=== PATIENT | male | born 1945 | race Caucasian/White ===

== ENCOUNTER 2016-08-19 18:18 | Emergency (ER) | payer MEDICAID, OTHER ==
[2016-08-19 18:18] VITALS: BMI 27.4
[2016-08-19 18:30] VITALS: BP 147/72; PULSE 84; RESP 20; TEMP 98.5; O2SAT 100
--- NOTE | 2016-08-19 18:55 | ED PDOC ---
Lower Extremity Pain/Injury Time Seen by Provider: 08/19/16 18:31 Chief Complaint (Nursing): Lower Extremity Problem/Injury Chief Complaint (Provider): Lower Extremity Problem History Per: Patient History/Exam Limitations: no limitations Onset/Duration Of Symptoms: Days (3x) Current Symptoms Are (Timing): Still Present Severity: Moderate Additional Complaint(s): 71 year old male with a pertinent medical history of diabetes, hypertension, hypercholesterolemia, and kidney failure (on dialysis) presents to the ED with complaints of left left foot swelling and pain to the pinkie toe that started 3x days ago. He denies having nausea, vomiting, diarrhea, and a fever. No numbness, tingles, weakness. No fever. No calf pain. PMD: Sulaiman Gunn MD Past Medical History Reviewed: Historical Data, Nursing Documentation, Vital Signs Vital Signs: Last Vital Signs Temp 98.5 F 08/19/16 18:24 Pulse 84 08/19/16 18:24 Resp 20 08/19/16 18:24 BP 147/72 08/19/16 18:24 Pulse Ox 100 08/19/16 18:24 - Medical History PMH: Anemia, Diabetes, HTN, Hypercholesterolemia, Hypothyroidism, Chronic Kidney Disease Denies: Arthritis, CVA, Kidney Stones - Surgical History Surgical History: Appendectomy - Family History Family History: States: Unknown Family Hx - Social History Alcohol: None Drugs: Denies - Immunization History Hx Tetanus Toxoid Vaccination: No Hx Influenza Vaccination: Yes Hx Pneumococcal Vaccination: Yes - Home Medications Home Medications: Ambulatory Orders Medication Instructions Recorded Carvedilol [Coreg] 25 mg PO DAILY 08/02/15 Levothyroxine [Synthroid] 75 mcg PO DAILY 08/02/15 Amlodipine Besylate [Norvasc] 10 mg PO DAILY 09/27/15 Atorvastatin [Lipitor] 40 mg PO DAILY 09/27/15 Calcium Acetate [Phoslo] 667 mg PO TID 09/27/15 Folic Acid/Vit B Complex and C 1 tab PO DAILY 09/27/15 [Vanessa-Naima] Tramadol HCl/Acetaminophen 1 tab PO Q6 PRN 10/02/15 [Ultracet 325 mg-37.5 mg] - Allergies Allergies/Adverse Reactions: Allergies Allergy/AdvReac Type Severity Reaction Status Date / Time No Known Allergies Allergy Verified 08/19/16 18:24 Review of Systems ROS Statement: Except As Marked, All Systems Reviewed And Found Negative Constitutional: Negative for: Fever ENT: Negative for: Nose Discharge Gastrointestinal: Negative for: Nausea, Vomiting, Abdominal Pain, Diarrhea Musculoskeletal: Positive for: Foot Pain (left toe) Physical Exam - Reviewed Nursing Documentation Reviewed: Yes Vital Signs Reviewed: Yes - Physical Exam Appears: Positive for: Well, Non-toxic, No Acute Distress Head Exam: Positive for: ATRAUMATIC, NORMOCEPHALIC Skin: Positive for: Normal Color, Warm, Dry Cardiovascular/Chest: Positive for: Regular Rate, Rhythm Respiratory: Positive for: Normal Breath Sounds. Negative for: Respiratory Distress Pulses-Dorsalis Pedis (L): 2+ Pulses-Dorsalis Pedis (R): 2+ Extremity: Positive for: Normal ROM, Tenderness, Swelling (left foot swelling, pulses are present), Other (left foot 5th digit: blisteration on medial surface and tenderness, distal. ) Neurologic/Psych: Positive for: Alert, Oriented (3x) - ECG O2 Sat by Pulse Oximetry: 100 (RA) Pulse Ox Interpretation: Normal - Radiology X-Ray: Interpreted by Me, Viewed By Me X-Ray Interpretation: No Acute Disease - Progress ED Course And Treament: 931: Stable. AAOx3. Podiatry saw pt. Fu with podiatry. Pain controlled. Ambulating. Medical Decision Making Medical Decision Makin:31 Initial impression: 71 year old male with left foot swelling and pain. Initial plan: * XRay foot left 3 view * US duplex lower extremity vein left * morphine 2mg IM * reevaluation Scribe Attestation: Documented by Krissy Naylor, acting as a scribe for Wally Arias MD. Provider Scribe Attestation: All medical record entries made by the Scribe were at my direction and personally dictated by me. I have reviewed the chart and agree that the record accurately reflects my personal performance of the history, physical exam, medical decision making, and the department course for this patient. I have also personally directed, reviewed, and agree with the discharge instructions and disposition. Disposition - Clinical Impression Clinical Impression: Ulcer of toe - Patient ED Disposition Is Patient to be Admitted: No Counseled Patient/Family Regarding: Diagnosis, Need For Followup - Disposition Referrals: Steve Plummer MD [Primary Care Provider] - 08/20/16 Bandar Hoskins DPM [Staff Provider] - 08/20/16 Disposition: Routine/Home Disposition Time: 21:32 Condition: STABLE Additional Instructions: Return if not better in 3 days. Instructions: Diabetic Foot Care (ED), Pressure Ulcer (ED) Print Language: AFGHAN
--- NOTE | 2016-08-19 20:58 | CP.PCM.CON ---
History of Present Illness - History of Present Illness History of Present Illness: Patient presents to ED due to left foot 5th digit ulceration. States he noticed the ulceration today while he was at his PCP office. Denies any pain to the area 0/10. Denies any drainage or malodor from the area. Has not sought any form of treatment before coming to ED. States he sees Dr. Borrego for routine DM foot care, and mentions history of contralateral foot infection. Denies C/N/V/ SOB, but does admit to feeling feverish at present. Review of Systems - Constitutional Constitutional: As Per HPI Past Patient History - Past Medical History & Family History Past Medical History?: Yes - Past Social History Alcohol: None Drugs: Denies - CARDIAC Hx Hypercholesterolemia: Yes Hx Hypertension: Yes - PULMONARY Hx Respiratory Disorders: No - NEUROLOGICAL Hx Neurological Disorder: No - HEENT Hx HEENT Problems: No - RENAL Hx Chronic Kidney Disease: Yes Hx Kidney Stones: No - ENDOCRINE/METABOLIC Hx Hypothyroidism: Yes - HEMATOLOGICAL/ONCOLOGICAL Hx Anemia: Yes - INTEGUMENTARY Hx Dermatological Problems: No - MUSCULOSKELETAL/RHEUMATOLOGICAL Hx Arthritis: No - GASTROINTESTINAL Hx Gastrointestinal Disorders: No - GENITOURINARY/GYNECOLOGICAL Hx Genitourinary Disorders: No - PSYCHIATRIC Hx Substance Use: No - SURGICAL HISTORY Hx Appendectomy: Yes - ANESTHESIA Hx Anesthesia: Yes Hx Anesthesia Reactions: No Hx Malignant Hyperthermia: No Meds Allergies/Adverse Reactions: Allergies Allergy/AdvReac Type Severity Reaction Status Date / Time No Known Allergies Allergy Verified 08/19/16 18:24 Physical Exam - Constitutional Appears: No Acute Distress - Extremities Exam Additional comments: LLE exam: Vascular: Dp and PT pulses 2/4, CFT <sec, temperature warm to touch B/L. Derm: Partial thickness ulceration at distal medial 5th digit measuring approximately 1.0x0.7x0.5cm, no drainage, mild malodor, no purulence, no probe to bone. Surrounding skin with adjacent erythema, warmth and edema extending < 2cm proximal. Diffuse xerosis. Neuro: Protective sensation diminished, light touch sensation intact. MSK: No gross andre deformities. - Neurological Exam Neurological exam: Alert, Oriented x3 - Additional Findings Additional findings: Left foot radiograph: No signs of soft tissue emphysema. No signs of osteomyelitis. Results - Vital Signs Recent Vital Signs: Last Vital Signs Temp 98.5 F 08/19/16 18:24 Pulse 84 08/19/16 18:24 Resp 20 08/19/16 18:24 BP 147/72 08/19/16 18:24 Pulse Ox 100 08/19/16 20:48 Assessment & Plan - Assessment and Plan (Free Text) Assessment: 71 y/o male with DM presents with left foot 5th digit ulceration. Plan: -evaluated and treated with all questions addressed and answered. -discussed with Dr. Hoskins. -hyperkeratotic ulcer borders excisonally debrided with 15-blade down to healthy bleeding dermis. -ulcer cleansed with betadine, dressed with betadine, DSD, cling. -Advised to keep bandage clean, dry and intact. -advised to follow up in one week with Dr. Hoskins. -educated on importance of routine follow up, and the risks and complications of diabetic foot infections.
--- NOTE | 2016-08-19 21:27 | US ---
EXAM: US Duplex Left Lower Extremity Veins CLINICAL HISTORY: 71 years old, male; Pain; Leg, upper; Left; Additional info: R/O dvt TECHNIQUE: Real-time ultrasound scan of the veins of the left lower extremity with color Doppler flow, spectral waveform analysis and compression. COMPARISON: No relevant prior studies available. FINDINGS: Deep veins: Normal color and spectral Doppler flow. Normal compressibility. No deep vein thrombosis from common femoral to popliteal vein. Superficial veins: No thrombosis. Soft tissues: No popliteal cyst. IMPRESSION: 1. No evidence of DVT within LEFT lower extremity. 2. Incidental/non-acute findings are described above.
--- NOTE | 2016-08-20 14:04 | RAD ---
PROCEDURE: Left Foot Radiographs. HISTORY: pain and blister toe 5 COMPARISON: None. FINDINGS: BONES: Normal. No fracture. JOINTS: Normal. SOFT TISSUES: Normal. OTHER FINDINGS: None. IMPRESSION: No acute findings related to/accounting for the clinical presentation.
== END 2016-08-19 21:50 | disposition home or self-care (01) ==
LOC: H.ER 18:18
DX: L97.529 Non-pressure chronic ulcer of other part of left foot with unspecified severity (principal); E78.00 Pure hypercholesterolemia, unspecified; I12.9 Hypertensive chronic kidney disease with stage 1 through stage 4 chronic kidney disease, or unspecified chronic kidney disease; N18.9 Chronic kidney disease, unspecified; E11.9 Type 2 diabetes mellitus without complications; E03.9 Hypothyroidism, unspecified
CPT/HCPCS: 73630; 93971; 96372; 99283; J2270

== ENCOUNTER 2017-01-26 07:18 | Inpatient (IN) | payer OTHER ==
[2017-01-26 07:19] VITALS: BMI 27.4
--- NOTE | 2017-01-26 08:22 | ED PDOC ---
HPI: SOB/CHF/COPD Time Seen by Provider: 01/26/17 07:31 Chief Complaint (Nursing): Shortness Of Breath Chief Complaint (Provider): Cough History Per: Patient History/Exam Limitations: no limitations Onset/Duration Of Symptoms: Other (4 months) Additional Complaint(s): Patient is a 71 y/o male with a past medical history of hypertension, diabetes, and hypercholesterolemia presenting to the emergency department for a persistent , dry cough ongoing for four months. Notes occasional chest pain during cough and denies taking any medication to relieve symptoms. Denies sputum, shortness of breath, fever, leg swelling, or other complaints. PCP: none provided. Past Medical History Reviewed: Historical Data, Nursing Documentation, Vital Signs Vital Signs: Last Vital Signs Temp 98.5 F 01/27/17 17:02 Pulse 89 01/27/17 17:02 Resp 16 01/27/17 17:02 BP 139/64 01/27/17 17:02 Pulse Ox 92 L 01/27/17 17:02 - Medical History PMH: Anemia, Diabetes, HTN, Hypercholesterolemia, Hypothyroidism, Chronic Kidney Disease Denies: Arthritis, CVA, Kidney Stones Other PMH: HD MWF - Surgical History Surgical History: Appendectomy - Family History Family History: States: Unknown Family Hx - Social History Current smoker - smoking cessation education provided: No Ex-Smoker (has not smoked in the last 12 months): No Alcohol: None Drugs: Denies - Immunization History Hx Tetanus Toxoid Vaccination: No Hx Influenza Vaccination: Yes Hx Pneumococcal Vaccination: Yes - Home Medications Home Medications: Ambulatory Orders Medication Instructions Recorded Allopurinol [Zyloprim] 100 mg PO DAILY 01/26/17 Aspirin [Ecotrin] 81 mg PO DAILY 01/26/17 Atorvastatin [Lipitor] 20 mg PO DAILY 01/26/17 Cilostazol [Pletal] 50 mg PO DAILY 01/26/17 Ergocalciferol (Vitamin D2) 50,000 unit PO QWK 01/26/17 [Vitamin D2] Famotidine [Pepcid] 20 mg PO DAILY 01/26/17 Levothyroxine [Synthroid] 75 mcg PO DAILY 01/26/17 SITagliptin [Januvia] 50 mg PO DAILY 01/26/17 Sevelamer Carbonate [Renvela] 1,600 mg PO TID 01/26/17 amLODIPine [Norvasc] 5 mg PO DAILY 01/26/17 - Allergies Allergies/Adverse Reactions: Allergies Allergy/AdvReac Type Severity Reaction Status Date / Time No Known Allergies Allergy Verified 01/26/17 07:32 Review of Systems ROS Statement: Except As Marked, All Systems Reviewed And Found Negative Constitutional: Negative for: Fever Cardiovascular: Positive for: Chest Pain (occasional, during cough) Respiratory: Positive for: Cough (dry, persistent). Negative for: Shortness of Breath Musculoskeletal: Negative for: Other (leg swelling) Physical Exam - Reviewed Nursing Documentation Reviewed: Yes Vital Signs Reviewed: Yes - Physical Exam Appears: Positive for: Well, Non-toxic, No Acute Distress Head Exam: Positive for: ATRAUMATIC, NORMAL INSPECTION, NORMOCEPHALIC Skin: Positive for: Normal Color, Warm, Dry Eye Exam: Positive for: Normal appearance ENT: Positive for: Normal ENT Inspection Neck: Positive for: Normal Cardiovascular/Chest: Positive for: Regular Rate, Rhythm. Negative for: Murmur Respiratory: Positive for: Normal Breath Sounds. Negative for: Accessory Muscle Use, Respiratory Distress Gastrointestinal/Abdominal: Positive for: Normal Exam Back: Positive for: Normal Inspection Extremity: Positive for: Normal ROM. Negative for: Pedal Edema Neurologic/Psych: Positive for: Alert, Oriented (x3) - Laboratory Results Result Diagrams: 01/26/17 08:36 01/27/17 04:20 - ECG ECG: Positive for: Interpreted By Me, Viewed By Ct ECG Rhythm: Positive for: Normal QRS, Sinus Rhythm. Negative for: ST/T Changes Rate: 100 O2 Sat by Pulse Oximetry: 98 (RA) Pulse Ox Interpretation: Normal Medical Decision Making Medical Decision Making: Time: 08:18 Initial impression: Cough Differential diagnoses include but not limited to chronic obstructive pulmonary disease and pneumonia. Initial plan: EKG Labs Chest X-ray Blood Culture Reevaluation 09:03 Chest X-ray reviewed. Findings noted as follows: FINDINGS: Prior right central venous dialysis catheter is been removed. LUNGS: Trace patchy density is question at the bilateral inferior lung zones. PLEURA: No significant pleural effusion identified. No pneumothorax apparent. CARDIOVASCULAR: Cardiac silhouette appears upper limits normal size with mild pulmonary venous congestion pattern suggested. Interstitial markings are increased at the bases very mildly. OSSEOUS STRUCTURES: No significant abnormalities. VISUALIZED UPPER ABDOMEN: Normal. OTHER FINDINGS: None. IMPRESSION: 1. Limited bilateral airspace disease in question at the bases medially. 2. Mild pulmonary venous congestion suggested. Cardiac size upper limits normal. Further clinical correlation is advised. 10:[address] without contrast ordered. 11:54 Placed consult for nephrology. Chest CT reviewed. Findings noted as follows: LUNGS: Ground-glass opacities appreciated at the upper and lower lobes very mildly and also affects the right middle lobe somewhat as well as dependent interlobular septal thickening, particularly at the bilateral lower lobes. MEDIASTINUM: Unremarkable thoracic aorta. No aneurysm. There is mild cardiomegaly and the pulmonary veins appear somewhat dilated compared to the substance abuse specialist airways in a pattern that may indicate CHF. Main pulmonary artery unremarkable. Mild left hilar adenopathy including lymph node measuring 2.1 x 0.8 cm. PLEURA: Trace left pleural effusion. None is seen the right. No pericardial effusion. No pneumothorax. BONES: No fracture. No destructive lesion. UPPER ABDOMEN: Nonspecific streaky perinephric changes are identified bilaterally. OTHER FINDINGS: None. IMPRESSION: Findings likely reflect mild CHF though interstitial pulmonary disease not completely excluded on acute or subacute basis. No definitive alveolitis. Mild left hilar adenopathy. Cardiomegaly is noted as discussed above. [id number] Santana who will arrange for emergent dialysis. Scribe Attestation: Documented by Susan Gastelum, acting as a scribe for Juhi Sanchez MD. Provider Scribe Attestation: All medical record entries made by the Scribe were at my direction and personally dictated by me. I have reviewed the chart and agree that the record accurately reflects my personal performance of the history, physical exam, medical decision making, and the department course for this patient. I have also personally directed, reviewed, and agree with the discharge instructions and disposition. Disposition - Clinical Impression Clinical Impression: Acute on chronic renal failure, Hyperkalemia - Patient ED Disposition Is Patient to be Admitted: Yes Discussed With : Chloe Espinoza Counseled Patient/Family Regarding: Studies Performed, Diagnosis - Disposition Disposition Time: 11:39 Condition: FAIR - Pt Status Changed To: Hospital Disposition Of: Inpatient - Admit Certification Admit to Inpatient:: After my assessment, the patient will require hospitalization for at least two midnights. This is because of the severity of symptoms shown, intensity of services needed, and/or the medical risk in this patient being treated as an outpatient. - POA Present On Arrival: Poor Glycemic Control
[2017-01-26 08:47] LABS: BASO % 0.5 % (0.0-2.0); EOS # 0.1 K/uL (0.0-0.7); EOS % 1.4 % (0.0-4.0); HEMATOCRIT 32.9 % (35.0-51.0); LYMPH # 0.8 K/uL (1.0-4.3); MEAN CORPUSCULAR HGB CONC 32.2 g/dL (33.0-37.0); MEAN PLATELET VOLUME 9.4 fl (7.2-11.7); MONO # 0.8 K/uL (0.0-0.8); MONO % 8.3 % (0.0-10.0); NEUT # 7.4 K/uL (1.8-7.0); NEUT % 80.8 % (50.0-75.0); PLATELET COUNT 135 K/uL (130-400)
[2017-01-26 08:55] LABS: CALCIUM 9.7 mg/dL (8.4-10.2)
[2017-01-26 08:59] LABS: WHITE BLOOD COUNT 9.2 K/uL (4.8-10.8)
--- NOTE | 2017-01-26 09:04 | RAD ---
HISTORY: cough COMPARISON: Chest radiographs 09/27/2015. TECHNIQUE: Chest PA and lateral FINDINGS: Prior right central venous dialysis catheter is been removed. LUNGS: Trace patchy density is question at the bilateral inferior lung zones. PLEURA: No significant pleural effusion identified. No pneumothorax apparent. CARDIOVASCULAR: Cardiac silhouette appears upper limits normal size with mild pulmonary venous congestion pattern suggested. Interstitial markings are increased at the bases very mildly. OSSEOUS STRUCTURES: No significant abnormalities. VISUALIZED UPPER ABDOMEN: Normal. OTHER FINDINGS: None. IMPRESSION: 1. Limited bilateral airspace disease in question at the bases medially. 2. Mild pulmonary venous congestion suggested. Cardiac size upper limits normal. Further clinical correlation is advised.
[2017-01-26 09:05] LABS: POTASSIUM 6.4 MMOL/L (3.6-5.0)
[2017-01-26] MEDS ORDERED: Albuterol 0.083% Inhal Sol (2.5 mg/3 mL) UD INH STA (10:20)
[2017-01-26] MEDS ORDERED: Dextrose 50% SYRINGE Inj (50 ml) IVP ONE (10:20)
[2017-01-26] MEDS ORDERED: Insulin Regular 100 units/ml IV STA (10:20)
[2017-01-26] MEDS ORDERED: Sod Polystyrene Sulf 15 gm/60 ml Susp PO ONE (10:21)
[2017-01-26] MEDS ORDERED: cefTRIAXone IV 1 gm in Dextros 50 ML IVPB STA (11:47)
--- NOTE | 2017-01-26 11:55 | CT ---
PROCEDURE: CT Chest without contrast HISTORY: cough chest pain COMPARISON: Chest CT with contrast 05/04/2012. TECHNIQUE: Contiguous axial images were obtained through the chest without intravenous contrast enhancement. Sagittal and coronal reconstructions were performed. Radiation dose (DLP): 684.10 mGy-cm. This CT exam was performed using one or more of the following dose reduction techniques: Automated exposure control, adjustment of the mA and/or kV according to patient size, and/or use of iterative reconstruction technique. FINDINGS: LUNGS: Ground-glass opacities appreciated at the upper and lower lobes very mildly and also affects the right middle lobe somewhat as well as dependent interlobular septal thickening, particularly at the bilateral lower lobes. MEDIASTINUM: Unremarkable thoracic aorta. No aneurysm. There is mild cardiomegaly and the pulmonary veins appear somewhat dilated compared to the early head start director airways in a pattern that may indicate CHF. Main pulmonary artery unremarkable. Mild left hilar adenopathy including lymph node measuring 2.1 x 0.8 cm. PLEURA: Trace left pleural effusion. None is seen the right. No pericardial effusion. No pneumothorax. BONES: No fracture. No destructive lesion. UPPER ABDOMEN: Nonspecific streaky perinephric changes are identified bilaterally. OTHER FINDINGS: None. IMPRESSION: Findings likely reflect mild CHF though interstitial pulmonary disease not completely excluded on acute or subacute basis. No definitive alveolitis. Mild left hilar adenopathy. Cardiomegaly is noted as discussed above.
[2017-01-26] MEDS ORDERED: Azithromycin 500 MG in Sodium Chloride 0.9% 250 ML IVPB STA (12:28)
[2017-01-26 12:39] LABS: EOSINOPHIL 1 % (0-7); NEUTROPHIL 83 % (42-75); TOTAL CELLS COUNTED 100
[2017-01-26 12:40] LABS: LARGE PLATELETS PRESENT; SPHEROCYTES SLIGHT
[2017-01-26] MEDS ORDERED: Ergocalciferol 50,000 Intl Units Cap PO SCH (13:15)
--- NOTE | 2017-01-26 14:45 | CP.PCM.HP ---
History of Present Illness - History of Present Illness History of Present Illness: 71 y/o with PMHx of Diabetes, HTN, Hypercholesterolemia, Hypothyroidism, Chronic Kidney Disease seen at bedside complaining of persistent, dry cough ongoing for few months. Patient states that he sometimes feels pain in his chest when he coughs. Patient states that he has not seen any sputum production with the coughs. Patient denies of any recent onset of F/N/V/C/SOB. Patient states that he came to get the x-rays in the ED and they asked him to get admitted from there. Patient states that he has been admitted to the hospital previously for reasons for which he can not remember. Patient states that he gets dialysis 3 times a week and was suppose to receive it today but has not had it yet. Patient denies of any recent headache or upper respiratory symptoms. Patient denies of any other complains at this time. 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 Allergies: N.K.D.A SHx: Denies smoking, EtOH use or illicit drug usage FHx: Father: Heart condition (), Mother: Diabetes (), history of unknown cancer in family Present on Admission - Present on Admission Any Indicators Present on Admission: Yes Review of Systems - Constitutional Constitutional: As Per HPI Past Patient History - Past Medical History & Family History Past Medical History?: Yes - Past Social History Alcohol: None Drugs: Denies - CARDIAC Hx Hypercholesterolemia: Yes Hx Hypertension: Yes - PULMONARY Hx Respiratory Disorders: No - NEUROLOGICAL Hx Neurological Disorder: No - HEENT Hx HEENT Problems: No - RENAL Hx Chronic Kidney Disease: Yes Hx Kidney Stones: No - ENDOCRINE/METABOLIC Hx Diabetes Mellitus Type 2: Yes Hx Hypothyroidism: Yes - HEMATOLOGICAL/ONCOLOGICAL Hx Anemia: Yes - INTEGUMENTARY Hx Dermatological Problems: No - MUSCULOSKELETAL/RHEUMATOLOGICAL Hx Arthritis: No - GASTROINTESTINAL Hx Gastrointestinal Disorders: No - GENITOURINARY/GYNECOLOGICAL Hx Genitourinary Disorders: No - PSYCHIATRIC Hx Psychophysiologic Disorder: No Hx Emotional Abuse: No Hx Physical Abuse: No Hx Substance Use: No - SURGICAL HISTORY Hx Appendectomy: Yes - ANESTHESIA Hx Anesthesia: Yes Hx Anesthesia Reactions: No Hx Malignant Hyperthermia: No Meds Allergies/Adverse Reactions: Allergies Allergy/AdvReac Type Severity Reaction Status Date / Time No Known Allergies Allergy Verified 01/26/17 07:32 Physical Exam - Constitutional Appears: Well - Head Exam Head Exam: ATRAUMATIC - Eye Exam Eye Exam: EOMI, Normal appearance - ENT Exam ENT Exam: Mucous Membranes Moist - Neck Exam Neck exam: Positive for: Full Rom, Normal Inspection - Respiratory Exam Respiratory Exam: Clear to Auscultation Bilateral, NORMAL BREATHING PATTERN - Cardiovascular Exam Cardiovascular Exam: Tachycardia, REGULAR RHYTHM - GI/Abdominal Exam GI & Abdominal Exam: Normal Bowel Sounds, Soft - Extremities Exam Extremities exam: Positive for: full ROM, normal capillary refill, normal inspection, pedal edema - Back Exam Back exam: FULL ROM, NORMAL INSPECTION - Neurological Exam Neurological exam: Alert, Oriented x3 - Psychiatric Exam Psychiatric exam: Normal Affect, Normal Mood - Skin Skin Exam: Intact, Normal Color, Warm Results - Vital Signs Recent Vital Signs: Last Vital Signs Temp 97 F L 01/26/17 12:20 Pulse 100 H 01/26/17 12:29 Resp 19 01/26/17 12:17 BP 170/80 H 01/26/17 12:20 Pulse Ox 98 01/26/17 12:29 - Labs Result Diagrams: 01/26/17 08:36 01/26/17 09:41 Labs: Laboratory Results - last 24 hr 01/26/17 01/26/17 01/26/17 08:36 08:36 09:41 WBC 9.2 D RBC 3.54 L Hgb 10.6 L Hct 32.9 L MCV 93.0 D MCH 30.0 MCHC 32.2 L RDW 17.0 H Plt Count 135 MPV 9.4 Neut % (Auto) 80.8 H Lymph % (Auto) 9.0 L [place] % (Auto) 8.3 Eos % (Auto) 1.4 Baso % (Auto) 0.5 Neut # 7.4 H Lymph # 0.8 L [place] # 0.8 Eos # 0.1 Baso # 0.0 Neutrophils % (Manual) 83 H Lymphocytes % (Manual) 8 L Monocytes % (Manual) 8 Eosinophils % (Manual) 1 Platelet Estimate Slightly decreased L Large Platelets Present Anisocytosis (manual) Slight Macrocytosis (manual) Slight Spherocytes Slight Ovalocytes Moderate Sodium 140 Potassium 6.4 H* D 6.1 H Chloride 100 Carbon Dioxide 25 Anion Gap 21 H BUN 65 H Creatinine 10.8 H* Est GFR ( Amer) 6 Est GFR (Non-Af Amer) 5 Random Glucose 148 H Calcium 9.7 Assessment & Plan - Assessment and Plan (Free Text) Assessment: 71 y/o with PMHx of Diabetes, HTN, Hypercholesterolemia, Hypothyroidism, Chronic Kidney Disease seen and evaluated for hyperkalemia and dry cough Plan: 1). Hyperkalemia - ECG done in the ED - Normal QRS, sinus rhythm - CXR: -1. Limited bilateral airspace disease in question at the bases medially. -2. Mild pulmonary venous congestion suggested. Cardiac size upper limits normal. Further clinical correlation is advised - Chest CT: - Findings likely reflect mild CHF though interstitial pulmonary disease not completely excluded on acute or subacute basis. No definitive alveolitis. Mild left hilar adenopathy. Cardiomegaly is noted. - Monitor BMP - K @ 6.1 - Calcium gluconate IV - Dialysis later today - Status: Acute 2). Dry cough - d/c BARBARA inhibitor, cough possibly due to BARBARA inhibitors - Status: Chronic 3). Diabetes - Sitagliptin 25 mg PO qd - Status: Chronic 4). HTN - Amlodipine 5 mg PO qd - Status: Chronic 5). Hypercholesterolemia - Atorvastatin 20 mg PO - Status: Chronic 6). Hypothyroidism - Levothyroxine 75 mcg PO qd - Status: Chronic 7). DVT Prophylaxis - Heparin 5000 q12 SC - Status: Acute - Date & Time Date: 01/26/17 Time: 14:50
--- NOTE | 2017-01-26 17:31 | CP.PCM.CON ---
History of Present Illness - History of Present Illness History of Present Illness: REASONS FOR CONSULT : ESRD ON HD M W F HYPERKALEMIA .. K 6.1 FLIUD OVER LOAD .. BNP > 42.000 ANEMIA OF CKD .. H/H STABLE PT IS WELL KNOWN TO ME FROM OFFICE , [facility] ALL EMR REVIEWED .. PT WAS SEEN ON HD .. SEEN AND EXAMINED 71 y/o with PMHx of Diabetes, HTN, Hypercholesterolemia, Hypothyroidism, Chronic Kidney Disease seen at bedside complaining of persistent, dry cough ongoing for few months. Patient states that he sometimes feels pain in his chest when he coughs. Patient states that he has not seen any sputum production with the coughs. Patient denies of any recent onset of F/N/V/C/SOB. Patient states that he came to get the x-rays in the ED and they asked him to get admitted from there. Patient states that he has been admitted to the hospital previously for reasons for which he can not remember. Patient states that he gets dialysis 3 times a week and was suppose to receive it today but has not had it yet. Patient denies of any recent headache or upper respiratory symptoms. Patient denies of any other complains at this time. 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 Allergies: N.K.D.A SHx: Denies smoking, EtOH use or illicit drug usage FHx: Father: Heart condition (), Mother: Diabetes (), history of unknown cancer in family Present on Admission Past Patient History - Past Medical History & Family History Past Medical History?: Yes - Past Social History Alcohol: None Drugs: Denies - CARDIAC Hx Hypercholesterolemia: Yes Hx Hypertension: Yes - PULMONARY Hx Respiratory Disorders: No - NEUROLOGICAL Hx Neurological Disorder: No - HEENT Hx HEENT Problems: No - RENAL Hx Chronic Kidney Disease: Yes Hx Kidney Stones: No - ENDOCRINE/METABOLIC Hx Diabetes Mellitus Type 2: Yes Hx Hypothyroidism: Yes - HEMATOLOGICAL/ONCOLOGICAL Hx Anemia: Yes - INTEGUMENTARY Hx Dermatological Problems: No - MUSCULOSKELETAL/RHEUMATOLOGICAL Hx Arthritis: No - GASTROINTESTINAL Hx Gastrointestinal Disorders: No - GENITOURINARY/GYNECOLOGICAL Hx Genitourinary Disorders: No - PSYCHIATRIC Hx Psychophysiologic Disorder: No Hx Emotional Abuse: No Hx Physical Abuse: No Hx Substance Use: No - SURGICAL HISTORY Hx Appendectomy: Yes - ANESTHESIA Hx Anesthesia: Yes Hx Anesthesia Reactions: No Hx Malignant Hyperthermia: No Meds Allergies/Adverse Reactions: Allergies Allergy/AdvReac Type Severity Reaction Status Date / Time No Known Allergies Allergy Verified 01/26/17 07:32 - Medications Medications: Current Medications Allopurinol (Zyloprim) 100 mg PO DAILY [facility] Amlodipine Besylate (Norvasc) 5 mg PO DAILY [facility] Aspirin (Ecotrin) 81 mg PO DAILY [facility] Atorvastatin Calcium (Lipitor) 20 mg PO HS [facility] Cilostazol (Pletal) 50 mg PO DAILY [facility] Ergocalciferol (Drisdol 50,000 Intl Units Cap) 1 cap PO QWK [facility] Famotidine (Pepcid) 20 mg PO DAILY [facility] Heparin Sodium (Porcine) (Heparin) 5,000 units SC Q12 [facility] PRN Reason: Protocol Levothyroxine Sodium (Synthroid) 75 mcg PO DAILY@0630 [facility] Sevelamer HCl (Renagel) 1,600 mg PO TID [facility] Last Admin: 01/26/17 17:03 Dose: Not Given Sitagliptin Phosphate (Januvia) 25 mg PO DAILY [facility] Last Admin: 01/26/17 17:03 Dose: Not Given Results - Vital Signs Recent Vital Signs: Last Vital Signs Temp 99.8 F H 01/26/17 15:57 Pulse 98 H 01/26/17 15:57 Resp 20 01/26/17 15:57 BP 162/82 H 01/26/17 15:57 Pulse Ox 99 01/26/17 15:57 - Labs Result Diagrams: 01/26/17 08:36 01/26/17 09:41 Labs: Laboratory Results - last 24 hr 01/26/17 01/26/17 01/26/17 08:36 08:36 09:41 WBC 9.2 D RBC 3.54 L Hgb 10.6 L Hct 32.9 L MCV 93.0 D MCH 30.0 MCHC 32.2 L RDW 17.0 H Plt Count 135 MPV 9.4 Neut % (Auto) 80.8 H Lymph % (Auto) 9.0 L Luce % (Auto) 8.3 Eos % (Auto) 1.4 Baso % (Auto) 0.5 Neut # 7.4 H Lymph # 0.8 L Luce # 0.8 Eos # 0.1 Baso # 0.0 Neutrophils % (Manual) 83 H Lymphocytes % (Manual) 8 L Monocytes % (Manual) 8 Eosinophils % (Manual) 1 Platelet Estimate Slightly decreased L Large Platelets Present Anisocytosis (manual) Slight Macrocytosis (manual) Slight Spherocytes Slight Ovalocytes Moderate APTT Sodium 140 Potassium 6.4 H* D 6.1 H Chloride 100 Carbon Dioxide 25 Anion Gap 21 H BUN 65 H Creatinine 10.8 H* Est GFR ( Amer) 6 Est GFR (Non-Af Amer) 5 Random Glucose 148 H Calcium 9.7 NT-Pro-B Natriuret Pep 06656 H 01/26/17 14:00 WBC RBC Hgb Hct MCV MCH MCHC RDW Plt Count MPV Neut % (Auto) Lymph % (Auto) Luce % (Auto) Eos % (Auto) Baso % (Auto) Neut # Lymph # Luce # Eos # Baso # Neutrophils % (Manual) Lymphocytes % (Manual) Monocytes % (Manual) Eosinophils % (Manual) Platelet Estimate Large Platelets Anisocytosis (manual) Macrocytosis (manual) Spherocytes Ovalocytes APTT 28.0 Sodium Potassium Chloride Carbon Dioxide Anion Gap BUN Creatinine Est GFR ( Amer) Est GFR (Non-Af Amer) Random Glucose Calcium NT-Pro-B Natriuret Pep Assessment & Plan - Assessment and Plan (Free Text) Assessment: ESRD ON HD M W F .. GETTING HIS HD NOW HYPERKALEMIA .. ON HD NOW FLIUD OVER LOAD .. ON HD NOW .. UF 4 L SONJA MULTIPLE CO MORBIDITIES P : STAT HD .. PT IS GETTING HD NOW C/O CURRENT CARE - Date & Time Date: 01/26/17 Time: 13:00
[2017-01-26 19:21] LABS: ALB/GLOB RATIO 1.2 (1.0-2.1); BILIRUBIN,TOTAL 0.6 mg/dl (0.2-1.3); CALCIUM 9.6 mg/dL (8.4-10.2); TOTAL PROTEIN 8.1 G/DL (6.3-8.2)
[2017-01-26 19:53] LABS: POTASSIUM 3.8 MMOL/L (3.6-5.0)
[2017-01-27] MEDS ORDERED: Levothyroxine 75 MCG TAB PO SCH (06:30)
[2017-01-27 07:03] LABS: POTASSIUM 4.8 MMOL/L (3.6-5.0)
--- NOTE | 2017-01-27 08:07 | CP.PCM.PN ---
Subjective - Date & Time of Evaluation Date of Evaluation: 01/27/17 Time of Evaluation: 08:05 - Subjective Subjective: 71 y/o male seen and evaluated 1 day s/p dialysis. Patient states that he is feeling a lot better. Patient states that he had little pain in his stomach before the dialysis which has been resolved now. Patient denies of any acute overnight events. Patient denies of any F/N/V/C/shortness of breath/chest pain/ headache/coughing today. Patient denies of any other complains at this time and states that he feels well. Objective - Vital Signs/Intake and Output Vital Signs (last 24 hours): Temp Pulse Resp BP Pulse Ox 98.2 F 95 H 18 129/62 92 L 01/27/17 05:06 01/27/17 05:06 01/27/17 05:06 01/27/17 05:06 01/27/17 05:06 - Medications Medications: Current Medications Acetaminophen (Tylenol 325mg Tab) 650 mg PO Q6 PRN PRN Reason: Fever >100.4 F Last Admin: 01/26/17 21:04 Dose: 650 mg Allopurinol (Zyloprim) 100 mg PO DAILY [facility] Amlodipine Besylate (Norvasc) 5 mg PO DAILY [facility] Aspirin (Ecotrin) 81 mg PO DAILY [facility] Atorvastatin Calcium (Lipitor) 20 mg PO HS [facility] Last Admin: 01/26/17 21:04 Dose: 20 mg Cilostazol (Pletal) 50 mg PO DAILY [facility] Ergocalciferol (Drisdol 50,000 Intl Units Cap) 1 cap PO QWK [facility] Famotidine (Pepcid) 20 mg PO DAILY [facility] Heparin Sodium (Porcine) (Heparin) 5,000 units SC Q12 [facility] PRN Reason: Protocol Last Admin: 01/26/17 21:04 Dose: 5,000 units Levothyroxine Sodium (Synthroid) 75 mcg PO DAILY@0630 [facility] Last Admin: 01/27/17 06:13 Dose: 75 mcg Sevelamer HCl (Renagel) 1,600 mg PO TID [facility] Last Admin: 01/26/17 17:03 Dose: Not Given Sitagliptin Phosphate (Januvia) 25 mg PO DAILY [facility] Last Admin: 01/26/17 17:03 Dose: Not Given - Labs Labs: 01/26/17 08:36 01/27/17 04:20 APTT 28.0 Seconds (25.6-37.1) 01/26/17 14:00 - Constitutional Appears: Well, Non-toxic, No Acute Distress - Head Exam Head Exam: ATRAUMATIC - Eye Exam Eye Exam: EOMI, Normal appearance - ENT Exam ENT Exam: Mucous Membranes Moist, Normal Exam - Neck Exam Neck Exam: Full ROM, Normal Inspection - Respiratory Exam Respiratory Exam: Clear to Ausculation Bilateral, NORMAL BREATHING PATTERN - Cardiovascular Exam Cardiovascular Exam: Tachycardia - GI/Abdominal Exam GI & Abdominal Exam: Soft, Normal Bowel Sounds - Extremities Exam Extremities Exam: Full ROM, Normal Capillary Refill, Normal Inspection. absent : Calf Tenderness, Pedal Edema - Neurological Exam Neurological Exam: Alert, Awake, Oriented x3 - Psychiatric Exam Psychiatric exam: Normal Affect, Normal Mood - Skin Skin Exam: Dry, Intact, Normal Color, Warm Assessment and Plan - Assessment and Plan (Free Text) Assessment: 71 y/o with PMHx of Diabetes, HTN, Hypercholesterolemia, Hypothyroidism, Chronic Kidney Disease seen and evaluated for hyperkalemia and dry cough Plan: 1). Hyperkalemia - ECG done in the ED - Normal QRS, sinus rhythm - CXR: -1. Limited bilateral airspace disease in question at the bases medially. -2. Mild pulmonary venous congestion suggested. Cardiac size upper limits normal. Further clinical correlation is advised - Chest CT: - Findings likely reflect mild CHF though interstitial pulmonary disease not completely excluded on acute or subacute basis. No definitive alveolitis. Mild left hilar adenopathy. Cardiomegaly is noted. - Calcium gluconate IV one dose on 01/26 - Monitor BMP - K @ 4.8 (yesterday, prior to dialysis @ 6.1) - Dialysis on 01/26 - Dr. Santana on board. Well known patient to him. Patient to receive HD M W F. - Status: Acute 2). Dry cough - d/c BARBARA inhibitor, cough possibly due to BARBARA inhibitors - Status: Resolved 3). Diabetes - Sitagliptin 25 mg PO qd - Status: Chronic 4). HTN - Amlodipine 5 mg PO qd - Status: Chronic 5). Hypercholesterolemia - Atorvastatin 20 mg PO - Status: Chronic 6). Hypothyroidism - Levothyroxine 75 mcg PO qd - Status: Chronic 7). DVT Prophylaxis - Heparin 5000 q12 SC - Status: Acute
--- NOTE | 2017-01-27 08:32 | CARD ---
APPROVED REPORT EKG Measurement Heart [id number] [id number] <Conclusion> Normal sinus rhythm Nonspecific ST abnormality Abnormal ECG
[2017-01-27] MEDS ORDERED: Cilostazol 50 mg Tab UD PO SCH (09:00)
[2017-01-27] MEDS ORDERED: Perflutren Lipid Microsphere 1.5 ML SUS IV ONE (12:21)
--- NOTE | 2017-01-27 13:44 | CARD ---
APPROVED REPORT EXAM: Two-dimensional and M-mode echocardiogram with Doppler, color Doppler with contrast. Other Information Quality : GoodRhythm : NSR INDICATION Cardiac Disease: CAD 2D DIMENSIONS IVSd0.93 (0.7-1.1cm)LVDd5.52 (3.9-5.9cm) LVOT Diameter2.51 (1.8-2.4cm)PWd1.08 (0.7-1.1cm) IVSs0.98 (0.8-1.2cm)LVDs4.52 (2.5-4.0cm) FS (%) 18.2 %PWs1.39 (0.8-1.2cm) M-Mode DIMENSIONS Left Atrium (MM)5.47 (2.5-4.0cm)IVSd0.94 (0.7-1.1cm) Aortic Root3.44 (2.2-3.7cm)LVDd6.31 (4.0-5.6cm) Aortic Cusp Exc.2.03 (1.5-2.0cm)PWd1.16 (0.7-1.1cm) IVSs1.19 cmFS (%) 30 % LVDs4.44 (2.0-3.8cm)PWs1.69 cm Mitral Valve MV E Cscyxxdw28.5cm/sMV DECEL [id number] A Fvbelagm82.6cm/s MV [id number]/A ratio1.0MVA (PHT)4.21cm2 TDI Lateral E' Peak V10.92cm/sMedial E' Peak V8.88cm/sE/Lateral E'7.7 E/Medial E'9.5 Pulmonary Valve PV Peak Gtnqzdoj567.6cm/s Tricuspid Valve TR Peak Hnyogsri657bd/sRAP [id number] Peak Gr.31mmHg [id number] LEFT VENTRICLE The Left Ventricle is mildly dilated. There is normal left ventricular wall thickness. Left ventricle systolic function is moderately impaired. The Ejection Fraction is 30-35%. Generalised moderate hypokinesia Transmitral Doppler flow pattern is Grade I-abnormal relaxation pattern. RIGHT VENTRICLE The right ventricle is normal size. There is normal right ventricular wall thickness. The right ventricular systolic function is normal. ATRIA The left atrium is mildly dilated. The right atrium size is normal. AORTIC VALVE The aortic valve is normal in structure and function. No aortic regurgitation is present. There is no aortic valvular stenosis. MITRAL VALVE The mitral valve is normal in structure. There is no evidence of mitral valve prolapse. There is no mitral valve stenosis. Mitral regurgitation is mild to moderate. TRICUSPID VALVE The tricuspid valve is normal in structure. There is trace to mild tricuspid regurgitation. Right ventricular systolic pressure is estimated at 42 mmHg. There is mild-moderate pulmonary hypertension. PULMONIC VALVE The pulmonary valve is normal in structure and function. There is no pulmonic valvular regurgitation. GREAT VESSELS The aortic root is normal in size. The IVC is normal in size and collapses >50% with inspiration. PERICARDIAL EFFUSION The pericardium appears normal. <Conclusion> Echo enhancement was used to identify endocardial surface and cevaluate LV segmental wall motion. The Left Ventricle is mildly dilated. There is normal left ventricular wall thickness. Generalised moderate hypokinesia Left ventricle systolic function is moderately impaired. The Ejection Fraction is 30-35%. Transmitral Doppler flow pattern is Grade I-abnormal relaxation pattern. Mitral regurgitation is mild to moderate. There is trace to mild tricuspid regurgitation. There is mild-moderate pulmonary hypertension.
[2017-01-27 17:02] VITALS: BP 139/64; RESP 16; TEMP 98.5
--- NOTE | 2017-01-27 18:18 | CP.PCM.PN ---
Subjective - Date & Time of Evaluation Date of Evaluation: 01/27/17 Time of Evaluation: 14:00 - Subjective Subjective: SEEN ON RENAL F/U FEELS MUCH IMPROVED HAD STAT HD FOR HYPERKALEMIA AND FLUID OVERLOAD FULLY A @ O .. IN NAD ALL PREVIOUS EMR REVIEWED Objective - Vital Signs/Intake and Output Vital Signs (last 24 hours): Temp Pulse Resp BP Pulse Ox 98.5 F 89 16 139/64 92 L 01/27/17 17:02 01/27/17 17:02 01/27/17 17:02 01/27/17 17:02 01/27/17 17:02 - Labs Labs: 01/26/17 08:36 01/27/17 04:20 APTT 28.0 Seconds (25.6-37.1) 01/26/17 14:00 Assessment and Plan - Assessment and Plan (Free Text) Assessment: ESRD .. F OVERLOAD .. HYPERKALEMIA .. ALL RESPONDED WELL TO HD MULTILE CO MORBIDITIES P : C/O CURRENT CARE STABLE FROM RENAL STANDPOINT
[2017-01-27 19:46] VITALS: PULSE 100; O2SAT 98
--- NOTE | 2017-01-28 07:27 | CP.PCM.DIS ---
Provider - Provider Date of Admission: 01/26/17 11:39 Attending physician: Regi Garcia MD Time Spent in preparation of Discharge (in minutes): 20 Hospital Course - Lab Results Lab Results: Micro Results 01/26/17 08:32 Blood Blood Culture - Preliminary NO GROWTH AFTER 24 HOURS Most Recent Lab Values WBC 9.2 K/uL (4.8-10.8) D 01/26/17 08:36 RBC 3.54 Mil/uL (4.40-5.90) L 01/26/17 08:36 Hgb 10.6 g/dL (12.0-18.0) L 01/26/17 08:36 Hct 32.9 % (35.0-51.0) L 01/26/17 08:36 MCV 93.0 fl (80.0-94.0) D 01/26/17 08:36 MCH 30.0 pg (27.0-31.0) 01/26/17 08:36 MCHC 32.2 g/dL (33.0-37.0) L 01/26/17 08:36 RDW 17.0 % (11.5-14.5) H 01/26/17 08:36 Plt Count 135 K/uL (130-400) 01/26/17 08:36 MPV 9.4 fl (7.2-11.7) 01/26/17 08:36 Neut % (Auto) 80.8 % (50.0-75.0) H 01/26/17 08:36 Lymph % (Auto) 9.0 % (20.0-40.0) L 01/26/17 08:36 [place] % (Auto) 8.3 % (0.0-10.0) 01/26/17 08:36 Eos % (Auto) 1.4 % (0.0-4.0) 01/26/17 08:36 Baso % (Auto) 0.5 % (0.0-2.0) 01/26/17 08:36 Neut # 7.4 K/uL (1.8-7.0) H 01/26/17 08:36 Lymph # 0.8 K/uL (1.0-4.3) L 01/26/17 08:36 [place] # 0.8 K/uL (0.0-0.8) 01/26/17 08:36 Eos # 0.1 K/uL (0.0-0.7) 01/26/17 08:36 Baso # 0.0 K/uL (0.0-0.2) 01/26/17 08:36 Neutrophils % (Manual) 83 % (42-75) H 01/26/17 08:36 Lymphocytes % (Manual) 8 % (20-50) L 01/26/17 08:36 Monocytes % (Manual) 8 % (0-10) 01/26/17 08:36 Eosinophils % (Manual) 1 % (0-7) 01/26/17 08:36 Platelet Estimate Slightly decreased (NORMAL) L 01/26/17 08:36 Large Platelets Present 01/26/17 08:36 Anisocytosis (manual) Slight 01/26/17 08:36 Macrocytosis (manual) Slight 01/26/17 08:36 Spherocytes Slight 01/26/17 08:36 Ovalocytes Moderate 01/26/17 08:36 APTT 28.0 Seconds (25.6-37.1) 01/26/17 14:00 Sodium 139 mmol/l (132-148) 01/27/17 04:20 Potassium 4.8 MMOL/L (3.6-5.0) 01/27/17 04:20 Chloride 99 mmol/L (98-107) 01/27/17 04:20 Carbon Dioxide 30 mmol/L (22-30) 01/27/17 04:20 Anion Gap 15 (10-20) 01/27/17 04:20 BUN 40 mg/dl (9-20) H 01/27/17 04:20 Creatinine 8.2 mg/dL (0.8-1.5) H* D 01/27/17 04:20 Est GFR ( Amer) 8 01/27/17 04:20 Est GFR (Non-Af Amer) 7 01/27/17 04:20 POC Glucose (mg/dL) 187 mg/dL (65-110) H 01/26/17 21:37 Random Glucose 118 mg/dL (75-110) H 01/27/17 04:20 Calcium 9.0 mg/dL (8.4-10.2) 01/27/17 04:20 Total Bilirubin 0.6 mg/dl (0.2-1.3) 01/26/17 19:03 AST 28 U/L (17-59) 01/26/17 19:03 ALT 20 U/L (21-72) L D 01/26/17 19:03 Alkaline Phosphatase 86 U/L (38-126) 01/26/17 19:03 NT-Pro-B Natriuret Pep 11380 pg/ml (0-900) H 01/26/17 08:36 Total Protein 8.1 G/DL (6.3-8.2) 01/26/17 19:03 Albumin 4.5 g/dL (3.5-5.0) 01/26/17 19:03 Globulin 3.6 gm/dL (2.2-3.9) 01/26/17 19:03 Albumin/Globulin Ratio 1.2 (1.0-2.1) 01/26/17 19:03 - Hospital Course Hospital Course: 71 y/o male with PMHx of Diabetes, HTN, Hypercholesterolemia, Hypothyroidism, Chronic Kidney Disease was admitted to the hospital for hyperkalemia and dry cough. Patient's potassium levels were elevated at the time of his admission. Patient was taken off his BARBARA inhibitor which resolved the hyperkalemia and the dry cough. Patient received hemodialysis on the day of his admission. Patient will be getting dialysis 3 times a week. - Date & Time of H&P Date of H&P: 01/28/17 Time of H&P: 07:27 Discharge Exam - Head Exam Head Exam: ATRAUMATIC, NORMAL INSPECTION, NORMOCEPHALIC - Eye Exam Eye Exam: Normal appearance - ENT Exam ENT Exam: Normal Exam - Neck Exam Neck exam: Full Rom, Normal Inspection - Respiratory Exam Respiratory Exam: Clear to PA & Lateral, NORMAL BREATHING PATTERN - Cardiovascular Exam Cardiovascular Exam: REGULAR RHYTHM - GI/Abdominal Exam GI & Abdominal Exam: Normal Bowel Sounds, Unremarkable - Extremities Exam Extremities exam: full ROM, normal capillary refill - Back Exam Back exam: FULL ROM - Neurological Exam Neurological exam: Alert, Oriented x3 - Psychiatric Exam Psychiatric exam: Normal Affect, Normal Mood - Skin Skin Exam: Intact, Normal Color, Warm Discharge Plan - Follow Up Plan Condition: FAIR Disposition: HOME/ ROUTINE Additional Instructions: please follow up with your tractor engine assembler in the next 2-3 days, I called him at [phone] to make him aware of pt's EF and also pt's lisinopril being discontinued Please follow PCP in the next 2-3 days Please stop taking lisinopril as discussed during admission Referrals: Le Santana MD [Staff Provider] -
--- NOTE | 2017-01-28 17:43 | PQF RENAL ---
Dr. Radha lagos on chronic renal failure is documented in medical record. Please clarify below if pt was admitted with a diagnosis of acute renal failure. This form is a permanent part of the medical record Clarification of your documentation is requested to better reflect the severity of illness and intensity of treatment of your patient. Indicators present [] Oliguria/anuria [] Edema/weight gain [] Hyponatremia [] Confusion/mental status changes [] Increased Blood Urea Nitrogen/Creatinine [] Increased Potassium/Decreased potassium [] Anemia (male <13.5, female <12.0) [] Proteinuria [] Metabolic Acidosis OR Alkalosis [] Hypotension/shock [] Decreased GFR [] Other: [] Location in the medical record that reflects the above clinical findings: PHYSICIAN'S RESPONSE patient with CHronic kidney disease stage 4 Based on your medical judgment of the clinical indicators outlined above, are you treating this patient for a known or suspected: [] Acute Renal Failure [] Acute Kidney Injury [] Azotemia/prerenal azotemia [] Chronic kidney disease Stage I [] Stage II [] Stage III [] Stage IV [] [] Other condition/diagnosis:[] [] If Unable to Determine, please check the box, sign and date. Present On Admission (POA) Indicator: [] Present at the time of admission [] Not present at the time of admission [] Clinically Undetermined In responding to this query, please exercise your independent professional judgment. The fact that a question is asked does not imply that any particular answer is desired or expected. Thank you for your clarification on this documentation. If you have any questions please call:[ ] * Thank you, [ ]Wen Dumont security business analyst Chronic Kidney Disease Stages *[employer]* Stage I GFR >90 Stage II GFR 60-89 Stage III GFR 30-59 Stage IV GFR 15-29 Stage V~~~~~~~~~~ GFR <15~~~~~~~~~~~~~ MTDD
== END 2017-01-27 16:30 | disposition home or self-care (01) | DRG 641 ==
LOC: H.ER 07:18 → H.ERHOLD 11:39 → H.TEL 13:01
PROVIDERS: ADMIT Family Medicine Geriatric Medicine; ATTEND Family Medicine Geriatric Medicine
PROC: 5A1D70Z Performance of Urinary Filtration, Intermittent, Less than 6 Hours Per Day (ICD-10-PCS; principal; 2017-01-26)
DX: E87.5 Hyperkalemia (principal); N18.4 Chronic kidney disease, stage 4 (severe); E11.22 Type 2 diabetes mellitus with diabetic chronic kidney disease; R05 Cough; T44.5X5A Adverse effect of predominantly beta-adrenoreceptor agonists, initial encounter; Z99.2 Dependence on renal dialysis; D63.1 Anemia in chronic kidney disease; E78.00 Pure hypercholesterolemia, unspecified; E03.9 Hypothyroidism, unspecified; E87.70 Fluid overload, unspecified; I12.9 Hypertensive chronic kidney disease with stage 1 through stage 4 chronic kidney disease, or unspecified chronic kidney disease

== ENCOUNTER 2017-04-13 06:27 | Inpatient (IN) | payer OTHER ==
[2017-04-13 06:27] VITALS: BMI 27.4
[2017-04-13] MEDS ORDERED: Albuterol 0.083% Inhal Sol (2.5 mg/3 mL) UD INH ONE (07:28)
[2017-04-13] MEDS ORDERED: Albuterol-Ipratrop 3 mg / 0.5 (3 ml) UD ONE (07:32)
[2017-04-13] MEDS ORDERED: Albuterol 0.083% Inhal Sol (2.5 mg/3 mL) UD ONE (07:52)
--- NOTE | 2017-04-13 07:53 | ED PDOC ---
HPI: Eye Injury/Pain Time Seen by Provider: 04/13/17 07:20 Chief Complaint (Nursing): Cough, Cold, Congestion Chief Complaint (Provider): Burning/Itching Eyes History Per: Patient History/Exam Limitations: no limitations Onset/Duration Of Symptoms: Days (3 days) Quality: Burning Associated Symptoms: Itching Additional Complaint(s): Patient is a 71 y/o male with last remission dry cough which was thought to be secondary to his BARBARA inhibitor medicine, who presents to the ED complaining of burning and itching in both eyes for 3 days, with associated dry cough. Patient denies any fever, vomiting, abdominal pain, or chest pain. Past Medical History Reviewed: Historical Data, Nursing Documentation, Vital Signs Vital Signs: Last Vital Signs Temp 97.9 F 04/13/17 06:41 Pulse 59 L 04/13/17 06:41 Resp 16 04/13/17 06:41 BP 120/72 04/13/17 06:41 Pulse Ox 95 04/13/17 06:41 - Medical History PMH: Anemia, Diabetes, HTN, Hypercholesterolemia, Hypothyroidism, Chronic Kidney Disease (on dialysis) Denies: Arthritis, CVA, Kidney Stones - Surgical History Surgical History: Appendectomy - Family History Family History: States: Unknown Family Hx - Social History Current smoker - smoking cessation education provided: No Ex-Smoker (has not smoked in the last 12 months): No Alcohol: None Drugs: Denies - Immunization History Hx Tetanus Toxoid Vaccination: No Hx Influenza Vaccination: Yes Hx Pneumococcal Vaccination: Yes - Home Medications Home Medications: Ambulatory Orders Medication Instructions Recorded Allopurinol [Zyloprim] 100 mg PO DAILY 01/26/17 Aspirin [Ecotrin] 81 mg PO DAILY 01/26/17 Atorvastatin [Lipitor] 20 mg PO DAILY 01/26/17 Cilostazol [Pletal] 50 mg PO DAILY 01/26/17 Ergocalciferol (Vitamin D2) 50,000 unit PO QWK 01/26/17 [Vitamin D2] Famotidine [Pepcid] 20 mg PO DAILY 01/26/17 Levothyroxine [Synthroid] 75 mcg PO DAILY 01/26/17 SITagliptin [Januvia] 50 mg PO DAILY 01/26/17 Sevelamer Carbonate [Renvela] 1,600 mg PO TID 01/26/17 amLODIPine [Norvasc] 5 mg PO DAILY 01/26/17 - Allergies Allergies/Adverse Reactions: Allergies Allergy/AdvReac Type Severity Reaction Status Date / Time No Known Allergies Allergy Verified 01/26/17 07:32 Review of Systems ROS Statement: Except As Marked, All Systems Reviewed And Found Negative Constitutional: Negative for: Fever Eyes: Positive for: Other (burning and itching) Cardiovascular: Negative for: Chest Pain Respiratory: Positive for: Cough (dry) Gastrointestinal: Negative for: Vomiting, Abdominal Pain Physical Exam - Reviewed Nursing Documentation Reviewed: Yes Vital Signs Reviewed: Yes - Physical Exam Appears: Positive for: No Acute Distress Head Exam: Positive for: ATRAUMATIC, NORMOCEPHALIC Skin: Positive for: Normal Color, Warm, Dry Eye Exam: Positive for: PERRL, Conjunctival injection, Other (appear irritated) Neck: Positive for: Normal, Painless ROM, Supple Cardiovascular/Chest: Positive for: Regular Rate, Rhythm. Negative for: Murmur Respiratory: Positive for: Normal Breath Sounds. Negative for: Respiratory Distress Gastrointestinal/Abdominal: Positive for: Normal Exam, Soft. Negative for: Tenderness Back: Positive for: Normal Inspection. Negative for: L CVA Tenderness, R CVA Tenderness, Vertebral Tenderness Extremity: Positive for: Normal ROM, Other (Left arm, shunt (access for dialysis )). Negative for: Pedal Edema, Deformity Neurologic/Psych: Positive for: Alert, Oriented (x3). Negative for: Motor/ Sensory Deficits - Laboratory Results Result Diagrams: 04/13/17 08:03 04/13/17 08:36 - ECG O2 Sat by Pulse Oximetry: 95 (RA) Pulse Ox Interpretation: Normal Medical Decision Making Medical Decision Makin:27 Initial Plan: --CT Head W/O Contrast --EKG --Labs --Chest X-Ray Two Views --Albuterol 0.083% 2.5 mg INH --Nursing Communication As Ordered --Peak Flow Pre/Post Treatment 07:30 Patient signed out to Dr. Ledezma Scribe Attestation: Documented by Trav Lang, acting as a scribe for Hazel Strickland MD Provider Scribe Attestation: All medical record entries made by the Scribe were at my direction and personally dictated by me. I have reviewed the chart and agree that the record accurately reflects my personal performance of the history, physical exam, medical decision making, and the department course for this patient. I have also personally directed, reviewed, and agree with the discharge instructions and disposition. Disposition - Clinical Impression Clinical Impression: Pneumonia, Conjunctivitis of both eyes - Patient ED Disposition Is Patient to be Admitted: Transfer of Care - Disposition Disposition: Transfer of Care Disposition Time: 07:30 Condition: STABLE Patient Signed Over To: Payal Ledezma
--- NOTE | 2017-04-13 08:07 | RAD ---
HISTORY: cough COMPARISON: Chest x-ray performed 01/26/17 TECHNIQUE: Chest PA and lateral FINDINGS: LUNGS: Bilateral hilar/central vascular prominence. Infrahilar retrocardiac opacities may reflect atelectasis or infiltrates. Biapical pleural thickening. Please note that chest x-ray has limited sensitivity for the detection of pulmonary masses. PLEURA: No significant pleural effusion identified. No definite pneumothorax . CARDIOVASCULAR: Heart size appears top normal. OSSEOUS STRUCTURES: Osseous demineralization. Degenerative changes. VISUALIZED UPPER ABDOMEN: Unremarkable. OTHER FINDINGS: None. IMPRESSION: Bilateral hilar/central vascular prominence. Infrahilar retrocardiac opacities may reflect atelectasis or infiltrates. Biapical pleural thickening.
--- NOTE | 2017-04-13 08:11 | ED PDOC ---
- Laboratory Results Result Diagrams: 04/13/17 08:03 04/13/17 08:36 - ECG O2 Sat by Pulse Oximetry: 95 (RA) Pulse Ox Interpretation: Normal Medical Decision Making Medical Decision Makin:30 Patient signed over to me by Dr. Oliva Accession No. : [id number] Patient Name / ID : CHITO RACHEL / [id number] Exam Date : 04/13/2017 07:41:38 ( Approved ) Study Comment : Sex / Age : M / 71Y Creator : Eunice Butler MD Dictator : Eunice Butler MD Customer Operations Representative : Medical Unit Secretary : Eunice Butler MD Approver2 : Report Date : 04/13/2017 08:06:25 My Comment : HISTORY: cough COMPARISON: Chest x-ray performed 01/26/17 TECHNIQUE: Chest PA and lateral FINDINGS: LUNGS: Bilateral hilar/central vascular prominence. Infrahilar retrocardiac opacities may reflect atelectasis or infiltrates. Biapical pleural thickening. Please note that chest x-ray has limited sensitivity for the detection of pulmonary masses. PLEURA: No significant pleural effusion identified. No definite pneumothorax . CARDIOVASCULAR: Heart size appears top normal. OSSEOUS STRUCTURES: Osseous demineralization. Degenerative changes. VISUALIZED UPPER ABDOMEN: Unremarkable. OTHER FINDINGS: None. IMPRESSION: Bilateral hilar/central vascular prominence. Infrahilar retrocardiac opacities may reflect atelectasis or infiltrates. Biapical pleural thickening. Scribe Attestation: Documented by Trav Lang, acting as a scribe for Payal Ledezma MD Provider Scribe Attestation: All medical record entries made by the Scribe were at my direction and personally dictated by me. I have reviewed the chart and agree that the record accurately reflects my personal performance of the history, physical exam, medical decision making, and the department course for this patient. I have also personally directed, reviewed, and agree with the discharge instructions and disposition. Disposition - Clinical Impression Clinical Impression: Pneumonia, Conjunctivitis of both eyes - POA Present On Arrival: None - Disposition Disposition: Admitted as In-Patient Disposition Time: 11:03 Condition: STABLE Forms: [employer] (Latvian)
[2017-04-13 08:24] LABS: BASO % 0.5 % (0.0-2.0); EOS # 0.2 K/uL (0.0-0.7); EOS % 2.6 % (0.0-4.0); HEMOGLOBIN 10.7 g/dL (12.0-18.0); LYMPH # 1.7 K/uL (1.0-4.3); LYMPH % 27.1 % (20.0-40.0); MEAN CELL VOLUME 93.9 fl (80.0-94.0); MONO # 0.9 K/uL (0.0-0.8); NEUT # 3.4 K/uL (1.8-7.0); NEUT % 54.8 % (50.0-75.0); NRBC % 0.3 % (0.0-0.0); RBC 3.44 Mil/uL (4.40-5.90); RED CELL DISTRIBUTION WIDTH 18.2 % (11.5-14.5); WHITE BLOOD COUNT 6.2 K/uL (4.8-10.8)
--- NOTE | 2017-04-13 08:35 | CT ---
PROCEDURE: CT HEAD WITHOUT CONTRAST. HISTORY: blurry vision COMPARISON: None available. TECHNIQUE: Axial computed tomography images were obtained through the head/brain without intravenous contrast. Radiation dose: Total exam DLP = 836.11 mGy-cm. This CT exam was performed using one or more of the following dose reduction techniques: Automated exposure control, adjustment of the mA and/or kV according to patient size, and/or use of iterative reconstruction technique. FINDINGS: HEMORRHAGE: No intracranial hemorrhage. BRAIN: Diffuse atrophy with prominence of the ventricles and sulci noted. No mass effect or edema. Scattered periventricular and subcortical white matter hypodensities, which are nonspecific, but often seen with chronic microvascular ischemic disease. 8 mm hypodensity in the left basal ganglia, likely chronic lacunar infarct. Right frontal parietal hypodensity likely related to encephalomalacia. Please note that MRI with diffusion imaging is more sensitive in the detection of acute ischemic event. VENTRICLES: No hydrocephalus. CALVARIUM: Unremarkable. PARANASAL SINUSES: Unremarkable as visualized. No significant inflammatory changes. MASTOID AIR CELLS: Unremarkable as visualized. No inflammatory changes. OTHER FINDINGS: None. IMPRESSION: Right frontal parietal hypodensity likely related to encephalomalacia. 8 mm hypodensity in the left basal ganglia, likely chronic lacunar infarct. Nonspecific white matter changes. Generalized atrophy. Please note that MRI with diffusion imaging is more sensitive in the detection of acute ischemic event. Findings discussed with Dr. Ledezma on 04/13/17 at 8:31 a.m.
[2017-04-13 08:55] LABS: ALB/GLOB RATIO 1.2 (1.0-2.1); ALBUMIN 3.9 g/dL (3.5-5.0); CALCIUM 9.4 mg/dL (8.4-10.2)
[2017-04-13] MEDS ORDERED: Fluorescein 1 mg Ophthalmic Strip ONE (09:37)
--- NOTE | 2017-04-13 10:14 | CARD ---
APPROVED REPORT EKG Measurement Heart [id number] TN [id number] <Conclusion> Sinus tachycardia Minimal voltage criteria for LVH, may be normal variant Borderline ECG
[2017-04-13] MEDS ORDERED: Azithromycin 500 MG in Sodium Chloride 0.9% 250 ML IV STA (10:27)
[2017-04-13] MEDS ORDERED: cefTRIAXone IV 1 gm in Dextros 0 ML IVPB ONE (10:34)
[2017-04-13 10:54] LABS: VENOUS BLOOD GAS BASE EXCESS 8.4 mmol/L (0.0-2.0); VENOUS BLOOD GAS PCO2 51 mmHg (40-60); VENOUS BLOOD GAS PO2 53 mm/Hg (30-55); VENOUS BLOOD PH 7.43 (7.32-7.43)
[2017-04-13] MEDS ORDERED: Erythromycin 0.5% Ophth Oint 1 APPLIC/3.5 G OU STA (11:04)
[2017-04-13] MEDS ORDERED: Ergocalciferol 50,000 Intl Units Cap PO SCH (13:30)
[2017-04-13] MEDS ORDERED: Albuterol-Ipratrop 3 mg / 0.5 (3 ml) UD INH PRN (15:26)
[2017-04-13] MEDS ORDERED: guaiFENesin 100 mg/5 ml Syrup UD PO PRN (15:31)
[2017-04-13] MEDS: Erythromycin 0.5% Ophth Oint 1 APPLIC/3.5 G OU SCH ×2 (16:27→22:23)
--- NOTE | 2017-04-13 20:28 | CP.PCM.CON ---
History of Present Illness - History of Present Illness History of Present Illness: REASONS FOR CONSULT : ESRD ON HD M W F ANEMIA OF CKD PT IS WELL KNOWN TO ME .. WITH MMP AND FREQEUNT ADMISSIONS Time Seen by Provider: 04/13/17 07:24 Chief Complaint (Nursing): Cough, Cold, Congestion Chief Complaint (Provider): Burning/Itching Eyes History Per: Patient History/Exam Limitations: no limitations Onset/Duration Of Symptoms: Days (3 days) Quality: Burning Associated Symptoms: Itching Additional Complaint(s): Patient is a 71 y/o male with last remission dry cough which was thought to be secondary to his BARBARA inhibitor medicine, who presents to the ED complaining of burning and itching in both eyes for 3 days, with associated dry cough. Patient denies any fever, vomiting, abdominal pain, or chest pain. Past Medical History Reviewed: Historical Data, Nursing Documentation, Vital Signs Vital Signs: Last Vital Signs Temp 97.9 F 04/13/17 06:41 Pulse 59 L 04/13/17 06:41 Resp 16 04/13/17 06:41 BP 120/72 04/13/17 06:41 Pulse Ox 95 04/13/17 06:41 - Medical History PMH: Anemia, Diabetes, HTN, Hypercholesterolemia, Hypothyroidism, Chronic Kidney Disease (on dialysis) Denies: Arthritis, CVA, Kidney Stones - Surgical History Surgical History: Appendectomy Past Patient History - Past Medical History & Family History Past Medical History?: Yes - Past Social History Alcohol: None Drugs: Denies - CARDIAC Hx Cardiac Disorders: Yes - PULMONARY Hx Respiratory Disorders: No - NEUROLOGICAL Hx Neurological Disorder: No - HEENT Hx HEENT Problems: No - RENAL Hx Chronic Kidney Disease: Yes (on dialysis) - ENDOCRINE/METABOLIC Hx Endocrine Disorders: Yes - HEMATOLOGICAL/ONCOLOGICAL Hx Blood Disorders: Yes - INTEGUMENTARY Hx Dermatological Problems: No - MUSCULOSKELETAL/RHEUMATOLOGICAL Hx Arthritis: No - GASTROINTESTINAL Hx Gastrointestinal Disorders: No - GENITOURINARY/GYNECOLOGICAL Hx Genitourinary Disorders: No - PSYCHIATRIC Hx Psychophysiologic Disorder: No Hx Substance Use: No - SURGICAL HISTORY Hx Appendectomy: Yes - ANESTHESIA Hx Anesthesia: Yes Hx Anesthesia Reactions: No Hx Malignant Hyperthermia: No Meds Allergies/Adverse Reactions: Allergies Allergy/AdvReac Type Severity Reaction Status Date / Time No Known Allergies Allergy Verified 01/26/17 07:32 - Medications Medications: Current Medications Albuterol/Ipratropium (Duoneb 3 Mg/0.5 Mg (3 Ml) Ud) 3 ml INH RQ6 PRN PRN Reason: Shortness of Breath Allopurinol (Zyloprim) 100 mg PO DAILY [facility] Amlodipine Besylate (Norvasc) 5 mg PO DAILY [facility] Aspirin (Ecotrin) 81 mg PO DAILY [facility] Atorvastatin Calcium (Lipitor) 20 mg PO DAILY [facility] Cilostazol (Pletal) 50 mg PO DAILY [facility] Ergocalciferol (Drisdol 50,000 Intl Units Cap) 1 cap PO QWK [facility] Erythromycin (Erythromycin) 1 applic OU Q4 [facility] Last Admin: 04/13/17 16:27 Dose: 1 applic Famotidine (Pepcid) 20 mg PO DAILY [facility] Guaifenesin (Robitussin) 100 mg PO Q6 PRN PRN Reason: Cough Azithromycin 500 mg/ Sodium (Chloride) 250 mls @ 250 mls/hr IVPB DAILY [facility] PRN Reason: Protocol Ceftriaxone Sodium 1 gm/ (Sodium Chloride) 100 mls @ 100 mls/hr IVPB DAILY [facility] Levothyroxine Sodium (Synthroid) 75 mcg PO DAILY [facility] Sevelamer HCl (Renagel) 1,600 mg PO TID [facility] Sitagliptin Phosphate (Januvia) 50 mg PO DAILY [facility] Results - Vital Signs Recent Vital Signs: Last Vital Signs Temp 98.7 F 04/13/17 20:15 Pulse 92 H 04/13/17 20:15 Resp 20 04/13/17 20:15 BP 173/91 H 04/13/17 20:15 Pulse Ox 96 04/13/17 20:15 - Labs Result Diagrams: 04/13/17 08:03 04/13/17 08:36 Labs: Laboratory Results - last 24 hr 04/13/17 04/13/17 04/13/17 08:03 08:36 10:31 WBC 6.2 RBC 3.44 L Hgb 10.7 L Hct 32.3 L MCV 93.9 MCH 31.0 MCHC 33.0 RDW 18.2 H Plt Count 225 MPV 9.0 Neut % (Auto) 54.8 Lymph % (Auto) 27.1 [place] % (Auto) 15.0 H Eos % (Auto) 2.6 Baso % (Auto) 0.5 Neut # 3.4 Lymph # 1.7 Moore # 0.9 H Eos # 0.2 Baso # 0.0 pO2 53 VBG pH 7.43 VBG pCO2 51 VBG HCO3 31.3 VBG Total CO2 35.5 H VBG O2 Sat (Calc) 91.2 H VBG Base Excess 8.4 H VBG Potassium 4.4 Glucose 200 H Lactate 1.3 FiO2 21.0 Sodium 141 137.0 Potassium 4.5 Chloride 96 L 99.0 Carbon Dioxide 32 H Anion Gap 18 BUN 45 H Creatinine 7.0 H Est GFR ( Amer) 9 Est GFR (Non-Af Amer) 8 Random Glucose 159 H Calcium 9.4 Total Bilirubin 0.3 AST 28 ALT 35 Alkaline Phosphatase 99 Total Protein 7.0 Albumin 3.9 Globulin 3.2 Albumin/Globulin Ratio 1.2 Venous Blood Potassium 4.4 Assessment & Plan - Assessment and Plan (Free Text) Plan: ESRD ON HD .. TO BE C/O ANEMIA OF CKD .. ON EPO MMP P : WILL C/O HD ON C/O CURRENT CARE IVAB PER ID - Date & Time Date: 04/13/17 Time: 15:00
[2017-04-13] MEDS ORDERED: Glucagon Recombinant 1 mg Inj IM PRN (22:47)
[2017-04-13] MEDS ORDERED: Dextrose 50% SYRINGE Inj (50 ml) IV PRN (22:47)
[2017-04-13] MEDS: Insulin Lispro (humaLOG) 100 Units/ml Inj SC SCH (23:00)
[2017-04-14] MEDS: Erythromycin 0.5% Ophth Oint 1 APPLIC/3.5 G OU SCH ×4 (01:15→12:40)
--- NOTE | 2017-04-14 01:26 | CP.PCM.HP ---
Past Patient History - Past Medical History & Family History Past Medical History?: Yes - Past Social History Alcohol: None Drugs: Denies - CARDIAC Hx Cardiac Disorders: Yes - PULMONARY Hx Respiratory Disorders: No - NEUROLOGICAL Hx Neurological Disorder: No - HEENT Hx HEENT Problems: No - RENAL Hx Chronic Kidney Disease: Yes (on dialysis) - ENDOCRINE/METABOLIC Hx Endocrine Disorders: Yes - HEMATOLOGICAL/ONCOLOGICAL Hx Blood Disorders: Yes - INTEGUMENTARY Hx Dermatological Problems: No - MUSCULOSKELETAL/RHEUMATOLOGICAL Hx Arthritis: No - GASTROINTESTINAL Hx Gastrointestinal Disorders: No - GENITOURINARY/GYNECOLOGICAL Hx Genitourinary Disorders: No - PSYCHIATRIC Hx Psychophysiologic Disorder: No Hx Substance Use: No - SURGICAL HISTORY Hx Appendectomy: Yes - ANESTHESIA Hx Anesthesia: Yes Hx Anesthesia Reactions: No Hx Malignant Hyperthermia: No Meds Allergies/Adverse Reactions: Allergies Allergy/AdvReac Type Severity Reaction Status Date / Time No Known Allergies Allergy Verified 01/26/17 07:32 Results - Vital Signs Recent Vital Signs: Last Vital Signs Temp 98.4 F 04/14/17 00:17 Pulse 70 04/14/17 00:17 Resp 16 04/14/17 00:17 BP 157/73 H 04/14/17 00:17 Pulse Ox 95 04/14/17 00:17 - Labs Result Diagrams: 04/13/17 08:03 04/13/17 08:36 Labs: Laboratory Results - last 24 hr 04/13/17 04/13/17 04/13/17 08:03 08:36 10:31 WBC 6.2 RBC 3.44 L Hgb 10.7 L Hct 32.3 L MCV 93.9 MCH 31.0 MCHC 33.0 RDW 18.2 H Plt Count 225 MPV 9.0 Neut % (Auto) 54.8 Lymph % (Auto) 27.1 [place] % (Auto) 15.0 H Eos % (Auto) 2.6 Baso % (Auto) 0.5 Neut # 3.4 Lymph # 1.7 [place] # 0.9 H Eos # 0.2 Baso # 0.0 pO2 53 VBG pH 7.43 VBG pCO2 51 VBG HCO3 31.3 VBG Total CO2 35.5 H VBG O2 Sat (Calc) 91.2 H VBG Base Excess 8.4 H VBG Potassium 4.4 Glucose 200 H Lactate 1.3 FiO2 21.0 Sodium 141 137.0 Potassium 4.5 Chloride 96 L 99.0 Carbon Dioxide 32 H Anion Gap 18 BUN 45 H Creatinine 7.0 H Est GFR ( Amer) 9 Est GFR (Non-Af Amer) 8 POC Glucose (mg/dL) Random Glucose 159 H Calcium 9.4 Total Bilirubin 0.3 AST 28 ALT 35 Alkaline Phosphatase 99 Total Protein 7.0 Albumin 3.9 Globulin 3.2 Albumin/Globulin Ratio 1.2 Venous Blood Potassium 4.4 04/13/17 22:21 WBC RBC Hgb Hct MCV MCH MCHC RDW Plt Count MPV Neut % (Auto) Lymph % (Auto) [place] % (Auto) Eos % (Auto) Baso % (Auto) Neut # Lymph # [place] # Eos # Baso # pO2 VBG pH VBG pCO2 VBG HCO3 VBG Total CO2 VBG O2 Sat (Calc) VBG Base Excess VBG Potassium Glucose Lactate FiO2 Sodium Potassium Chloride Carbon Dioxide Anion Gap BUN Creatinine Est GFR ( Amer) Est GFR (Non-Af Amer) POC Glucose (mg/dL) 440 H* Random Glucose Calcium Total Bilirubin AST ALT Alkaline Phosphatase Total Protein Albumin Globulin Albumin/Globulin Ratio Venous Blood Potassium
[2017-04-14 05:13] VITALS: RESP 20
[2017-04-14 06:02] LABS: BASO % 0.2 % (0.0-2.0); EOS % 0.2 % (0.0-4.0); HEMOGLOBIN 10.4 g/dL (12.0-18.0); LYMPH # 0.6 K/uL (1.0-4.3); LYMPH % 7.2 % (20.0-40.0); MEAN CELL VOLUME 95.8 fl (80.0-94.0); MEAN CORPUSCULAR HEMOGLOBIN 31.7 pg (27.0-31.0); MEAN CORPUSCULAR HGB CONC 33.1 g/dL (33.0-37.0); MONO # 0.6 K/uL (0.0-0.8); MONO % 7.4 % (0.0-10.0); NEUT # 7.1 K/uL (1.8-7.0); NRBC % 0.2 % (0.0-0.0); PLATELET COUNT 184 K/uL (130-400); RBC 3.29 Mil/uL (4.40-5.90); RED CELL DISTRIBUTION WIDTH 17.4 % (11.5-14.5); WHITE BLOOD COUNT 8.4 K/uL (4.8-10.8)
[2017-04-14] MEDS: Insulin Lispro (humaLOG) 100 Units/ml Inj SC SCH ×2 (06:30→12:28)
[2017-04-14 06:38] LABS: CALCIUM 8.8 mg/dL (8.4-10.2)
[2017-04-14] MEDS ORDERED: Cilostazol 50 mg Tab UD PO SCH (09:00)
[2017-04-14] MEDS ORDERED: cefTRIAXone (Rocephin) 2 gm Inj IVPB SCH (09:00)
[2017-04-14] MEDS ORDERED: Azithromycin 500 MG in Sodium Chloride 0.9% 250 ML IVPB SCH (09:00)
[2017-04-14] MEDS ORDERED: Levothyroxine 75 MCG TAB PO SCH (09:00)
[2017-04-14 12:53] VITALS: BP 188/86; PULSE 86; TEMP 99.3; O2SAT 98
--- NOTE | 2017-04-14 13:17 | CP.PCM.PN ---
Subjective - Date & Time of Evaluation Date of Evaluation: 04/14/17 Time of Evaluation: 13:00 - Subjective Subjective: WAS SEEN ON RENAL F/U FEELS WELL NO C/P .. NO SOB .. CAN TAKE A DEEP BREATH WITHOUT PAIN WANTS TO GO HOME TODAY .. WANTS TO PREPAIRS FOR A TRIP TO FOR HIS [place] HE HAS HIS SCHEDULED HD TOMORROW AN OUT PT Objective - Vital Signs/Intake and Output Vital Signs (last 24 hours): Temp Pulse Resp BP Pulse Ox 99.3 F 86 20 188/86 H 98 04/14/17 12:00 04/14/17 12:00 04/14/17 12:00 04/14/17 12:00 04/14/17 12:00 - Medications Medications: Current Medications Albuterol/Ipratropium (Duoneb 3 Mg/0.5 Mg (3 Ml) Ud) 3 ml INH RQ6 PRN PRN Reason: Shortness of Breath Allopurinol (Zyloprim) 100 mg PO DAILY [facility] Last Admin: 04/14/17 09:11 Dose: 100 mg Amlodipine Besylate (Norvasc) 5 mg PO DAILY [facility] Last Admin: 04/14/17 09:10 Dose: 5 mg Aspirin (Ecotrin) 81 mg PO DAILY [facility] Last Admin: 04/14/17 09:08 Dose: 81 mg Atorvastatin Calcium (Lipitor) 20 mg PO DAILY [facility] Last Admin: 04/14/17 09:10 Dose: 20 mg Cilostazol (Pletal) 50 mg PO DAILY [facility] Last Admin: 04/14/17 09:11 Dose: 50 mg Dextrose (Dextrose 50% Inj) 0 ml IV STAT PRN; Protocol PRN Reason: Hypoglycemia Protocol Dextrose (Glutose 15) 0 gm PO ONCE PRN; Protocol PRN Reason: Hypoglycemia Protocol Ergocalciferol (Drisdol 50,000 Intl Units Cap) 1 cap PO QWK [facility] Erythromycin (Erythromycin) 1 applic OU Q4 [facility] Last Admin: 04/14/17 12:40 Dose: 1 applic Famotidine (Pepcid) 20 mg PO DAILY [facility] Last Admin: 04/14/17 09:11 Dose: 20 mg Glucagon (Glucagen Diagnostic Kit) 0 mg IM STAT PRN; Protocol PRN Reason: Hypoglycemia Protocol Guaifenesin (Robitussin) 100 mg PO Q6 PRN PRN Reason: Cough Last Admin: 04/14/17 04:34 Dose: 100 mg Heparin Sodium (Porcine) (Heparin) 5,000 units SC Q12 [facility] PRN Reason: Protocol Last Admin: 04/14/17 09:10 Dose: 5,000 units Azithromycin 500 mg/ Sodium (Chloride) 250 mls @ 250 mls/hr IVPB DAILY [facility] PRN Reason: Protocol Last Admin: 04/14/17 12:40 Dose: 250 mls/hr Ceftriaxone Sodium 1 gm/ (Sodium Chloride) 100 mls @ 100 mls/hr IVPB DAILY [facility] Last Admin: 04/14/17 09:07 Dose: 100 mls/hr Insulin Human Lispro (Humalog) 0 units SC ACHS [facility] PRN Reason: Protocol Last Admin: 04/14/17 12:28 Dose: Not Given Levothyroxine Sodium (Synthroid) 75 mcg PO DAILY [facility] Last Admin: 04/14/17 09:11 Dose: 75 mcg Sevelamer HCl (Renagel) 1,600 mg PO TID [facility] Last Admin: 04/14/17 09:08 Dose: 1,600 mg Sitagliptin Phosphate (Januvia) 50 mg PO DAILY [facility] Last Admin: 04/14/17 09:10 Dose: 50 mg - Labs Labs: 04/14/17 04:20 04/14/17 04:20 Assessment and Plan - Assessment and Plan (Free Text) Assessment: ESRD ON HD M W F .. LABS OK .. NO EDEMA .. TOR OK ANEMIA OF CKD ..H/H STABLE PNA .. MILD ?? P : CLEAR FOE D/C FROM [facility] HE WILL GET HD IN AM AN OUT PT MAY BE GIVE HIM Z PACK ON D/C
[2017-04-14 13:46] LABS: ANISOCYTOSIS SLIGHT; BASOPHIL 1 % (0-2); EOSINOPHIL 1 % (0-7); LYMPHOCYTE 6 % (20-50); MONOCYTE 6 % (0-10); NEUTROPHIL 85 % (42-75); PLATELET ESTIMATE NORMAL (NORMAL); REACTIVE LYMPHOCYTES 1 % (0-0); TOTAL CELLS COUNTED 100
[2017-04-14 13:48] LABS: HYPOCHROMIC SLIGHT
--- NOTE | 2017-04-14 14:03 | CP.PCM.CON ---
History of Present Illness - History of Present Illness History of Present Illness: 71 y/o male admitted with dry cough presents to the ED complaining of burning and itching in both eyes for 3 days, with associated dry cough. Patient denies any fever, vomiting, abdominal pain, or chest pain. - Medical History PMH: Anemia, Diabetes, HTN, Hypercholesterolemia, Hypothyroidism, Chronic Kidney Disease (on dialysis) Denies: Arthritis, CVA, Kidney Stones Review of Systems - Review of Systems Systems not reviewed;Unavailable: Language Barrier - Constitutional Constitutional: As Per HPI, Anorexia - EENT Eyes: As Per HPI Ears: absent: As Per HPI, Decreased Hearing, Ear Discharge, Ear Pain, Tinnitus, Abnormal Hearing, Disequilibrium, Dizziness, Other Nose/Mouth/Throat: absent: As Per HPI, Epistaxis, Nasal Congestion, Nasal Discharge, Nasal Obstruction, Nasal Trauma, Nose Pain, Post Nasal Drip, Sinus Pain, Sinus Pressure, Bleeding Gums, Change in Voice, Dental Pain, Dry Mouth, Dysphagia, Halitosis, Hoarsness, Lip Swelling, Mouth Lesions, Mouth Pain, Odynophagia, Sore Throat, Throat Swelling, Tongue Swelling, Facial Pain, Neck Pain, Neck Mass, Other - Cardiovascular Cardiovascular: absent: As Per HPI, Acrocyanosis, Chest Pain, Chest Pain at Rest , Chest Pain with Activity, Claudication, Diaphoresis, Dyspnea, Dyspnea on Exertion, Edema, Irregular Heart Rhythm, Pain Radiating to Arm/Neck/Jaw, Leg Edema, Leg Ulcers, Lightheadedness, Orthopnea, Palpitations, Paroxysmal Nocturnal Dyspnea, Pedal Edema, Radiating Pain, Rapid Heart Rate, Slow Heart Rate, Syncope, Other - Respiratory Respiratory: As Per HPI, Cough - Gastrointestinal Gastrointestinal: absent: As Per HPI, Abdominal Pain, Belching, Bloating, Change in Bowel Habits, Change in Stool Character, Coffee Ground Emesis, Constipation, Cramping, Diarrhea, Dyspepsia, Dysphagia, Early Satiety, Excessive Flatus, Fecal Incontinence, Heartburn, Hematemesis, Hematochezia, Loose Stools, Melena, Nausea, Odynophagia, Temesmus, Vomiting, Other - Genitourinary Genitourinary: absent: As Per HPI, Change in Urinary Stream, Difficulty Urinating, Dysuria, Flank Pain, Hematuria, Pyuria, Nocturia, Urinary Incontinence, Urinary Frequency, Urinary Hesitance, Urinary Urgency, Voiding Freq/Small Amts, Freq UTI, Hx Renal/Bladder Calculi, Hx /Renal Surgery, Bladder Distension, Other - Musculoskeletal Musculoskeletal: absent: As Per HPI, Abnormal Gait, Arthralgias, Atrophy, Back Pain, Deformity, Joint Swelling, Limited Range of Motion, Loss of Height, Muscle Cramps, Muscle Weakness, Myalgias, Neck Pain, Numbness, Radiating Pain into Limb, Stiffness, Tingling, Other - Integumentary Integumentary: absent: As Per HPI, Acne, Alopecia, Bleeding Lesions, Change in Hair, Change in Nails, Change in Pigmentation, Changing Lesions, Dry Skin, Erythema, Furuncle, Hirsutism, Lesions, New Lesions, Non-Healing Lesions, Photosensitivity, Pruritus, Rash, Skin Pain, Skin Ulcer, Sores, Striae, Swelling , Unusual Bruising, Wounds, Jaundice, Other - Neurological Neurological: absent: As Per HPI, Abnormal Gait, Abnormal Hearing, Abnormal Movements, Abnormal Speech, Behavioral Changes, Burning Sensations, Confusion, Convulsions, Disequilibrium, Dizziness, Numbness, Focal Weakness, Frequent Falls , Headaches, Lack of Coordination, Loss of Vision, Memory Loss, Paresthesias, Radicular Pain, Restless Legs, Sensory Deficit, Syncope, Tingling, Tremor, Vertigo, Weakness, Other Visual Disturbances, Other - Psychiatric Psychiatric: absent: As Per HPI, Abnormal Sleep Pattern, Anhedonia, Anxiety, Auditory Hallucinations, Behavioral Changes, Change in Appetite, Change in Libido, Confusion, Depression, Difficulty Concentrating, Hallucinations, Homicidal Ideation, Hopelessness, Irritability, Memory Loss, Mood Swings, Panic Attacks, Paranoia, Suicidal Ideation, Visual Hallucinations, Tactile Hallucinations, Other - Endocrine Endocrine: absent: As Per HPI, Change in Body Appearance, Change in Libido, Cold Intolorance, Deepening of Voice, Excessive Sweating, Fatigue, Flushing, Heat Intolorance, Increase in Ring/Shoe/Hat Size, Palpitations, Polydipsia, Polyphagia, Polyuria, Other - Hematologic/Lymphatic Hematologic: absent: As Per HPI, Easy Bleeding, Easy Bruising, Lymphadenopathy, Other Past Patient History - Past Medical History & Family History Past Medical History?: Yes - Past Social History Alcohol: None Drugs: Denies - CARDIAC Hx Hypercholesterolemia: Yes Hx Hypertension: Yes - PULMONARY Hx Respiratory Disorders: No - NEUROLOGICAL Hx Neurological Disorder: No - HEENT Hx HEENT Problems: No - RENAL Hx Chronic Kidney Disease: Yes (on dialysis) Hx Kidney Stones: No - ENDOCRINE/METABOLIC Hx Hypothyroidism: Yes - HEMATOLOGICAL/ONCOLOGICAL Hx Anemia: Yes - INTEGUMENTARY Hx Dermatological Problems: No - MUSCULOSKELETAL/RHEUMATOLOGICAL Hx Arthritis: No - GASTROINTESTINAL Hx Gastrointestinal Disorders: No - GENITOURINARY/GYNECOLOGICAL Hx Genitourinary Disorders: No - PSYCHIATRIC Hx Psychophysiologic Disorder: No Hx Substance Use: No - SURGICAL HISTORY Hx Appendectomy: Yes - ANESTHESIA Hx Anesthesia: Yes Hx Anesthesia Reactions: No Hx Malignant Hyperthermia: No Meds Allergies/Adverse Reactions: Allergies Allergy/AdvReac Type Severity Reaction Status Date / Time No Known Allergies Allergy Verified 01/26/17 07:32 - Medications Medications: Current Medications Albuterol/Ipratropium (Duoneb 3 Mg/0.5 Mg (3 Ml) Ud) 3 ml INH RQ6 PRN PRN Reason: Shortness of Breath Allopurinol (Zyloprim) 100 mg PO DAILY [facility] Last Admin: 04/14/17 09:11 Dose: 100 mg Amlodipine Besylate (Norvasc) 5 mg PO DAILY [facility] Last Admin: 04/14/17 09:10 Dose: 5 mg Aspirin (Ecotrin) 81 mg PO DAILY [facility] Last Admin: 04/14/17 09:08 Dose: 81 mg Atorvastatin Calcium (Lipitor) 20 mg PO DAILY [facility] Last Admin: 04/14/17 09:10 Dose: 20 mg Cilostazol (Pletal) 50 mg PO DAILY [facility] Last Admin: 04/14/17 09:11 Dose: 50 mg Dextrose (Dextrose 50% Inj) 0 ml IV STAT PRN; Protocol PRN Reason: Hypoglycemia Protocol Dextrose (Glutose 15) 0 gm PO ONCE PRN; Protocol PRN Reason: Hypoglycemia Protocol Ergocalciferol (Drisdol 50,000 Intl Units Cap) 1 cap PO QWK [facility] Erythromycin (Erythromycin) 1 applic OU Q4 [facility] Last Admin: 04/14/17 12:40 Dose: 1 applic Famotidine (Pepcid) 20 mg PO DAILY [facility] Last Admin: 04/14/17 09:11 Dose: 20 mg Glucagon (Glucagen Diagnostic Kit) 0 mg IM STAT PRN; Protocol PRN Reason: Hypoglycemia Protocol Guaifenesin (Robitussin) 100 mg PO Q6 PRN PRN Reason: Cough Last Admin: 04/14/17 04:34 Dose: 100 mg Heparin Sodium (Porcine) (Heparin) 5,000 units SC Q12 [facility] PRN Reason: Protocol Last Admin: 04/14/17 09:10 Dose: 5,000 units Azithromycin 500 mg/ Sodium (Chloride) 250 mls @ 250 mls/hr IVPB DAILY [facility] PRN Reason: Protocol Last Admin: 04/14/17 12:40 Dose: 250 mls/hr Ceftriaxone Sodium 1 gm/ (Sodium Chloride) 100 mls @ 100 mls/hr IVPB DAILY [facility] Last Admin: 04/14/17 09:07 Dose: 100 mls/hr Insulin Human Lispro (Humalog) 0 units SC ACHS [facility] PRN Reason: Protocol Last Admin: 04/14/17 12:28 Dose: Not Given Levothyroxine Sodium (Synthroid) 75 mcg PO DAILY [facility] Last Admin: 04/14/17 09:11 Dose: 75 mcg Sevelamer HCl (Renagel) 1,600 mg PO TID [facility] Last Admin: 04/14/17 09:08 Dose: 1,600 mg Sitagliptin Phosphate (Januvia) 50 mg PO DAILY [facility] Last Admin: 04/14/17 09:10 Dose: 50 mg Physical Exam - Constitutional Appears: Non-toxic, Chronically Ill - Head Exam Head Exam: NORMOCEPHALIC - Eye Exam Eye Exam: Conjunctival injection, PERRL. absent: Scleral icterus Pupil Exam: NORMAL ACCOMODATION - ENT Exam ENT Exam: Mucous Membranes Dry, Normal External Ear Exam, Normal Oropharynx - Neck Exam Neck exam: Negative for: Lymphadenopathy - Respiratory Exam Respiratory Exam: Decreased Breath Sounds, Clear to Auscultation Bilateral - Cardiovascular Exam Cardiovascular Exam: REGULAR RHYTHM, +S1, +S2 - GI/Abdominal Exam GI & Abdominal Exam: Diminished Bowel Sounds - Rectal Exam Rectal Exam: Deferred - Exam Exam: NORMAL INSPECTION - Extremities Exam Extremities exam: Negative for: pedal edema - Back Exam Back exam: absent: CVA tenderness (L), CVA tenderness (R) - Neurological Exam Neurological exam: Alert, CN II-XII Intact, Oriented x3, Reflexes Normal - Psychiatric Exam Psychiatric exam: Depressed Results - Vital Signs Recent Vital Signs: Last Vital Signs Temp 99.3 F 04/14/17 12:00 Pulse 86 04/14/17 12:00 Resp 20 04/14/17 12:00 BP 188/86 H 01/02/18 12:00 Pulse Ox 98 04/14/17 12:00 - Labs Result Diagrams: 04/14/17 04:20 04/14/17 04:20 Labs: Laboratory Results - last 24 hr 04/13/17 04/14/17 04/14/17 22:21 04:20 04:20 WBC 8.4 RBC 3.29 L Hgb 10.4 L Hct 31.5 L MCV 95.8 H MCH 31.7 H MCHC 33.1 RDW 17.4 H Plt Count 184 MPV 8.0 Neut % (Auto) 85.0 H Lymph % (Auto) 7.2 L Kimble % (Auto) 7.4 Eos % (Auto) 0.2 Baso % (Auto) 0.2 Neut # 7.1 H Lymph # 0.6 L Kimble # 0.6 Eos # 0.0 Baso # 0.0 Neutrophils % (Manual) 85 H Lymphocytes % (Manual) 6 L Reactive Lymphs % 1 H Monocytes % (Manual) 6 Eosinophils % (Manual) 1 Basophils % (Manual) 1 Platelet Estimate Normal Hypochromasia (manual) Slight Anisocytosis (manual) Slight Sodium 141 Potassium 5.0 Chloride 98 Carbon Dioxide 31 H Anion Gap 17 BUN 61 H Creatinine 8.9 H* D Est GFR ( Amer) 7 Est GFR (Non-Af Amer) 6 POC Glucose (mg/dL) 440 H* Random Glucose 78 Calcium 8.8 TSH 3rd Generation 1.35 04/14/17 04/14/17 05:46 11:31 WBC RBC Hgb Hct MCV MCH MCHC RDW Plt Count MPV Neut % (Auto) Lymph % (Auto) Kimble % (Auto) Eos % (Auto) Baso % (Auto) Neut # Lymph # Kimble # Eos # Baso # Neutrophils % (Manual) Lymphocytes % (Manual) Reactive Lymphs % Monocytes % (Manual) Eosinophils % (Manual) Basophils % (Manual) Platelet Estimate Hypochromasia (manual) Anisocytosis (manual) Sodium Potassium Chloride Carbon Dioxide Anion Gap BUN Creatinine Est GFR ( Amer) Est GFR (Non-Af Amer) POC Glucose (mg/dL) 84 129 H Random Glucose Calcium TSH 3rd Generation Assessment & Plan (1) Conjunctivitis of both eyes Status: Acute (2) Pneumonia Status: Acute (3) Acute on chronic renal failure Status: Acute (4) Diabetes mellitus Status: Acute - Assessment and Plan (Free Text) Assessment: r/o viral vs bacterial conjunctivitis cont iv rx
[2017-04-14] MEDS ORDERED: Sodium Chloride 3% for Inhalation 4 ML VIAL.NEB IH PRN (14:09)
== END 2017-04-14 15:05 | disposition left against medical advice (07) | DRG 193 ==
LOC: H.ER 06:27 → H.ERHOLD 10:37 → H.TEL 13:34
PROVIDERS: ADMIT Internal Medicine; ATTEND Internal Medicine
DX: J18.9 Pneumonia, unspecified organism (principal); N18.6 End stage renal disease; N17.9 Acute kidney failure, unspecified; D63.1 Anemia in chronic kidney disease; E03.9 Hypothyroidism, unspecified; E78.00 Pure hypercholesterolemia, unspecified; E11.9 Type 2 diabetes mellitus without complications; I12.0 Hypertensive chronic kidney disease with stage 5 chronic kidney disease or end stage renal disease; H10.9 Unspecified conjunctivitis; Z99.2 Dependence on renal dialysis

== ENCOUNTER 2017-04-15 06:57 | Emergency (ER) | payer OTHER ==
[2017-04-15 06:58] VITALS: BMI 27.4
[2017-04-15 07:21] VITALS: PULSE 87; RESP 18; TEMP 97.4; O2SAT 98
--- NOTE | 2017-04-15 07:44 | ED PDOC ---
HPI: General Adult Time Seen by Provider: 04/15/17 07:30 Chief Complaint (Nursing): Med Refill Chief Complaint (Provider): Med Refill History Per: Patient History/Exam Limitations: no limitations Onset/Duration Of Symptoms: Days (x 1) Recently: Seen In ED Additional Complaint(s): 71 year old male with past medical history of diabetes, hypertension and hypothyroidism, presents to the ED requesting HTN and DM medication refills. States that he was recently discharged from the hospital and they kept his medications so he was unable to take them. No headache, dizziness or lightheadedness. No chest pain or shortness of breathe. No polyurea or polydyspnea. He said he had an IV in his right hand and that's why he has swelling in his right hand/wrist. He states that improved and he's not here for that but just here for his medications. Has since been icing and elevating it and seeing improvement. PMD: none provided Past Medical History Reviewed: Historical Data, Nursing Documentation, Vital Signs Vital Signs: Last Vital Signs Temp 97.4 F L 04/15/17 07:18 Pulse 87 04/15/17 07:18 Resp 18 04/15/17 07:18 BP 186/74 H 04/15/17 07:55 Pulse Ox 98 04/15/17 07:49 - Medical History PMH: Anemia, Diabetes, HTN, Hypercholesterolemia, Hypothyroidism, Chronic Kidney Disease (on dialysis) Denies: Arthritis, CVA, Kidney Stones - Surgical History Surgical History: Appendectomy - Family History Family History: States: Unknown Family Hx - Immunization History Hx Tetanus Toxoid Vaccination: No Hx Influenza Vaccination: Yes Hx Pneumococcal Vaccination: Yes - Home Medications Home Medications: Ambulatory Orders Medication Instructions Recorded Allopurinol [Zyloprim] 100 mg PO DAILY 01/26/17 Aspirin [Ecotrin] 81 mg PO DAILY 01/26/17 Atorvastatin [Lipitor] 20 mg PO DAILY 01/26/17 Cilostazol [Pletal] 50 mg PO DAILY 01/26/17 Ergocalciferol (Vitamin D2) 50,000 unit PO QWK 01/26/17 [Vitamin D2] Famotidine [Pepcid] 20 mg PO DAILY 01/26/17 Levothyroxine [Synthroid] 75 mcg PO DAILY 01/26/17 SITagliptin [Januvia] 50 mg PO DAILY 01/26/17 Sevelamer Carbonate [Renvela] 1,600 mg PO TID 01/26/17 amLODIPine [Norvasc] 5 mg PO DAILY 01/26/17 Erythromycin 0.5% [Erythromycin] 1 applic OU Q4 #1 tube 04/14/17 Levofloxacin [Levaquin] 500 mg PO Q48H #7 tablet 04/14/17 SITagliptin [Januvia] 50 mg PO DAILY #30 tab 04/15/17 amLODIPine [Norvasc] 5 mg PO DAILY #30 tab 04/15/17 - Allergies Allergies/Adverse Reactions: Allergies Allergy/AdvReac Type Severity Reaction Status Date / Time No Known Allergies Allergy Verified 01/26/17 07:32 Review of Systems ROS Statement: Except As Marked, All Systems Reviewed And Found Negative Musculoskeletal: Positive for: Arm Pain (right wrist) Physical Exam - Reviewed Nursing Documentation Reviewed: Yes Vital Signs Reviewed: Yes - Physical Exam Appears: Positive for: Non-toxic, No Acute Distress Head Exam: Positive for: ATRAUMATIC, NORMOCEPHALIC Skin: Positive for: Normal Color, Warm, Dry Eye Exam: Positive for: Normal appearance, PERRL Neck: Positive for: Normal, Painless ROM, Supple Cardiovascular/Chest: Positive for: Regular Rate, Rhythm. Negative for: Murmur Respiratory: Positive for: Normal Breath Sounds. Negative for: Wheezing Pulses-Radial (L): 2+ Pulses-Radial (R): 2+ Gastrointestinal/Abdominal: Positive for: Normal Exam, Soft Back: Positive for: Normal Inspection. Negative for: L CVA Tenderness, R CVA Tenderness, Vertebral Tenderness Extremity: Positive for: Normal ROM, Swelling (mild; to the right wrist and hand. ). Negative for: Other (warmth and redness) Neurologic/Psych: Positive for: Alert - ECG O2 Sat by Pulse Oximetry: 98 (RA) Pulse Ox Interpretation: Normal Medical Decision Making Medical Decision Makin yo male requested medication refill for HTN and DM medications. -- Rx Norvasc and Januvia with dosage provided by patient and confirmed by medical records -- right hand/wrist swelling due to IV as per patient and last visit. There is full ROM and clinical suspicion of fx. He has great pulses and good cap refill. Swelling has improved as per patient and he's not here for that but here for his medication refill. -- He will f/u with his PMD Disposition - Clinical Impression Clinical Impression: Medication refill - Patient ED Disposition Is Patient to be Admitted: No - Disposition Disposition Time: 07:50 Condition: STABLE Additional Instructions: Mr Cruz, thank you for letting us take care of you today. Your provider was Dr. Pruitt. You were treated for Medication refill. The emergency medical care you received today was directed at your acute symptoms. If you were prescribed any medication, please fill it and take as directed. It may take several days for your symptoms to resolve. Return to the Emergency Department if your symptoms worsen, do not improve, or if you have any other problems. Please contact your doctor or call one of the physicians/clinics you have been referred to that are listed on the Patient Visit Information form that is included in your discharge packet. Bring any paperwork you were given at discharge with you along with any medications you are taking to your follow up visit. Our treatment cannot replace ongoing medical care by a primary care provider (PCP) outside of the emergency department. Thank you for allowing the [facility] team to be part of your care today. If you had an X-Ray or CT scan: A Radiologist will review the ED reading if any change in treatment is needed we will contact you. If you had a blood, urine, or wound culture: It will take several days for the results, if any change in treatment is needed we will contact you. If you had an STI test: It will take 48 hours for the results. Please call after 1 week if you have not heard back. Prescriptions: amLODIPine [Norvasc] 5 mg PO DAILY #30 tab SITagliptin [Januvia] 50 mg PO DAILY #30 tab Instructions: Diabetes Mellitus Type 2 in Adults (ED), Hypertension (ED) Forms: [employer] (Malay) Print Language: IRISH
[2017-04-15 07:57] VITALS: BP 186/74
== END 2017-04-15 07:59 | disposition home or self-care (01) ==
LOC: H.ER 06:57
DX: Z76.0 Encounter for issue of repeat prescription (principal)

== ENCOUNTER 2017-05-08 21:00 | Inpatient (IN) | payer OTHER ==
[2017-05-08 21:00] VITALS: BMI 27.4
[2017-05-08] MEDS ORDERED: Nitroglycerin 2% Ointment Foilpak UD TOP STA (22:58)
--- NOTE | 2017-05-08 23:05 | ED PDOC ---
HPI: SOB/CHF/COPD Time Seen by Provider: 05/08/17 21:40 Chief Complaint (Nursing): Dizziness/Lightheaded Chief Complaint (Provider): sob History Per: Patient History/Exam Limitations: no limitations Onset/Duration Of Symptoms: Days (2), Gradual, Persistent Quality: Pressure Exacerbating Factor(s): Exertion Associated Symptoms: Productive Cough, Heart Racing, Ankle/Leg Swelling, Light- headedness Additional Complaint(s): Pt has h/o renal failure on hemodialysis, but missed his dialysis today because was flying back from [facility]. While there he had his regular dialysis on MWF. Last dialysis was Thursday. Past Medical History Reviewed: Historical Data, Nursing Documentation, Vital Signs Vital Signs: Last Vital Signs Temp 98.6 F 05/08/17 21:17 Pulse 120 H 05/08/17 21:17 Resp 16 05/08/17 21:17 BP 173/97 H 05/08/17 21:17 Pulse Ox 96 05/08/17 21:17 - Medical History PMH: Anemia, Diabetes, HTN, Hypercholesterolemia, Hypothyroidism, Chronic Kidney Disease (on dialysis) Denies: Arthritis, CVA, Kidney Stones - Surgical History Surgical History: Appendectomy - Family History Family History: States: Unknown Family Hx - Social History Current smoker - smoking cessation education provided: No - Immunization History Hx Tetanus Toxoid Vaccination: No Hx Influenza Vaccination: Yes Hx Pneumococcal Vaccination: Yes - Home Medications Home Medications: Ambulatory Orders Medication Instructions Recorded Allopurinol [Zyloprim] 100 mg PO DAILY 01/26/17 Aspirin [Ecotrin] 81 mg PO DAILY 01/26/17 Atorvastatin [Lipitor] 20 mg PO DAILY 01/26/17 Cilostazol [Pletal] 50 mg PO DAILY 01/26/17 Ergocalciferol (Vitamin D2) 50,000 unit PO QWK 01/26/17 [Vitamin D2] Famotidine [Pepcid] 20 mg PO DAILY 01/26/17 Levothyroxine [Synthroid] 75 mcg PO DAILY 01/26/17 SITagliptin [Januvia] 50 mg PO DAILY 01/26/17 Sevelamer Carbonate [Renvela] 1,600 mg PO TID 01/26/17 amLODIPine [Norvasc] 5 mg PO DAILY 01/26/17 Erythromycin 0.5% [Erythromycin] 1 applic OU Q4 #1 tube 04/14/17 Levofloxacin [Levaquin] 500 mg PO Q48H #7 tablet 04/14/17 SITagliptin [Januvia] 50 mg PO DAILY #30 tab 04/15/17 amLODIPine [Norvasc] 5 mg PO DAILY #30 tab 04/15/17 - Allergies Allergies/Adverse Reactions: Allergies Allergy/AdvReac Type Severity Reaction Status Date / Time No Known Allergies Allergy Verified 05/08/17 21:17 Review of Systems ROS Statement: Except As Marked, All Systems Reviewed And Found Negative (and as per HPI) Constitutional: Positive for: Chills, Weakness, Malaise Cardiovascular: Positive for: Chest Pain, Edema, Light Headedness Respiratory: Positive for: Cough, Shortness of Breath, SOB with Exertion Gastrointestinal: Positive for: Abdominal Pain, Diarrhea. Negative for: Vomiting Neurological: Positive for: Dizziness. Negative for: Weakness, Numbness Physical Exam - Reviewed Nursing Documentation Reviewed: Yes Vital Signs Reviewed: Yes - Physical Exam Appears: Positive for: Non-toxic, In Acute Distress (respiratory) Head Exam: Positive for: ATRAUMATIC, NORMOCEPHALIC Skin: Positive for: Warm, Dry Eye Exam: Positive for: EOMI, PERRL ENT: Negative for: Pharyngeal Erythema, Tonsillar Exudate Neck: Positive for: Painless ROM, Supple Cardiovascular/Chest: Positive for: Edema, Tachycardia. Negative for: Murmur Respiratory: Positive for: Rales (bilateral bases), Respiratory Distress. Negative for: Wheezing Gastrointestinal/Abdominal: Positive for: Soft. Negative for: Tenderness Back: Positive for: Normal Inspection. Negative for: Decreased ROM Extremity: Positive for: Pedal Edema (bilateral lower leg). Negative for: Calf Tenderness, Deformity Lymphatic: Negative for: Adenopathy Neurologic/Psych: Positive for: Alert. Negative for: Motor/Sensory Deficits - ECG O2 Sat by Pulse Oximetry: 96 Pulse Ox Interpretation: Normal Disposition - Disposition Forms: [employer] (German)
[2017-05-08 23:11] LABS: VENOUS BLOOD GAS BASE EXCESS 7.1 mmol/L (0.0-2.0); VENOUS BLOOD GAS PCO2 45 mmHg (40-60); VENOUS BLOOD GAS PO2 43 mm/Hg (30-55); VENOUS BLOOD PH 7.46 (7.32-7.43)
--- NOTE | 2017-05-08 23:11 | CP.PCM.HP ---
History of Present Illness - History of Present Illness History of Present Illness: PCP: None Practice Architect: Christie Santana MD Chief Complaint: SOB/ Light headedness The patient was seen and examined in the ED: HPI: 71 years old male with hx of DM II, Hypothyroidism and ESRD on HD MWF. He returned to [facility] after spending 3 weeks [place], and comes to the ED with SOB, lightheadedness and generalized weakness. He claims that he missed his Thursday Dialysis. He is coughing and has bilateral leg edemas. PMH: Anemia, Diabetes, HTN, HLD, Hypothyroidism, ESRD (on dialysis)MWF PSH: dialysid Patient denies Appendicitis; Fistula in left arm, Left and right groin with hx of previous dialysis catheter SH: No illegal drug use; never smoked; very rare Alcohol use; Live alone FH: States: Unknown Family Hx Allergies: NKDA Medication: Reviewed Present on Admission - Present on Admission Any Indicators Present on Admission: No History of DVT/PE: No History of Uncontrolled Diabetes: No Urinary Catheter: No Decubitus Ulcer Present: No Review of Systems - Constitutional Constitutional: Fatigue, Lethargy, Night Sweats. absent: Chills, Fever - EENT Eyes: Requires Corrective Lenses. absent: Diplopia, Loss of Peripheral Vision, Photophobia Ears: Disequilibrium. absent: Decreased Hearing, Ear Pain, Tinnitus Nose/Mouth/Throat: absent: Epistaxis, Nasal Congestion, Nasal Discharge, Sinus Pain, Sinus Pressure - Cardiovascular Cardiovascular: Dyspnea, Edema, Leg Edema, Pedal Edema. absent: Chest Pain - Respiratory Respiratory: Cough, Dyspnea. absent: Wheezing, Stridor, Chest Congestion - Gastrointestinal Gastrointestinal: Bloating. absent: Constipation, Diarrhea, Nausea, Vomiting - Genitourinary Genitourinary: Urinary Incontinence. absent: Dysuria, Flank Pain, Hematuria - Musculoskeletal Musculoskeletal: Muscle Weakness. absent: Arthralgias, Back Pain - Integumentary Integumentary: Swelling. absent: Pruritus, Rash, Skin Ulcer, Sores, Striae - Neurological Neurological: Dizziness, Weakness. absent: Confusion, Focal Weakness, Headaches - Psychiatric Psychiatric: absent: Anxiety, Depression, Panic Attacks - Endocrine Endocrine: absent: Palpitations, Polydipsia, Polyphagia, Polyuria - Hematologic/Lymphatic Hematologic: absent: Easy Bleeding, Easy Bruising Past Patient History - Past Medical History & Family History Past Medical History?: Yes - Past Social History Smoking Status: Never Smoked Chewing Tobacco Use: No Cigar Use: No - CARDIAC Hx Hypercholesterolemia: Yes Hx Hypertension: Yes - PULMONARY Hx Respiratory Disorders: No - NEUROLOGICAL Hx Neurological Disorder: No - HEENT Hx HEENT Problems: No - RENAL Hx Chronic Kidney Disease: Yes (on dialysis) Hx Kidney Stones: No - ENDOCRINE/METABOLIC Hx Hypothyroidism: Yes - HEMATOLOGICAL/ONCOLOGICAL Hx Anemia: Yes - INTEGUMENTARY Hx Dermatological Problems: No - MUSCULOSKELETAL/RHEUMATOLOGICAL Hx Arthritis: No - GASTROINTESTINAL Hx Gastrointestinal Disorders: No - GENITOURINARY/GYNECOLOGICAL Hx Genitourinary Disorders: No - PSYCHIATRIC Hx Psychophysiologic Disorder: No Hx Substance Use: No - SURGICAL HISTORY Hx Appendectomy: Yes - ANESTHESIA Hx Anesthesia: Yes Hx Anesthesia Reactions: No Hx Malignant Hyperthermia: No Meds Allergies/Adverse Reactions: Allergies Allergy/AdvReac Type Severity Reaction Status Date / Time No Known Allergies Allergy Verified 05/08/17 21:17 Physical Exam - Constitutional Appears: In Acute Distress - Head Exam Head Exam: ATRAUMATIC, NORMAL INSPECTION, NORMOCEPHALIC - Eye Exam Eye Exam: EOMI, Normal appearance Pupil Exam: NORMAL ACCOMODATION, PERRL - ENT Exam ENT Exam: Mucous Membranes Moist, Normal Exam - Neck Exam Neck exam: Positive for: Full Rom, Normal Inspection. Negative for: Lymphadenopathy, Tenderness - Respiratory Exam Respiratory Exam: absent: Rhonchi, Wheezes Additional comments: Bibasal rales half way up - Cardiovascular Exam Cardiovascular Exam: REGULAR RHYTHM, RRR, +S1, +S2 - GI/Abdominal Exam GI & Abdominal Exam: absent: Mass, Organomegaly Additional comments: Obese, firm, nontender, decreased bowel sounds - Rectal Exam Rectal Exam: Deferred - Extremities Exam Additional comments: Edema 2+ at both lower extremities - Back Exam Back exam: NORMAL INSPECTION. absent: CVA tenderness (L), CVA tenderness (R) - Neurological Exam Neurological exam: Alert, CN II-XII Intact, Oriented x3, Reflexes Normal - Psychiatric Exam Psychiatric exam: Normal Affect, Normal Mood - Skin Skin Exam: Dry, Intact, Normal Color, Warm Results - Vital Signs Recent Vital Signs: Last Vital Signs Temp 98.6 F 05/08/17 21:17 Pulse 120 H 05/08/17 21:17 Resp 16 05/08/17 21:17 BP 173/97 H 05/08/17 21:17 Pulse Ox 96 05/08/17 23:07 - Labs Result Diagrams: 05/09/17 01:09 05/09/17 01:05 Labs: Laboratory Results - last 24 hr 05/08/17 22:17 POC Glucose (mg/dL) 132 H - EKG Data EKG comments: Sinus Tachycardia 116/min - Imaging and Cardiology Chest x-ray Status: Image reviewed by me Additional comment: Increased Cardiac Silhouette Bilateral interstitial infiltrate Assessment & Plan - Assessment and Plan (Free Text) Assessment: #. Acute Respiratory distress #. ESRD on HD MWF #. DM II #. HTN #. Hypothyroidism #. Anemia #. Hyperkalemia Plan: 71 years old male with hx of DM II, Hypothyroidism and ESRD on HD MWF. He returned to [facility] after spending 3 weeks [place], and comes to the ED with SOB, lightheadedness and generalized weakness. He claims that he missed his Thursday Dialysis. He is coughing and has bilateral leg edemas. #. Acute Respiratory distress secondary to volume overload - Consult Dr Santana Nephrology for emergent dialysis - Oxygen @ 3L/min #. ESRD on HD MWF - Nephrology consulted - HD #. DM II - Januvia -Regular insulin sliding scale according to accucheck - HbA1c #. HTN - Metoprolol #. Hypothyroidism - Levothyroxin - TSH #. Anemia - Follow Hb #. Hyperkalemia - Patient for HD - Follow electrolytes #. DVT prophylaxis with Heparin #. Code Status: Full - Date & Time Date: 05/08/17 Time: 23:10
[2017-05-08] MEDS ORDERED: Nitroglycerin 2% Ointment Foilpak UD TOP ONE (23:12)
[2017-05-09 00:36] LABS: BASO # 0.1 K/uL (0.0-0.2); EOS # 0.1 K/uL (0.0-0.7); EOS % 0.8 % (0.0-4.0); HEMOGLOBIN 9.6 g/dL (12.0-18.0); LYMPH # 1.5 K/uL (1.0-4.3); LYMPH % 15.7 % (20.0-40.0); MEAN CELL VOLUME 92.5 fl (80.0-94.0); MEAN CORPUSCULAR HEMOGLOBIN 30.2 pg (27.0-31.0); MEAN CORPUSCULAR HGB CONC 32.7 g/dL (33.0-37.0); MEAN PLATELET VOLUME 10.3 fl (7.2-11.7); MONO # 0.8 K/uL (0.0-0.8); MONO % 8.3 % (0.0-10.0); NEUT # 6.8 K/uL (1.8-7.0); NEUT % 74.2 % (50.0-75.0); NRBC % 0.1 % (0.0-0.0); RBC 3.16 Mil/uL (4.40-5.90); WHITE BLOOD COUNT 9.2 K/uL (4.8-10.8)
[2017-05-09 01:07] LABS: PROTHROMBIN TIME 11.6 Seconds (9.8-13.1)
[2017-05-09 01:08] LABS: PARTIAL THROMBOPLASTIN TIME 21.2 Seconds (25.6-37.1)
[2017-05-09 01:36] LABS: HEMOGLOBIN 9.5 g/dL (12.0-18.0); MEAN CELL VOLUME 92.8 fl (80.0-94.0); MEAN CORPUSCULAR HEMOGLOBIN 29.2 pg (27.0-31.0); MEAN CORPUSCULAR HGB CONC 31.4 g/dL (33.0-37.0); RBC 3.24 Mil/uL (4.40-5.90); RED CELL DISTRIBUTION WIDTH 17.2 % (11.5-14.5); WHITE BLOOD COUNT 6.6 K/uL (4.8-10.8)
[2017-05-09 01:53] LABS: INR 1.1 (0.9-1.2); PROTHROMBIN TIME 12.3 Seconds (9.8-13.1)
[2017-05-09 01:54] LABS: PARTIAL THROMBOPLASTIN TIME 27.9 Seconds (25.6-37.1)
[2017-05-09 02:30] LABS: ALBUMIN 3.7 g/dL (3.5-5.0); CALCIUM 8.9 mg/dL (8.4-10.2); MAGNESIUM 2.3 MG/DL (1.6-2.3)
[2017-05-09 02:44] LABS: ALB/GLOB RATIO 1.2 (1.0-2.1)
[2017-05-09 03:14] LABS: TROPONIN I 0.168 ng/mL (0.00-0.120)
[2017-05-09] MEDS ORDERED: Metoprolol Succinate 50 mg XL Tab PO SCH (09:00)
[2017-05-09] MEDS ORDERED: Cilostazol 50 mg Tab UD PO SCH (09:00)
[2017-05-09] MEDS: Insulin Regular 100 units/ml SC SCH ×4 (09:18→22:00)
[2017-05-09] MEDS: Multivitamin Vitamin B Complex (Nephro-Vite) Tab PO SCH (09:19)
[2017-05-09] MEDS: Metoprolol Succinate 50 mg XL Tab PO SCH (09:19)
[2017-05-09] MEDS: Levothyroxine 75 MCG TAB PO SCH (09:19)
[2017-05-09] MEDS: SEVELAMER CARBONATE PO SCH ×3 (09:20→17:12)
--- NOTE | 2017-05-09 10:43 | RAD ---
HISTORY: SOB COMPARISON: Comparison made with prior study 04/13/2017. FINDINGS: LUNGS: There appears to be mild central pulmonary vascular congestive changes with blunting right CP angle possibly due to small effusion. PLEURA: No significant pleural effusion identified, no pneumothorax apparent. CARDIOVASCULAR: Heart size is borderline/mildly enlarged. OSSEOUS STRUCTURES: No significant abnormalities. VISUALIZED UPPER ABDOMEN: Normal. OTHER FINDINGS: None. IMPRESSION: There appears to be mild central pulmonary vascular congestive changes with blunting right CP angle possibly due to small effusion.
--- NOTE | 2017-05-09 11:10 | RAD ---
HISTORY: Follow up pulmonary congestion COMPARISON: No prior. FINDINGS: LUNGS: Interval mild asymmetric improvement previously noted pulmonary vascular congestive changes left more so than right. There may be some mild right basilar atelectasis and layering effusion which could account for the asymmetry. PLEURA: No significant pleural effusion identified, no pneumothorax apparent. CARDIOVASCULAR: Normal. OSSEOUS STRUCTURES: No significant abnormalities. VISUALIZED UPPER ABDOMEN: Normal. OTHER FINDINGS: None. IMPRESSION: Interval mild asymmetric improvement previously noted pulmonary vascular congestive changes left more so than right. There may be some mild right basilar atelectasis and layering effusion which could account for the asymmetry.
[2017-05-09] MEDS ORDERED: Metoprolol Succinate 50 mg XL Tab PO ONE (12:05)
--- NOTE | 2017-05-09 12:41 | CP.PCM.PN ---
Subjective - Date & Time of Evaluation Date of Evaluation: 05/09/17 Time of Evaluation: 12:39 - Subjective Subjective: pt feeling well this morning no chest pain completed HD this AM, tolerated well elevated cardiac enzymes, will trend out HD stbale NAD Objective - Vital Signs/Intake and Output Vital Signs (last 24 hours): Temp Pulse Resp BP Pulse Ox 97.6 F 112 H 18 148/86 95 05/09/17 08:19 05/09/17 09:19 05/09/17 08:19 05/09/17 09:19 05/09/17 08:19 Vitals Reviewed GEN: WDWN, ALERT, COOPERATIVE HEENT: NCAT, PERRL, EOMI HEART: RRR, +S1S2, NO MRG LUNG: CTAB, NO WRR ABD: SOFT, NT, ND, NO HSM, NO MASSES EXT: NORMAL PEDAL PULSES, GOOD CAPILLARY REFILL NEURO: AAOX3, STRENGTH EQUAL BILATERAL UPPER AND LOWER EXTREMITIES SKIN: WARM, DRY PSYCH: NORMAL MOOD, NORMAL AFFECT - Medications Medications: Current Medications Allopurinol (Zyloprim) 100 mg PO DAILY [facility] Last Admin: 05/09/17 09:18 Dose: 100 mg Aspirin (Aspirin Chewable) 81 mg PO DAILY [facility] Cilostazol (Pletal) 50 mg PO DAILY [facility] Last Admin: 05/09/17 09:19 Dose: 50 mg Heparin Sodium (Porcine) (Heparin) 5,000 units SC Q8 [facility] PRN Reason: Protocol Last Admin: 05/09/17 09:17 Dose: 5,000 units Home Med (Sevelamer Carbonate [Renvela]) 2 cap PO TID [facility] Last Admin: 05/09/17 09:20 Dose: 2 cap Insulin Human Regular (Humulin R) 0 units SC ACHS [facility] PRN Reason: Protocol Last Admin: 05/09/17 09:18 Dose: Not Given Levothyroxine Sodium (Synthroid) 75 mcg PO DAILY [facility] Last Admin: 05/09/17 09:19 Dose: 75 mcg Metoprolol Succinate (Toprol Xl) 50 mg PO DAILY [facility] Last Admin: 05/09/17 09:19 Dose: 50 mg Sitagliptin Phosphate (Januvia) 25 mg PO DAILY [facility] Last Admin: 05/09/17 09:20 Dose: 25 mg Vitamin B Complex/Vit C/Folic Acid (Nephro-Naima) 1 tab PO DAILY [facility] Last Admin: 05/09/17 09:19 Dose: 1 tab - Labs Labs: 05/09/17 01:09 05/09/17 01:05 PT 12.3 Seconds (9.8-13.1) 05/09/17 01:09 INR 1.1 (0.9-1.2) 05/09/17 01:09 APTT 27.9 Seconds (25.6-37.1) D 05/09/17 01:09 Assessment and Plan - Assessment and Plan (Free Text) Plan: 71 years old male with hx of DM II, Hypothyroidism and ESRD on HD MWF. He returned to [facility] after spending 3 weeks [place], and comes to the ED with SOB, lightheadedness and generalized weakness. He claims that he missed his Thursday Dialysis. He is coughing and has bilateral leg edemas. Acute Respiratory distress secondary to volume overload - Consult Dr Santana Nephrology for emergent dialysis - Oxygen @ 3L/min - resolved after HD Elevated Cardiac enzymes - likely secondary to volume overload - no acute ekg changes, repeat today - trend enzymes ESRD on HD MWF - Nephrology consulted - HD DM II - Januvia -Regular insulin sliding scale according to accucheck - HbA1c HTN - Metoprolol Hypothyroidism - Levothyroxin - TSH Anemia - Follow Hb Hyperkalemia - Patient for HD - Follow electrolytes DVT prophylaxis with Heparin Code Status: Full
[2017-05-09 17:58] LABS: HEPATITIS B SURFACE AG Negative (NEGATIVE)
--- NOTE | 2017-05-09 17:59 | CP.PCM.CON ---
History of Present Illness - History of Present Illness History of Present Illness: REASONS FOR CONSULT : ESRD .. NEEDS STAT HG .. MISSED HIS HD LAST THU PULMONARY EDEMA .. FLIUD OVERLOAD .. NEEDS STAT HD HYPERKALEMIA .. K 5. 4 PT IS WELL KNOW TO ME ON HD [facility] [place]. WENT TO DR FOR 3 WEEKS .. MISSED HIS HD LAST THU Chief Complaint: SOB/ Light headedness The patient was seen and examined in the ED: HPI: 71 years old male with hx of DM II, Hypothyroidism and ESRD on HD MWF. He returned to [facility] after spending 3 weeks [place], and comes to the ED with SOB, lightheadedness and generalized weakness. He claims that he missed his Thursday Dialysis. He is coughing and has bilateral leg edemas. PMH: Anemia, Diabetes, HTN, HLD, Hypothyroidism, ESRD (on dialysis)MWF PSH: dialysid Patient denies Appendicitis; Fistula in left arm, Left and right groin with hx of previous dialysis catheter SH: No illegal drug use; never smoked; very rare Alcohol use; Live alone FH: States: Unknown Family Hx Allergies: NKDA Medication: Reviewed Past Patient History - Past Medical History & Family History Past Medical History?: Yes - Past Social History Smoking Status: Never Smoked Chewing Tobacco Use: No Cigar Use: No - CARDIAC Hx Hypercholesterolemia: Yes Hx Hypertension: Yes - PULMONARY Hx Respiratory Disorders: No - NEUROLOGICAL Hx Neurological Disorder: No - HEENT Hx HEENT Problems: No - RENAL Hx Chronic Kidney Disease: Yes (on dialysis) Hx Kidney Stones: No - ENDOCRINE/METABOLIC Hx Hypothyroidism: Yes - HEMATOLOGICAL/ONCOLOGICAL Hx Anemia: Yes - INTEGUMENTARY Hx Dermatological Problems: No - MUSCULOSKELETAL/RHEUMATOLOGICAL Hx Arthritis: No - GASTROINTESTINAL Hx Gastrointestinal Disorders: No - GENITOURINARY/GYNECOLOGICAL Hx Genitourinary Disorders: No - PSYCHIATRIC Hx Psychophysiologic Disorder: No Hx Substance Use: No - SURGICAL HISTORY Hx Appendectomy: Yes - ANESTHESIA Hx Anesthesia: Yes Hx Anesthesia Reactions: No Hx Malignant Hyperthermia: No Meds Home Medications: Home Medication List Medication Instructions Recorded Confirmed Type Allopurinol [Zyloprim] 100 mg PO DAILY #30 tab 05/09/17 Rx Cilostazol [Pletal] 50 mg PO DAILY #30 tab 05/09/17 Rx Folic Acid/Vit B Complex and C 0.8 mg PO DAILY #30 tablet 05/09/17 Rx [Vanessa-Naima Tablet] Levothyroxine [Synthroid] 75 mcg PO DAILY #30 tab 05/09/17 Rx Metoprolol Succinate [Toprol XL] 50 mg PO BID #60 tab 05/09/17 Rx SITagliptin [Januvia] 50 mg PO DAILY #30 tab 05/09/17 Rx Sevelamer Carbonate [Renvela] 2 cap PO TID #180 05/09/17 Rx Allergies/Adverse Reactions: Allergies Allergy/AdvReac Type Severity Reaction Status Date / Time No Known Allergies Allergy Verified 05/08/17 21:17 - Medications Medications: Current Medications Allopurinol (Zyloprim) 100 mg PO DAILY [facility] Last Admin: 05/09/17 09:18 Dose: 100 mg Aspirin (Aspirin Chewable) 81 mg PO DAILY [facility] Last Admin: 05/09/17 13:31 Dose: 81 mg Cilostazol (Pletal) 50 mg PO DAILY [facility] Last Admin: 05/09/17 09:19 Dose: 50 mg Diltiazem HCl (Cardizem) 30 mg PO Q6H [facility] Last Admin: 05/09/17 16:45 Dose: 30 mg Heparin Sodium (Porcine) (Heparin) 5,000 units SC Q8 [facility] PRN Reason: Protocol Last Admin: 05/09/17 17:04 Dose: 5,000 units Home Med (Sevelamer Carbonate [Renvela]) 2 cap PO TID [facility] Last Admin: 05/09/17 17:12 Dose: 2 cap Insulin Human Regular (Humulin R) 0 units SC ACHS [facility] PRN Reason: Protocol Last Admin: 05/09/17 17:11 Dose: Not Given Levothyroxine Sodium (Synthroid) 75 mcg PO DAILY [facility] Last Admin: 05/09/17 09:19 Dose: 75 mcg Metoprolol Succinate (Toprol Xl) 50 mg PO DAILY [facility] Last Admin: 05/09/17 09:19 Dose: 50 mg Sitagliptin Phosphate (Januvia) 25 mg PO DAILY [facility] Last Admin: 05/09/17 09:20 Dose: 25 mg Vitamin B Complex/Vit C/Folic Acid (Nephro-Naima) 1 tab PO DAILY [facility] Last Admin: 05/09/17 09:19 Dose: 1 tab Results - Vital Signs Recent Vital Signs: Last Vital Signs Temp 98.1 F 05/09/17 15:43 Pulse 78 05/09/17 15:43 Resp 20 05/09/17 15:43 BP 148/86 05/09/17 15:43 Pulse Ox 97 05/09/17 15:43 - Labs Result Diagrams: 05/09/17 01:09 05/09/17 01:05 Labs: Laboratory Results - last 24 hr 05/08/17 05/08/17 05/08/17 22:17 23:00 23:00 WBC 9.2 RBC 3.16 L Hgb 9.6 L Hct 29.2 L MCV 92.5 D MCH 30.2 MCHC 32.7 L RDW 17.0 H Plt Count 179 MPV 10.3 Neut % (Auto) 74.2 Lymph % (Auto) 15.7 L [place] % (Auto) 8.3 Eos % (Auto) 0.8 Baso % (Auto) 1.0 Neut # 6.8 Lymph # 1.5 [place] # 0.8 Eos # 0.1 Baso # 0.1 PT 11.6 INR 1.0 APTT 21.2 L pO2 VBG pH VBG pCO2 VBG HCO3 VBG Total CO2 VBG O2 Sat (Calc) VBG Base Excess VBG Potassium Sodium Chloride Glucose Lactate FiO2 Potassium Carbon Dioxide Anion Gap BUN Creatinine Est GFR ( Amer) Est GFR (Non-Af Amer) POC Glucose (mg/dL) 132 H Random Glucose Calcium Phosphorus Magnesium Total Bilirubin AST ALT Alkaline Phosphatase Troponin I NT-Pro-B Natriuret Pep Total Protein Albumin Globulin Albumin/Globulin Ratio TSH 3rd Generation Venous Blood Potassium Influenza Typ A,B (EIA) Blood Type Antibody Screen BBK History Checked 05/08/17 05/08/17 05/09/17 23:00 23:08 01:05 WBC RBC Hgb Hct MCV MCH MCHC RDW Plt Count MPV Neut % (Auto) Lymph % (Auto) [place] % (Auto) Eos % (Auto) Baso % (Auto) Neut # Lymph # [place] # Eos # Baso # PT INR APTT pO2 43 VBG pH 7.46 H VBG pCO2 45 VBG HCO3 30.0 VBG Total CO2 33.4 H VBG O2 Sat (Calc) 87.3 H VBG Base Excess 7.1 H VBG Potassium 4.9 Sodium 135.0 139 Chloride 100.0 98 Glucose 129 H Lactate 1.0 FiO2 21.0 Potassium 5.4 H Carbon Dioxide 22 Anion Gap 24 H BUN 68 H Creatinine 12.2 H* D Est GFR ( Amer) 5 Est GFR (Non-Af Amer) 4 POC Glucose (mg/dL) Random Glucose 104 Calcium 8.9 Phosphorus 4.1 Magnesium 2.3 Total Bilirubin 0.7 AST 48 ALT 43 Alkaline Phosphatase 49 Troponin I 0.1680 H* NT-Pro-B Natriuret Pep 984594 H Total Protein 6.9 Albumin 3.7 Globulin 3.2 Albumin/Globulin Ratio 1.2 TSH 3rd Generation Venous Blood Potassium 4.9 Influenza Typ A,B (EIA) Negative for flu a/b Blood Type Antibody Screen BBK History Checked 05/09/17 05/09/17 05/09/17 01:09 01:09 01:45 WBC 6.6 RBC 3.24 L Hgb 9.5 L Hct 30.1 L MCV 92.8 MCH 29.2 MCHC 31.4 L RDW 17.2 H Plt Count 157 MPV Neut % (Auto) Lymph % (Auto) [place] % (Auto) Eos % (Auto) Baso % (Auto) Neut # Lymph # [place] # Eos # Baso # PT 12.3 INR 1.1 APTT 27.9 D pO2 VBG pH VBG pCO2 VBG HCO3 VBG Total CO2 VBG O2 Sat (Calc) VBG Base Excess VBG Potassium Sodium Chloride Glucose Lactate FiO2 Potassium Carbon Dioxide Anion Gap BUN Creatinine Est GFR ( Amer) Est GFR (Non-Af Amer) POC Glucose (mg/dL) Random Glucose Calcium Phosphorus Magnesium Total Bilirubin AST ALT Alkaline Phosphatase Troponin I NT-Pro-B Natriuret Pep Total Protein Albumin Globulin Albumin/Globulin Ratio TSH 3rd Generation Venous Blood Potassium Influenza Typ A,B (EIA) Blood Type O POSITIVE Antibody Screen Negative BBK History Checked Patient has bt 05/09/17 05/09/17 05/09/17 05:20 06:02 11:30 WBC RBC Hgb Hct MCV MCH MCHC RDW Plt Count MPV Neut % (Auto) Lymph % (Auto) [place] % (Auto) Eos % (Auto) Baso % (Auto) Neut # Lymph # [place] # Eos # Baso # PT INR APTT pO2 VBG pH VBG pCO2 VBG HCO3 VBG Total CO2 VBG O2 Sat (Calc) VBG Base Excess VBG Potassium Sodium Chloride Glucose Lactate FiO2 Potassium Carbon Dioxide Anion Gap BUN Creatinine Est GFR ( Amer) Est GFR (Non-Af Amer) POC Glucose (mg/dL) 101 Random Glucose Calcium Phosphorus Magnesium Total Bilirubin AST ALT Alkaline Phosphatase Troponin I 0.2080 H* NT-Pro-B Natriuret Pep Total Protein Albumin Globulin Albumin/Globulin Ratio TSH 3rd Generation 2.96 Venous Blood Potassium Influenza Typ A,B (EIA) Blood Type Antibody Screen BBK History Checked 05/09/17 05/09/17 11:38 16:51 WBC RBC Hgb Hct MCV MCH MCHC RDW Plt Count MPV Neut % (Auto) Lymph % (Auto) [place] % (Auto) Eos % (Auto) Baso % (Auto) Neut # Lymph # [place] # Eos # Baso # PT INR APTT pO2 VBG pH VBG pCO2 VBG HCO3 VBG Total CO2 VBG O2 Sat (Calc) VBG Base Excess VBG Potassium Sodium Chloride Glucose Lactate FiO2 Potassium Carbon Dioxide Anion Gap BUN Creatinine Est GFR ( Amer) Est GFR (Non-Af Amer) POC Glucose (mg/dL) 183 H Random Glucose Calcium Phosphorus Magnesium Total Bilirubin AST ALT Alkaline Phosphatase Troponin I 0.1700 H* NT-Pro-B Natriuret Pep Total Protein Albumin Globulin Albumin/Globulin Ratio TSH 3rd Generation Venous Blood Potassium Influenza Typ A,B (EIA) Blood Type Antibody Screen BBK History Checked Assessment & Plan - Assessment and Plan (Free Text) Assessment: ESRD MISSED HD LAST THU FLIUD OVERLOAD PULMONARY EDEMA MMP P : STAT HD WAS DONE EARLIAR TODAY TOLERATED HD WELL RENAL DIET .. 2 G NA .. 2 G K .. 100 G PROTIEN .. 1000 CC FR C/O CURRENT PO MEDS NEXT HD MON .. CAN BE DONE AN OUT PT AT THE HD CENTER PT IS CLEAR FOR D/C FROM RENAL POINT OF VIEW - Date & Time Date: 05/09/17 Time: 15:00
[2017-05-09 18:04] LABS: HEPATITIS A IGM NEGATIVE (NEGATIVE); HEPATITIS B CORE AB NEGATIVE (NEGATIVE)
[2017-05-09 18:16] LABS: HEPATITIS C ANTIBODY NEGATIVE (NEGATIVE)
[2017-05-10] MEDS: Insulin Regular 100 units/ml SC SCH ×4 (07:00→21:30)
[2017-05-10 09:05] LABS: CALCIUM 8.4 mg/dL (8.4-10.2)
[2017-05-10] MEDS: Multivitamin Vitamin B Complex (Nephro-Vite) Tab PO SCH (09:37)
[2017-05-10] MEDS: Levothyroxine 75 MCG TAB PO SCH (09:37)
[2017-05-10] MEDS: SEVELAMER CARBONATE PO SCH ×3 (09:40→17:30)
[2017-05-10] MEDS: Metoprolol Succinate 50 mg XL Tab PO SCH (09:41)
--- NOTE | 2017-05-10 10:13 | CP.PCM.PN ---
Subjective - Date & Time of Evaluation Date of Evaluation: 05/10/17 Time of Evaluation: 09:30 - Subjective Subjective: Pt feels better SOB better after HD denies CP no abd pain no edema With the help of a [employer] video vp client services - [employer] - discussed with pt treatment plan he [place]., need HD to be reinstated also states that he is now homeless? Objective - Vital Signs/Intake and Output Vital Signs (last 24 hours): Temp Pulse Resp BP Pulse Ox 97.1 F L 70 18 116/72 98 05/10/17 08:30 05/10/17 09:41 05/10/17 09:37 05/10/17 09:41 05/10/17 09:37 - Medications Medications: Current Medications Allopurinol (Zyloprim) 100 mg PO DAILY [facility] Last Admin: 05/10/17 09:41 Dose: 100 mg Aspirin (Aspirin Chewable) 81 mg PO DAILY [facility] Last Admin: 05/10/17 09:37 Dose: 81 mg Diltiazem HCl (Cardizem) 30 mg PO Q6H [facility] Last Admin: 05/10/17 09:37 Dose: 30 mg Heparin Sodium (Porcine) (Heparin) 5,000 units SC Q8 [facility] PRN Reason: Protocol Last Admin: 05/10/17 09:39 Dose: 5,000 units Home Med (Sevelamer Carbonate [Renvela]) 2 cap PO TID [facility] Last Admin: 05/10/17 09:40 Dose: 2 cap Insulin Human Regular (Humulin R) 0 units SC ACHS [facility] PRN Reason: Protocol Last Admin: 05/10/17 07:00 Dose: Not Given Levothyroxine Sodium (Synthroid) 75 mcg PO DAILY [facility] Last Admin: 05/10/17 09:37 Dose: 75 mcg Metoprolol Succinate (Toprol Xl) 50 mg PO DAILY [facility] Last Admin: 05/10/17 09:41 Dose: 50 mg Sitagliptin Phosphate (Januvia) 25 mg PO DAILY [facility] Last Admin: 05/10/17 09:37 Dose: 25 mg Vitamin B Complex/Vit C/Folic Acid (Nephro-Naima) 1 tab PO DAILY [facility] Last Admin: 05/10/17 09:37 Dose: 1 tab - Labs Labs: 05/09/17 01:09 05/10/17 07:00 PT 12.3 Seconds (9.8-13.1) 05/09/17 01:09 INR 1.1 (0.9-1.2) 05/09/17 01:09 APTT 27.9 Seconds (25.6-37.1) D 05/09/17 01:09 - Constitutional Appears: No Acute Distress, Chronically Ill - Head Exam Head Exam: NORMAL INSPECTION, NORMOCEPHALIC - Eye Exam Eye Exam: EOMI, Normal appearance Pupil Exam: NORMAL ACCOMODATION - ENT Exam ENT Exam: Mucous Membranes Moist, Normal External Ear Exam - Neck Exam Neck Exam: Full ROM. absent: Meningismus - Respiratory Exam Respiratory Exam: Rhonchi, NORMAL BREATHING PATTERN. absent: Respiratory Distress - Cardiovascular Exam Cardiovascular Exam: REGULAR RHYTHM, +S1, +S2 - GI/Abdominal Exam GI & Abdominal Exam: Soft, Normal Bowel Sounds. absent: Tenderness - Extremities Exam Extremities Exam: Full ROM, Normal Capillary Refill. absent: Calf Tenderness, Pedal Edema - Back Exam Back Exam: Full ROM. absent: CVA tenderness (L), CVA tenderness (R) - Neurological Exam Neurological Exam: Alert, Awake, CN II-XII Intact Additional comments: oriented to person and place - Psychiatric Exam Psychiatric exam: Normal Affect, Normal Mood - Skin Skin Exam: Dry, Normal Color, Warm Assessment and Plan - Assessment and Plan (Free Text) Assessment: 71 years old male with hx of DM II, Hypothyroidism and ESRD on HD MWF, returned to [facility] on day of admission after spending 3 weeks in [place], and comes to the ED with SOB, lightheadedness and generalized weakness. He claims that he missed his Thursday Dialysis. Acute Respiratory distress secondary to volume overload -Pt missed his Dialysis Thursday -Consulted Dr Santana Nephrology for emergent dialysis - his sched was MWF -Oxygen per NC - SOB improved with Dialysis Elevated Cardiac enzymes - likely secondary to volume overload - no acute ekg changes - pt denies CP - Trop0.17 ESRD on HD MWF - Nephrology consulted DM II type II -cont Januvia -Regular insulin sliding scale according to accucheck - HbA1c 6.1 HTN - increase Metoprolol to 75mg XL Hypothyroidism -cont Levothyroxine - TSH normal Anemia of chronic renal dis Hyperkalemia sce to ESRD - Follow electrolytes DVT prophylaxis with Heparin Code Status: Full
[2017-05-10 15:51] VITALS: RESP 20
[2017-05-11 07:08] LABS: HEMOGLOBIN 9.8 g/dL (12.0-18.0); MEAN CELL VOLUME 92.3 fl (80.0-94.0); MEAN CORPUSCULAR HEMOGLOBIN 29.5 pg (27.0-31.0); RBC 3.32 Mil/uL (4.40-5.90); RED CELL DISTRIBUTION WIDTH 17.2 % (11.5-14.5); WHITE BLOOD COUNT 6.6 K/uL (4.8-10.8)
[2017-05-11 07:13] LABS: CALCIUM 8.3 mg/dL (8.4-10.2)
[2017-05-11] MEDS: Insulin Regular 100 units/ml SC SCH ×3 (08:05→17:32)
[2017-05-11] MEDS ORDERED: Metoprolol Succinate 25 mg XL Tab PO SCH (09:00)
[2017-05-11] MEDS: Multivitamin Vitamin B Complex (Nephro-Vite) Tab PO SCH (09:04)
[2017-05-11] MEDS: SEVELAMER CARBONATE PO SCH ×3 (09:05→17:33)
[2017-05-11] MEDS: Levothyroxine 75 MCG TAB PO SCH (09:05)
--- NOTE | 2017-05-11 11:50 | CP.PCM.DIS ---
Provider - Provider Date of Admission: 05/08/17 23:33 Attending physician: Dewayne Dumont Primary care physician: None Consults: nephrology consult Time Spent in preparation of Discharge (in minutes): 15 Hospital Course - Lab Results Lab Results: Micro Results 05/08/17 23:00 Blood Blood Culture - Preliminary NO GROWTH AFTER 48 HOURS Most Recent Lab Values WBC 6.6 K/uL (4.8-10.8) 05/11/17 05:35 RBC 3.32 Mil/uL (4.40-5.90) L 05/11/17 05:35 Hgb 9.8 g/dL (12.0-18.0) L 05/11/17 05:35 Hct 30.7 % (35.0-51.0) L 05/11/17 05:35 MCV 92.3 fl (80.0-94.0) 05/11/17 05:35 MCH 29.5 pg (27.0-31.0) 05/11/17 05:35 MCHC 32.0 g/dL (33.0-37.0) L 05/11/17 05:35 RDW 17.2 % (11.5-14.5) H 05/11/17 05:35 Plt Count 165 K/uL (130-400) 05/11/17 05:35 MPV 10.3 fl (7.2-11.7) 05/08/17 23:00 Neut % (Auto) 74.2 % (50.0-75.0) 05/08/17 23:00 Lymph % (Auto) 15.7 % (20.0-40.0) L 05/08/17 23:00 [place] % (Auto) 8.3 % (0.0-10.0) 05/08/17 23:00 Eos % (Auto) 0.8 % (0.0-4.0) 05/08/17 23:00 Baso % (Auto) 1.0 % (0.0-2.0) 05/08/17 23:00 Neut # 6.8 K/uL (1.8-7.0) 05/08/17 23:00 Lymph # 1.5 K/uL (1.0-4.3) 05/08/17 23:00 [place] # 0.8 K/uL (0.0-0.8) 05/08/17 23:00 Eos # 0.1 K/uL (0.0-0.7) 05/08/17 23:00 Baso # 0.1 K/uL (0.0-0.2) 05/08/17 23:00 PT 12.3 Seconds (9.8-13.1) 05/09/17 01:09 INR 1.1 (0.9-1.2) 05/09/17 01:09 APTT 27.9 Seconds (25.6-37.1) D 05/09/17 01:09 pO2 43 mm/Hg (30-55) 05/08/17 23:08 VBG pH 7.46 (7.32-7.43) H 05/08/17 23:08 VBG pCO2 45 mmHg (40-60) 05/08/17 23:08 VBG HCO3 30.0 mmol/L 05/08/17 23:08 VBG Total CO2 33.4 mmol/L (22-28) H 05/08/17 23:08 VBG O2 Sat (Calc) 87.3 % (40-65) H 05/08/17 23:08 VBG Base Excess 7.1 mmol/L (0.0-2.0) H 05/08/17 23:08 VBG Potassium 4.9 mmol/L (3.6-5.2) 05/08/17 23:08 Sodium 135.0 mmol/L (132-148) 05/08/17 23:08 Chloride 100.0 mmol/L (98-107) 05/08/17 23:08 Glucose 129 mg/dL (75-110) H 05/08/17 23:08 Lactate 1.0 mmol/L (0.7-2.1) 05/08/17 23:08 FiO2 21.0 % 05/08/17 23:08 Sodium 135 mmol/l (132-148) 05/11/17 05:35 Potassium 5.6 MMOL/L (3.6-5.0) H 05/11/17 05:35 Chloride 92 mmol/L (98-107) L 05/11/17 05:35 Carbon Dioxide 25 mmol/L (22-30) 05/11/17 05:35 Anion Gap 24 (10-20) H 05/11/17 05:35 BUN 75 mg/dl (9-20) H 05/11/17 05:35 Creatinine 11.7 mg/dl (0.8-1.5) H* 05/11/17 05:35 Est GFR ( Amer) 5 05/11/17 05:35 Est GFR (Non-Af Amer) 4 05/11/17 05:35 POC Glucose (mg/dL) 139 mg/dL (65-110) H 05/11/17 11:07 Random Glucose 110 mg/dL (75-110) 05/11/17 05:35 Hemoglobin A1c 6.1 % (4.2-6.5) 05/09/17 05:20 Calcium 8.3 mg/dL (8.4-10.2) L 05/11/17 05:35 Phosphorus 4.1 mg/dl (2.5-4.5) 05/09/17 01:05 Magnesium 2.3 MG/DL (1.6-2.3) 05/09/17 01:05 Total Bilirubin 0.7 mg/dl (0.2-1.3) 05/09/17 01:05 AST 48 U/L (17-59) 05/09/17 01:05 ALT 43 U/L (21-72) 05/09/17 01:05 Alkaline Phosphatase 49 U/L (38-126) 05/09/17 01:05 Troponin I 0.1700 ng/mL (0.00-0.120) H* 05/09/17 16:51 NT-Pro-B Natriuret Pep 368587 pg/ml (0-900) H 05/09/17 01:05 Total Protein 6.9 G/DL (6.3-8.2) 05/09/17 01:05 Albumin 3.7 g/dL (3.5-5.0) 05/09/17 01:05 Globulin 3.2 gm/dL (2.2-3.9) 05/09/17 01:05 Albumin/Globulin Ratio 1.2 (1.0-2.1) 05/09/17 01:05 TSH 3rd Generation 2.96 mIU/ML (0.46-4.68) 05/09/17 05:20 Venous Blood Potassium 4.9 mmol/L (3.6-5.2) 05/08/17 23:08 Hepatitis A IgM Ab Negative (NEGATIVE) 05/09/17 05:20 Hep Bs Antigen Negative (NEGATIVE) 05/09/17 05:20 Hep B Core IgM Ab Negative (NEGATIVE) 05/09/17 05:20 Hepatitis C Antibody Negative (NEGATIVE) 05/09/17 05:20 Influenza Typ A,B (EIA) Negative for flu a/b (NEGATIVE) 05/08/17 23:00 Blood Type O POSITIVE 05/09/17 01:45 Antibody Screen Negative 05/09/17 01:45 BBK History Checked Patient has bt 05/09/17 01:45 - Hospital Course Hospital Course: 71 year old male with hx of DM II, Hypothyroidism and ESRD on HD MWF, returned to [facility] on day of admission after spending 3 weeks in [place]. Patient came complaining of SOB , lightheadedness and generalized weakness. He claimed that he missed his Thursday Dialysis. Patient was admitted , nephrology was consulted and started on HD .SW consulted to make arrangements with HD center in community . Patient is hemodynamically stable and will be discharged to care home after discharge. Prescription sent to his pharmacy. 1.Acute Respiratory distress secondary to volume overload Pt missed his Dialysis Thursday Consulted Dr Santana Nephrology for emergent dialysis continue HD MWF SOB improved with Dialysis 2.Elevated Cardiac enzymes likely secondary to volume overload no acute ekg changes pt denies CP Trop0.17 3.ESRD on HD MWF Nephrology consulted Continue HD as scheduled outside 4.DM II type II cont Januvia HbA1c 6.1 5.HTN on metoprolol 6.Hypothyroidism cont Levothyroxine TSH normal 7.Anemia of chronic renal dis 8.Hyperkalemia sec to ESRD Discharge Exam - Head Exam Head Exam: NORMAL INSPECTION, NORMOCEPHALIC - Eye Exam Eye Exam: EOMI, PERRL Pupil Exam: NORMAL ACCOMODATION - ENT Exam ENT Exam: Mucous Membranes Moist, Normal Exam - Neck Exam Neck exam: Full Rom, Normal Inspection - Respiratory Exam Respiratory Exam: NORMAL BREATHING PATTERN. absent: Rhonchi, Wheezes, Respiratory Distress - Cardiovascular Exam Cardiovascular Exam: REGULAR RHYTHM, RRR, +S2. absent: JVD - GI/Abdominal Exam GI & Abdominal Exam: Normal Bowel Sounds, Soft. absent: Distended, Guarding, Rebound, Tenderness - Rectal Exam Rectal Exam: Deferred - Extremities Exam Extremities exam: normal capillary refill, normal inspection, pedal pulses present - Back Exam Back exam: NORMAL INSPECTION - Neurological Exam Neurological exam: Alert, CN II-XII Intact, Oriented x3, Reflexes Normal - Psychiatric Exam Psychiatric exam: Normal Affect, Normal Mood - Skin Skin Exam: Dry, Intact, Normal Color, Warm Discharge Plan - Discharge Medications Prescriptions: Allopurinol [Zyloprim] 100 mg PO DAILY #30 tab Cilostazol [Pletal] 50 mg PO DAILY #30 tab Folic Acid/Vit B Complex and C [Vanessa-Naima Tablet] 0.8 mg PO DAILY #30 tablet Levothyroxine [Synthroid] 75 mcg PO DAILY #30 tab Metoprolol Succinate [Toprol XL] 50 mg PO BID #60 tab Sevelamer Carbonate [Renvela] 2 cap PO TID #180 SITagliptin [Januvia] 50 mg PO DAILY #30 tab - Follow Up Plan Condition: GOOD Disposition: HOME/ ROUTINE Patient education suggested?: Yes Instructions: Hemodialysis (DC), Dyspnea (GEN) Additional Instructions: Follow up with HD as scheduled Hemodialysis jose [facility] Referrals: Le Santana MD [Staff Provider] - Steve Plummer MD [Family Provider] -
[2017-05-11 16:47] VITALS: BP 147/81; PULSE 81; TEMP 97.6; O2SAT 98
--- NOTE | 2017-05-11 18:02 | CP.PCM.PN ---
Subjective - Date & Time of Evaluation Date of Evaluation: 05/11/17 Time of Evaluation: 13:00 - Subjective Subjective: SEEN ON RENAL F/U SEEN ON HD FEELS IMPROVED Objective - Vital Signs/Intake and Output Vital Signs (last 24 hours): Temp Pulse Resp BP Pulse Ox 97.6 F 81 20 147/81 98 05/11/17 16:46 05/11/17 16:46 05/11/17 16:46 05/11/17 16:46 05/11/17 16:46 - Medications Medications: Current Medications Allopurinol (Zyloprim) 100 mg PO DAILY [facility] Last Admin: 05/11/17 09:08 Dose: 100 mg Aspirin (Aspirin Chewable) 81 mg PO DAILY [facility] Last Admin: 05/11/17 09:03 Dose: 81 mg Heparin Sodium (Porcine) (Heparin) 5,000 units SC Q8 [facility] PRN Reason: Protocol Last Admin: 05/11/17 17:35 Dose: Not Given Home Med (Sevelamer Carbonate [Renvela]) 2 cap PO TID [facility] Last Admin: 05/11/17 17:33 Dose: 2 cap Insulin Human Regular (Humulin R) 0 units SC ACHS [facility] PRN Reason: Protocol Last Admin: 05/11/17 17:32 Dose: Not Given Levothyroxine Sodium (Synthroid) 75 mcg PO DAILY [facility] Last Admin: 05/11/17 09:05 Dose: 75 mcg Metoprolol Succinate (Toprol Xl) 75 mg PO DAILY [facility] Last Admin: 05/11/17 09:08 Dose: Not Given Sitagliptin Phosphate (Januvia) 25 mg PO DAILY [facility] Last Admin: 05/11/17 09:04 Dose: 25 mg Vitamin B Complex/Vit C/Folic Acid (Nephro-Naima) 1 tab PO DAILY [facility] Last Admin: 05/11/17 09:04 Dose: 1 tab - Labs Labs: 05/11/17 05:35 05/11/17 05:35 PT 12.3 Seconds (9.8-13.1) 05/09/17 01:09 INR 1.1 (0.9-1.2) 05/09/17 01:09 APTT 27.9 Seconds (25.6-37.1) D 05/09/17 01:09 Assessment and Plan - Assessment and Plan (Free Text) Assessment: ESRD ON HD M W F ANEMIA OF CKD CAME IN WITH SOB AND MISSED HD P : C/O CURRENT CARE STABLE FOR D/C WILL F/U AN OUT PT
== END 2017-05-11 19:30 | disposition home or self-care (01) | DRG 640 ==
LOC: H.ER 21:00 → H.ERHOLD 23:33 → H.TEL 05-09 01:30 → H.MEDSURG1 05-10 21:05
PROVIDERS: ADMIT Internal Medicine; ATTEND Internal Medicine
PROC: 5A1D70Z Performance of Urinary Filtration, Intermittent, Less than 6 Hours Per Day (ICD-10-PCS; principal; 2017-05-09)
PROC: 5A1D70Z Performance of Urinary Filtration, Intermittent, Less than 6 Hours Per Day (ICD-10-PCS; 2017-05-11)
DX: E87.5 Hyperkalemia (principal); N18.6 End stage renal disease; I12.0 Hypertensive chronic kidney disease with stage 5 chronic kidney disease or end stage renal disease; J81.1 Chronic pulmonary edema; E11.22 Type 2 diabetes mellitus with diabetic chronic kidney disease; R06.03 Acute respiratory distress; E87.70 Fluid overload, unspecified; D63.1 Anemia in chronic kidney disease; E03.9 Hypothyroidism, unspecified; E78.5 Hyperlipidemia, unspecified; R74.8 Abnormal levels of other serum enzymes; Z99.2 Dependence on renal dialysis; Z79.84 Long term (current) use of oral hypoglycemic drugs; Z79.82 Long term (current) use of aspirin

== ENCOUNTER 2017-05-17 14:43 | Inpatient (IN) | payer OTHER ==
[2017-05-17 14:44] VITALS: BMI 27.4
[2017-05-17] MEDS ORDERED: Sodium Chloride 0.9% 500 ML IV STA (15:09)
[2017-05-17] MEDS ORDERED: Iohexol 240 (50 ml) PO ONE (15:10)
--- NOTE | 2017-05-17 15:16 | ED PDOC ---
HPI: General Adult Time Seen by Provider: 05/17/17 14:54 Chief Complaint (Nursing): Abdominal Pain Chief Complaint (Provider): Blood in stool History Per: Patient History/Exam Limitations: no limitations Onset/Duration Of Symptoms: Days (yesterday) Current Symptoms Are (Timing): Still Present Additional Complaint(s): Pt. with bloody stool started yesterday. Mild abd pain. No chest pain, nausea , vomit, diarrhea, weakness, headaches, dizziness, dyspnea. No fever, cough. Gets dialysis and had it thursday. PCP does not know. Nephro: Max. Past Medical History Reviewed: Historical Data, Nursing Documentation, Vital Signs Vital Signs: Last Vital Signs Temp 98.2 F 05/17/17 14:45 Pulse 76 05/17/17 14:45 Resp 18 05/17/17 14:45 BP 146/68 05/17/17 14:45 Pulse Ox 98 05/17/17 17:42 - Medical History PMH: Anemia, Diabetes, HTN, Hypercholesterolemia, Hypothyroidism, Chronic Kidney Disease (on dialysis) Denies: Arthritis, CVA, Kidney Stones - Surgical History Surgical History: Appendectomy - Family History Family History: States: Unknown Family Hx - Social History Current smoker - smoking cessation education provided: No Alcohol: None Drugs: Denies - Immunization History Hx Tetanus Toxoid Vaccination: No Hx Influenza Vaccination: Yes Hx Pneumococcal Vaccination: Yes - Home Medications Home Medications: Ambulatory Orders Medication Instructions Recorded Allopurinol [Zyloprim] 100 mg PO DAILY #30 tab 05/09/17 Cilostazol [Pletal] 50 mg PO DAILY #30 tab 05/09/17 Folic Acid/Vit B Complex and C 0.8 mg PO DAILY #30 tablet 05/09/17 [Vanessa-Naima Tablet] Levothyroxine [Synthroid] 75 mcg PO DAILY #30 tab 05/09/17 Metoprolol Succinate [Toprol XL] 50 mg PO BID #60 tab 05/09/17 SITagliptin [Januvia] 50 mg PO DAILY #30 tab 05/09/17 Sevelamer Carbonate [Renvela] 2 cap PO TID #180 05/09/17 - Allergies Allergies/Adverse Reactions: Allergies Allergy/AdvReac Type Severity Reaction Status Date / Time No Known Allergies Allergy Verified 05/08/17 21:17 Review of Systems ROS Statement: Except As Marked, All Systems Reviewed And Found Negative Gastrointestinal: Positive for: Abdominal Pain, Hematochezia. Negative for: Diarrhea Physical Exam - Reviewed Nursing Documentation Reviewed: Yes Vital Signs Reviewed: Yes - Physical Exam Appears: Positive for: Uncomfortable Head Exam: Positive for: ATRAUMATIC, NORMAL INSPECTION, NORMOCEPHALIC Skin: Positive for: Normal Color, Warm, DRY Eye Exam: Positive for: EOMI, Normal appearance, PERRL ENT: Positive for: Normal ENT Inspection Neck: Positive for: Normal, Painless ROM Cardiovascular/Chest: Positive for: Regular Rate, Rhythm Respiratory: Positive for: CNT, Normal Breath Sounds Gastrointestinal/Abdominal: Positive for: Normal Exam, Bowel Sounds, Soft. Negative for: Tenderness Back: Positive for: Normal Inspection. Negative for: L CVA Tenderness, R CVA Tenderness Rectal: Positive for: Rectal Tone Is: (intact), Other (brown stool) Extremity: Positive for: Normal ROM. 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 Negative for: Motor/Sensory Deficits - Laboratory Results Result Diagrams: 05/17/17 15:47 05/17/17 15:47 Interpretation Of Abn Labs: 7.6 hg; 5.6 k; hemocult pos - ECG ECG: Positive for: Interpreted By Me, Viewed By Me ECG Rhythm: Positive for: Normal QRS, Normal ST Segment, Sinus Rhythm O2 Sat by Pulse Oximetry: 98 Pulse Ox Interpretation: Normal - Progress ED Course And Treament: 1805: Stable. AAOx3. Pain free. Dr. Kelley aware and will admit. Spoke with GI Dr. Thompson Will consult. Pt. with no black stool. - Critical Care Total Time (In Min): 30 Documented Critical Care: Time excludes all time spent performint seperately billable procedures Disposition - Clinical Impression Clinical Impression: Hyperkalemia, Anemia, GI bleed - Patient ED Disposition Is Patient to be Admitted: Yes Counseled Patient/Family Regarding: Studies Performed, Diagnosis - Disposition Disposition Time: 17:30 Condition: SERIOUS - Pt Status Changed To: Hospital Disposition Of: Inpatient - Admit Certification Admit to Inpatient:: After my assessment, the patient will require hospitalization for at least two midnights. This is because of the severity of symptoms shown, intensity of services needed, and/or the medical risk in this patient being treated as an outpatient. - POA Present On Arrival: None
[2017-05-17 16:06] LABS: BASO # 0.1 K/uL (0.0-0.2); BASO % 0.9 % (0.0-2.0); EOS # 0.2 K/uL (0.0-0.7); EOS % 2.3 % (0.0-4.0); HEMOGLOBIN 7.6 g/dL (12.0-18.0); LYMPH # 1.1 K/uL (1.0-4.3); LYMPH % 15.8 % (20.0-40.0); MEAN CELL VOLUME 93.5 fl (80.0-94.0); MEAN CORPUSCULAR HEMOGLOBIN 29.7 pg (27.0-31.0); MEAN CORPUSCULAR HGB CONC 31.8 g/dL (33.0-37.0); MEAN PLATELET VOLUME 8.7 fl (7.2-11.7); MONO # 0.6 K/uL (0.0-0.8); MONO % 8.1 % (0.0-10.0); NEUT # 5.3 K/uL (1.8-7.0); NEUT % 72.9 % (50.0-75.0); RBC 2.57 Mil/uL (4.40-5.90); RED CELL DISTRIBUTION WIDTH 18.3 % (11.5-14.5); WHITE BLOOD COUNT 7.2 K/uL (4.8-10.8)
[2017-05-17] MEDS ORDERED: Iohexol 240 (50 ml) ONE (16:06)
[2017-05-17 16:12] LABS: ALB/GLOB RATIO 1.3 (1.0-2.1); ALBUMIN 3.7 g/dL (3.5-5.0)
[2017-05-17 16:17] LABS: TROPONIN I 0.057 ng/mL (0.00-0.120)
[2017-05-17 16:25] LABS: PARTIAL THROMBOPLASTIN TIME 23.3 Seconds (25.6-37.1); PROTHROMBIN TIME 10.9 Seconds (9.8-13.1)
[2017-05-17] MEDS ORDERED: Albuterol 0.083% Inhal Sol (2.5 mg/3 mL) UD INH STA (17:45)
[2017-05-17] MEDS ORDERED: Sod Polystyrene Sulf 15 gm/60 ml Susp PO STA (17:45)
[2017-05-17] MEDS ORDERED: Insulin Regular 100 units/ml IV STA (17:46)
[2017-05-17] MEDS ORDERED: Dextrose 50% SYRINGE Inj (50 ml) IVP ONE (17:46)
--- NOTE | 2017-05-17 18:59 | CP.PCM.HP ---
History of Present Illness - History of Present Illness History of Present Illness: This is a 71 year old male with pmh of anemia of chronic disease, ESRD on dialysis MWF ([employer] Officer is Dr. Santana), Essnetial hypertension, hypothyroidism , who presents to the ED today after complaining of rectal bleeding starting yesterday afternoon. He reports having 3 episodes of BRBPR yesterday and twice today, prompting him to come to the ED. Admits to some mild bilateral lower quadrant abdominal pain, described as mild, dull, crampy, constant, beginning yesterday. Denies any nausea or vomiting. Denies any melanotic stool. In ED, he was found to be hemodynamically stable. Laboratory results reveal a Hg dropped from 9.8 on 05/11/2017 to 7.6 today. Coags normal and patient is not on any blood thinners. Chemistry panel reveals hyperkalemia of 5.6 (chronic), BUN of 97 , Cr of 9.4 consistent with hx of ESRD. Glucose controlled at 124. Stool occult blood positive. CT scan abd/pelvis pending. Patient to be admitted for further workup. Dr. Lai called for GI and Dr. Santana for dialysis MWF. Patient denies chest pain, sob, weakness, fever, chills, recent illnesses. Traveled to [facility] 2 weeks ago. Present on Admission - Present on Admission Any Indicators Present on Admission: No Review of Systems - Review of Systems Review of Systems: A 12 point review of systems as conducted by me were negative other than what was mentioned in the HPI. Past Patient History - Infectious Disease Hx of Infectious Diseases: None - Past Medical History & Family History Past Medical History?: Yes Past Family History: Reviewed and not pertinent - Past Social History Smoking Status: Never Smoked Alcohol: None Drugs: Denies - CARDIAC Hx Hypercholesterolemia: Yes Hx Hypertension: Yes - PULMONARY Hx Respiratory Disorders: No - NEUROLOGICAL Hx Neurological Disorder: No - HEENT Hx HEENT Problems: No - RENAL Hx Chronic Kidney Disease: Yes (on dialysis) Hx Kidney Stones: No - ENDOCRINE/METABOLIC Hx Hypothyroidism: Yes - HEMATOLOGICAL/ONCOLOGICAL Hx Anemia: Yes - INTEGUMENTARY Hx Dermatological Problems: No - MUSCULOSKELETAL/RHEUMATOLOGICAL Hx Arthritis: No - GASTROINTESTINAL Hx Gastrointestinal Disorders: No - GENITOURINARY/GYNECOLOGICAL Hx Genitourinary Disorders: No - PSYCHIATRIC Hx Psychophysiologic Disorder: No Hx Substance Use: No - SURGICAL HISTORY Hx Appendectomy: Yes - ANESTHESIA Hx Anesthesia: Yes Hx Anesthesia Reactions: No Hx Malignant Hyperthermia: No Meds Allergies/Adverse Reactions: Allergies Allergy/AdvReac Type Severity Reaction Status Date / Time No Known Allergies Allergy Verified 05/08/17 21:17 Physical Exam - Additional Findings Additional findings: Physical exam: Constitutional- cooperative, awake, alert Head- NCAT, PERRL Eye- PERRL, EOMI ENT- normal exam, MMM. Neck- normal inspection, supple, no JVD Respiratory- CTAB, no wheezes rales rhonchi Cardiovascular- RRR, +S1, +S2 no MRG GI/Abdominal- obese, mildly tender to palpation bilateral lower quadrants, normal bowel sounds, soft, no mass, no hsm Skin- warm, dry Extremities Exam- + AV fistula to left arm with normal bruit. normal capillary refill, normal inspection Neurological Exam- alert, awake, oriented Psych- normal mood, normal affect Results - Vital Signs Recent Vital Signs: Last Vital Signs Temp 98.1 F 05/17/17 18:39 Pulse 84 05/17/17 18:39 Resp 16 05/17/17 18:39 BP 144/73 05/17/17 18:39 Pulse Ox 97 05/17/17 18:39 - Labs Result Diagrams: 05/17/17 15:47 05/17/17 15:47 Labs: Laboratory Results - last 24 hr 05/17/17 05/17/17 05/17/17 15:40 15:47 15:47 WBC 7.2 RBC 2.57 L Hgb 7.6 L D Hct 24.0 L MCV 93.5 MCH 29.7 MCHC 31.8 L RDW 18.3 H Plt Count 176 MPV 8.7 Neut % (Auto) 72.9 Lymph % (Auto) 15.8 L [place] % (Auto) 8.1 Eos % (Auto) 2.3 Baso % (Auto) 0.9 Neut # (Auto) 5.3 Lymph # (Auto) 1.1 [place] # (Auto) 0.6 Eos # (Auto) 0.2 Baso # (Auto) 0.1 PT INR APTT Sodium Potassium Chloride Carbon Dioxide Anion Gap BUN Creatinine Est GFR ( Amer) Est GFR (Non-Af Amer) Random Glucose Calcium Total Bilirubin AST ALT Alkaline Phosphatase Troponin I Total Protein Albumin Globulin Albumin/Globulin Ratio Stool Occult Blood Positive H Blood Type O POSITIVE Antibody Screen Negative Crossmatch See Detail BBK History Checked Patient has bt 05/17/17 05/17/17 15:47 15:47 WBC RBC Hgb Hct MCV MCH MCHC RDW Plt Count MPV Neut % (Auto) Lymph % (Auto) [place] % (Auto) Eos % (Auto) Baso % (Auto) Neut # (Auto) Lymph # (Auto) [place] # (Auto) Eos # (Auto) Baso # (Auto) PT 10.9 INR 1.0 APTT 23.3 L Sodium 137 Potassium 5.6 H Chloride 100 Carbon Dioxide 26 Anion Gap 17 BUN 97 H Creatinine 9.4 H* Est GFR ( Amer) 7 Est GFR (Non-Af Amer) 6 Random Glucose 124 H Calcium 9.0 Total Bilirubin 0.5 AST 43 ALT 144 H D Alkaline Phosphatase 58 Troponin I 0.0570 Total Protein 6.6 Albumin 3.7 Globulin 2.9 Albumin/Globulin Ratio 1.3 Stool Occult Blood Blood Type Antibody Screen Crossmatch BBK History Checked Assessment & Plan - Assessment and Plan (Free Text) Plan: ASSESSMENT/PLAN 1) Rectal bleeding, likely lower GI bleed, DDX: Colitis, angiodysplasia, diverticular bleeding, hemorrhoidal bleeding. No melena - Hg 9.8 -> 7.6 - Admit to telemetry - Consultation with Dr. Lai- recommends NPO until CT scan rules out colitis, then start clear liquid diet - Patient for blood transfusion as ordered by ED - Repeat CBC in AM - Orthostatics in AM 2) ESRD on MWF - Dr. Santana on consultation - Dialysis scheduled for tomorrow - BMP, Magnesium scheduled for tomorrow - Continue Allopurinol, Sevelamer 3) Hyperkalemia due to ESRD - Kayexelate given in ED - Monitor 4) DM type 2 - Januvia 25 mg po daily - Monitor BMP, no need for accucheks at this time 5) DVT prophylaxis - SCDs
--- NOTE | 2017-05-18 01:01 | CT ---
EXAM: CT Abdomen and Pelvis With Intravenous Contrast EXAM DATE/TIME: 05/17/2017 3:09 PM CLINICAL HISTORY: 71 years old, male; Pain; Abdominal pain; Generalized TECHNIQUE: Axial computed tomography images of the abdomen and pelvis with intravenous contrast. All CT scans at this facility use one or more dose reduction techniques, viz.: automated exposure control; ma/kV adjustment per patient size (including targeted exams where dose is matched to indication; i.e. head); or iterative reconstruction technique. Coronal and sagittal reformatted images were created and reviewed. COMPARISON: No relevant prior studies available. FINDINGS: LIMITATIONS: Moderate streak/motion artifact. LOWER THORAX: Heart appears moderately enlarged. Lung bases findings suspicious for mild pulmonary vascular congestion. There is bilateral smooth interlobular septal thickening and bilateral vascular fullness. Dense septum sign noted in the heart, a finding which can be seen with anemia. ABDOMEN: LIVER: Suspect mild periportal edema in the liver. GALLBLADDER AND BILE DUCTS: No CT evidence of acute cholecystitis, allowing for motion artifact. PANCREAS: No CT evidence of acute pancreatitis. SPLEEN: No acute abnormality of the spleen identified. ADRENALS: No acute abnormality of the adrenal glands identified. KIDNEYS AND URETERS: Bilateral perinephric stranding, a nonspecific finding. Low density lesion in the right kidney, most likely a cyst. This measures 4.4 cm. No evidence of hydroureteronephrosis. STOMACH AND BOWEL: Colonic diverticulosis, with no evidence of acute diverticulitis. Otherwise, no significant abnormality of the bowel is identified. No evidence of bowel obstruction. APPENDIX: Appendix is seen, and is within normal limits in appearance. PELVIS: BLADDER: Mild infiltration of the fat around the bladder is noted. Bladder wall appears mildly thickened. Findings could be signs of mild cystitis. REPRODUCTIVE: No acute abnormality of the reproductive organs is seen. ABDOMEN and PELVIS: INTRAPERITONEAL SPACE: Small amount of free fluid abutting the liver. No evidence of free air. BONES/JOINTS: Bony structures appear demineralized. SOFT TISSUES: Small umbilical hernia, containing only fat. VASCULATURE: No evidence of abdominal aortic aneurysm. No evidence of periaortic hemorrhage. LYMPH NODES: No evidence of diffuse lymphadenopathy. IMPRESSION: - Small amount of abdominal free fluid. - Cardiomegaly, with lung base findings suspicious for mild pulmonary vascular congestion. - Suspect periportal edema in the liver. This is a nonspecific finding, which can be seen with IV fluid administration, but it can also be a sign of acute liver disease, such as hepatitis. Recommend correlation with LFTs. - Bladder findings which could be due to mild cystitis. Recommend correlation with urinalysis results. - Otherwise, no evidence of significant acute process. - Findings which can be seen with anemia. Recommend clinical correlation. - See above for remaining findings.
[2017-05-18 07:19] LABS: HEMOGLOBIN 9.2 g/dL (12.0-18.0); MEAN CELL VOLUME 92.2 fl (80.0-94.0); MEAN CORPUSCULAR HEMOGLOBIN 30.4 pg (27.0-31.0); MEAN PLATELET VOLUME 8.9 fl (7.2-11.7); RBC 3.03 Mil/uL (4.40-5.90); RED CELL DISTRIBUTION WIDTH 17.7 % (11.5-14.5)
[2017-05-18 07:23] LABS: CALCIUM 8.2 mg/dL (8.4-10.2); MAGNESIUM 2.6 MG/DL (1.6-2.3)
[2017-05-18] MEDS ORDERED: Sod Polystyrene Sulf 15 gm/60 ml Susp PO ONE (07:56)
[2017-05-18] MEDS ORDERED: Dextrose 50% SYRINGE Inj (50 ml) IVP ONE (07:56)
[2017-05-18] MEDS ORDERED: Albuterol-Ipratrop 3 mg / 0.5 (3 ml) UD INH STA (07:56)
[2017-05-18] MEDS ORDERED: Calcium Gluconate 4.65 mEq/10 ml Inj IV ONE (07:56)
[2017-05-18] MEDS ORDERED: Albuterol-Ipratrop 3 mg / 0.5 (3 ml) UD ONE (08:16)
[2017-05-18] MEDS: Levothyroxine 75 MCG TAB PO SCH (08:51)
[2017-05-18] MEDS ORDERED: SEVELAMER CARBONATE PO SCH (09:00)
--- NOTE | 2017-05-18 09:48 | CP.PCM.PN ---
<Cm Pal - Last Filed: 05/18/17 15:15> Subjective - Date & Time of Evaluation Date of Evaluation: 05/18/17 Time of Evaluation: 10:49 - Subjective Subjective: Hospitalist Progress Note- Dr. Bonner 71 y.o male with PMH of anemia of chronic disease, ESRD on dialysis MWF, essential HTN, hypothyroidism seen and evaluated at bedside. Pt admitted for recal bleeding. Patient is seen laying comfortably in bed, in NAD, and AAOx3. Patient reports feeling constipated. Patient denies stomach pains. Patient denies nausea, fever, shortness of breath, chest pains, chills or vomiting. . Objective - Vital Signs/Intake and Output Vital Signs (last 24 hours): Temp Pulse Resp BP Pulse Ox 98.1 F 72 19 141/73 95 05/18/17 09:20 05/18/17 09:20 05/18/17 02:30 05/18/17 09:20 05/18/17 02:30 - Medications Medications: Current Medications Allopurinol (Zyloprim) 100 mg PO DAILY [facility] Cilostazol (Pletal) 50 mg PO DAILY [facility] Famotidine (Pepcid) 20 mg IVP Q12 [facility] Last Admin: 05/17/17 21:00 Dose: 20 mg Insulin Human Regular (Humulin R) 10 units IV ONCE ONE Stop: 05/19/17 08:01 Last Admin: 05/18/17 08:25 Dose: 10 units Levothyroxine Sodium (Synthroid) 75 mcg PO DAILY@0630 [facility] Metoprolol Succinate (Toprol Xl) 50 mg PO BID@0900,2100 [facility] Ondansetron HCl (Zofran Inj) 4 mg IVP Q6 PRN PRN Reason: Nausea/Vomiting Sevelamer HCl (Renagel) 1,600 mg PO TID [facility] Sitagliptin Phosphate (Januvia) 25 mg PO DAILY [facility] Vitamin B Complex/Vit C/Folic Acid (Nephro-Naima) 1 tab PO DAILY [facility] - Labs Labs: 05/18/17 06:15 05/18/17 06:15 PT 10.9 Seconds (9.8-13.1) 05/17/17 15:47 INR 1.0 (0.9-1.2) 05/17/17 15:47 APTT 23.3 Seconds (25.6-37.1) L 05/17/17 15:47 - Constitutional Appears: Well, Non-toxic, No Acute Distress - Head Exam Head Exam: ATRAUMATIC, NORMAL INSPECTION, NORMOCEPHALIC - Eye Exam Eye Exam: EOMI, Normal appearance, PERRL Pupil Exam: NORMAL ACCOMODATION - ENT Exam ENT Exam: Mucous Membranes Moist, Normal Exam - Neck Exam Neck Exam: Full ROM, Normal Inspection - Respiratory Exam Respiratory Exam: NORMAL BREATHING PATTERN. absent: Rales, Rhonchi, Wheezes, Respiratory Distress, Stridor - Cardiovascular Exam Cardiovascular Exam: REGULAR RHYTHM, +S1, +S2 - GI/Abdominal Exam GI & Abdominal Exam: Soft, Normal Bowel Sounds. absent: Guarding, Tenderness, Hypoactive Bowel Sounds, Mass, Rebound Additional comments: No pain or tenderness with palpation to the abdominal quadrants - Extremities Exam Extremities Exam: Normal Capillary Refill - Back Exam Back Exam: NORMAL INSPECTION - Neurological Exam Neurological Exam: Alert, Awake, Oriented x3 - Psychiatric Exam Psychiatric exam: Normal Affect, Normal Mood - Skin Skin Exam: Dry, Intact, Normal Color, Warm Assessment and Plan - Assessment and Plan (Free Text) Assessment: 71 y.o male with PMH of anemia of chronic disease, ESRD on dialysis MWF, essential HTN, hypothyroidism admitted for recal bleeding. Plan: 1) Rectal bleeding, likely lower GI bleed, DDX: Colitis, angiodysplasia, diverticular bleeding, hemorrhoidal bleeding. No melena - Hg 9.8 -> 7.6 - Consultation with Dr. Lai - CT shows no colitis - Changed NPO diet to liquid diet - Patient for blood transfusion as ordered by ED - Repeat CBC in AM - Orthostatics - CT results- Small amount of abdominal free fluid. Cardiomegaly, with lung base findings suspicious for mild pulmonary vascular congestion. Suspect periportal edema in the liver. Bladder findings which could be due to mild cystitis. no evidence of significant acute process. 2) Anemia of chronic disease - transfused 2 units PRBCs - H/H 9.2/27.9 3) ESRD on MWF - Dr. Santana on consultation - Dialysis scheduled for today - f/u BMP, Magnesium - Continue Allopurinol, Sevelamer 4) Hyperkalemia due to ESRD - Kayexelate 30 gm PO once - Insulin Human Regular 10 units IV once - Dextros 50% ml IVP once - Calcium gluconate 4.6 meq IV once - Albuterol/Iptratropium 3 ml INH once - will monitor 5) DM type 2 - Januvia 25 mg po daily - Monitor BMP, no need for accucheks at this time 6) Hypothyroidism -Levothyroxine 75 mcg PO daily 7) Nausea -Zofran 4mg IVP q 6 prn 8) DVT prophylaxis - SCDs <Bernardo Bonner D - Last Filed: 05/18/17 15:51> Objective - Vital Signs/Intake and Output Vital Signs (last 24 hours): Temp Pulse Resp BP Pulse Ox 98.9 F 96 H 18 154/87 H 95 05/18/17 12:00 05/18/17 12:00 05/18/17 12:00 05/18/17 12:00 05/18/17 12:00 - Medications Medications: Current Medications Allopurinol (Zyloprim) 100 mg PO DAILY [facility] Cilostazol (Pletal) 50 mg PO DAILY [facility] Famotidine (Pepcid) 20 mg IVP Q12 [facility] Last Admin: 05/17/17 21:00 Dose: 20 mg Insulin Human Regular (Humulin R) 10 units IV ONCE ONE Stop: 05/19/17 08:01 Last Admin: 05/18/17 08:25 Dose: 10 units Levothyroxine Sodium (Synthroid) 75 mcg PO DAILY@0630 [facility] Metoprolol Succinate (Toprol Xl) 50 mg PO BID@0900,2100 [facility] Ondansetron HCl (Zofran Inj) 4 mg IVP Q6 PRN PRN Reason: Nausea/Vomiting Sevelamer HCl (Renagel) 1,600 mg PO TID [facility] Sitagliptin Phosphate (Januvia) 25 mg PO DAILY [facility] Vitamin B Complex/Vit C/Folic Acid (Nephro-Naima) 1 tab PO DAILY [facility] - Labs Labs: 05/18/17 06:15 05/18/17 06:15 PT 10.9 Seconds (9.8-13.1) 05/17/17 15:47 INR 1.0 (0.9-1.2) 05/17/17 15:47 APTT 23.3 Seconds (25.6-37.1) L 05/17/17 15:47
[2017-05-18] MEDS: Metoprolol Succinate 50 mg XL Tab PO SCH ×2 (11:00→21:02)
--- NOTE | 2017-05-18 12:23 | CARD ---
APPROVED REPORT EKG Measurement Heart [id number] CT 126P-13 [id number] <Conclusion> Normal sinus rhythm Normal ECG
[2017-05-18] MEDS: Cilostazol 50 mg Tab UD PO SCH (16:03)
[2017-05-18] MEDS: Multivitamin Vitamin B Complex (Nephro-Vite) Tab PO SCH (16:03)
--- NOTE | 2017-05-18 18:54 | CP.PCM.CON ---
History of Present Illness - History of Present Illness History of Present Illness: REASONS FOR CONSULT : ESRD ON HD [facility] HYPERKALEMIA .. K 6.2 PT IS WELL KNOWN TO ME .. ON HD [facility] ..PRESENTED WITH LOWER GI BLEED ALL EMR REVIEWED .. LABS REVIEWED .. PT WAS SEEN AND EXAMINED ON HD This is a 71 year old male with pmh of anemia of chronic disease, ESRD on dialysis MWF Essnetial hypertension, hypothyroidism, who presents to the ED today after complaining of rectal bleeding starting yesterday afternoon. He reports having 3 episodes of BRBPR yesterday and twice today, prompting him to come to the ED. Admits to some mild bilateral lower quadrant abdominal pain, described as mild, dull, crampy, constant, beginning yesterday. Denies any nausea or vomiting. Denies any melanotic stool. In ED, he was found to be hemodynamically stable. Laboratory results reveal a Hg dropped from 9.8 on 2017 to 7.6 today. Coags normal and patient is not on any blood thinners. Chemistry panel reveals hyperkalemia of 5.6 (chronic), BUN of 97, Cr of 9.4 consistent with hx of ESRD. Glucose controlled at 124. Stool occult blood positive. CT scan abd/pelvis pending. Patient to be admitted for further workup. Dr. Lai called for GI and Dr. Santana for dialysis MWF. Patient denies chest pain, sob, weakness, fever, chills, recent illnesses. Traveled to [facility] 2 weeks ago. Present on Admission - Present on Admission Any Indicators Present on Admission: No Review of Systems - Review of Systems Review of Systems: A 12 point review of systems as conducted by me were negative other than what was mentioned in the HPI. Past Patient History Past Patient History - Infectious Disease Hx of Infectious Diseases: None - Past Medical History & Family History Past Medical History?: Yes - Past Social History Smoking Status: Former Smoker - CARDIAC Hx Cardiac Disorders: Yes Hx Hypercholesterolemia: Yes Hx Hypertension: Yes - PULMONARY Hx Respiratory Disorders: No - NEUROLOGICAL Hx Neurological Disorder: No - HEENT Hx HEENT Problems: No - RENAL Hx Chronic Kidney Disease: Yes (on dialysis) Hx Dialysis: Yes Type of Dialysis Access: L-AV Shunt Date of Last Dialysis Treatment: 05/15/17 - ENDOCRINE/METABOLIC Hx Endocrine Disorders: Yes Hx Diabetes Mellitus Type 2: Yes Hx Hypothyroidism: Yes - HEMATOLOGICAL/ONCOLOGICAL Hx Blood Disorders: Yes Hx Anemia: Yes Hx Blood Transfusions: Yes Hx Blood Transfusion Reaction: No - INTEGUMENTARY Hx Dermatological Problems: No - MUSCULOSKELETAL/RHEUMATOLOGICAL Hx Musculoskeletal Disorders: No Hx Falls: No - GASTROINTESTINAL Hx Gastrointestinal Disorders: No - GENITOURINARY/GYNECOLOGICAL Hx Genitourinary Disorders: No - PSYCHIATRIC Hx Psychophysiologic Disorder: No Hx Substance Use: No - SURGICAL HISTORY Hx Surgeries: Yes Hx Appendectomy: Yes - ANESTHESIA Hx Anesthesia: Yes Hx Anesthesia Reactions: No Hx Malignant Hyperthermia: No Meds Allergies/Adverse Reactions: Allergies Allergy/AdvReac Type Severity Reaction Status Date / Time No Known Allergies Allergy Verified 05/08/17 21:17 - Medications Medications: Current Medications Allopurinol (Zyloprim) 100 mg PO DAILY [facility] Last Admin: 05/18/17 16:04 Dose: 100 mg Cilostazol (Pletal) 50 mg PO DAILY [facility] Last Admin: 05/18/17 16:03 Dose: 50 mg Insulin Human Regular (Humulin R) 10 units IV ONCE ONE Stop: 05/19/17 08:01 Last Admin: 05/18/17 08:25 Dose: 10 units Levothyroxine Sodium (Synthroid) 75 mcg PO DAILY@0630 [facility] Metoprolol Succinate (Toprol Xl) 50 mg PO BID@0900,2100 [facility] Last Admin: 05/18/17 11:00 Dose: Not Given Ondansetron HCl (Zofran Inj) 4 mg IVP Q6 PRN PRN Reason: Nausea/Vomiting Pantoprazole Sodium (Protonix Ec Tab) 40 mg PO Q12 [facility] Sevelamer HCl (Renagel) 1,600 mg PO TID [facility] Last Admin: 05/18/17 16:04 Dose: Not Given Sitagliptin Phosphate (Januvia) 25 mg PO DAILY [facility] Last Admin: 05/18/17 16:03 Dose: 25 mg Vitamin B Complex/Vit C/Folic Acid (Nephro-Naima) 1 tab PO DAILY [facility] Last Admin: 05/18/17 16:03 Dose: 1 tab Results - Vital Signs Recent Vital Signs: Last Vital Signs Temp 97.4 F L 05/18/17 16:00 Pulse 108 H 05/18/17 17:00 Resp 18 05/18/17 17:00 BP 169/73 H 05/18/17 17:00 Pulse Ox 98 05/18/17 17:00 - Labs Result Diagrams: 05/18/17 06:15 05/18/17 06:15 Labs: Laboratory Results - last 24 hr 05/17/17 05/18/17 05/18/17 15:47 06:15 06:15 WBC 8.0 RBC 3.03 L Hgb 9.2 L Hct 27.9 L MCV 92.2 MCH 30.4 MCHC 33.0 RDW 17.7 H Plt Count 154 MPV 8.9 Sodium 138 Potassium 6.2 H* Chloride 102 Carbon Dioxide 24 Anion Gap 18 BUN 98 H Creatinine 10.1 H* Est GFR ( Amer) 6 Est GFR (Non-Af Amer) 5 POC Glucose (mg/dL) Random Glucose 113 H Calcium 8.2 L Magnesium 2.6 H Blood Type O POSITIVE Antibody Screen Negative Crossmatch See Detail BBK History Checked Patient has bt 05/18/17 05/18/17 05/18/17 07:55 09:19 11:14 WBC RBC Hgb Hct MCV MCH MCHC RDW Plt Count MPV Sodium Potassium Chloride Carbon Dioxide Anion Gap BUN Creatinine Est GFR ( Amer) Est GFR (Non-Af Amer) POC Glucose (mg/dL) 120 H 105 77 Random Glucose Calcium Magnesium Blood Type Antibody Screen Crossmatch BBK History Checked 05/18/17 16:39 WBC RBC Hgb Hct MCV MCH MCHC RDW Plt Count MPV Sodium Potassium Chloride Carbon Dioxide Anion Gap BUN Creatinine Est GFR ( Amer) Est GFR (Non-Af Amer) POC Glucose (mg/dL) 114 H Random Glucose Calcium Magnesium Blood Type Antibody Screen Crossmatch BBK History Checked Assessment & Plan - Assessment and Plan (Free Text) Assessment: ESRD ON HD M W F .. RECIEVING HIS HD [facility] NOW HYPERKALEMIA .. ON HD NOW LOWER GI BLEED .. GI CONSULT // MMP P HD WAS GIVEN STAT FOR HYPERKALEMIA EPO ON HD TRANSFUSION .. DONE C/O CURRENT MEDS RENAL DIET - Date & Time Date: 05/18/17 Time: 17:00
[2017-05-18] MEDS: Pantoprazole 40 mg EC Tab PO SCH (21:03)
[2017-05-19 05:22] LABS: BASO # 0.1 K/uL (0.0-0.2); EOS # 0.3 K/uL (0.0-0.7); EOS % 3.7 % (0.0-4.0); HEMOGLOBIN 8.6 g/dL (12.0-18.0); LYMPH # 1.1 K/uL (1.0-4.3); LYMPH % 15.4 % (20.0-40.0); MEAN CELL VOLUME 91.3 fl (80.0-94.0); MEAN CORPUSCULAR HEMOGLOBIN 30.1 pg (27.0-31.0); MEAN CORPUSCULAR HGB CONC 32.9 g/dL (33.0-37.0); MEAN PLATELET VOLUME 8.4 fl (7.2-11.7); MONO # 0.7 K/uL (0.0-0.8); MONO % 9.4 % (0.0-10.0); NEUT % 70.5 % (50.0-75.0); RBC 2.86 Mil/uL (4.40-5.90); RED CELL DISTRIBUTION WIDTH 17.6 % (11.5-14.5); WHITE BLOOD COUNT 7.1 K/uL (4.8-10.8)
[2017-05-19 05:37] LABS: ALB/GLOB RATIO 1.1 (1.0-2.1); ALBUMIN 3.1 g/dL (3.5-5.0); CALCIUM 8.2 mg/dL (8.4-10.2)
[2017-05-19] MEDS: Levothyroxine 75 MCG TAB PO SCH (07:21)
[2017-05-19] MEDS ORDERED: Insulin Regular 100 units/ml IV ONE (08:00)
[2017-05-19] MEDS: Pantoprazole 40 mg EC Tab PO SCH ×2 (08:32→20:36)
[2017-05-19] MEDS: Multivitamin Vitamin B Complex (Nephro-Vite) Tab PO SCH (08:32)
[2017-05-19] MEDS: Cilostazol 50 mg Tab UD PO SCH (08:32)
[2017-05-19] MEDS: Metoprolol Succinate 50 mg XL Tab PO SCH ×2 (08:33→21:55)
--- NOTE | 2017-05-19 10:29 | CP.PCM.PN ---
Subjective - Date & Time of Evaluation Date of Evaluation: 05/19/17 Time of Evaluation: 10:54 - Subjective Subjective: Hospitalist Progress Note- Dr. Bonner 71 y.o male with PMH of anemia of chronic disease, ESRD on dialysis MWF, essential HTN, hypothyroidism admitted for recal bleeding. Patient had HD yesterday. Patient is seen laying comfortably in bed, in NAD, and AAOx3. Patient reports still feeling constipated. Patient denies stomach pains. Patient denies nausea, fever, shortness of breath, chest pains, chills or vomiting. Objective - Vital Signs/Intake and Output Vital Signs (last 24 hours): Temp Pulse Resp BP Pulse Ox 97.9 F 109 H 24 155/81 H 100 05/19/17 08:00 05/19/17 09:00 05/19/17 08:00 05/19/17 08:33 05/19/17 08:00 - Medications Medications: Current Medications Allopurinol (Zyloprim) 100 mg PO DAILY [facility] Last Admin: 05/19/17 08:34 Dose: 100 mg Cilostazol (Pletal) 50 mg PO DAILY [facility] Last Admin: 05/19/17 08:32 Dose: 50 mg Levothyroxine Sodium (Synthroid) 75 mcg PO DAILY@0630 [facility] Last Admin: 05/19/17 07:21 Dose: 75 mcg Metoprolol Succinate (Toprol Xl) 50 mg PO BID@0900,2100 [facility] Last Admin: 05/19/17 08:33 Dose: 50 mg Ondansetron HCl (Zofran Inj) 4 mg IVP Q6 PRN PRN Reason: Nausea/Vomiting Pantoprazole Sodium (Protonix Ec Tab) 40 mg PO Q12 [facility] Last Admin: 05/19/17 08:32 Dose: 40 mg Sevelamer HCl (Renagel) 1,600 mg PO TID [facility] Last Admin: 05/19/17 08:33 Dose: 1,600 mg Sitagliptin Phosphate (Januvia) 25 mg PO DAILY [facility] Last Admin: 05/19/17 08:32 Dose: 25 mg Vitamin B Complex/Vit C/Folic Acid (Nephro-Naima) 1 tab PO DAILY [facility] Last Admin: 05/19/17 08:32 Dose: 1 tab - Labs Labs: 05/19/17 04:10 02/06/18 04:10 PT 10.9 Seconds (9.8-13.1) 05/17/17 15:47 INR 1.0 (0.9-1.2) 05/17/17 15:47 APTT 23.3 Seconds (25.6-37.1) L 05/17/17 15:47 - Constitutional Appears: Well, Non-toxic, No Acute Distress - Eye Exam Eye Exam: EOMI, Normal appearance, PERRL Pupil Exam: NORMAL ACCOMODATION, PERRL - ENT Exam ENT Exam: Mucous Membranes Moist, Normal Exam - Neck Exam Neck Exam: Full ROM, Normal Inspection - Respiratory Exam Respiratory Exam: Clear to Ausculation Bilateral, NORMAL BREATHING PATTERN. absent: Rales, Rhonchi, Wheezes, Respiratory Distress, Stridor - Cardiovascular Exam Cardiovascular Exam: REGULAR RHYTHM, +S1, +S2 - GI/Abdominal Exam GI & Abdominal Exam: Soft, Normal Bowel Sounds Additional comments: No pain or tenderness with palpation to the abdominal quadrants - Extremities Exam Extremities Exam: absent: Calf Tenderness - Neurological Exam Neurological Exam: Alert, Awake, Oriented x3 - Psychiatric Exam Psychiatric exam: Normal Affect, Normal Mood - Skin Skin Exam: Dry, Intact, Normal Color, Warm Assessment and Plan - Assessment and Plan (Free Text) Assessment: 71 y.o male with PMH of anemia of chronic disease, ESRD on dialysis MWF, essential HTN, hypothyroidism admitted for recal bleeding. Plan: 1) Rectal bleeding, likely lower GI bleed, DDX: Colitis, angiodysplasia, diverticular bleeding, hemorrhoidal bleeding. No melena - Consultation with Dr. Lai - CT shows no colitis - Changed NPO diet to liquid diet - Plan for EGD today or tomorrow - 2 units of leukocyte-reduced RBC administered post transfusion H/H: 8.6/26.1 - CT results- Small amount of abdominal free fluid. Cardiomegaly, with lung base findings suspicious for mild pulmonary vascular congestion. Suspect periportal edema in the liver. Bladder findings which could be due to mild cystitis. no evidence of significant acute process. 2) Anemia of chronic disease - transfused 2 units PRBCs - H/H 9.2/27.9 - will monitor 3) ESRD on MWF - Dr. Santana on consultation - Dialysis yesterday - f/u BMP, Magnesium - Continue Allopurinol, Sevelamer - c/w Vitamin B complex 4) DM type 2 - Januvia 25 mg po daily - Monitor BMP, no need for accucheks at this time 5)Hypertension - c/w Metoprolol Succinate 6) Hypothyroidism -Levothyroxine 75 mcg PO daily 7) Nausea -Zofran 4mg IVP q 6 prn 8) DVT prophylaxis - SCDs 9) Hyperkalemia due to ESRD -resolved
--- NOTE | 2017-05-19 13:45 | CP.PCM.PN ---
Subjective - Date & Time of Evaluation Date of Evaluation: 05/19/17 Time of Evaluation: 13:45 - Subjective Subjective: no bleeding Objective - Vital Signs/Intake and Output Vital Signs (last 24 hours): Temp Pulse Resp BP Pulse Ox 97.9 F 109 H 24 155/81 H 100 05/19/17 08:00 05/19/17 09:00 05/19/17 08:00 05/19/17 08:33 05/19/17 08:00 - Medications Medications: Current Medications Allopurinol (Zyloprim) 100 mg PO DAILY [facility] Last Admin: 05/19/17 08:34 Dose: 100 mg Cilostazol (Pletal) 50 mg PO DAILY [facility] Last Admin: 05/19/17 08:32 Dose: 50 mg Levothyroxine Sodium (Synthroid) 75 mcg PO DAILY@0630 [facility] Last Admin: 05/19/17 07:21 Dose: 75 mcg Metoprolol Succinate (Toprol Xl) 50 mg PO BID@0900,2100 [facility] Last Admin: 05/19/17 08:33 Dose: 50 mg Ondansetron HCl (Zofran Inj) 4 mg IVP Q6 PRN PRN Reason: Nausea/Vomiting Pantoprazole Sodium (Protonix Ec Tab) 40 mg PO Q12 [facility] Last Admin: 05/19/17 08:32 Dose: 40 mg Sevelamer HCl (Renagel) 1,600 mg PO TID [facility] Last Admin: 05/19/17 13:14 Dose: Not Given Sitagliptin Phosphate (Januvia) 25 mg PO DAILY [facility] Last Admin: 05/19/17 08:32 Dose: 25 mg Vitamin B Complex/Vit C/Folic Acid (Nephro-Naima) 1 tab PO DAILY [facility] Last Admin: 05/19/17 08:32 Dose: 1 tab - Labs Labs: 05/19/17 04:10 05/19/17 04:10 PT 10.9 Seconds (9.8-13.1) 05/17/17 15:47 INR 1.0 (0.9-1.2) 05/17/17 15:47 APTT 23.3 Seconds (25.6-37.1) L 05/17/17 15:47 - Neck Exam Neck Exam: Normal Inspection - Respiratory Exam Respiratory Exam: NORMAL BREATHING PATTERN - Cardiovascular Exam Cardiovascular Exam: REGULAR RHYTHM - GI/Abdominal Exam GI & Abdominal Exam: Soft, Normal Bowel Sounds Assessment and Plan - Assessment and Plan (Free Text) Assessment: 71 yo male with melena egd in am ppi check cbc
--- NOTE | 2017-05-19 18:27 | CON ---
DATE: 05/18/2017 REFERRING PHYSICIAN: Dr. Kelley. REASON FOR CONSULTATION: Anemia and melena. HISTORY OF PRESENT ILLNESS: This is a pleasant 71-year-old male with history of end-stage renal disease, on hemodialysis; hypertension;, and hypothyroidism, essentially brought in for rectal bleeding . The patient said he had black stools since then, no bright red blood. Otherwise, he has no heartburn, reflux, or GI complaints. Lying in bed comfortably in no apparent distress. PAST MEDICAL HISTORY: As above. PAST SURGICAL HISTORY: As above. MEDICATIONS: Have been reviewed. REVIEW OF SYSTEMS: All other systems have been reviewed and negative apart from the HPI. PHYSICAL EXAMINATION: VITAL SIGNS: In the hospital are grossly unremarkable. GENERAL: This is a pleasant elderly appearing male lying in bed comfortably, in no apparent distress. HEENT: Head is normocephalic, atraumatic. Eyes: Pupils are equally reactive to light bilaterally. No conjunctival pallor or icterus. NECK: Supple. Normal range of motion. No lymphadenopathy appreciated. LUNGS: Coarse breath sounds bilaterally. HEART: S1 and S2, regular rate and rhythm. No murmurs appreciated. ABDOMEN: Soft and nontender. Bowel sounds present. No rebound. No guarding. RECTAL: Deferred. EXTREMITIES: Pulses present bilaterally. SKIN: Warm, dry and intact. NEUROLOGIC: A and O x3. LABORATORY DATA: Labs have been reviewed. CAT scan shows some periportal edema, possible in the bladder. Labs include WBC of 7.3 and hemoglobin of 9.2 after transfusion, hematocrit of 27.9. Calcium is 6.2. ASSESSMENT AND PLAN: This is a 71-year-old male with melena. Plan for endoscopy when stable, dialysis as per Renal and advance diet as tolerated. Thank you for the consult. Silver Lai MD/ PhD cc: Ethan Kelley DO
[2017-05-19] MEDS ORDERED: Ergocalciferol 50,000 Intl Units Cap PO SCH (22:30)
--- NOTE | 2017-05-19 22:30 | CP.PCM.PN ---
Subjective - Date & Time of Evaluation Date of Evaluation: 05/19/17 Time of Evaluation: 13:00 - Subjective Subjective: SEEN ON RENAL F/U IN BED RESTING FEELS IMPROVED HAD HD YESTERDAY .. NEXT ONE IN AM ALL PREVIOUS EMR REVIEWED Objective - Vital Signs/Intake and Output Vital Signs (last 24 hours): Temp Pulse Resp BP Pulse Ox 98.4 F 71 16 128/70 95 05/19/17 21:00 05/19/17 21:55 05/19/17 21:00 05/19/17 21:55 05/19/17 21:00 Intake and Output: 05/19/17 05/20/17 18:59 06:59 Intake Total 710 Balance 710 - Medications Medications: Current Medications Allopurinol (Zyloprim) 100 mg PO DAILY [facility] Last Admin: 05/19/17 08:34 Dose: 100 mg Ergocalciferol (Drisdol 50,000 Intl Units Cap) 1 cap PO Q7D [facility] Levothyroxine Sodium (Synthroid) 75 mcg PO DAILY@0630 [facility] Last Admin: 05/19/17 07:21 Dose: 75 mcg Metoprolol Succinate (Toprol Xl) 50 mg PO BID@0900,2100 [facility] Last Admin: 05/19/17 21:55 Dose: 50 mg Ondansetron HCl (Zofran Inj) 4 mg IVP Q6 PRN PRN Reason: Nausea/Vomiting Pantoprazole Sodium (Protonix Ec Tab) 40 mg PO Q12 [facility] Last Admin: 05/19/17 20:36 Dose: 40 mg Sevelamer HCl (Renagel) 1,600 mg PO TID [facility] Last Admin: 05/19/17 17:26 Dose: 1,600 mg Sitagliptin Phosphate (Januvia) 25 mg PO DAILY [facility] Last Admin: 05/19/17 08:32 Dose: 25 mg Vitamin B Complex/Vit C/Folic Acid (Nephro-Naima) 1 tab PO DAILY [facility] Last Admin: 05/19/17 08:32 Dose: 1 tab - Labs Labs: 05/19/17 04:10 05/19/17 04:10 PT 10.9 Seconds (9.8-13.1) 05/17/17 15:47 INR 1.0 (0.9-1.2) 05/17/17 15:47 APTT 23.3 Seconds (25.6-37.1) L 05/17/17 15:47 Assessment and Plan - Assessment and Plan (Free Text) Assessment: ESRD ON HD ANEMIA OF CKD ..LOWER GI BLEED .. WAS TRANSFUSED 2 U PRBC HYPERKALEMIA .. RESOLVED WITH HD MMP P : D/C PLETAL .. CONTR INDICATED IN CHF' ADD VIT D C/O HD ON
[2017-05-20] MEDS: Levothyroxine 75 MCG TAB PO SCH (06:09)
[2017-05-20 06:48] LABS: HEMOGLOBIN 8.7 g/dL (12.0-18.0); MEAN CELL VOLUME 91.4 fl (80.0-94.0); MEAN CORPUSCULAR HEMOGLOBIN 30.5 pg (27.0-31.0); MEAN CORPUSCULAR HGB CONC 33.4 g/dL (33.0-37.0); RBC 2.86 Mil/uL (4.40-5.90); RED CELL DISTRIBUTION WIDTH 17.2 % (11.5-14.5); WHITE BLOOD COUNT 6.5 K/uL (4.8-10.8)
[2017-05-20 07:17] LABS: CALCIUM 8.4 mg/dL (8.4-10.2)
[2017-05-20] MEDS: Multivitamin Vitamin B Complex (Nephro-Vite) Tab PO SCH (09:26)
[2017-05-20] MEDS: Pantoprazole 40 mg EC Tab PO SCH ×2 (09:26→21:29)
[2017-05-20] MEDS: Metoprolol Succinate 50 mg XL Tab PO SCH ×2 (09:27→21:30)
--- NOTE | 2017-05-20 09:38 | CP.PCM.PN ---
Subjective - Date & Time of Evaluation Date of Evaluation: 05/20/17 Time of Evaluation: 09:39 - Subjective Subjective: Hospitalist Progress Note 71 y.o male with PMH of anemia of chronic disease, ESRD on dialysis MWF, essential HTN, hypothyroidism admitted for recal bleeding. Patient is seen resting comfortably in bed, in NAD, and AA0x3. Patient reports that he is feeling better. Reports still feeling weak. Patient denies stomach pains. Patient denies nausea, fever, shortness of breath, chest pains, chills or vomiting. Patient denies urinary problems. Patients reports producing BM yesterday night with dark stool noted. Denies acute overnight events. Will received HD today. May be going to get endoscopy done today. He reports not eating or drinking since midnight. Objective - Vital Signs/Intake and Output Vital Signs (last 24 hours): Temp Pulse Resp BP Pulse Ox 97.4 F L 106 H 20 136/79 98 05/20/17 08:39 05/20/17 09:27 05/20/17 08:39 05/20/17 09:27 05/20/17 08:39 - Medications Medications: Current Medications Allopurinol (Zyloprim) 100 mg PO DAILY [facility] Last Admin: 05/20/17 09:28 Dose: Not Given Ergocalciferol (Drisdol 50,000 Intl Units Cap) 1 cap PO Q7D [facility] Last Admin: 05/20/17 00:13 Dose: 1 cap Levothyroxine Sodium (Synthroid) 75 mcg PO DAILY@0630 [facility] Last Admin: 05/20/17 06:09 Dose: 75 mcg Metoprolol Succinate (Toprol Xl) 50 mg PO BID@0900,2100 [facility] Last Admin: 05/20/17 09:27 Dose: 50 mg Ondansetron HCl (Zofran Inj) 4 mg IVP Q6 PRN PRN Reason: Nausea/Vomiting Pantoprazole Sodium (Protonix Ec Tab) 40 mg PO Q12 [facility] Last Admin: 05/20/17 09:26 Dose: Not Given Sevelamer HCl (Renagel) 1,600 mg PO TID [facility] Last Admin: 05/20/17 09:26 Dose: Not Given Sitagliptin Phosphate (Januvia) 25 mg PO DAILY [facility] Last Admin: 05/19/17 08:32 Dose: 25 mg Vitamin B Complex/Vit C/Folic Acid (Nephro-Naima) 1 tab PO DAILY [facility] Last Admin: 05/20/17 09:26 Dose: Not Given - Labs Labs: 05/20/17 05:30 05/20/17 05:30 PT 10.9 Seconds (9.8-13.1) 05/17/17 15:47 INR 1.0 (0.9-1.2) 05/17/17 15:47 APTT 23.3 Seconds (25.6-37.1) L 05/17/17 15:47 - Constitutional Appears: Well, Non-toxic, No Acute Distress - Head Exam Head Exam: ATRAUMATIC, NORMAL INSPECTION, NORMOCEPHALIC - Eye Exam Eye Exam: EOMI, Normal appearance, PERRL Pupil Exam: NORMAL ACCOMODATION - ENT Exam ENT Exam: Mucous Membranes Moist, Normal Exam - Neck Exam Neck Exam: Full ROM, Normal Inspection - Respiratory Exam Respiratory Exam: Clear to Ausculation Bilateral, NORMAL BREATHING PATTERN. absent: Rales, Rhonchi, Wheezes, Respiratory Distress, Stridor - Cardiovascular Exam Cardiovascular Exam: REGULAR RHYTHM, +S1, +S2. absent: JVD - GI/Abdominal Exam GI & Abdominal Exam: Soft, Normal Bowel Sounds. absent: Guarding, Tenderness - Extremities Exam Extremities Exam: absent: Calf Tenderness - Back Exam Back Exam: NORMAL INSPECTION. absent: CVA tenderness (L) - Neurological Exam Neurological Exam: Alert, Awake, Oriented x3 - Psychiatric Exam Psychiatric exam: Normal Affect, Normal Mood - Skin Skin Exam: Dry, Intact, Normal Color, Warm Assessment and Plan - Assessment and Plan (Free Text) Assessment: 71 y.o male with PMH of anemia of chronic disease, ESRD on dialysis MWF, essential HTN, hypothyroidism admitted for recal bleeding. Plan: 1) Rectal bleeding, likely lower GI bleed, DDX: Colitis, angiodysplasia, diverticular bleeding, hemorrhoidal bleeding. No melena - Consultation with Dr. Lai - CT shows no colitis. CT results- Small amount of abdominal free fluid. Cardiomegaly, with lung base findings suspicious for mild pulmonary vascular congestion. Suspect periportal edema in the liver. Bladder findings which could be due to mild cystitis. no evidence of significant acute process. - NPO diet - Plan for EGD today 2) Anemia of chronic disease - transfused 2 units PRBCs - H/H 7.6/24 --> 8.6/26.1 post-transfusion - H/H 8.7/26.2 (05/20/17) - will monitor 3) ESRD on MWF - Dr. Santana on consultation - Dialysis today - f/u BMP, Magnesium - Continue Allopurinol, Sevelamer - c/w Vitamin B complex 4) DM type 2 - Januvia 25 mg po daily - Monitor BMP, no need for accucheks at this time 5)Hypertension - c/w Metoprolol Succinate 6) Hypothyroidism -Levothyroxine 75 mcg PO daily 7) Nausea -Zofran 4mg IVP q 6 prn 8) DVT prophylaxis - SCDs 9) Hyperkalemia due to ESRD -resolved
[2017-05-20] MEDS ORDERED: Sodium Chloride 0.9% 500 ML IV ONE (11:41)
[2017-05-20] MEDS ORDERED: Lactated Ringer's 1,000 ML IV ONE (11:41)
[2017-05-20] MEDS ORDERED: Propofol 10 mg/ml Inj (20 ML) ONE (12:07)
[2017-05-20] MEDS ORDERED: Midazolam 2 MG/2 ML VIAL ONE (12:07)
[2017-05-20] MEDS ORDERED: Etomidate 20 mg/10ml Inj IV ONE (12:07)
--- NOTE | 2017-05-20 16:00 | CP.PCM.DIS ---
Provider - Provider Date of Admission: 05/17/17 17:43 Attending physician: Ethan Kelley DO Consults: Gastroenterology- Dr. Lai Nephrology- Dr. Santana Time Spent in preparation of Discharge (in minutes): 30 Diagnosis - Discharge Diagnosis (1) Gastritis Status: Acute (2) Rectal bleeding Status: Acute Comment: no active bleeding; likely from gastritis (3) Anemia Status: Acute Comment: acute on chronic anemia (4) ESRD (end stage renal disease) on dialysis Status: Chronic (5) Diabetes mellitus Status: Chronic (6) Hypothyroidism Status: Chronic (7) Hyperkalemia Status: Resolved Hospital Course - Lab Results Lab Results: Micro Results 05/18/17 15:08 Naris MRSA Culture (Admit) - Final MRSA NOT DETECTED Most Recent Lab Values WBC 6.5 K/uL (4.8-10.8) 05/20/17 05:30 RBC 2.86 Mil/uL (4.40-5.90) L 05/20/17 05:30 Hgb 8.7 g/dL (12.0-18.0) L 05/20/17 05:30 Hct 26.2 % (35.0-51.0) L 05/20/17 05:30 MCV 91.4 fl (80.0-94.0) 05/20/17 05:30 MCH 30.5 pg (27.0-31.0) 05/20/17 05:30 MCHC 33.4 g/dL (33.0-37.0) 05/20/17 05:30 RDW 17.2 % (11.5-14.5) H 05/20/17 05:30 Plt Count 173 K/uL (130-400) 05/20/17 05:30 MPV 8.4 fl (7.2-11.7) 05/19/17 04:10 Neut % (Auto) 70.5 % (50.0-75.0) 05/19/17 04:10 Lymph % (Auto) 15.4 % (20.0-40.0) L 05/19/17 04:10 [place] % (Auto) 9.4 % (0.0-10.0) 05/19/17 04:10 Eos % (Auto) 3.7 % (0.0-4.0) 05/19/17 04:10 Baso % (Auto) 1.0 % (0.0-2.0) 05/19/17 04:10 Neut # (Auto) 5.0 K/uL (1.8-7.0) 05/19/17 04:10 Lymph # (Auto) 1.1 K/uL (1.0-4.3) 05/19/17 04:10 [place] # (Auto) 0.7 K/uL (0.0-0.8) 05/19/17 04:10 Eos # (Auto) 0.3 K/uL (0.0-0.7) 05/19/17 04:10 Baso # (Auto) 0.1 K/uL (0.0-0.2) 05/19/17 04:10 PT 10.9 Seconds (9.8-13.1) 05/17/17 15:47 INR 1.0 (0.9-1.2) 05/17/17 15:47 APTT 23.3 Seconds (25.6-37.1) L 05/17/17 15:47 Sodium 138 mmol/l (132-148) 05/20/17 05:30 Potassium 4.4 MMOL/L (3.6-5.0) 05/20/17 05:30 Chloride 97 mmol/L (98-107) L 05/20/17 05:30 Carbon Dioxide 29 mmol/L (22-30) 05/20/17 05:30 Anion Gap 16 (10-20) 05/20/17 05:30 BUN 64 mg/dl (9-20) H 05/20/17 05:30 Creatinine 9.5 mg/dl (0.8-1.5) H* D 05/20/17 05:30 Est GFR ( Amer) 7 05/20/17 05:30 Est GFR (Non-Af Amer) 6 05/20/17 05:30 POC Glucose (mg/dL) 84 mg/dL (65-110) 05/20/17 10:48 Random Glucose 98 mg/dL (75-110) 05/20/17 05:30 Calcium 8.4 mg/dL (8.4-10.2) 05/20/17 05:30 Magnesium 2.6 MG/DL (1.6-2.3) H 05/18/17 06:15 Total Bilirubin 0.8 mg/dl (0.2-1.3) 05/19/17 04:10 AST 29 U/L (17-59) 05/19/17 04:10 ALT 107 U/L (21-72) H D 05/19/17 04:10 Alkaline Phosphatase 44 U/L (38-126) 05/19/17 04:10 Troponin I 0.0570 ng/mL (0.00-0.120) 05/17/17 15:47 Total Protein 5.8 G/DL (6.3-8.2) L 05/19/17 04:10 Albumin 3.1 g/dL (3.5-5.0) L 05/19/17 04:10 Globulin 2.7 gm/dL (2.2-3.9) 05/19/17 04:10 Albumin/Globulin Ratio 1.1 (1.0-2.1) 05/19/17 04:10 Stool Occult Blood Positive (NEGATIVE) H 05/17/17 15:40 Blood Type O POSITIVE 05/17/17 15:47 Antibody Screen Negative 05/17/17 15:47 Crossmatch See Detail 05/17/17 15:47 BBK History Checked Patient has bt 05/17/17 15:47 - Hospital Course Hospital Course: 71 y.o male with PMH of anemia of chronic disease, ESRD on dialysis MWF, essential HTN, hypothyroidism admitted for rectal bleeding. CT shows no colitis. GI consulted and endoscopy was done with impression of: LA Grade C esophagitis. Erythematous mucosa in stomach, erythematous duodenopathy- all biospy. No active bleeding and no stigma of bleeding found. During hospital stay patient found to have anemia in which patient was transfused 2 units of PRBCs with improvements. Nephrology Dr. Santana was consulted which patient continues to receive HD MWF as scheduled. Patient had an episode of hyperkalemia in which patient was resolved following after given Kayexelate 30 gm PO once, Insulin, Human Regular 10 units IV once, Dextrose 50% ml IVP once, Calcium gluconate 4.6 meq IV once, and Albuterol/Iptratropium 3 ml INH once and after HD. Patient to continue diabetic medication regimen. Patient is stable and clinically improved and decision was made to discharge patient home following HD. Patient to follow up with PMD upon discharge Discharge Exam - Head Exam Head Exam: ATRAUMATIC, NORMAL INSPECTION, NORMOCEPHALIC - Eye Exam Eye Exam: EOMI, Normal appearance, PERRL Pupil Exam: NORMAL ACCOMODATION, PERRL - ENT Exam ENT Exam: Mucous Membranes Moist, Normal Exam - Neck Exam Neck exam: Full Rom, Normal Inspection - Respiratory Exam Respiratory Exam: Clear to PA & Lateral, NORMAL BREATHING PATTERN, UNREMARKABLE. absent: Rales, Rhonchi, Wheezes, Respiratory Distress, Stridor - Cardiovascular Exam Cardiovascular Exam: REGULAR RHYTHM, +S1, +S2. absent: JVD - GI/Abdominal Exam GI & Abdominal Exam: Normal Bowel Sounds, Unremarkable - Back Exam Back exam: absent: CVA tenderness (L), CVA tenderness (R) - Neurological Exam Neurological exam: Alert, Oriented x3 - Psychiatric Exam Psychiatric exam: Normal Affect, Normal Mood - Skin Skin Exam: Dry, Intact, Normal Color, Warm Discharge Plan - Follow Up Plan Condition: FAIR Disposition: HOME/ ROUTINE Instructions: Gastrointestinal Bleeding (DC), Anemia (DC) Additional Instructions: f/u with PMD in 7-10days. Referrals: Silver Lai MD, PhD [Staff Provider] -
[2017-05-20 20:17] LABS: CALCIUM 8.6 mg/dL (8.4-10.2)
--- NOTE | 2017-05-20 22:15 | CP.PCM.PN ---
Subjective - Date & Time of Evaluation Date of Evaluation: 05/20/17 Time of Evaluation: 15:00 - Subjective Subjective: SEEN ON RENAL F/U RECIEVED HIS HD TODAY .. K BATH 2.0 .. TOLERATED WELL DOESN'T FEEL WELL .. TEMP 102.9 D/C WAS CANCELLED Objective - Vital Signs/Intake and Output Vital Signs (last 24 hours): Temp Pulse Resp BP Pulse Ox 102.9 F H 108 H 20 139/68 90 L 05/20/17 19:23 05/20/17 21:30 05/20/17 19:23 05/20/17 21:30 05/20/17 19:23 Intake and Output: 05/20/17 05/21/17 18:59 06:59 Intake Total 920 Output Total 0 Balance 920 - Medications Medications: Current Medications Acetaminophen (Tylenol 325mg Tab) 650 mg PO Q4 PRN PRN Reason: Fever >100.4 F Last Admin: 05/20/17 18:39 Dose: 650 mg Allopurinol (Zyloprim) 100 mg PO DAILY [facility] Last Admin: 05/20/17 09:28 Dose: Not Given Ergocalciferol (Drisdol 50,000 Intl Units Cap) 1 cap PO Q7D [facility] Last Admin: 05/20/17 00:13 Dose: 1 cap Levothyroxine Sodium (Synthroid) 75 mcg PO DAILY@0630 [facility] Last Admin: 05/20/17 06:09 Dose: 75 mcg Metoprolol Succinate (Toprol Xl) 50 mg PO BID@0900,2100 [facility] Last Admin: 05/20/17 21:30 Dose: 50 mg Ondansetron HCl (Zofran Inj) 4 mg IVP Q6 PRN PRN Reason: Nausea/Vomiting Pantoprazole Sodium (Protonix Ec Tab) 40 mg PO Q12 [facility] Last Admin: 05/20/17 21:29 Dose: 40 mg Sevelamer HCl (Renagel) 1,600 mg PO TID [facility] Last Admin: 05/20/17 16:42 Dose: 1,600 mg Sitagliptin Phosphate (Januvia) 25 mg PO DAILY [facility] Last Admin: 05/19/17 08:32 Dose: 25 mg Vitamin B Complex/Vit C/Folic Acid (Nephro-Naima) 1 tab PO DAILY [facility] Last Admin: 02/07/18 09:26 Dose: Not Given - Labs Labs: 05/20/17 05:30 05/20/17 19:36 PT 10.9 Seconds (9.8-13.1) 05/17/17 15:47 INR 1.0 (0.9-1.2) 05/17/17 15:47 APTT 23.3 Seconds (25.6-37.1) L 05/17/17 15:47 Assessment and Plan - Assessment and Plan (Free Text) Assessment: ESRD ON HD M W D ANEMIA OF CKD WELL GI BLEED .. RECIEVED 2 U PRBC HYPERKALEMIA .. RESOLVED ON ADMISSION WITH STAT HD MMP NOW WITH FEBRILE ILLNESS .. ETIOLOGY ?? P : C/O CURRENT CARE C/O CURRENT MEDS B/C FOR TEMP > 100 ID CONSULT IF TEMP PERSIST ?
[2017-05-21] MEDS: Levothyroxine 75 MCG TAB PO SCH (06:38)
--- NOTE | 2017-05-21 09:03 | CP.PCM.DIS ---
Provider - Provider Date of Admission: 05/17/17 17:43 Attending physician: Ethan Kelley DO Time Spent in preparation of Discharge (in minutes): 20 Diagnosis - Discharge Diagnosis (1) Gastritis Status: Acute (2) Rectal bleeding Status: Acute (3) Anemia Status: Acute (4) ESRD (end stage renal disease) on dialysis Status: Chronic (5) Diabetes mellitus Status: Chronic (6) Hypothyroidism Status: Chronic (7) Hyperkalemia Status: Resolved Hospital Course - Lab Results Lab Results: Micro Results 05/18/17 15:08 Naris MRSA Culture (Admit) - Final MRSA NOT DETECTED Most Recent Lab Values WBC 6.5 K/uL (4.8-10.8) 05/20/17 05:30 RBC 2.86 Mil/uL (4.40-5.90) L 05/20/17 05:30 Hgb 8.7 g/dL (12.0-18.0) L 05/20/17 05:30 Hct 26.2 % (35.0-51.0) L 05/20/17 05:30 MCV 91.4 fl (80.0-94.0) 05/20/17 05:30 MCH 30.5 pg (27.0-31.0) 05/20/17 05:30 MCHC 33.4 g/dL (33.0-37.0) 05/20/17 05:30 RDW 17.2 % (11.5-14.5) H 05/20/17 05:30 Plt Count 173 K/uL (130-400) 05/20/17 05:30 MPV 8.4 fl (7.2-11.7) 05/19/17 04:10 Neut % (Auto) 70.5 % (50.0-75.0) 05/19/17 04:10 Lymph % (Auto) 15.4 % (20.0-40.0) L 05/19/17 04:10 [place] % (Auto) 9.4 % (0.0-10.0) 05/19/17 04:10 Eos % (Auto) 3.7 % (0.0-4.0) 05/19/17 04:10 Baso % (Auto) 1.0 % (0.0-2.0) 05/19/17 04:10 Neut # (Auto) 5.0 K/uL (1.8-7.0) 05/19/17 04:10 Lymph # (Auto) 1.1 K/uL (1.0-4.3) 05/19/17 04:10 [place] # (Auto) 0.7 K/uL (0.0-0.8) 05/19/17 04:10 Eos # (Auto) 0.3 K/uL (0.0-0.7) 05/19/17 04:10 Baso # (Auto) 0.1 K/uL (0.0-0.2) 05/19/17 04:10 PT 10.9 Seconds (9.8-13.1) 05/17/17 15:47 INR 1.0 (0.9-1.2) 05/17/17 15:47 APTT 23.3 Seconds (25.6-37.1) L 05/17/17 15:47 Sodium 137 mmol/l (132-148) 05/20/17 19:36 Potassium 3.7 MMOL/L (3.6-5.0) 05/20/17 19:36 Chloride 96 mmol/L (98-107) L 05/20/17 19:36 Carbon Dioxide 30 mmol/L (22-30) 05/20/17 19:36 Anion Gap 15 (10-20) 05/20/17 19:36 BUN 33 mg/dl (9-20) H 05/20/17 19:36 Creatinine 6.0 mg/dl (0.8-1.5) H 05/20/17 19:36 Est GFR ( Amer) 11 05/20/17 19:36 Est GFR (Non-Af Amer) 9 05/20/17 19:36 POC Glucose (mg/dL) 135 mg/dL (65-110) H 05/20/17 21:42 Random Glucose 154 mg/dL (75-110) H 05/20/17 19:36 Calcium 8.6 mg/dL (8.4-10.2) 05/20/17 19:36 Magnesium 2.6 MG/DL (1.6-2.3) H 05/18/17 06:15 Total Bilirubin 0.8 mg/dl (0.2-1.3) 05/19/17 04:10 AST 29 U/L (17-59) 05/19/17 04:10 ALT 107 U/L (21-72) H D 05/19/17 04:10 Alkaline Phosphatase 44 U/L (38-126) 05/19/17 04:10 Troponin I 0.0570 ng/mL (0.00-0.120) 05/17/17 15:47 Total Protein 5.8 G/DL (6.3-8.2) L 05/19/17 04:10 Albumin 3.1 g/dL (3.5-5.0) L 05/19/17 04:10 Globulin 2.7 gm/dL (2.2-3.9) 05/19/17 04:10 Albumin/Globulin Ratio 1.1 (1.0-2.1) 05/19/17 04:10 Stool Occult Blood Positive (NEGATIVE) H 05/17/17 15:40 Hep Bs Antibody Positive (NEGATIVE) 05/20/17 10:24 Blood Type O POSITIVE 05/17/17 15:47 Antibody Screen Negative 05/17/17 15:47 Crossmatch See Detail 05/17/17 15:47 BBK History Checked Patient has bt 05/17/17 15:47 Discharge Exam - Head Exam Head Exam: ATRAUMATIC, NORMAL INSPECTION, NORMOCEPHALIC Discharge Plan - Discharge Medications Prescriptions: Pantoprazole Sodium [Protonix] 40 mg PO DAILY #30 ect - Follow Up Plan Condition: FAIR Disposition: HOME/ ROUTINE Instructions: Gastrointestinal Bleeding (DC), Anemia (DC) Additional Instructions: f/u with PMD in 7-10days. Referrals: Silver Lai MD, PhD [Staff Provider] -
[2017-05-21] MEDS: Metoprolol Succinate 50 mg XL Tab PO SCH ×2 (09:17→21:44)
[2017-05-21] MEDS: Pantoprazole 40 mg EC Tab PO SCH ×2 (09:17→21:43)
[2017-05-21] MEDS: Multivitamin Vitamin B Complex (Nephro-Vite) Tab PO SCH (09:18)
--- NOTE | 2017-05-21 16:40 | CP.PCM.PN ---
Subjective - Date & Time of Evaluation Date of Evaluation: 05/21/17 Time of Evaluation: 09:38 - Subjective Subjective: Hospitalist Progress Note- Dr. Mills 71 y.o male with PMH of anemia of chronic disease, ESRD on dialysis MWF, essential HTN, hypothyroidism admitted for recal bleeding. Patient had endoscopy and HD yesterday. Endoscopy showed no active or recent bleeding. Patient was to be discharged home yesterday but had fever. Patient reports that he had a fever last night and was given medication and resolved. Today, patient is seen laying comfortably in bed, in NAD, and AAOx3. Patient reports still feeling constipated. Produced a BM yesterday with same dark stool. Patient denies stomach pains or tenderness. Patient denies nausea, fever, shortness of breath, chest pains, chills or vomiting. Objective - Vital Signs/Intake and Output Vital Signs (last 24 hours): Temp Pulse Resp BP Pulse Ox 99.0 F 105 H 18 118/66 97 05/21/17 15:51 05/21/17 15:51 05/21/17 15:51 05/21/17 15:51 05/21/17 15:51 Intake and Output: 05/21/17 05/21/17 06:59 18:59 Intake Total 200 Balance 200 - Medications Medications: Current Medications Acetaminophen (Tylenol 325mg Tab) 650 mg PO Q4 PRN PRN Reason: Fever >100.4 F Last Admin: 05/20/17 18:39 Dose: 650 mg Allopurinol (Zyloprim) 100 mg PO DAILY [facility] Last Admin: 05/21/17 09:18 Dose: 100 mg Ergocalciferol (Drisdol 50,000 Intl Units Cap) 1 cap PO Q7D [facility] Last Admin: 05/20/17 00:13 Dose: 1 cap Levothyroxine Sodium (Synthroid) 75 mcg PO DAILY@0630 [facility] Last Admin: 05/21/17 06:38 Dose: 75 mcg Metoprolol Succinate (Toprol Xl) 50 mg PO BID@0900,2100 [facility] Last Admin: 05/21/17 09:17 Dose: 50 mg Ondansetron HCl (Zofran Inj) 4 mg IVP Q6 PRN PRN Reason: Nausea/Vomiting Pantoprazole Sodium (Protonix Ec Tab) 40 mg PO Q12 [facility] Last Admin: 05/21/17 09:17 Dose: 40 mg Sevelamer HCl (Renagel) 1,600 mg PO TID [facility] Last Admin: 05/21/17 12:39 Dose: 1,600 mg Sitagliptin Phosphate (Januvia) 25 mg PO DAILY [facility] Last Admin: 05/19/17 08:32 Dose: 25 mg Vitamin B Complex/Vit C/Folic Acid (Nephro-Naima) 1 tab PO DAILY [facility] Last Admin: 05/21/17 09:18 Dose: 1 tab - Labs Labs: 05/20/17 05:30 05/20/17 19:36 PT 10.9 Seconds (9.8-13.1) 05/17/17 15:47 INR 1.0 (0.9-1.2) 05/17/17 15:47 APTT 23.3 Seconds (25.6-37.1) L 05/17/17 15:47 - Constitutional Appears: Well, Non-toxic, No Acute Distress - Head Exam Head Exam: ATRAUMATIC, NORMAL INSPECTION, NORMOCEPHALIC - Eye Exam Eye Exam: EOMI, Normal appearance, PERRL Pupil Exam: NORMAL ACCOMODATION, PERRL - ENT Exam ENT Exam: Mucous Membranes Moist, Normal Exam - Neck Exam Neck Exam: Full ROM, Normal Inspection - Respiratory Exam Respiratory Exam: Clear to Ausculation Bilateral, NORMAL BREATHING PATTERN. absent: Rales, Rhonchi, Wheezes, Respiratory Distress, Stridor - Cardiovascular Exam Cardiovascular Exam: REGULAR RHYTHM, +S1, +S2. absent: JVD - GI/Abdominal Exam GI & Abdominal Exam: Soft, Normal Bowel Sounds. absent: Tenderness - Extremities Exam Extremities Exam: absent: Calf Tenderness - Neurological Exam Neurological Exam: Alert, Awake, Oriented x3 - Psychiatric Exam Psychiatric exam: Normal Affect, Normal Mood Assessment and Plan (1) Gastritis Status: Acute (2) Rectal bleeding Status: Acute (3) Anemia Status: Acute (4) ESRD (end stage renal disease) on dialysis Status: Chronic (5) Diabetes mellitus Status: Chronic (6) Hypothyroidism Status: Chronic (7) Hyperkalemia Status: Resolved - Assessment and Plan (Free Text) Assessment: 71 y.o male with PMH of anemia of chronic disease, ESRD on dialysis MWF, essential HTN, hypothyroidism admitted for recal bleeding likely to gastritis and now presents with fever (on 05/20/17). Plan: 1) Rectal bleeding, likely gastritis - Consultation with Dr. Lai - CT results- Small amount of abdominal free fluid. Cardiomegaly, with lung base findings suspicious for mild pulmonary vascular congestion. Suspect periportal edema in the liver. Bladder findings which could be due to mild cystitis. no evidence of significant acute process. - performed endoscopy (05/20/17) no active or recent bleeding noted 2) Fever -negative for flu a/b -f/u blood culture -source? 3) Anemia of chronic disease - transfused 2 units PRBCs; post H/H 9.2/27.9 (05/18/17) - H/H 8.7/26.2 (05/20/17) - will monitor 4) ESRD on MWF - Dr. Santana on consultation - Dialysis yesterday - f/u BMP, magnesium - Continue Allopurinol, Sevelamer - c/w Vitamin B complex 5) DM type 2 - Januvia 25 mg po daily - Monitor BMP, accucheck 6)Hypertension - c/w Metoprolol Succinate 7) Hypothyroidism -Levothyroxine 75 mcg PO daily 8) Nausea -Zofran 4mg IVP q 6 prn 9) DVT prophylaxis - SCDs 10) Hyperkalemia due to ESRD -resolved 11) Diet -renal diet
--- NOTE | 2017-05-21 23:19 | CP.PCM.PN ---
Subjective - Date & Time of Evaluation Date of Evaluation: 05/21/17 Time of Evaluation: 14:00 - Subjective Subjective: SEEN ON RENAL F/U FEELS IMPROVED NO MORE FEVERE TODAY ON HD M W F Objective - Vital Signs/Intake and Output Vital Signs (last 24 hours): Temp Pulse Resp BP Pulse Ox 99 F 103 H 20 131/80 98 05/21/17 19:17 05/21/17 22:02 05/21/17 19:17 05/21/17 21:44 05/21/17 19:17 Intake and Output: 05/21/17 05/22/17 18:59 06:59 Intake Total 960 Balance 960 - Medications Medications: Current Medications Acetaminophen (Tylenol 325mg Tab) 650 mg PO Q4 PRN PRN Reason: Fever >100.4 F Last Admin: 05/20/17 18:39 Dose: 650 mg Allopurinol (Zyloprim) 100 mg PO DAILY [facility] Last Admin: 05/21/17 09:18 Dose: 100 mg Ergocalciferol (Drisdol 50,000 Intl Units Cap) 1 cap PO Q7D [facility] Last Admin: 05/20/17 00:13 Dose: 1 cap Levothyroxine Sodium (Synthroid) 75 mcg PO DAILY@0630 [facility] Last Admin: 05/21/17 06:38 Dose: 75 mcg Metoprolol Succinate (Toprol Xl) 50 mg PO BID@0900,2100 [facility] Last Admin: 05/21/17 21:44 Dose: 50 mg Ondansetron HCl (Zofran Inj) 4 mg IVP Q6 PRN PRN Reason: Nausea/Vomiting Pantoprazole Sodium (Protonix Ec Tab) 40 mg PO Q12 [facility] Last Admin: 05/21/17 21:43 Dose: 40 mg Sevelamer HCl (Renagel) 1,600 mg PO TID [facility] Last Admin: 05/21/17 17:21 Dose: 1,600 mg Sitagliptin Phosphate (Januvia) 25 mg PO DAILY [facility] Last Admin: 05/21/17 17:21 Dose: 25 mg Vitamin B Complex/Vit C/Folic Acid (Nephro-Naima) 1 tab PO DAILY [facility] Last Admin: 05/21/17 09:18 Dose: 1 tab - Labs Labs: 05/20/17 05:30 05/20/17 19:36 PT 10.9 Seconds (9.8-13.1) 05/17/17 15:47 INR 1.0 (0.9-1.2) 05/17/17 15:47 APTT 23.3 Seconds (25.6-37.1) L 05/17/17 15:47 Assessment and Plan - Assessment and Plan (Free Text) Assessment: ESRD ON HD M W F .. TO BE COMPLETED ANEMIA OF CKD AND GIB .. RECIEVED 2 U PRBC GIB .. STABLE FEVERE YESTERDAY UP TO 102.8 MMP P : C/O CURRENT HD C/O PRESENT CARE HD IN AM
[2017-05-22 05:54] LABS: HEMOGLOBIN 8.8 g/dL (12.0-18.0); MEAN CELL VOLUME 91.7 fl (80.0-94.0); MEAN CORPUSCULAR HEMOGLOBIN 29.8 pg (27.0-31.0); MEAN CORPUSCULAR HGB CONC 32.5 g/dL (33.0-37.0); RBC 2.94 Mil/uL (4.40-5.90); RED CELL DISTRIBUTION WIDTH 17.2 % (11.5-14.5); WHITE BLOOD COUNT 5.6 K/uL (4.8-10.8)
[2017-05-22 06:31] LABS: CALCIUM 8.2 mg/dL (8.4-10.2)
[2017-05-22 08:44] VITALS: RESP 18; TEMP 98.7; O2SAT 95
[2017-05-22] MEDS: Multivitamin Vitamin B Complex (Nephro-Vite) Tab PO SCH (09:25)
[2017-05-22] MEDS: Levothyroxine 75 MCG TAB PO SCH (09:25)
[2017-05-22] MEDS: Pantoprazole 40 mg EC Tab PO SCH (09:26)
[2017-05-22] MEDS: Metoprolol Succinate 50 mg XL Tab PO SCH ×2 (09:26→11:19)
--- NOTE | 2017-05-22 10:10 | CP.PCM.PN ---
Subjective - Date & Time of Evaluation Date of Evaluation: 05/22/17 Time of Evaluation: 10:09 - Subjective Subjective: doing well Objective - Vital Signs/Intake and Output Vital Signs (last 24 hours): Temp Pulse Resp BP Pulse Ox 98.7 F 108 H 18 146/66 95 05/22/17 08:00 05/22/17 08:00 05/22/17 08:00 05/22/17 08:00 05/22/17 08:00 Intake and Output: 05/22/17 05/22/17 06:59 18:59 Intake Total 1160 Balance 1160 - Medications Medications: Current Medications Acetaminophen (Tylenol 325mg Tab) 650 mg PO Q4 PRN PRN Reason: Fever >100.4 F Last Admin: 05/20/17 18:39 Dose: 650 mg Allopurinol (Zyloprim) 100 mg PO DAILY [facility] Last Admin: 05/22/17 09:26 Dose: 100 mg Ergocalciferol (Drisdol 50,000 Intl Units Cap) 1 cap PO Q7D [facility] Last Admin: 05/20/17 00:13 Dose: 1 cap Levothyroxine Sodium (Synthroid) 75 mcg PO DAILY@0630 [facility] Last Admin: 05/22/17 09:25 Dose: 75 mcg Metoprolol Succinate (Toprol Xl) 50 mg PO BID@0900,2100 [facility] Last Admin: 05/22/17 09:26 Dose: Not Given Ondansetron HCl (Zofran Inj) 4 mg IVP Q6 PRN PRN Reason: Nausea/Vomiting Pantoprazole Sodium (Protonix Ec Tab) 40 mg PO Q12 [facility] Last Admin: 05/22/17 09:26 Dose: 40 mg Sevelamer HCl (Renagel) 1,600 mg PO TID [facility] Last Admin: 05/22/17 09:26 Dose: 1,600 mg Sitagliptin Phosphate (Januvia) 25 mg PO DAILY [facility] Last Admin: 05/22/17 09:25 Dose: 25 mg Vitamin B Complex/Vit C/Folic Acid (Nephro-Naima) 1 tab PO DAILY [facility] Last Admin: 05/22/17 09:25 Dose: 1 tab - Labs Labs: 05/22/17 04:50 05/22/17 04:50 PT 10.9 Seconds (9.8-13.1) 05/17/17 15:47 INR 1.0 (0.9-1.2) 05/17/17 15:47 APTT 23.3 Seconds (25.6-37.1) L 05/17/17 15:47 - Respiratory Exam Respiratory Exam: NORMAL BREATHING PATTERN - Cardiovascular Exam Cardiovascular Exam: REGULAR RHYTHM - GI/Abdominal Exam GI & Abdominal Exam: Soft, Normal Bowel Sounds Assessment and Plan - Assessment and Plan (Free Text) Assessment: 71 yo male with anemia doing well dc planning when able
[2017-05-22 11:19] VITALS: BP 132/80; PULSE 104
--- NOTE | 2017-05-22 11:35 | CP.PCM.DIS ---
Provider - Provider Date of Admission: 05/17/17 17:43 Attending physician: Ethan Kelley DO Primary care physician: Dr. Santana Consults: Nephro consult GI consult Time Spent in preparation of Discharge (in minutes): 20 Diagnosis - Discharge Diagnosis (1) Gastritis Status: Acute (2) Rectal bleeding Status: Acute (3) Anemia Status: Acute Comment: acute on chronic anemia (4) ESRD (end stage renal disease) on dialysis Status: Chronic (5) Diabetes mellitus Status: Chronic (6) Hypothyroidism Status: Chronic Hospital Course - Lab Results Lab Results: Micro Results 05/20/17 19:46 Blood-Venous Blood Culture - Preliminary NO GROWTH AFTER 24 HOURS 05/20/17 19:36 Blood-Venous Blood Culture - Preliminary NO GROWTH AFTER 24 HOURS 05/18/17 15:08 Naris MRSA Culture (Admit) - Final MRSA NOT DETECTED Most Recent Lab Values WBC 5.6 K/uL (4.8-10.8) 05/22/17 04:50 RBC 2.94 Mil/uL (4.40-5.90) L 05/22/17 04:50 Hgb 8.8 g/dL (12.0-18.0) L 05/22/17 04:50 Hct 27.0 % (35.0-51.0) L 05/22/17 04:50 MCV 91.7 fl (80.0-94.0) 05/22/17 04:50 MCH 29.8 pg (27.0-31.0) 05/22/17 04:50 MCHC 32.5 g/dL (33.0-37.0) L 05/22/17 04:50 RDW 17.2 % (11.5-14.5) H 05/22/17 04:50 Plt Count 143 K/uL (130-400) 05/22/17 04:50 MPV 8.4 fl (7.2-11.7) 05/19/17 04:10 Neut % (Auto) 70.5 % (50.0-75.0) 05/19/17 04:10 Lymph % (Auto) 15.4 % (20.0-40.0) L 05/19/17 04:10 [place] % (Auto) 9.4 % (0.0-10.0) 05/19/17 04:10 Eos % (Auto) 3.7 % (0.0-4.0) 05/19/17 04:10 Baso % (Auto) 1.0 % (0.0-2.0) 05/19/17 04:10 Neut # (Auto) 5.0 K/uL (1.8-7.0) 05/19/17 04:10 Lymph # (Auto) 1.1 K/uL (1.0-4.3) 05/19/17 04:10 [place] # (Auto) 0.7 K/uL (0.0-0.8) 05/19/17 04:10 Eos # (Auto) 0.3 K/uL (0.0-0.7) 05/19/17 04:10 Baso # (Auto) 0.1 K/uL (0.0-0.2) 05/19/17 04:10 PT 10.9 Seconds (9.8-13.1) 05/17/17 15:47 INR 1.0 (0.9-1.2) 05/17/17 15:47 APTT 23.3 Seconds (25.6-37.1) L 05/17/17 15:47 Sodium 134 mmol/l (132-148) 05/22/17 04:50 Potassium 4.3 MMOL/L (3.6-5.0) 05/22/17 04:50 Chloride 93 mmol/L (98-107) L 05/22/17 04:50 Carbon Dioxide 30 mmol/L (22-30) 05/22/17 04:50 Anion Gap 15 (10-20) 05/22/17 04:50 BUN 49 mg/dl (9-20) H 05/22/17 04:50 Creatinine 10.0 mg/dl (0.8-1.5) H* D 05/22/17 04:50 Est GFR ( Amer) 6 05/22/17 04:50 Est GFR (Non-Af Amer) 5 05/22/17 04:50 POC Glucose (mg/dL) 126 mg/dL (65-110) H 05/22/17 06:01 Random Glucose 127 mg/dL (75-110) H 05/22/17 04:50 Calcium 8.2 mg/dL (8.4-10.2) L 05/22/17 04:50 Magnesium 2.6 MG/DL (1.6-2.3) H 05/18/17 06:15 Total Bilirubin 0.8 mg/dl (0.2-1.3) 05/19/17 04:10 AST 29 U/L (17-59) 05/19/17 04:10 ALT 107 U/L (21-72) H D 05/19/17 04:10 Alkaline Phosphatase 44 U/L (38-126) 05/19/17 04:10 Troponin I 0.0570 ng/mL (0.00-0.120) 05/17/17 15:47 Total Protein 5.8 G/DL (6.3-8.2) L 05/19/17 04:10 Albumin 3.1 g/dL (3.5-5.0) L 05/19/17 04:10 Globulin 2.7 gm/dL (2.2-3.9) 05/19/17 04:10 Albumin/Globulin Ratio 1.1 (1.0-2.1) 05/19/17 04:10 Stool Occult Blood Positive (NEGATIVE) H 05/17/17 15:40 Hep Bs Antibody Positive (NEGATIVE) 05/20/17 10:24 Influenza Typ A,B (EIA) Negative for flu a/b (NEGATIVE) 05/21/17 10:58 Blood Type O POSITIVE 05/17/17 15:47 Antibody Screen Negative 05/17/17 15:47 Crossmatch See Detail 05/17/17 15:47 BBK History Checked Patient has bt 05/17/17 15:47 - Hospital Course Hospital Course: 71 y.o male with PMH of anemia of chronic disease, ESRD on dialysis MWF, essential HTN, hypothyroidism was admitted for rectal bleeding. CT taken and shows no evidence of significant acute process. Patient noted to have a drop of Hgb to 7.6 , 2 point from his baseline.He was transfused 2 unit off PRBC with Hgb at present stable at 8.8 . GI was consulted and patient underwent endoscopy (05/20/17) to r/o upper bleeding with impression of: LA Grade C esophagitis. Erythematous mucosa in stomach, erythematous duodenopathy, in which all was biopsied. No active bleeding or no stigma of bleeding found. Nephrology Dr. Santana was also consulted given patient's history of ESRD in which patient received HD. Patient also had an episode of hyperkalemia in which was resolved after administration of Kayexelate, Insulin, Dextrose, Calcium gluconate and Albuterol/Iptratropium and following HD. Patient was to be discharged on 05/20/17 but developed Tmax 102.9 after dialysis. Discharge was held for further evaluation. Influenza test was negative and no source of infection detected. Patient monitored over 24 hour with no spikes in fever noted. Patient is stable with no more episodes of rectal bleed, fever, and clinically improved; decision was made to discharge patient home. Patient to follow up with PMD upon discharge Follow up with HD as scheduled Will need colonoscopy a at a later date . Dx; Rectal bleed most likely secondary to gastritis Anemia of acute blood loss and anemia of chronic disease ESRD on HD Hypertension Hypothyroidism DM type II Discharge Exam - Head Exam Head Exam: ATRAUMATIC, NORMAL INSPECTION, NORMOCEPHALIC - Eye Exam Eye Exam: EOMI, Normal appearance, PERRL Pupil Exam: NORMAL ACCOMODATION - ENT Exam ENT Exam: Mucous Membranes Moist, Normal Exam - Neck Exam Neck exam: Full Rom, Normal Inspection - Respiratory Exam Respiratory Exam: Clear to PA & Lateral, NORMAL BREATHING PATTERN, UNREMARKABLE. absent: Rales, Rhonchi, Wheezes, Respiratory Distress, Stridor - Cardiovascular Exam Cardiovascular Exam: REGULAR RHYTHM, +S1, +S2 - GI/Abdominal Exam GI & Abdominal Exam: Normal Bowel Sounds - Back Exam Back exam: absent: CVA tenderness (L), CVA tenderness (R) - Neurological Exam Neurological exam: Alert, Oriented x3 - Psychiatric Exam Psychiatric exam: Normal Affect, Normal Mood - Skin Skin Exam: Dry, Intact, Normal Color Discharge Plan - Discharge Medications Prescriptions: Pantoprazole Sodium [Protonix] 40 mg PO DAILY #30 ect - Follow Up Plan Condition: STABLE Disposition: HOME/ ROUTINE Patient education suggested?: Yes Instructions: Gastrointestinal Bleeding (DC), Anemia (DC), End Stage Kidney Disease (DC) Additional Instructions: f/u with pmd in 7-10days. call for follow up appt with and dialysis [facility] Referrals: Dheeraj Monteiro MD [Staff Provider] - Silver Lai MD, PhD [Staff Provider] -
--- NOTE | 2017-05-22 22:49 | CP.PCM.PN ---
Subjective - Date & Time of Evaluation Date of Evaluation: 05/22/17 Time of Evaluation: 15:00 - Subjective Subjective: SEEN ON RENAL F/U HAD HIS HD TODAY .. TOLERATED WELL STABLE FOR D/C FROM RENAL STAND POINT Objective - Vital Signs/Intake and Output Vital Signs (last 24 hours): Temp Pulse Resp BP Pulse Ox 98.7 F 104 H 18 132/80 95 05/22/17 08:00 05/22/17 11:19 05/22/17 08:00 05/22/17 11:19 05/22/17 08:00 - Labs Labs: 05/22/17 04:50 05/22/17 04:50 PT 10.9 Seconds (9.8-13.1) 05/17/17 15:47 INR 1.0 (0.9-1.2) 05/17/17 15:47 APTT 23.3 Seconds (25.6-37.1) L 05/17/17 15:47 Assessment and Plan - Assessment and Plan (Free Text) Assessment: ESRD ON HD M W F .. RECIEVED HIS HD TODAY ANEMIA OF CKD .. ALSO OF GI BLEED .. RECIEVED 2 U PRBC MMP P : C/O CURRENT CARE STABLE FOR D/C WILL F/U AN OUT PT
== END 2017-05-22 11:59 | disposition home or self-care (01) | DRG 377 ==
LOC: H.ER 14:43 → H.ERHOLD 17:43 → H.ICU/CCU 05-18 09:40 → H.TEL 05-19 10:36
PROVIDERS: ADMIT Internal Medicine; ATTEND Internal Medicine
PROC: 30233N1 Transfusion of Nonautologous Red Blood Cells into Peripheral Vein, Percutaneous Approach (ICD-10-PCS; 2017-05-17)
PROC: 0DB68ZX Excision of Stomach, Via Natural or Artificial Opening Endoscopic, Diagnostic (ICD-10-PCS; 2017-05-20)
PROC: 0DB58ZX Excision of Esophagus, Via Natural or Artificial Opening Endoscopic, Diagnostic (ICD-10-PCS; 2017-05-20)
PROC: 0DB98ZX Excision of Duodenum, Via Natural or Artificial Opening Endoscopic, Diagnostic (ICD-10-PCS; principal; 2017-05-20 11:45)
DX: K29.01 Acute gastritis with bleeding (principal); N18.6 End stage renal disease; I12.0 Hypertensive chronic kidney disease with stage 5 chronic kidney disease or end stage renal disease; E11.22 Type 2 diabetes mellitus with diabetic chronic kidney disease; D62 Acute posthemorrhagic anemia; E87.5 Hyperkalemia; K20.8 Other esophagitis; D63.1 Anemia in chronic kidney disease; E03.9 Hypothyroidism, unspecified; E78.00 Pure hypercholesterolemia, unspecified; K59.00 Constipation, unspecified; Z99.2 Dependence on renal dialysis; Z79.84 Long term (current) use of oral hypoglycemic drugs; Z87.891 Personal history of nicotine dependence

== ENCOUNTER 2017-06-30 13:21 | Inpatient (IN) | payer OTHER ==
[2017-06-30 13:22] VITALS: BMI 27.4
--- NOTE | 2017-06-30 13:42 | ED PDOC ---
HPI: Abdomen Time Seen by Provider: 06/30/17 13:29 Chief Complaint (Nursing): Abdominal Pain History Per: Patient Onset/Duration Of Symptoms: Days (1) Current Symptoms Are (Timing): Still Present Severity: Mild Pain Scale Rating Of: 2 Location Of Pain/Discomfort: Epigastric Quality Of Discomfort: Unable To Describe Associated Symptoms: Nausea, Vomiting. denies: Fever, Diarrhea, Urinary Symptoms Exacerbating Factors: None Alleviating Factors: None Additional Complaint(s): Referred from adult daycare after experirncing epigastric abd pain assoc with nausea and vomiting x 1 days. Denies fever diarrhea or bloody stool. Generalized weakness and SOB chronic. H/o dialysis yesterday. Past Medical History Vital Signs: Last Vital Signs Temp 98.3 F 06/30/17 13:23 Pulse 84 06/30/17 15:08 Resp 14 06/30/17 15:08 BP 122/74 06/30/17 15:07 Pulse Ox 98 06/30/17 15:08 - Medical History PMH: Anemia, Diabetes, HTN, Hypercholesterolemia, Hypothyroidism, Chronic Kidney Disease (on dialysis) Denies: Arthritis, CVA, Kidney Stones - Surgical History Surgical History: Appendectomy - Family History Family History: States: Unknown Family Hx - Immunization History Hx Tetanus Toxoid Vaccination: No Hx Influenza Vaccination: Yes Hx Pneumococcal Vaccination: Yes - Home Medications Home Medications: Ambulatory Orders Medication Instructions Recorded Allopurinol [Zyloprim] 100 mg PO DAILY #30 tab 05/09/17 Folic Acid/Vit B Complex and C 0.8 mg PO DAILY #30 tablet 05/09/17 [Vanessa-Naima Tablet] Levothyroxine [Synthroid] 75 mcg PO DAILY #30 tab 05/09/17 Metoprolol Succinate [Toprol XL] 50 mg PO BID #60 tab 05/09/17 SITagliptin [Januvia] 50 mg PO DAILY #30 tab 05/09/17 Sevelamer Carbonate [Renvela] 2 cap PO TID #180 05/09/17 Pantoprazole Sodium [Protonix] 40 mg PO DAILY #30 ect 05/20/17 - Allergies Allergies/Adverse Reactions: Allergies Allergy/AdvReac Type Severity Reaction Status Date / Time No Known Allergies Allergy Verified 05/08/17 21:17 Review of Systems ROS Statement: Except As Marked, All Systems Reviewed And Found Negative Constitutional: Positive for: Weakness Gastrointestinal: Positive for: Abdominal Pain Physical Exam - Reviewed Nursing Documentation Reviewed: Yes Vital Signs Reviewed: Yes - Physical Exam Appears: Positive for: Non-toxic, No Acute Distress Head Exam: Positive for: ATRAUMATIC, NORMAL INSPECTION, NORMOCEPHALIC Skin: Positive for: Normal Color, Warm, DRY Eye Exam: Positive for: EOMI, Normal appearance, PERRL ENT: Positive for: Normal ENT Inspection Neck: Positive for: Normal, Painless ROM Cardiovascular/Chest: Positive for: Regular Rate, Rhythm Respiratory: Positive for: CNT, Normal Breath Sounds Gastrointestinal/Abdominal: Positive for: Bowel Sounds, Soft, Tenderness ( Epigastric) Back: Positive for: Normal Inspection Extremity: Positive for: Normal ROM Neurologic/Psych: Positive for: Alert, Oriented - Laboratory Results Result Diagrams: 06/30/17 14:51 06/30/17 14:51 - ECG O2 Sat by Pulse Oximetry: 93 Disposition - Clinical Impression Clinical Impression: ESRD (end stage renal disease) on dialysis, Fluid overload - Patient ED Disposition Is Patient to be Admitted: Yes - Disposition Disposition Time: 15:50 Condition: FAIR Forms: [employer] (E[place]ian) - Pt Status Changed To: Hospital Disposition Of: Inpatient - Admit Certification Admit to Inpatient:: After my assessment, the patient will require hospitalization for at least two midnights. This is because of the severity of symptoms shown, intensity of services needed, and/or the medical risk in this patient being treated as an outpatient. - POA Present On Arrival: None
--- NOTE | 2017-06-30 14:39 | RAD ---
HISTORY: SOB COMPARISON: 05/09/2017 TECHNIQUE: Chest PA and lateral FINDINGS: LUNGS: Pulmonary vascular congestion. PLEURA: Small bilateral pleural effusions CARDIOVASCULAR: Cardiomegaly/mild CHF. OSSEOUS STRUCTURES: No significant abnormalities. VISUALIZED UPPER ABDOMEN: Normal. OTHER FINDINGS: None. IMPRESSION: Mild CHF a new finding compared to the prior study. This represents a new finding compared to the prior study
[2017-06-30 15:01] LABS: BASO # 0.1 K/uL (0.0-0.2); BASO % 1.1 % (0.0-2.0); EOS % 0.7 % (0.0-4.0); HEMOGLOBIN 10.6 g/dL (12.0-18.0); LYMPH # 0.5 K/uL (1.0-4.3); LYMPH % 8.2 % (20.0-40.0); MEAN CELL VOLUME 94.5 fl (80.0-94.0); MEAN CORPUSCULAR HGB CONC 30.7 g/dL (33.0-37.0); MEAN PLATELET VOLUME 9.3 fl (7.2-11.7); MONO # 0.7 K/uL (0.0-0.8); MONO % 11.8 % (0.0-10.0); NEUT # 4.8 K/uL (1.8-7.0); NEUT % 78.2 % (50.0-75.0); NRBC % 0.1 % (0.0-0.0); PLATELET COUNT 158 K/uL (130-400); RBC 3.66 Mil/uL (4.40-5.90); RED CELL DISTRIBUTION WIDTH 21.2 % (11.5-14.5); WHITE BLOOD COUNT 6.2 K/uL (4.8-10.8)
--- NOTE | 2017-06-30 15:19 | CT ---
PROCEDURE: CT Abdomen and Pelvis without intravenous contrast HISTORY: r/o kidney stone COMPARISON: Abdomen pelvis CT without contrast 05/18/2017. TECHNIQUE: Helical CT of the abdomen and pelvis was performed without oral or intravenous contrast as per referring physician request. Contrast Dose: None Radiation dose: Total exam DLP = 814.62 mGy-cm. This CT exam was performed using one or more of the following dose reduction techniques: Automated exposure control, adjustment of the mA and/or kV according to patient size, and/or use of iterative reconstruction technique. FINDINGS: LOWER THORAX: Restrained motion degrades imaging through the lung bases. Cardiomegaly is reiterated with prominence of the pulmonary veins in a pattern suspicious for possible mild CHF. Limited bilateral pleural effusions are identified. No pericardial effusion. LIVER: Unremarkable. No gross lesion or ductal dilatation. GALLBLADDER AND BILE DUCTS: Gallbladder appears mildly distended with questionable mural thickening. Cholelithiasis is noted in the neck. Cholecystitis is not completely excluded. Clinically correlate further. PANCREAS: Unremarkable. No gross lesion or ductal dilatation. SPLEEN: Unremarkable. ADRENALS: Unremarkable. No mass. KIDNEYS AND URETERS: Nonspecific streaky bilateral perinephric changes are reiterated and are not simply changed in the interval 4.4 cm cyst again seen related to the midpole right kidney laterally. No definite obstructive uropathy bilaterally. No radiodense urolithiasis either. VASCULATURE: Unremarkable. No aortic aneurysm. BOWEL: Stomach is mildly distended with retained food. No bowel obstruction is evident grossly. Moderate fecal loading seen throughout various large-bowel segments with nonacute sigmoid diverticular changes identified. APPENDIX: Unremarkable. Normal appendix. PERITONEUM: Unremarkable. No free fluid. No free air. LYMPH NODES: Unremarkable. No enlarged lymph nodes. BLADDER: Nearly completely decompressed. Mural thickening may be present and an element of cystitis is not completely excluded. REPRODUCTIVE: Mild prostate gland enlargement again noted. BONES: No acute fracture. OTHER FINDINGS: None. IMPRESSION: No obstructive uropathy or radiodense urolithiasis bilaterally. Nonspecific bilateral perinephric streaky changes are stable as well as an exophytic cyst at the midpole right kidney. Questionable mural thickening of the gallbladder wall with limited cholelithiasis. Clinically correlate for potential cholecystitis though this is not definite. Cardiomegaly and limited bilateral pleural effusions are identified with mild prominence of the pulmonary veins which may indicate an element of CHF. Clinically correlate.
[2017-06-30 15:35] LABS: ALB/GLOB RATIO 1.2 (1.0-2.1); ALBUMIN 3.7 g/dL (3.5-5.0); CALCIUM 8.8 mg/dL (8.4-10.2)
[2017-06-30] MEDS ORDERED: Insulin Regular 100 units/ml IV STA (15:45)
[2017-06-30] MEDS ORDERED: Dextrose 50% SYRINGE Inj (50 ml) IVP ONE (15:45)
[2017-06-30] MEDS ORDERED: Albuterol 0.083% Inhal Sol (2.5 mg/3 mL) UD INH STA (15:46)
[2017-06-30] MEDS ORDERED: Sod Polystyrene Sulf 15 gm/60 ml Susp PO ONE (15:46)
[2017-06-30 15:49] LABS: BANDS 1 % (0-2); BASOPHIL 1 % (0-2); LYMPHOCYTE 10 % (20-50); MONOCYTE 9 % (0-10); NEUTROPHIL 79 % (42-75); PLATELET ESTIMATE NORMAL (NORMAL); TOTAL CELLS COUNTED 100
[2017-06-30 15:50] LABS: ANISOCYTOSIS MODERATE; HYPOCHROMIC SLIGHT
[2017-06-30 15:51] LABS: OVALOCYTES SLIGHT; TOXIC GRANULATION PRESENT
[2017-06-30] MEDS ORDERED: Albuterol 0.083% Inhal Sol (2.5 mg/3 mL) UD ONE (15:59)
[2017-06-30] MEDS ORDERED: Dextrose 50% SYRINGE Inj (50 ml) ONE (16:00)
[2017-06-30] MEDS ORDERED: Sod Polystyrene Sulf 15 gm/60 ml Susp ONE (16:00)
[2017-06-30] MEDS ORDERED: Insulin Regular 100 units/ml ONE (16:00)
[2017-06-30] MEDS: Insulin Lispro (humaLOG) 100 Units/ml Inj SC SCH (21:45)
[2017-07-01 05:51] LABS: HEMOGLOBIN 9.7 g/dL (12.0-18.0); MEAN CELL VOLUME 93.1 fl (80.0-94.0); MEAN CORPUSCULAR HEMOGLOBIN 29.1 pg (27.0-31.0); MEAN CORPUSCULAR HGB CONC 31.3 g/dL (33.0-37.0); RBC 3.35 Mil/uL (4.40-5.90); RED CELL DISTRIBUTION WIDTH 21.7 % (11.5-14.5); WHITE BLOOD COUNT 5.6 K/uL (4.8-10.8)
[2017-07-01 06:43] LABS: ALB/GLOB RATIO 1.2 (1.0-2.1); ALBUMIN 3.4 g/dL (3.5-5.0); CALCIUM 8.6 mg/dL (8.4-10.2)
[2017-07-01] MEDS ORDERED: Cilostazol 50 mg Tab UD PO SCH (09:00)
[2017-07-01] MEDS: Metoprolol Succinate 50 mg XL Tab PO SCH ×2 (09:04→16:55)
[2017-07-01] MEDS: Insulin Lispro (humaLOG) 100 Units/ml Inj SC SCH ×4 (09:05→21:18)
[2017-07-01] MEDS: Levothyroxine 75 MCG TAB PO SCH (09:05)
--- NOTE | 2017-07-01 11:04 | CARD ---
APPROVED REPORT EKG Measurement Heart [id number] <Conclusion> Normal sinusl rhythm Nonspecific T wave abnormality Prolonged QT Abnormal ECG
--- NOTE | 2017-07-01 11:35 | IP.NPCORE ---
Heart Failure Core Measure - Heart Failure Ejection Fraction: Less Than 40 % BARBARA Inhibitor Prescribed: No Contraindication/Reason for not providing: hyperkalemia
--- NOTE | 2017-07-01 16:56 | CP.PCM.CON ---
History of Present Illness - History of Present Illness History of Present Illness: REASONS FOR CONSULT : ESRD ON HD M W F ANEMIA OF CKD .. HGB IS OK ELECTROLYTES ABN ALL EMR REVIEWD .. LABS REVIEWED . PT WAS SEEN AND EXAMINED SEEN ON HD .. HD ORDERS GIVEN AND D/W HD RN HPI: Abdomen Time Seen by Provider: 06/30/17 13:29 Chief Complaint (Nursing): Abdominal Pain History Per: Patient Onset/Duration Of Symptoms: Days (1) Current Symptoms Are (Timing): Still Present Severity: Mild Pain Scale Rating Of: 2 Location Of Pain/Discomfort: Epigastric Quality Of Discomfort: Unable To Describe Associated Symptoms: Nausea, Vomiting. denies: Fever, Diarrhea, Urinary Symptoms Exacerbating Factors: None Alleviating Factors: None Additional Complaint(s): Referred from adult daycare after experirncing epigastric abd pain assoc with nausea and vomiting x 1 days. Denies fever diarrhea or bloody stool. Generalized weakness and SOB chronic. H/o dialysis yesterday. Past Medical History Vital Signs: Last Vital Signs Temp 98.3 F 06/30/17 13:23 Pulse 84 06/30/17 15:08 Resp 14 06/30/17 15:08 BP 122/74 06/30/17 15:07 Pulse Ox 98 06/30/17 15:08 - Medical History PMH: Anemia, Diabetes, HTN, Hypercholesterolemia, Hypothyroidism, Chronic Kidney Disease (on dialysis) Denies: Arthritis, CVA, Kidney Stones - Surgical History Surgical History: Appendectomy - Family History Family History: States: Unknown Family Hx - Immunization History Hx Tetanus Toxoid Vaccination: No Hx Influenza Vaccination: Yes Hx Pneumococcal Vaccination: Yes - Home Medications Home Medications: Ambulatory Orders Medication Instructions Recorded Allopurinol [Zyloprim] 100 mg PO DAILY #30 tab 05/09/17 Folic Acid/Vit B Complex and C 0.8 mg PO DAILY #30 tablet 05/09/17 [Vanessa-Naima Tablet] Levothyroxine [Synthroid] 75 mcg PO DAILY #30 tab 05/09/17 Metoprolol Succinate [Toprol XL] 50 mg PO BID #60 tab 05/09/17 SITagliptin [Januvia] 50 mg PO DAILY #30 tab 05/09/17 Sevelamer Carbonate [Renvela] 2 cap PO TID #180 05/09/17 Pantoprazole Sodium [Protonix] 40 mg PO DAILY #30 ect 05/20/17 Past Patient History - Infectious Disease Hx of Infectious Diseases: None - Past Medical History & Family History Past Medical History?: Yes - Past Social History Smoking Status: Never Smoked - CARDIAC Hx Cardiac Disorders: Yes Hx Congestive Heart Failure: Yes Hx Hypertension: Yes - PULMONARY Hx Respiratory Disorders: No - NEUROLOGICAL Hx Neurological Disorder: No - HEENT Hx HEENT Problems: No - RENAL Hx Chronic Kidney Disease: Yes (on dialysis) Hx Dialysis: Yes Type of Dialysis Access: Left Upper Arm Shunt Date of Last Dialysis Treatment: 06/29/17 Hx Kidney Stones: No Hx Neurogenic Bladder: No Hx Pyelonephritis: No Hx Renal (Kidney) Cancer: No Hx Renal Failure: Yes - ENDOCRINE/METABOLIC Hx Endocrine Disorders: Yes - HEMATOLOGICAL/ONCOLOGICAL Hx Blood Disorders: No Hx AIDS: No Hx Human Immunodeficiency Virus (HIV): No - INTEGUMENTARY Hx Dermatological Problems: No - MUSCULOSKELETAL/RHEUMATOLOGICAL Hx Musculoskeletal Disorders: No Hx Falls: No - GASTROINTESTINAL Hx Gastrointestinal Disorders: No - GENITOURINARY/GYNECOLOGICAL Hx Genitourinary Disorders: No - PSYCHIATRIC Hx Psychophysiologic Disorder: No Hx Substance Use: No - SURGICAL HISTORY Hx Appendectomy: Yes - ANESTHESIA Hx Anesthesia: Yes Hx Anesthesia Reactions: No Hx Malignant Hyperthermia: No Has any member of the family had a problem w/ anesthesia?: No Meds Allergies/Adverse Reactions: Allergies Allergy/AdvReac Type Severity Reaction Status Date / Time No Known Allergies Allergy Verified 05/08/17 21:17 - Medications Medications: Current Medications Acetaminophen (Tylenol 325mg Tab) 650 mg PO Q6 PRN PRN Reason: fever>101.0 Allopurinol (Zyloprim) 100 mg PO DAILY [facility] Last Admin: 07/01/17 09:06 Dose: 100 mg Aspirin (Ecotrin) 81 mg PO DAILY [facility] Last Admin: 07/01/17 09:04 Dose: 81 mg Cilostazol (Pletal) 50 mg PO DAILY [facility] Last Admin: 07/01/17 09:04 Dose: 50 mg Heparin Sodium (Porcine) (Heparin) 5,000 units SC Q8 [facility] PRN Reason: Protocol Last Admin: 07/01/17 09:04 Dose: 5,000 units Insulin Human Lispro (Humalog) 0 units SC ACHS [facility] PRN Reason: Protocol Last Admin: 07/01/17 13:36 Dose: 4 units Levothyroxine Sodium (Synthroid) 75 mcg PO DAILY [facility] Last Admin: 07/01/17 09:05 Dose: 75 mcg Metoprolol Succinate (Toprol Xl) 50 mg PO BID [facility] Last Admin: 07/01/17 09:04 Dose: 50 mg Sevelamer HCl (Renagel) 1,600 mg PO TID [facility] Last Admin: 07/01/17 13:37 Dose: 1,600 mg Sitagliptin Phosphate (Januvia) 50 mg PO DAILY [facility] Last Admin: 07/01/17 09:04 Dose: 50 mg Results - Vital Signs Recent Vital Signs: Last Vital Signs Temp 97.9 F 07/01/17 16:06 Pulse 116 H 07/01/17 12:32 Resp 20 07/01/17 16:06 BP 135/74 07/01/17 16:06 Pulse Ox 98 07/01/17 16:06 - Labs Result Diagrams: 07/01/17 04:25 07/01/17 04:25 Labs: Laboratory Results - last 24 hr 06/30/17 07/01/17 07/01/17 21:35 04:17 04:25 WBC 5.6 RBC 3.35 L Hgb 9.7 L Hct 31.2 L MCV 93.1 MCH 29.1 MCHC 31.3 L RDW 21.7 H Plt Count 160 Sodium Potassium Chloride Carbon Dioxide Anion Gap BUN Creatinine Est GFR ( Amer) Est GFR (Non-Af Amer) POC Glucose (mg/dL) 202 H 136 H Random Glucose Calcium Total Bilirubin AST ALT Alkaline Phosphatase Troponin I Total Protein Albumin Globulin Albumin/Globulin Ratio 07/01/17 07/01/17 07/01/17 04:25 11:11 12:26 WBC RBC Hgb Hct MCV MCH MCHC RDW Plt Count Sodium 139 Potassium 5.2 H Chloride 95 L Carbon Dioxide 28 Anion Gap 21 H BUN 55 H Creatinine 8.3 H* Est GFR ( Amer) 8 Est GFR (Non-Af Amer) 6 POC Glucose (mg/dL) 328 H Random Glucose 130 H Calcium 8.6 Total Bilirubin 0.7 AST 43 ALT 54 Alkaline Phosphatase 57 Troponin I 0.2410 H* Total Protein 6.3 Albumin 3.4 L Globulin 2.9 Albumin/Globulin Ratio 1.2 07/01/17 16:04 WBC RBC Hgb Hct MCV MCH MCHC RDW Plt Count Sodium Potassium Chloride Carbon Dioxide Anion Gap BUN Creatinine Est GFR ( Amer) Est GFR (Non-Af Amer) POC Glucose (mg/dL) 103 Random Glucose Calcium Total Bilirubin AST ALT Alkaline Phosphatase Troponin I Total Protein Albumin Globulin Albumin/Globulin Ratio Assessment & Plan - Assessment and Plan (Free Text) Assessment: ESRD ON HD .. GETTING HIS HD NOW ANEMIA OF CKD .. HGB OK ELECTROLYTES ABN MMP P : SCHEDULE HD AN IN PT C/O CURRENT MEDS CHECK PHOS , MG , VIT D 25 WILL F/U WITH YOU - Date & Time Date: 07/01/17 Time: 13:00
[2017-07-01] MEDS ORDERED: Ergocalciferol 50,000 Intl Units Cap PO SCH (17:00)
--- NOTE | 2017-07-01 18:54 | CP.PCM.HP ---
History of Present Illness - History of Present Illness History of Present Illness: Cc: abdominal pain History of Present Illness: A 71 year old male with a pmhx of HTN, high cholestrol, hypothroidism, anemia and end stage renal disease on hemodialysis who was sent to the ED from adult daycare after experiencing epigastric abdominal pain that was associated with nausea and vomiting for 1 day. The patient denies fever, chills, diarrhea or bloody stool. Denies headache but claims weakness and SOB are chronic. States he has been compliant with his dialysis and with his medications. Patient was admitted for acute on chronic renal failure and for CHF Exacerbation. Present on Admission - Present on Admission Any Indicators Present on Admission: No Review of Systems - Review of Systems All systems: reviewed and no additional remarkable complaints except - Cardiovascular Cardiovascular: As Per HPI, Pedal Edema - Respiratory Respiratory: Dyspnea Past Patient History - Infectious Disease Hx of Infectious Diseases: None - Past Medical History & Family History Past Medical History?: Yes Past Family History: Reviewed and not pertinent - Past Social History Smoking Status: Never Smoked Alcohol: None Drugs: Denies - CARDIAC Hx Cardiac Disorders: Yes Hx Congestive Heart Failure: Yes Hx Hypertension: Yes - PULMONARY Hx Respiratory Disorders: No - NEUROLOGICAL Hx Neurological Disorder: No - HEENT Hx HEENT Problems: No - RENAL Hx Chronic Kidney Disease: Yes (on dialysis) Hx Dialysis: Yes Type of Dialysis Access: Left Upper Arm Shunt Date of Last Dialysis Treatment: 06/29/17 Hx Kidney Stones: No Hx Neurogenic Bladder: No Hx Pyelonephritis: No Hx Renal (Kidney) Cancer: No Hx Renal Failure: Yes - ENDOCRINE/METABOLIC Hx Endocrine Disorders: Yes - HEMATOLOGICAL/ONCOLOGICAL Hx Blood Disorders: No Hx AIDS: No Hx Human Immunodeficiency Virus (HIV): No - INTEGUMENTARY Hx Dermatological Problems: No - MUSCULOSKELETAL/RHEUMATOLOGICAL Hx Musculoskeletal Disorders: No Hx Falls: No - GASTROINTESTINAL Hx Gastrointestinal Disorders: No - GENITOURINARY/GYNECOLOGICAL Hx Genitourinary Disorders: No - PSYCHIATRIC Hx Psychophysiologic Disorder: No Hx Substance Use: No - SURGICAL HISTORY Hx Appendectomy: Yes - ANESTHESIA Hx Anesthesia: Yes Hx Anesthesia Reactions: No Hx Malignant Hyperthermia: No Has any member of the family had a problem w/ anesthesia?: No Meds Allergies/Adverse Reactions: Allergies Allergy/AdvReac Type Severity Reaction Status Date / Time No Known Allergies Allergy Verified 05/08/17 21:17 Physical Exam - Constitutional Appears: Chronically Ill - Head Exam Head Exam: ATRAUMATIC, NORMAL INSPECTION, NORMOCEPHALIC - Eye Exam Eye Exam: EOMI, Normal appearance, PERRL Pupil Exam: NORMAL ACCOMODATION, PERRL - ENT Exam ENT Exam: Mucous Membranes Moist, Normal Exam - Neck Exam Neck exam: Positive for: Full Rom, Normal Inspection - Respiratory Exam Respiratory Exam: Clear to Auscultation Bilateral, Rales, NORMAL BREATHING PATTERN. absent: Wheezes - Cardiovascular Exam Cardiovascular Exam: REGULAR RHYTHM, +S1, +S2 - GI/Abdominal Exam GI & Abdominal Exam: Normal Bowel Sounds, Soft. absent: Tenderness - Extremities Exam Extremities exam: Positive for: normal inspection, pedal edema - Back Exam Back exam: NORMAL INSPECTION - Neurological Exam Neurological exam: Alert, CN II-XII Intact, Normal Gait, Oriented x3, Reflexes Normal - Skin Skin Exam: Dry, Intact, Normal Color, Warm Results - Vital Signs Recent Vital Signs: Last Vital Signs Temp 97.9 F 07/01/17 16:06 Pulse 116 H 07/01/17 16:55 Resp 20 07/01/17 16:06 BP 135/74 07/01/17 16:55 Pulse Ox 98 07/01/17 16:06 - Labs Result Diagrams: 07/03/17 05:30 07/03/17 05:30 Labs: Laboratory Results - last 24 hr 06/30/17 07/01/17 07/01/17 21:35 04:17 04:25 WBC 5.6 RBC 3.35 L Hgb 9.7 L Hct 31.2 L MCV 93.1 MCH 29.1 MCHC 31.3 L RDW 21.7 H Plt Count 160 Sodium Potassium Chloride Carbon Dioxide Anion Gap BUN Creatinine Est GFR ( Amer) Est GFR (Non-Af Amer) POC Glucose (mg/dL) 202 H 136 H Random Glucose Calcium Total Bilirubin AST ALT Alkaline Phosphatase Troponin I Total Protein Albumin Globulin Albumin/Globulin Ratio 07/01/17 07/01/17 07/01/17 04:25 11:11 12:26 WBC RBC Hgb Hct MCV MCH MCHC RDW Plt Count Sodium 139 Potassium 5.2 H Chloride 95 L Carbon Dioxide 28 Anion Gap 21 H BUN 55 H Creatinine 8.3 H* Est GFR ( Amer) 8 Est GFR (Non-Af Amer) 6 POC Glucose (mg/dL) 328 H Random Glucose 130 H Calcium 8.6 Total Bilirubin 0.7 AST 43 ALT 54 Alkaline Phosphatase 57 Troponin I 0.2410 H* Total Protein 6.3 Albumin 3.4 L Globulin 2.9 Albumin/Globulin Ratio 1.2 07/01/17 16:04 WBC RBC Hgb Hct MCV MCH MCHC RDW Plt Count Sodium Potassium Chloride Carbon Dioxide Anion Gap BUN Creatinine Est GFR ( Amer) Est GFR (Non-Af Amer) POC Glucose (mg/dL) 103 Random Glucose Calcium Total Bilirubin AST ALT Alkaline Phosphatase Troponin I Total Protein Albumin Globulin Albumin/Globulin Ratio - EKG Data EKG Interpreted by: Myself EKG shows normal: Sinus rhythm Rate: Normal - Impressions Impression: QT Prolongation. - Imaging and Cardiology CT ABdomen/Pelvis: Status: Report reviewed by me Additional comment: IMPRESSION: No obstructive uropathy or radiodense urolithiasis bilaterally. Nonspecific bilateral perinephric streaky changes are stable as well as an exophytic cyst at the midpole right kidney. Questionable mural thickening of the gallbladder wall with limited cholelithiasis. Clinically correlate for potential cholecystitis though this is not definite. Cardiomegaly and limited bilateral pleural effusions are identified with mild prominence of the pulmonary veins which may indicate an element of CHF. Chest x-ray Status: Report reviewed by me Additional comment: IMPRESSION: Mild CHF a new finding compared to the prior study. This represents a new finding compared to the prior study TTE (10/2016): Status: Report reviewed by me Additional comment: IMPRESSION: Mild CHF a new finding compared to the prior study. This represents a new finding compared to the prior study Assessment & Plan (1) CHF exacerbation Assessment and Plan: Cardiomyopathy EF 30% Nephrology consulted for HD 2L O2 via NC Status: Acute Priority: High (2) QT prolongation Status: Acute Priority: Medium (3) ESRD (end stage renal disease) on dialysis Assessment and Plan: Nephrosclerosis Status: Chronic Priority: Low (4) Conjunctivitis of both eyes Assessment and Plan: Tobramycin eye soln for 7 days Status: Acute Priority: High (5) Hypertension Status: Chronic Priority: Low (6) DVT prophylaxis Status: Chronic Priority: Low
[2017-07-02] MEDS: Insulin Lispro (humaLOG) 100 Units/ml Inj SC SCH ×4 (06:58→22:04)
[2017-07-02] MEDS: Multivitamin Vitamin B Complex (Nephro-Vite) Tab PO SCH (08:39)
[2017-07-02] MEDS: Metoprolol Succinate 50 mg XL Tab PO SCH ×2 (08:39→17:10)
[2017-07-02] MEDS: Levothyroxine 75 MCG TAB PO SCH (08:40)
--- NOTE | 2017-07-02 10:00 | CP.PCM.CON ---
History of Present Illness - History of Present Illness History of Present Illness: This 71- year-old man with hypertension and diabetes with chronic renal failure who has been on chronic hemodialysis came into the emergency room complaining of severe abdominal pain and nausea and was found to have elevated troponin levels. This consultation was requested to evaluate this finding. The patient denies any chest pains and denies having suffered prior myocardial infarction. His prior hospitalizations were reviewed. The patient admitted having had a recent productive cough. Physical examination shows a middle aged man who is lying virtually flat in bed in no apparent discomfort at this point. He is afebrile with a pulse rate of 68 bpm and regular and a blood pressure of 136/80 mmHg. His jugular venous pressure was not elevated there was minimal pitting edema over both lower extremities. His extremities were warm and in nailbeds were pink. There was no central or peripheral cyanosis. The apex was vaguely felt in the fifth space first and second heart sounds are normal. There was no murmur or gallop. There were very few basal rales. There were scattered rhonchi and crepitations. His electrocardiogram showed sinus rhythm with normal EKG pattern. There was no Q waves and there were no ischemic ST-T abnormalities. His troponin levels on 3 had negative occasions show a flat elevation of troponin. The rest of his labs were noted. Impression: End-stage renal disease with chronic hemodialysis. History of hypertension and diabetes mellitus. Elevated troponin under these circumstances, particularly a flat level of troponins strongly indicated that this represents elevated troponin as a consequence of chronic renal failure. There is no evidence of acute coronary syndrome or acute myocardial infarction. The patient is chest pain-free and hemodynamically stable at this juncture. No further intervention is required at this point. Given his history of hypertension and diabetes the patient should have a nuclear stress test as an outpatient. Past Patient History - Infectious Disease Hx of Infectious Diseases: None - Past Medical History & Family History Past Medical History?: Yes - Past Social History Smoking Status: Never Smoked - CARDIAC Hx Cardiac Disorders: Yes Hx Congestive Heart Failure: Yes Hx Hypertension: Yes - PULMONARY Hx Respiratory Disorders: No - NEUROLOGICAL Hx Neurological Disorder: No - HEENT Hx HEENT Problems: No - RENAL Hx Chronic Kidney Disease: Yes (on dialysis) Hx Dialysis: Yes Type of Dialysis Access: Left Upper Arm Shunt Date of Last Dialysis Treatment: 06/29/17 Hx Kidney Stones: No Hx Neurogenic Bladder: No Hx Pyelonephritis: No Hx Renal (Kidney) Cancer: No Hx Renal Failure: Yes - ENDOCRINE/METABOLIC Hx Endocrine Disorders: Yes - HEMATOLOGICAL/ONCOLOGICAL Hx Blood Disorders: No Hx AIDS: No Hx Human Immunodeficiency Virus (HIV): No - INTEGUMENTARY Hx Dermatological Problems: No - MUSCULOSKELETAL/RHEUMATOLOGICAL Hx Musculoskeletal Disorders: No Hx Falls: No - GASTROINTESTINAL Hx Gastrointestinal Disorders: No - GENITOURINARY/GYNECOLOGICAL Hx Genitourinary Disorders: No - PSYCHIATRIC Hx Psychophysiologic Disorder: No Hx Substance Use: No - SURGICAL HISTORY Hx Appendectomy: Yes - ANESTHESIA Hx Anesthesia: Yes Hx Anesthesia Reactions: No Hx Malignant Hyperthermia: No Has any member of the family had a problem w/ anesthesia?: No Meds Allergies/Adverse Reactions: Allergies Allergy/AdvReac Type Severity Reaction Status Date / Time No Known Allergies Allergy Verified 05/08/17 21:17 - Medications Medications: Current Medications Acetaminophen (Tylenol 325mg Tab) 650 mg PO Q6 PRN PRN Reason: fever>101.0 Allopurinol (Zyloprim) 100 mg PO DAILY [facility] Last Admin: 07/02/17 08:40 Dose: 100 mg Aspirin (Ecotrin) 81 mg PO DAILY [facility] Last Admin: 07/02/17 08:38 Dose: 81 mg Ergocalciferol (Drisdol 50,000 Intl Units Cap) 1 cap PO Q7D [facility] Last Admin: 07/01/17 21:09 Dose: 1 cap Heparin Sodium (Porcine) (Heparin) 5,000 units SC Q8 [facility] PRN Reason: Protocol Last Admin: 07/02/17 08:38 Dose: 5,000 units Insulin Human Lispro (Humalog) 0 units SC ACHS [facility] PRN Reason: Protocol Last Admin: 07/02/17 06:58 Dose: 3 units Levothyroxine Sodium (Synthroid) 75 mcg PO DAILY [facility] Last Admin: 07/02/17 08:40 Dose: 75 mcg Metoprolol Succinate (Toprol Xl) 50 mg PO BID [facility] Last Admin: 07/02/17 08:39 Dose: 50 mg Sevelamer HCl (Renagel) 1,600 mg PO TID [facility] Last Admin: 07/02/17 08:39 Dose: 1,600 mg Sitagliptin Phosphate (Januvia) 50 mg PO DAILY [facility] Last Admin: 07/02/17 08:39 Dose: 50 mg Vitamin B Complex/Vit C/Folic Acid (Nephro-Naima) 1 tab PO DAILY [facility] Last Admin: 07/02/17 08:39 Dose: 1 tab Results - Vital Signs Recent Vital Signs: Last Vital Signs Temp 99.9 F H 07/02/17 08:13 Pulse 104 H 07/02/17 08:39 Resp 20 07/02/17 08:13 BP 112/55 L 07/02/17 08:39 Pulse Ox 93 L 07/02/17 08:13 - Labs Result Diagrams: 07/01/17 04:25 07/01/17 04:25 Labs: Laboratory Results - last 24 hr 07/01/17 07/01/17 07/01/17 11:11 12:26 16:04 POC Glucose (mg/dL) 328 H 103 Troponin I 0.2410 H* 07/01/17 07/02/17 19:40 04:29 POC Glucose (mg/dL) Troponin I 0.2450 H* 0.2750 H*
[2017-07-02] MEDS ORDERED: Azithromycin 500 MG in Sodium Chloride 0.9% 250 ML IVPB SCH (12:45)
[2017-07-02] MEDS ORDERED: Dexamethasone/Tobramycin Ophth Susp OU SCH (13:00)
--- NOTE | 2017-07-02 13:52 | RAD ---
HISTORY: fever COMPARISON: 06/30/2017 TECHNIQUE: Chest PA and lateral FINDINGS: LUNGS: Central perihilar bronchovascular markings are slightly increased peribronchial cuffing noted. Pulmonary venous congestion and/or bronchitis compatible with this. The bandlike horizontal opacity at the left lung base previously shows partial expansion- interval linear platelike atelectasis vertically oriented now suggested left medial lung base. Patchy coalescent airspace opacities right lung base with partial obscuration of right hemidiaphragm patchy coalescent infiltrates compatible with this slightly more pronounced radiographically than before. PLEURA: Similar small right pleural effusion No pneumothorax apparent. CARDIOVASCULAR: Moderate cardiomegaly -similar OSSEOUS STRUCTURES: Mild right shoulder arthrosis VISUALIZED UPPER ABDOMEN: Normal. OTHER FINDINGS: None. IMPRESSION: Cardiomegaly and similar central pulmonary vascular prominence. Pulmonary venous congestion interstitial pulmonary edema compatible with this. Concomitant bronchitis also compatible in part with this. Coalescent patchy opacity right lung base -radiographically more conspicuous - infiltrate here inferred. . Contiguous right pleural effusion and or thickened -similar
[2017-07-02] MEDS: Tobramycin 0.3% OPHT SOLN OU SCH ×3 (14:00→20:42)
--- NOTE | 2017-07-02 16:19 | CP.PCM.PN ---
Subjective - Date & Time of Evaluation Date of Evaluation: 07/02/17 Time of Evaluation: 16:20 - Subjective Subjective: I D NOTE PATIENT EXAMINED ,CHART REVIEWED FULL CONSULT DICTATED ANTIBIOTICS ORDERED Objective - Vital Signs/Intake and Output Vital Signs (last 24 hours): Temp Pulse Resp BP Pulse Ox 100.8 F H 110 H 20 131/79 98 07/02/17 12:27 07/02/17 12:27 07/02/17 12:27 07/02/17 12:27 07/02/17 12:27 - Medications Medications: Current Medications Acetaminophen (Tylenol 325mg Tab) 650 mg PO Q6 PRN PRN Reason: fever>101.0 Allopurinol (Zyloprim) 100 mg PO DAILY [facility] Last Admin: 07/02/17 08:40 Dose: 100 mg Aspirin (Ecotrin) 81 mg PO DAILY [facility] Last Admin: 07/02/17 08:38 Dose: 81 mg Ergocalciferol (Drisdol 50,000 Intl Units Cap) 1 cap PO Q7D [facility] Last Admin: 07/01/17 21:09 Dose: 1 cap Heparin Sodium (Porcine) (Heparin) 5,000 units SC Q8 [facility] PRN Reason: Protocol Last Admin: 07/02/17 08:38 Dose: 5,000 units Piperacillin Sod/Tazobactam (Sod 2.25 gm/ Sodium Chloride) 100 mls @ 100 mls/ hr IVPB Q8 [facility] PRN Reason: Protocol Clindamycin Phosphate 300 mg/ (Sodium Chloride) 52 mls @ 52 mls/hr IVPB Q12 [facility] PRN Reason: Protocol Insulin Human Lispro (Humalog) 0 units SC ACHS [facility] PRN Reason: Protocol Last Admin: 07/02/17 12:00 Dose: Not Given Levothyroxine Sodium (Synthroid) 75 mcg PO DAILY [facility] Last Admin: 07/02/17 08:40 Dose: 75 mcg Metoprolol Succinate (Toprol Xl) 50 mg PO BID [facility] Last Admin: 07/02/17 08:39 Dose: 50 mg Sevelamer HCl (Renagel) 1,600 mg PO TID [facility] Last Admin: 07/02/17 13:00 Dose: 1,600 mg Sitagliptin Phosphate (Januvia) 50 mg PO DAILY [facility] Last Admin: 07/02/17 08:39 Dose: 50 mg Tobramycin Sulfate (Tobrex 0.3% [facility]) 2 drop OU Q4 [facility] Last Admin: 07/02/17 14:00 Dose: 2 drop Vitamin B Complex/Vit C/Folic Acid (Nephro-Naima) 1 tab PO DAILY [facility] Last Admin: 07/02/17 08:39 Dose: 1 tab - Labs Labs: 07/01/17 04:25 07/01/17 04:25
--- NOTE | 2017-07-02 19:08 | CP.PCM.PN ---
Subjective - Date & Time of Evaluation Date of Evaluation: 07/02/17 Time of Evaluation: 16:00 - Subjective Subjective: SEEN ON RENAL F/U FEELS IMPROVED .. IN NAD ALL PREVIOUS EMR REVIEWED .. RECIEVED HD YESTERDAY .. TOLERATED WELL Objective - Vital Signs/Intake and Output Vital Signs (last 24 hours): Temp Pulse Resp BP Pulse Ox 99.6 F 108 H 18 112/67 96 07/02/17 16:19 07/02/17 17:10 07/02/17 16:19 07/02/17 17:10 07/02/17 16:19 - Medications Medications: Current Medications Acetaminophen (Tylenol 325mg Tab) 650 mg PO Q6 PRN PRN Reason: fever>101.0 Allopurinol (Zyloprim) 100 mg PO DAILY [facility] Last Admin: 07/02/17 08:40 Dose: 100 mg Aspirin (Ecotrin) 81 mg PO DAILY [facility] Last Admin: 07/02/17 08:38 Dose: 81 mg Ergocalciferol (Drisdol 50,000 Intl Units Cap) 1 cap PO Q7D [facility] Last Admin: 07/01/17 21:09 Dose: 1 cap Heparin Sodium (Porcine) (Heparin) 5,000 units SC Q8 [facility] PRN Reason: Protocol Last Admin: 07/02/17 17:09 Dose: 5,000 units Piperacillin Sod/Tazobactam (Sod 2.25 gm/ Sodium Chloride) 100 mls @ 100 mls/ hr IVPB Q8 [facility] PRN Reason: Protocol Last Admin: 07/02/17 17:05 Dose: Not Given Clindamycin in NS (Clindamycin 300 Mg/50 Ml-Ns) 300 mg in 50 mls @ 50 mls/hr IVPB Q12 [facility] PRN Reason: Protocol Insulin Human Lispro (Humalog) 0 units SC ACHS [facility] PRN Reason: Protocol Last Admin: 07/02/17 17:13 Dose: 1 units Levothyroxine Sodium (Synthroid) 75 mcg PO DAILY [facility] Last Admin: 07/02/17 08:40 Dose: 75 mcg Metoprolol Succinate (Toprol Xl) 50 mg PO BID [facility] Last Admin: 07/02/17 17:10 Dose: 50 mg Sevelamer HCl (Renagel) 1,600 mg PO TID [facility] Last Admin: 07/02/17 17:10 Dose: 1,600 mg Sitagliptin Phosphate (Januvia) 50 mg PO DAILY [facility] Last Admin: 07/02/17 08:39 Dose: 50 mg Tobramycin Sulfate (Tobrex 0.3% [facility]) 2 drop OU Q4 [facility] Last Admin: 07/02/17 17:10 Dose: 2 drop Vitamin B Complex/Vit C/Folic Acid (Nephro-Naima) 1 tab PO DAILY [facility] Last Admin: 07/02/17 08:39 Dose: 1 tab - Labs Labs: 07/01/17 04:25 07/01/17 04:25 Assessment and Plan - Assessment and Plan (Free Text) Assessment: ESRD ON HD M W F ANEMIA OF CKD .. H/H STABLE MMP P : C/O HD C/O PRESENR MEDS C/O CURRENT MANAGEMENT
[2017-07-02] MEDS: Clindamycin in NS 300 MG/50 ML BAG IVPB SCH (20:44)
[2017-07-03] MEDS: Tobramycin 0.3% OPHT SOLN OU SCH ×6 (00:15→20:31)
[2017-07-03 06:16] LABS: HEMOGLOBIN 10.2 g/dL (12.0-18.0); MEAN CELL VOLUME 92.2 fl (80.0-94.0); MEAN CORPUSCULAR HGB CONC 31.5 g/dL (33.0-37.0); RBC 3.5 Mil/uL (4.40-5.90); WHITE BLOOD COUNT 6.5 K/uL (4.8-10.8)
[2017-07-03] MEDS: Insulin Lispro (humaLOG) 100 Units/ml Inj SC SCH ×4 (06:48→22:00)
[2017-07-03 07:20] LABS: CALCIUM 8.5 mg/dL (8.4-10.2)
[2017-07-03] MEDS: Multivitamin Vitamin B Complex (Nephro-Vite) Tab PO SCH (08:48)
[2017-07-03] MEDS: Clindamycin in NS 300 MG/50 ML BAG IVPB SCH ×2 (08:48→20:27)
[2017-07-03] MEDS: Metoprolol Succinate 50 mg XL Tab PO SCH ×2 (08:49→18:57)
[2017-07-03] MEDS: Levothyroxine 75 MCG TAB PO SCH (08:57)
--- NOTE | 2017-07-03 12:50 | CON ---
INFECTIOUS DISEASE CONSULTATION DATE: 07/02/2017 LOCATION: He is on [address] [place] [address]. HISTORY OF PRESENT ILLNESS: The patient is one who has been referred from an adult daycare after experiencing epigastric abdominal pain associated with nausea and vomiting for a day or two. He denies any diarrhea or bloody stools. Apparently, he has chronic cough and also history of dialysis, he is on HD or hemodialysis. PAST MEDICAL HISTORY: Includes anemia, diabetes, hypertension, hypercholesterolemia, hypothyroidism, and chronic renal failure. He denies any chest pain. I have reviewed his past medical history and presently has again noted with a productive cough. PHYSICAL EXAMINATION: GENERAL: The patient is alert, but act to me appears a bit confused. VITAL SIGNS: He is afebrile, but has a pulse rate of 68 and blood pressure of 136/80. HEENT: Conjunctivae pale. Sclerae anicteric. NECK: Supple. LUNGS: He has decreased breath sounds, rhonchi at the right base and rales at both bases. EXTREMITIES: Trace edema. LABORATORY DATA: WBC 6.2 and 5.6, hemoglobin 10.6 and 9.7, and platelets 160. His differential, he has a mild left shift. Creatinine is 8.3. CT of the abdomen shows questionable mural thickening of the gallbladder wall with limited cholelithiasis. Chest x-ray shows a coalescent patchy opacity right lung base more conspicuous infiltrate contiguous right pleural effusion or thickened pleura. IMPRESSION: 1. Rule out gastroenteritis. 2. Possible right lower lobe pneumonia. PLAN: Continue Zosyn and I have added clindamycin 600 mg IV piggyback every 12 hours. Bandar Quiroga MD
[2017-07-03] MEDS ORDERED: Lidocaine 1% Inj (20ml) ONE (13:53)
--- NOTE | 2017-07-03 14:26 | PCM.SURG1 ---
Surgeon's Initial Post Op Note - Surgeon's Notes Surgeon: Medardo Wilson MD Plant Reliability Engineer: NONE Type of Anesthesia: Local Pre-Operative Diagnosis: Infection Operative Findings: US showed a patent right brachial vein. Post-Operative Diagnosis: Infection Operation Performed: Single lumen picc right brachial vein, 35 cm. Tip is in the SVC. Specimen/Specimens Removed: NONE Estimated Blood Loss: EBL {In ML}: 2 Blood Products Given: N/A Drains Used: No Drains Post-Op Condition: Fair Date of Surgery/Procedure: 07/03/17 Time of Surgery/Procedure: 14:20
--- NOTE | 2017-07-03 16:15 | CP.PCM.PN ---
Subjective - Date & Time of Evaluation Date of Evaluation: 07/03/17 Time of Evaluation: 15:00 - Subjective Subjective: SEEN ON RENAL F/U SEEN ON HD .. HD IS GOING WELL STILL C/O ABDO PAIN N @ V ALL PREVIOUS EMR REVIEWED LABS AMD MEDS ALL REVIEWED Objective - Vital Signs/Intake and Output Vital Signs (last 24 hours): Temp Pulse Resp BP Pulse Ox 98.7 F 99 H 18 177/90 H 97 07/03/17 15:51 07/03/17 15:51 07/03/17 15:51 07/03/17 15:51 07/03/17 15:51 - Medications Medications: Current Medications Acetaminophen (Tylenol 325mg Tab) 650 mg PO Q6 PRN PRN Reason: fever>101.0 Last Admin: 07/02/17 23:28 Dose: 650 mg Allopurinol (Zyloprim) 100 mg PO DAILY [facility] Last Admin: 07/03/17 08:48 Dose: 100 mg Aspirin (Ecotrin) 81 mg PO DAILY [facility] Last Admin: 07/03/17 08:48 Dose: 81 mg Ergocalciferol (Drisdol 50,000 Intl Units Cap) 1 cap PO Q7D [facility] Last Admin: 07/01/17 21:09 Dose: 1 cap Heparin Sodium (Porcine) (Heparin) 5,000 units SC Q8 [facility] PRN Reason: Protocol Last Admin: 07/03/17 08:49 Dose: 5,000 units Clindamycin in NS (Clindamycin 300 Mg/50 Ml-Ns) 300 mg in 50 mls @ 50 mls/hr IVPB Q12 [facility] PRN Reason: Protocol Last Admin: 07/03/17 08:48 Dose: 50 mls/hr Piperacillin Sod/Tazobactam (Sod 2.25 gm/ Sodium Chloride) 100 mls @ 100 mls/ hr IVPB Q8 [facility] PRN Reason: Protocol Last Admin: 07/03/17 08:57 Dose: 100 mls/hr Insulin Human Lispro (Humalog) 0 units SC ACHS [facility] PRN Reason: Protocol Last Admin: 07/03/17 13:11 Dose: 1 units Levothyroxine Sodium (Synthroid) 75 mcg PO DAILY [facility] Last Admin: 07/03/17 08:57 Dose: 75 mcg Metoprolol Succinate (Toprol Xl) 50 mg PO BID [facility] Last Admin: 07/03/17 08:49 Dose: 50 mg Ondansetron HCl (Zofran Inj) 4 mg IVP Q6 PRN PRN Reason: Nausea/Vomiting Sevelamer HCl (Renagel) 1,600 mg PO TID [facility] Last Admin: 07/03/17 13:12 Dose: 1,600 mg Sitagliptin Phosphate (Januvia) 50 mg PO DAILY [facility] Last Admin: 07/03/17 08:49 Dose: 50 mg Tobramycin Sulfate (Tobrex 0.3% [facility]) 2 drop OU Q4 [facility] Last Admin: 07/03/17 13:11 Dose: 2 drop Vitamin B Complex/Vit C/Folic Acid (Nephro-Naima) 1 tab PO DAILY [facility] Last Admin: 07/03/17 08:48 Dose: 1 tab - Labs Labs: 07/03/17 05:30 07/03/17 05:30 Assessment and Plan - Assessment and Plan (Free Text) Assessment: ESRD ON HD M W F ANEMIA OF CKD .. H/H STABLE MMP P : C/O SUPPORTIVE HD C/O CURRENT CARE C/O PRESENT MEDS
--- NOTE | 2017-07-03 23:44 | CP.PCM.PN ---
Subjective - Date & Time of Evaluation Date of Evaluation: 07/02/17 Time of Evaluation: 22:15 - Subjective Subjective: Seen and examined at the bed side. Objective - Vital Signs/Intake and Output Vital Signs (last 24 hours): Temp Pulse Resp BP Pulse Ox 97.1 F L 99 H 17 145/75 96 07/03/17 19:34 07/03/17 19:34 07/03/17 19:34 07/03/17 19:34 07/03/17 19:34 - Medications Medications: Current Medications Acetaminophen (Tylenol 325mg Tab) 650 mg PO Q6 PRN PRN Reason: fever>101.0 Last Admin: 07/02/17 23:28 Dose: 650 mg Allopurinol (Zyloprim) 100 mg PO DAILY [facility] Last Admin: 07/03/17 08:48 Dose: 100 mg Aspirin (Ecotrin) 81 mg PO DAILY [facility] Last Admin: 07/03/17 08:48 Dose: 81 mg Ergocalciferol (Drisdol 50,000 Intl Units Cap) 1 cap PO Q7D [facility] Last Admin: 07/01/17 21:09 Dose: 1 cap Heparin Sodium (Porcine) (Heparin) 5,000 units SC Q8 [facility] PRN Reason: Protocol Last Admin: 07/03/17 18:55 Dose: 5,000 units Clindamycin in NS (Clindamycin 300 Mg/50 Ml-Ns) 300 mg in 50 mls @ 50 mls/hr IVPB Q12 [facility] PRN Reason: Protocol Last Admin: 07/03/17 20:27 Dose: 50 mls/hr Piperacillin Sod/Tazobactam (Sod 2.25 gm/ Sodium Chloride) 100 mls @ 100 mls/ hr IVPB Q8 [facility] PRN Reason: Protocol Last Admin: 07/03/17 18:57 Dose: 100 mls/hr Insulin Human Lispro (Humalog) 0 units SC ACHS [facility] PRN Reason: Protocol Last Admin: 07/03/17 17:00 Dose: Not Given Levothyroxine Sodium (Synthroid) 75 mcg PO DAILY [facility] Last Admin: 07/03/17 08:57 Dose: 75 mcg Metoprolol Succinate (Toprol Xl) 50 mg PO BID [facility] Last Admin: 07/03/17 18:57 Dose: 50 mg Ondansetron HCl (Zofran Inj) 4 mg IVP Q6 PRN PRN Reason: Nausea/Vomiting Last Admin: 07/03/17 14:45 Dose: 4 mg Sevelamer HCl (Renagel) 1,600 mg PO TID [facility] Last Admin: 07/03/17 18:56 Dose: 1,600 mg Sitagliptin Phosphate (Januvia) 50 mg PO DAILY [facility] Last Admin: 07/03/17 08:49 Dose: 50 mg Tobramycin Sulfate (Tobrex 0.3% Ophth Soln) 2 drop OU Q4 [facility] Last Admin: 07/03/17 20:31 Dose: 2 drop Vitamin B Complex/Vit C/Folic Acid (Nephro-Naima) 1 tab PO DAILY [facility] Last Admin: 07/03/17 08:48 Dose: 1 tab - Labs Labs: 07/03/17 05:30 07/03/17 05:30 Assessment and Plan (1) CHF exacerbation Assessment & Plan: Cardiomyopathy EF 30% Nephrology consulted for HD 2L O2 via [place] Status: Acute Priority: High (2) QT prolongation Status: Acute Priority: Medium (3) ESRD (end stage renal disease) on dialysis Assessment and Plan: Nephrosclerosis Status: Chronic Priority: Low (4) Conjunctivitis of both eyes Assessment and Plan: Tobramycin eye soln for 7 days Status: Acute Priority: High (5) Hypertension Status: Chronic Priority: Low (6) DVT prophylaxis Status: Acute
--- NOTE | 2017-07-03 23:45 | CP.PCM.PN ---
Subjective - Date & Time of Evaluation Date of Evaluation: 07/03/17 Time of Evaluation: 20:25 Objective - Vital Signs/Intake and Output Vital Signs (last 24 hours): Temp Pulse Resp BP Pulse Ox 97.1 F L 99 H 17 145/75 96 07/03/17 19:34 07/03/17 19:34 07/03/17 19:34 07/03/17 19:34 07/03/17 19:34 - Medications Medications: Current Medications Acetaminophen (Tylenol 325mg Tab) 650 mg PO Q6 PRN PRN Reason: fever>101.0 Last Admin: 07/02/17 23:28 Dose: 650 mg Allopurinol (Zyloprim) 100 mg PO DAILY [facility] Last Admin: 07/03/17 08:48 Dose: 100 mg Aspirin (Ecotrin) 81 mg PO DAILY [facility] Last Admin: 07/03/17 08:48 Dose: 81 mg Ergocalciferol (Drisdol 50,000 Intl Units Cap) 1 cap PO Q7D [facility] Last Admin: 07/01/17 21:09 Dose: 1 cap Heparin Sodium (Porcine) (Heparin) 5,000 units SC Q8 [facility] PRN Reason: Protocol Last Admin: 07/03/17 18:55 Dose: 5,000 units Clindamycin in NS (Clindamycin 300 Mg/50 Ml-Ns) 300 mg in 50 mls @ 50 mls/hr IVPB Q12 [facility] PRN Reason: Protocol Last Admin: 07/03/17 20:27 Dose: 50 mls/hr Piperacillin Sod/Tazobactam (Sod 2.25 gm/ Sodium Chloride) 100 mls @ 100 mls/ hr IVPB Q8 [facility] PRN Reason: Protocol Last Admin: 07/03/17 18:57 Dose: 100 mls/hr Insulin Human Lispro (Humalog) 0 units SC ACHS [facility] PRN Reason: Protocol Last Admin: 07/03/17 17:00 Dose: Not Given Levothyroxine Sodium (Synthroid) 75 mcg PO DAILY [facility] Last Admin: 07/03/17 08:57 Dose: 75 mcg Metoprolol Succinate (Toprol Xl) 50 mg PO BID [facility] Last Admin: 07/03/17 18:57 Dose: 50 mg Ondansetron HCl (Zofran Inj) 4 mg IVP Q6 PRN PRN Reason: Nausea/Vomiting Last Admin: 07/03/17 14:45 Dose: 4 mg Sevelamer HCl (Renagel) 1,600 mg PO TID [facility] Last Admin: 07/03/17 18:56 Dose: 1,600 mg Sitagliptin Phosphate (Januvia) 50 mg PO DAILY [facility] Last Admin: 07/03/17 08:49 Dose: 50 mg Tobramycin Sulfate (Tobrex 0.3% Ophth Soln) 2 drop OU Q4 [facility] Last Admin: 07/03/17 20:31 Dose: 2 drop Vitamin B Complex/Vit C/Folic Acid (Nephro-Naima) 1 tab PO DAILY [facility] Last Admin: 07/03/17 08:48 Dose: 1 tab - Labs Labs: 07/03/17 05:30 07/03/17 05:30 Assessment and Plan (1) CHF exacerbation Assessment & Plan: Cardiomyopathy EF 30% Nephrology consulted for HD 2L O2 via [place] Status: Acute Priority: High (2) QT prolongation Status: Acute Priority: Medium (3) ESRD (end stage renal disease) on dialysis Assessment and Plan: Nephrosclerosis Status: Chronic Priority: Low (4) Conjunctivitis of both eyes Assessment and Plan: Tobramycin eye soln for 7 days Status: Acute Priority: High (5) Hypertension Status: Chronic Priority: Low (6) DVT prophylaxis Status: Acute
[2017-07-04] MEDS: Tobramycin 0.3% OPHT SOLN OU SCH ×6 (00:51→21:31)
[2017-07-04] MEDS: Insulin Lispro (humaLOG) 100 Units/ml Inj SC SCH ×4 (06:43→21:54)
[2017-07-04] MEDS: Clindamycin in NS 300 MG/50 ML BAG IVPB SCH ×2 (10:03→21:31)
[2017-07-04] MEDS: Multivitamin Vitamin B Complex (Nephro-Vite) Tab PO SCH (10:09)
[2017-07-04] MEDS: Levothyroxine 75 MCG TAB PO SCH (10:10)
[2017-07-04] MEDS: Metoprolol Succinate 50 mg XL Tab PO SCH ×2 (10:11→16:50)
--- NOTE | 2017-07-04 22:56 | CP.PCM.PN ---
Subjective - Date & Time of Evaluation Date of Evaluation: 07/04/17 Time of Evaluation: 18:15 Objective - Vital Signs/Intake and Output Vital Signs (last 24 hours): Temp Pulse Resp BP Pulse Ox 97.6 F 96 H 16 130/86 95 07/04/17 20:10 07/04/17 20:10 07/04/17 20:10 07/04/17 20:10 07/04/17 20:10 - Medications Medications: Current Medications Acetaminophen (Tylenol 325mg Tab) 650 mg PO Q6 PRN PRN Reason: fever>101.0 Last Admin: 07/02/17 23:28 Dose: 650 mg Allopurinol (Zyloprim) 100 mg PO DAILY [facility] Last Admin: 07/04/17 10:12 Dose: 100 mg Aspirin (Ecotrin) 81 mg PO DAILY [facility] Last Admin: 07/04/17 10:04 Dose: 81 mg Ergocalciferol (Drisdol 50,000 Intl Units Cap) 1 cap PO Q7D [facility] Last Admin: 07/01/17 21:09 Dose: 1 cap Heparin Sodium (Porcine) (Heparin) 5,000 units SC Q8 [facility] PRN Reason: Protocol Last Admin: 07/04/17 16:42 Dose: 5,000 units Clindamycin in NS (Clindamycin 300 Mg/50 Ml-Ns) 300 mg in 50 mls @ 50 mls/hr IVPB Q12 [facility] PRN Reason: Protocol Last Admin: 07/04/17 21:31 Dose: 50 mls/hr Piperacillin Sod/Tazobactam (Sod 2.25 gm/ Sodium Chloride) 100 mls @ 100 mls/ hr IVPB Q8 [facility] PRN Reason: Protocol Last Admin: 07/04/17 16:50 Dose: 100 mls/hr Insulin Human Lispro (Humalog) 0 units SC ACHS [facility] PRN Reason: Protocol Last Admin: 07/04/17 21:54 Dose: Not Given Levothyroxine Sodium (Synthroid) 75 mcg PO DAILY [facility] Last Admin: 07/04/17 10:10 Dose: 75 mcg Metoprolol Succinate (Toprol Xl) 50 mg PO BID [facility] Last Admin: 07/04/17 16:50 Dose: 50 mg Ondansetron HCl (Zofran Inj) 4 mg IVP Q6 PRN PRN Reason: Nausea/Vomiting Last Admin: 07/03/17 14:45 Dose: 4 mg Sevelamer HCl (Renagel) 1,600 mg PO TID [facility] Last Admin: 07/04/17 16:49 Dose: 1,600 mg Sitagliptin Phosphate (Januvia) 50 mg PO DAILY [facility] Last Admin: 07/04/17 10:09 Dose: 50 mg Tobramycin Sulfate (Tobrex 0.3% Ophth Soln) 2 drop OU Q4 [facility] Last Admin: 07/04/17 21:31 Dose: 2 drop Vitamin B Complex/Vit C/Folic Acid (Nephro-Naima) 1 tab PO DAILY [facility] Last Admin: 07/04/17 10:09 Dose: 1 tab - Labs Labs: 07/03/17 05:30 07/03/17 05:30 Assessment and Plan (1) CHF exacerbation Assessment & Plan: Cardiomyopathy EF 30% Nephrology consulted for HD 2L O2 via [place] Status: Acute Priority: High (2) QT prolongation Status: Acute Priority: Medium (3) ESRD (end stage renal disease) on dialysis Assessment and Plan: Nephrosclerosis Status: Chronic Priority: Low (4) Conjunctivitis of both eyes Assessment and Plan: Tobramycin eye soln for 7 days Status: Acute Priority: High (5) Hypertension Status: Chronic Priority: Low (6) DVT prophylaxis Status: Acute
[2017-07-05] MEDS: Tobramycin 0.3% OPHT SOLN OU SCH ×6 (01:01→21:46)
[2017-07-05] MEDS: Insulin Lispro (humaLOG) 100 Units/ml Inj SC SCH ×4 (07:04→21:51)
[2017-07-05] MEDS: Clindamycin in NS 300 MG/50 ML BAG IVPB SCH ×2 (10:28→21:46)
[2017-07-05] MEDS: Multivitamin Vitamin B Complex (Nephro-Vite) Tab PO SCH (10:30)
[2017-07-05] MEDS: Levothyroxine 75 MCG TAB PO SCH (10:31)
[2017-07-05] MEDS: Metoprolol Succinate 50 mg XL Tab PO SCH ×2 (10:33→17:51)
[2017-07-06] MEDS: Tobramycin 0.3% OPHT SOLN OU SCH ×6 (00:29→21:45)
[2017-07-06] MEDS: Insulin Lispro (humaLOG) 100 Units/ml Inj SC SCH ×4 (08:57→22:44)
[2017-07-06] MEDS: Clindamycin in NS 300 MG/50 ML BAG IVPB SCH ×2 (08:58→21:43)
[2017-07-06] MEDS: Metoprolol Succinate 50 mg XL Tab PO SCH ×2 (09:15→17:32)
[2017-07-06] MEDS: Multivitamin Vitamin B Complex (Nephro-Vite) Tab PO SCH (14:07)
[2017-07-06] MEDS: Levothyroxine 75 MCG TAB PO SCH (14:09)
[2017-07-06 14:35] LABS: HEMOGLOBIN 10.7 g/dL (12.0-18.0); MEAN CELL VOLUME 89.6 fl (80.0-94.0); MEAN CORPUSCULAR HEMOGLOBIN 28.8 pg (27.0-31.0); MEAN CORPUSCULAR HGB CONC 32.1 g/dL (33.0-37.0); RBC 3.72 Mil/uL (4.40-5.90); RED CELL DISTRIBUTION WIDTH 20.1 % (11.5-14.5); WHITE BLOOD COUNT 8.7 K/uL (4.8-10.8)
[2017-07-06 14:41] LABS: CALCIUM 8.7 mg/dL (8.4-10.2)
[2017-07-06] MEDS ORDERED: Promethazine DM 6.25 mg-15 mg/5 ml Syrup PO PRN (18:33)
--- NOTE | 2017-07-06 18:43 | CP.PCM.PN ---
Subjective - Date & Time of Evaluation Date of Evaluation: 07/05/17 Time of Evaluation: 12:10 Objective - Vital Signs/Intake and Output Vital Signs (last 24 hours): Temp Pulse Resp BP Pulse Ox 98.2 F 78 16 127/74 96 07/06/17 17:00 07/06/17 17:32 07/06/17 17:00 07/06/17 17:32 07/06/17 17:00 - Medications Medications: Current Medications Acetaminophen (Tylenol 325mg Tab) 650 mg PO Q6 PRN PRN Reason: fever>101.0 Last Admin: 07/02/17 23:28 Dose: 650 mg Allopurinol (Zyloprim) 100 mg PO DAILY [facility] Last Admin: 07/06/17 14:09 Dose: 100 mg Aspirin (Ecotrin) 81 mg PO DAILY [facility] Last Admin: 07/06/17 14:07 Dose: 81 mg Ergocalciferol (Drisdol 50,000 Intl Units Cap) 1 cap PO Q7D [facility] Last Admin: 07/01/17 21:09 Dose: 1 cap Clindamycin in NS (Clindamycin 300 Mg/50 Ml-Ns) 300 mg in 50 mls @ 50 mls/hr IVPB Q12 [facility] PRN Reason: Protocol Last Admin: 07/06/17 08:58 Dose: 50 mls/hr Insulin Human Lispro (Humalog) 0 units SC ACHS [facility] PRN Reason: Protocol Last Admin: 07/06/17 17:34 Dose: Not Given Levothyroxine Sodium (Synthroid) 75 mcg PO DAILY [facility] Last Admin: 07/06/17 14:09 Dose: 75 mcg Metoprolol Succinate (Toprol Xl) 50 mg PO BID [facility] Last Admin: 07/06/17 17:32 Dose: 50 mg Ondansetron HCl (Zofran Inj) 4 mg IVP Q6 PRN PRN Reason: Nausea/Vomiting Last Admin: 07/06/17 17:28 Dose: 4 mg Promethazine HCl/Dextromethorphan (Phenergan Dm Syrup) 5 ml PO Q6 PRN PRN Reason: Cough Sevelamer HCl (Renagel) 1,600 mg PO TID [facility] Last Admin: 07/06/17 17:34 Dose: 1,600 mg Sitagliptin Phosphate (Januvia) 50 mg PO DAILY [facility] Last Admin: 07/06/17 14:08 Dose: 50 mg Tobramycin Sulfate (Tobrex 0.3% Oph Soln) 2 drop OU Q4 [facility] Last Admin: 07/06/17 17:33 Dose: 2 drop Vitamin B Complex/Vit C/Folic Acid (Nephro-Naima) 1 tab PO DAILY [facility] Last Admin: 07/06/17 14:07 Dose: 1 tab - Labs Labs: 07/06/17 13:20 07/06/17 13:20 Assessment and Plan (1) CHF exacerbation Status: Acute (2) QT prolongation Status: Acute (3) ESRD (end stage renal disease) on dialysis Status: Chronic (4) Conjunctivitis of both eyes Status: Acute (5) Hypertension Status: Chronic (6) DVT prophylaxis Status: Chronic
--- NOTE | 2017-07-06 18:45 | CP.PCM.PN ---
Subjective - Date & Time of Evaluation Date of Evaluation: 07/06/17 Time of Evaluation: 14:15 Objective - Vital Signs/Intake and Output Vital Signs (last 24 hours): Temp Pulse Resp BP Pulse Ox 98.2 F 78 16 127/74 96 07/06/17 17:00 07/06/17 17:32 07/06/17 17:00 07/06/17 17:32 07/06/17 17:00 - Medications Medications: Current Medications Acetaminophen (Tylenol 325mg Tab) 650 mg PO Q6 PRN PRN Reason: fever>101.0 Last Admin: 07/02/17 23:28 Dose: 650 mg Allopurinol (Zyloprim) 100 mg PO DAILY [facility] Last Admin: 07/06/17 14:09 Dose: 100 mg Aspirin (Ecotrin) 81 mg PO DAILY [facility] Last Admin: 07/06/17 14:07 Dose: 81 mg Ergocalciferol (Drisdol 50,000 Intl Units Cap) 1 cap PO Q7D [facility] Last Admin: 07/01/17 21:09 Dose: 1 cap Clindamycin in NS (Clindamycin 300 Mg/50 Ml-Ns) 300 mg in 50 mls @ 50 mls/hr IVPB Q12 [facility] PRN Reason: Protocol Last Admin: 07/06/17 08:58 Dose: 50 mls/hr Insulin Human Lispro (Humalog) 0 units SC ACHS [facility] PRN Reason: Protocol Last Admin: 07/06/17 17:34 Dose: Not Given Levothyroxine Sodium (Synthroid) 75 mcg PO DAILY [facility] Last Admin: 07/06/17 14:09 Dose: 75 mcg Metoprolol Succinate (Toprol Xl) 50 mg PO BID [facility] Last Admin: 07/06/17 17:32 Dose: 50 mg Ondansetron HCl (Zofran Inj) 4 mg IVP Q6 PRN PRN Reason: Nausea/Vomiting Last Admin: 07/06/17 17:28 Dose: 4 mg Promethazine HCl/Dextromethorphan (Phenergan Dm Syrup) 5 ml PO Q6 PRN PRN Reason: Cough Sevelamer HCl (Renagel) 1,600 mg PO TID [facility] Last Admin: 07/06/17 17:34 Dose: 1,600 mg Sitagliptin Phosphate (Januvia) 50 mg PO DAILY [facility] Last Admin: 07/06/17 14:08 Dose: 50 mg Tobramycin Sulfate (Tobrex 0.3% Oph Soln) 2 drop OU Q4 [facility] Last Admin: 07/06/17 17:33 Dose: 2 drop Vitamin B Complex/Vit C/Folic Acid (Nephro-Naima) 1 tab PO DAILY [facility] Last Admin: 07/06/17 14:07 Dose: 1 tab - Labs Labs: 07/06/17 13:20 07/06/17 13:20 Assessment and Plan (1) CHF exacerbation Status: Acute (2) QT prolongation Status: Acute (3) ESRD (end stage renal disease) on dialysis Status: Chronic (4) Conjunctivitis of both eyes Status: Acute (5) Hypertension Status: Chronic (6) DVT prophylaxis Status: Chronic
[2017-07-07] MEDS: Tobramycin 0.3% OPHT SOLN OU SCH ×5 (00:23→17:23)
[2017-07-07] MEDS: Insulin Lispro (humaLOG) 100 Units/ml Inj SC SCH ×3 (08:49→17:22)
[2017-07-07] MEDS: Multivitamin Vitamin B Complex (Nephro-Vite) Tab PO SCH (08:50)
[2017-07-07] MEDS: Metoprolol Succinate 50 mg XL Tab PO SCH ×2 (08:50→17:23)
[2017-07-07] MEDS: Levothyroxine 75 MCG TAB PO SCH (08:51)
[2017-07-07] MEDS: Clindamycin in NS 300 MG/50 ML BAG IVPB SCH (09:45)
--- NOTE | 2017-07-07 13:45 | VASCULAR ---
PROCEDURE: Date of procedure: 07/03/2017 Procedure: 1. Placement of a right arm PICC with ultrasound and fluoroscopic guidance, CPT 12547 2. PICC tip confirmation with spot radiograph and is in the superior vena cava Medications: 1 percent lidocaine Total Fluoro time: 4.5 seconds Radiation: 0.51 MGy EBL: 2 cc HISTORY: Infection requiring long-term IV antibiotics TECHNIQUE: Following informed consent and procedure time-out, the patient was placed supine on the interventional table and the right arm prepped and draped in the usual sterile fashion. Ultrasound showed a patent and compressible right basilic vein. After the skin was anesthetized with lidocaine, the basilic vein was accessed with micro micropuncture technique using ultrasound guidance. A guidewire was then advanced under fluoroscopic guidance into the superior vena cava. An image documenting ultrasound guidance for vascular access was permanently saved. The length of the single-lumen 4 [place] PICC was trimmed to 35 centimeters and advanced through a peel-away sheath. The PICC was position with tip of PICC confirm a spot radiograph the superior vena cava. The PICC was secured to the patient's skin. The PICC was flushed. A biopatch and sterile dressing was applied. IMPRESSION: Placement of a single-lumen 4 [place] PICC trimmed to 35 centimeters via right basilic vein. The tip of the PICC is confirmed with spot radiograph and is in the superior vena cava.
--- NOTE | 2017-07-07 14:42 | CP.PCM.PCO ---
Physician Communication Note - Physician Communication Note Physician Communication Note: In anticipation for dc,patients picc line dc'd with no complications.
--- NOTE | 2017-07-07 18:17 | CP.PCM.PN ---
Subjective - Date & Time of Evaluation Date of Evaluation: 07/07/17 Time of Evaluation: 16:00 - Subjective Subjective: SEEN ON RENAL F/U C/O ABDO PAIN HAD HD YESTERDAY .. TOLERATED WELL ALL PREVIOUS EMR REVIEWED Objective - Vital Signs/Intake and Output Vital Signs (last 24 hours): Temp Pulse Resp BP Pulse Ox 98.1 F 90 17 128/78 100 07/07/17 17:00 07/07/17 17:23 07/07/17 17:00 07/07/17 17:23 07/07/17 17:00 - Medications Medications: Current Medications Acetaminophen (Tylenol 325mg Tab) 650 mg PO Q6 PRN PRN Reason: fever>101.0 Last Admin: 07/02/17 23:28 Dose: 650 mg Allopurinol (Zyloprim) 100 mg PO DAILY [facility] Last Admin: 07/07/17 08:50 Dose: 100 mg Aspirin (Ecotrin) 81 mg PO DAILY [facility] Last Admin: 07/07/17 09:43 Dose: 81 mg Ergocalciferol (Drisdol 50,000 Intl Units Cap) 1 cap PO Q7D [facility] Last Admin: 07/01/17 21:09 Dose: 1 cap Clindamycin in NS (Clindamycin 300 Mg/50 Ml-Ns) 300 mg in 50 mls @ 50 mls/hr IVPB Q12 [facility] PRN Reason: Protocol Last Admin: 07/07/17 09:45 Dose: 50 mls/hr Insulin Human Lispro (Humalog) 0 units SC ACHS [facility] PRN Reason: Protocol Last Admin: 07/07/17 17:22 Dose: Not Given Levothyroxine Sodium (Synthroid) 75 mcg PO DAILY [facility] Last Admin: 07/07/17 08:51 Dose: 75 mcg Metoprolol Succinate (Toprol Xl) 50 mg PO BID [facility] Last Admin: 07/07/17 17:23 Dose: 50 mg Ondansetron HCl (Zofran Inj) 4 mg IVP Q6 PRN PRN Reason: Nausea/Vomiting Last Admin: 07/06/17 17:28 Dose: 4 mg Promethazine HCl/Dextromethorphan (Phenergan Dm Syrup) 5 ml PO Q6 PRN PRN Reason: Cough Last Admin: 07/06/17 20:37 Dose: 5 ml Sevelamer HCl (Renagel) 1,600 mg PO TID [facility] Last Admin: 07/07/17 17:23 Dose: 1,600 mg Sitagliptin Phosphate (Januvia) 50 mg PO DAILY [facility] Last Admin: 07/07/17 08:50 Dose: 50 mg Tobramycin Sulfate (Tobrex 0.3% Oph Soln) 2 drop OU Q4 [facility] Last Admin: 07/07/17 17:23 Dose: 2 drop Vitamin B Complex/Vit C/Folic Acid (Nephro-Naima) 1 tab PO DAILY [facility] Last Admin: 07/07/17 08:50 Dose: 1 tab - Labs Labs: 07/06/17 13:20 07/06/17 13:20 Assessment and Plan - Assessment and Plan (Free Text) Assessment: ESRD ON HD M W F .. NEXT HD IS IN AM ANEMIA OF CKD .. H/H STABLE C/O CURRENT CARE
[2017-07-07 18:30] LABS: SQUAMOUS EPITHIAL < 1 /hpf (0-5); URINE AMORPHOUS SEDIMENT RARE /ul (<OCC); URINE BACTERIA RARE (<OCC); URINE BILIRUBIN NEGATIVE (NEGATIVE); URINE BLOOD NEGATIVE (NEGATIVE); URINE CLARITY CLOUDY (Clear); URINE COLOR AMBER (YELLOW); URINE GLUCOSE (UA) 50 mg/dL (Normal); URINE HYALINE CAST 0-2 /hpf (0-2); URINE LEUKOCYTE ESTERASE NEG Leu/uL (Negative); URINE PROTEIN >=500 mg/dL (NEGATIVE); URINE UROBILINOGEN 0.2-1.0 mg/dL (0.2-1.0)
[2017-07-07 19:52] VITALS: BP 114/65; PULSE 93; RESP 16; TEMP 98.4; O2SAT 98
--- NOTE | 2017-07-07 23:57 | CP.PCM.DIS ---
Provider - Provider Date of Admission: 06/30/17 15:48 Attending physician: Duc Hartley MD Time Spent in preparation of Discharge (in minutes): 25 Diagnosis - Discharge Diagnosis (1) CHF exacerbation Status: Acute Priority: High Hospital Course - Lab Results Lab Results: Micro Results 07/02/17 13:02 Blood Blood Culture - Final NO GROWTH AFTER 5 DAYS 07/02/17 13:02 Blood Gram Stain - Final TEST NOT PERFORMED 06/30/17 20:15 Blood-Venous Blood Culture - Final NO GROWTH AFTER 5 DAYS 06/30/17 20:15 Blood-Venous Gram Stain - Final TEST NOT PERFORMED 06/30/17 20:05 Blood-Venous Blood Culture - Final NO GROWTH AFTER 5 DAYS 06/30/17 20:05 Blood-Venous Gram Stain - Final TEST NOT PERFORMED Most Recent Lab Values WBC 8.7 K/uL (4.8-10.8) 07/06/17 13:20 RBC 3.72 Mil/uL (4.40-5.90) L 07/06/17 13:20 Hgb 10.7 g/dL (12.0-18.0) L 07/06/17 13:20 Hct 33.4 % (35.0-51.0) L 07/06/17 13:20 MCV 89.6 fl (80.0-94.0) D 07/06/17 13:20 MCH 28.8 pg (27.0-31.0) 07/06/17 13:20 MCHC 32.1 g/dL (33.0-37.0) L 07/06/17 13:20 RDW 20.1 % (11.5-14.5) H 07/06/17 13:20 Plt Count 134 K/uL (130-400) 07/06/17 13:20 MPV 9.3 fl (7.2-11.7) 06/30/17 14:51 Neut % (Auto) 78.2 % (50.0-75.0) H 06/30/17 14:51 Lymph % (Auto) 8.2 % (20.0-40.0) L 06/30/17 14:51 [place] % (Auto) 11.8 % (0.0-10.0) H 06/30/17 14:51 Eos % (Auto) 0.7 % (0.0-4.0) 06/30/17 14:51 Baso % (Auto) 1.1 % (0.0-2.0) 06/30/17 14:51 Neut # (Auto) 4.8 K/uL (1.8-7.0) 06/30/17 14:51 Lymph # (Auto) 0.5 K/uL (1.0-4.3) L 06/30/17 14:51 [place] # (Auto) 0.7 K/uL (0.0-0.8) 06/30/17 14:51 Eos # (Auto) 0.0 K/uL (0.0-0.7) 06/30/17 14:51 Baso # (Auto) 0.1 K/uL (0.0-0.2) 06/30/17 14:51 Neutrophils % (Manual) 79 % (42-75) H 06/30/17 14:51 Band Neutrophils % 1 % (0-2) 06/30/17 14:51 Lymphocytes % (Manual) 10 % (20-50) L 06/30/17 14:51 Monocytes % (Manual) 9 % (0-10) 06/30/17 14:51 Basophils % (Manual) 1 % (0-2) 06/30/17 14:51 Toxic Granulation Present 06/30/17 14:51 Platelet Estimate Normal (NORMAL) 06/30/17 14:51 Hypochromasia (manual) Slight 06/30/17 14:51 Anisocytosis (manual) Moderate 06/30/17 14:51 Macrocytosis (manual) Slight 06/30/17 14:51 Ovalocytes Slight 06/30/17 14:51 Sodium 137 mmol/l (132-148) 07/06/17 13:20 Potassium 3.7 MMOL/L (3.6-5.0) 07/06/17 13:20 Chloride 96 mmol/L (98-107) L 07/06/17 13:20 Carbon Dioxide 30 mmol/L (22-30) 07/06/17 13:20 Anion Gap 15 (10-20) 07/06/17 13:20 BUN 27 mg/dl (9-20) H 07/06/17 13:20 Creatinine 4.1 mg/dl (0.8-1.5) H 07/06/17 13:20 Est GFR ( Amer) 18 07/06/17 13:20 Est GFR (Non-Af Amer) 14 07/06/17 13:20 POC Glucose (mg/dL) 142 mg/dL (65-110) H 07/07/17 16:28 Random Glucose 96 mg/dL (75-110) 07/06/17 13:20 Calcium 8.7 mg/dL (8.4-10.2) 07/06/17 13:20 Total Bilirubin 0.7 mg/dl (0.2-1.3) 07/01/17 04:25 AST 43 U/L (17-59) 07/01/17 04:25 ALT 54 U/L (21-72) 07/01/17 04:25 Alkaline Phosphatase 57 U/L (38-126) 07/01/17 04:25 Troponin I 0.2750 ng/mL (0.00-0.120) H* 07/02/17 04:29 Total Protein 6.3 G/DL (6.3-8.2) 07/01/17 04:25 Albumin 3.4 g/dL (3.5-5.0) L 07/01/17 04:25 Globulin 2.9 gm/dL (2.2-3.9) 07/01/17 04:25 Albumin/Globulin Ratio 1.2 (1.0-2.1) 07/01/17 04:25 Urine Color Ele (YELLOW) 07/07/17 17:57 Urine Clarity Cloudy (Clear) 07/07/17 17:57 Urine pH 6.0 (5.0-8.0) 07/07/17 17:57 Ur Specific [place] 1.015 (1.003-1.030) 07/07/17 17:57 Urine Protein >=500 mg/dL (NEGATIVE) 07/07/17 17:57 Urine Glucose (UA) 50 mg/dL (Normal) 07/07/17 17:57 Urine Ketones Negative mg/dL (NEGATIVE) 07/07/17 17:57 Urine Blood Negative (NEGATIVE) 07/07/17 17:57 Urine Nitrate Negative (NEGATIVE) 07/07/17 17:57 Urine Bilirubin Negative (NEGATIVE) 07/07/17 17:57 Urine Urobilinogen 0.2-1.0 mg/dL (0.2-1.0) 07/07/17 17:57 Ur Leukocyte Esterase Neg [place]/uL (Negative) 07/07/17 17:57 Urine RBC (Auto) 2 /hpf (0-3) 07/07/17 17:57 Urine Microscopic WBC 4 /hpf (0-5) 07/07/17 17:57 Ur Squamous Epith Cells < 1 /hpf (0-5) 07/07/17 17:57 Amorphous Sediment Rare /ul (<OCC) H 07/07/17 17:57 Urine Bacteria Rare (<OCC) 07/07/17 17:57 Hyaline Casts 0-2 /hpf (0-2) 07/07/17 17:57 Discharge Exam - Head Exam Head Exam: ATRAUMATIC, NORMAL INSPECTION, NORMOCEPHALIC Discharge Plan - Discharge Medications Prescriptions: Levofloxacin [Levaquin] 500 mg PO DAILY #3 tablet - Follow Up Plan Condition: FAIR Disposition: HOME/ ROUTINE Instructions: Kidney Failure (DC), Pneumonia, Adult (DC) Additional Instructions: [facility] chava hazel izquierdo 07/15/17 a las 2:00pm second home adult daycare [phone] Referrals: Dheeraj Monteiro MD [Staff Provider] - Duc Hartley MD [Staff Provider] -
--- NOTE | 2017-07-08 10:58 | PQF CHF ---
This form is a permanent part of the medical record DR. MALLORY SEMAN: DISCHARGE SUMMARY IN DRAFT, WITH DIAGNOSIS OF EXACERBATION OF CHF. COULD YOU PLEASE CONFIRM THE TYPE OF CHF. Clarification of your documentation is requested to better reflect the severity of illness and intensity of treatment of your patient. Indicators present [X] Diagnosis of CHF and/or history of CHF [] BNP > 200 [] Imaging Finding of Pulmonary Edema /Pleural Effusions [] Fluid/Volume Overload [] Pitting edema [] Ejection Fraction < 40% (Indicative of Systolic Heart Failure) [] Ejection Fraction > 40% (Indicative of Diastolic Heart Failure) [] Dyspnea / Orthopenea / Paroxysmal Nocturnal Dyspnea [] Other: Location in the medical record that reflects the above clinical findings: [] Treatment Provided: [] PHYSICIAN'S RESPONSE Based on your medical judgment of the clinical indicators outlined above, are you treating this patient for a known or suspected: [] Acute CHF [] Systolic [] Diastolic [] Combined [] Chronic CHF [] Systolic [] Diastolic [] Combined [] Acute on Chronic CHF []Systolic [] Diastolic [] Combined [] CHF due hypertension [] Acute systolic []Chronic systolic [] Acute/ chronic systolic [] Other, please indicate: [] [] If Unable to Determine, please check the box, sign and date. Present On Admission (POA) Indicator: [] Present at the time of admission [] Not present at the time of admission [] Clinically Undetermined In responding to this query, please exercise your independent professional judgment. The fact that a question is asked does not imply that any particular answer is desired or expected. Thank you for your clarification on this documentation. If you have any questions please call:[ ] * Thank you, * REBECCA PATTERSON [ [phone] [employer] picture [employer]in[employer] [place]
== END 2017-07-07 20:05 | disposition home or self-care (01) | DRG 291 ==
LOC: H.ER 13:21 → H.ERHOLD 15:48 → H.TEL 17:49
PROVIDERS: ADMIT Internal Medicine; ATTEND Internal Medicine
PROC: 5A1D70Z Performance of Urinary Filtration, Intermittent, Less than 6 Hours Per Day (ICD-10-PCS; principal; 2017-07-01)
PROC: 5A1D70Z Performance of Urinary Filtration, Intermittent, Less than 6 Hours Per Day (ICD-10-PCS; 2017-07-01)
PROC: 5A1D70Z Performance of Urinary Filtration, Intermittent, Less than 6 Hours Per Day (ICD-10-PCS; 2017-07-01)
PROC: 02HV33Z Insertion of Infusion Device into Superior Vena Cava, Percutaneous Approach (ICD-10-PCS; 2017-07-03)
PROC: B518ZZA Fluoroscopy of Superior Vena Cava, Guidance (ICD-10-PCS; 2017-07-03)
PROC: B548ZZA Ultrasonography of Superior Vena Cava, Guidance (ICD-10-PCS; 2017-07-03)
DX: I13.2 Hypertensive heart and chronic kidney disease with heart failure and with stage 5 chronic kidney disease, or end stage renal disease (principal); N18.6 End stage renal disease; N17.9 Acute kidney failure, unspecified; E11.22 Type 2 diabetes mellitus with diabetic chronic kidney disease; I42.9 Cardiomyopathy, unspecified; I45.81 Long QT syndrome; I50.9 Heart failure, unspecified; Z90.49 Acquired absence of other specified parts of digestive tract; Z99.2 Dependence on renal dialysis; Z79.84 Long term (current) use of oral hypoglycemic drugs; D63.1 Anemia in chronic kidney disease; E03.9 Hypothyroidism, unspecified; E78.00 Pure hypercholesterolemia, unspecified; H10.9 Unspecified conjunctivitis

== ENCOUNTER 2017-07-18 11:20 | Emergency (ER) | payer OTHER ==
[2017-07-18 11:21] VITALS: BMI 27.4
[2017-07-18 11:29] VITALS: BP 144/88; RESP 16; TEMP 97.4; O2SAT 97
--- NOTE | 2017-07-18 12:27 | ED PDOC ---
HPI: Skin/Bite Injury Time Seen by Provider: 07/18/17 12:12 Chief Complaint (Nursing): Abnormal Skin Integrity Chief Complaint (Provider): Itchiness, around buttocks History Per: Patient Onset/Duration Of Symptoms: Days (1 week) Quality Of Symptoms: Itching Severity: Moderate Additional Complaint(s): No cream or medication for the rash or itchiness. Past Medical History Vital Signs: Last Vital Signs Temp 97.4 F L 07/18/17 11:29 Pulse 104 H 07/18/17 11:29 Resp 16 07/18/17 11:29 BP 144/88 07/18/17 11:29 Pulse Ox 97 07/18/17 12:41 - Medical History PMH: Anemia, CHF, Diabetes, HTN, Hypercholesterolemia, Hypothyroidism, Chronic Kidney Disease (on dialysis) Denies: Arthritis, CVA, HIV, Kidney Stones - Surgical History Surgical History: Appendectomy - Family History Family History: States: Unknown Family Hx - Immunization History Hx Tetanus Toxoid Vaccination: No Hx Influenza Vaccination: Yes Hx Pneumococcal Vaccination: Yes - Home Medications Home Medications: Ambulatory Orders Medication Instructions Recorded Allopurinol [Zyloprim] 100 mg PO DAILY #30 tab 05/09/17 Levothyroxine [Synthroid] 75 mcg PO DAILY #30 tab 05/09/17 Metoprolol Succinate [Toprol XL] 50 mg PO BID #60 tab 05/09/17 SITagliptin [Januvia] 50 mg PO DAILY #30 tab 05/09/17 Aspirin [Ecotrin] 81 mg PO DAILY 06/30/17 Cilostazol [Pletal] 50 mg PO DAILY 06/30/17 Sevelamer Carbonate [Renvela] 1,600 mg PO TID 06/30/17 Levofloxacin [Levaquin] 500 mg PO DAILY #3 tablet 07/06/17 Clotrimazole/Betamethasone 30 ml TOP BID #2 bottle 07/18/17 [Lotrisone] Hydrocortisone 2.5% (Rectal) 30 applic MT BID #1 tube 07/18/17 [Anusol-HC] - Allergies Allergies/Adverse Reactions: Allergies Allergy/AdvReac Type Severity Reaction Status Date / Time No Known Allergies Allergy Verified 05/08/17 21:17 Physical Exam - Reviewed Nursing Documentation Reviewed: Yes Vital Signs Reviewed: Yes - Physical Exam Appears: Positive for: Well, Non-toxic, No Acute Distress Head Exam: Positive for: ATRAUMATIC, NORMAL INSPECTION, NORMOCEPHALIC Skin: Positive for: Normal Color, Warm, DRY Eye Exam: Positive for: Normal appearance ENT: Positive for: Normal ENT Inspection Neck: Positive for: Normal, Painless ROM Cardiovascular/Chest: Positive for: Regular Rate, Rhythm Respiratory: Positive for: Normal Breath Sounds. Negative for: Accessory Muscle Use, Respiratory Distress Back: Positive for: Normal Inspection Rectal: Positive for: Hemorrhoids (Soft pink, fissure seen at 12 o'clock ), Other ((+) rash, erythematous extending on the buttocks ). Negative for: Normal Exam, Black Stool Extremity: Positive for: Normal ROM Neurologic/Psych: Positive for: Alert, Oriented - ECG O2 Sat by Pulse Oximetry: 97 Pulse Ox Interpretation: Normal Disposition - Clinical Impression Clinical Impression: Acute hemorrhoid - Patient ED Disposition Is Patient to be Admitted: No Counseled Patient/Family Regarding: Diagnosis, Need For Followup, Rx Given - Disposition Referrals: Chris Lopes MD [Staff Provider] - Disposition: Routine/Home Disposition Time: 12:23 Condition: GOOD Prescriptions: Clotrimazole/Betamethasone [Lotrisone] 30 ml TOP BID #2 bottle Hydrocortisone 2.5% (Rectal) [Anusol-HC] 30 applic MT BID #1 tube Instructions: Hemorrhoids (DC) Forms: [employer] (Burmese) Print Language: RWANDAN
[2017-07-18 12:43] VITALS: PULSE 92
== END 2017-07-18 13:04 | disposition home or self-care (01) ==
LOC: H.ER 11:20
DX: K64.9 Unspecified hemorrhoids (principal); N18.6 End stage renal disease; Z99.2 Dependence on renal dialysis

== ENCOUNTER 2017-07-19 16:33 | Emergency (ER) | payer OTHER ==
[2017-07-19 16:33] VITALS: BMI 27.4
[2017-07-19 16:43] VITALS: TEMP 98
--- NOTE | 2017-07-19 17:07 | ED PDOC ---
HPI: Skin/Bite Injury Time Seen by Provider: 07/19/17 16:49 Chief Complaint (Nursing): Abnormal Skin Integrity Chief Complaint (Provider): Abnormal Skin Integrity History Per: Patient History/Exam Limitations: no limitations Additional Complaint(s): Patient is homeless brandee is here otday because he was kicked out of long-term when he was found playing with himself. Reports that he has itchiness on his penis. Otherwise patient reports (-) throat swelling, (-) tongue / lip swelling , (-) dyspnea, (-) cough, (-) wheezing, (-) abdominal pain, (-) nausea (-) vomiting, (-) urinary symptoms, (-)fever. There has been _ exposure to known allergens. The patient has _ history of allergic reactions. Past Medical History Reviewed: Historical Data, Nursing Documentation, Vital Signs Vital Signs: Last Vital Signs Temp 98 F 07/19/17 16:42 Pulse 81 07/19/17 17:36 Resp 19 07/19/17 17:36 BP 149/84 07/19/17 17:36 Pulse Ox 95 07/19/17 20:30 - Medical History PMH: Anemia, CHF, Diabetes, HTN, Hypercholesterolemia, Hypothyroidism, Chronic Kidney Disease (on dialysis) Denies: Arthritis, CVA, HIV, Kidney Stones - Surgical History Surgical History: Appendectomy - Family History Family History: States: Unknown Family Hx - Living Arrangements Living Arrangements: Other (Homeless but lives in long-term) - Social History Current smoker - smoking cessation education provided: No Alcohol: None Drugs: Denies - Immunization History Hx Tetanus Toxoid Vaccination: No Hx Influenza Vaccination: Yes Hx Pneumococcal Vaccination: Yes - Home Medications Home Medications: Ambulatory Orders Medication Instructions Recorded Allopurinol [Zyloprim] 100 mg PO DAILY #30 tab 05/09/17 Levothyroxine [Synthroid] 75 mcg PO DAILY #30 tab 05/09/17 Metoprolol Succinate [Toprol XL] 50 mg PO BID #60 tab 05/09/17 SITagliptin [Januvia] 50 mg PO DAILY #30 tab 05/09/17 Aspirin [Ecotrin] 81 mg PO DAILY 06/30/17 Cilostazol [Pletal] 50 mg PO DAILY 06/30/17 Sevelamer Carbonate [Renvela] 1,600 mg PO TID 06/30/17 Levofloxacin [Levaquin] 500 mg PO DAILY #3 tablet 07/06/17 Clotrimazole/Betamethasone 30 ml TOP BID #2 bottle 07/18/17 [Lotrisone] Hydrocortisone 2.5% (Rectal) 30 applic MT BID #1 tube 07/18/17 [Anusol-HC] - Allergies Allergies/Adverse Reactions: Allergies Allergy/AdvReac Type Severity Reaction Status Date / Time No Known Allergies Allergy Verified 05/08/17 21:17 Review of Systems ROS Statement: Except As Marked, All Systems Reviewed And Found Negative (As per HPI, otherwise negative) Skin: Positive for: Other (Itchiness of penis) Physical Exam - Reviewed Nursing Documentation Reviewed: Yes Vital Signs Reviewed: Yes - Physical Exam Comments: GENERAL APPEARANCE: Patient is awake, alert, oriented x 3, in no acute distress , ill kept SKIN: (-) lesions, (-) rash, (-) excoriations, (-) drainage, (-) crusting of lesions is present. HENT: (-) conjunctival injection, (-) chemosis. Oropharynx: clear (-) tongue or lip swelling, (-) tonsillar exudates, (-) erythema. Airway: patent (-) stridor, (-) hoarseness. Mucous membranes moist. Nares: Patent (-) rhinorrhea. NECK: (-) lymphadenopathy, (-) tenderness. CARDIOVASCULAR: Normal rate and rhythm. (-) murmur, (-) gallop. CHEST: (-) rales, (-) wheezing, (-) dyspnea, (-) stridor. Breath sounds equal bilaterally. ABDOMEN: Soft. (-) tenderness, (-) distention, (-) HSM. RECTAL EXAM: (-) lesions, ER nurse present NEURO: Mental status: Patient is alert, oriented, and with normal strength and tone. - ECG O2 Sat by Pulse Oximetry: 95 (RA) Pulse Ox Interpretation: Normal Medical Decision Making Medical Decision Making: --Patient advised to follow up with clinic Scribe Attestation: Documented by Cyrus Eduardo acting as a scribe for MD MD Jena Mckeonibizabela Attestation: All medical record entries made by the Scribe were at my direction and personally dictated by me. I have reviewed the chart and agree that the record accurately reflects my personal performance of the history, physical exam, medical decision making, and the department course for this patient. I have also personally directed, reviewed, and agree with the discharge instructions and disposition. 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
[2017-07-19 17:37] VITALS: BP 149/84; PULSE 81; RESP 19
[2017-07-19 19:54] VITALS: O2SAT 95
== END 2017-07-19 17:37 | disposition home or self-care (01) ==
LOC: H.ER 16:33
DX: L29.0 Pruritus ani (principal); N18.6 End stage renal disease; Z79.82 Long term (current) use of aspirin; Z99.2 Dependence on renal dialysis; E03.9 Hypothyroidism, unspecified; E78.00 Pure hypercholesterolemia, unspecified

== ENCOUNTER 2017-07-31 17:12 | Inpatient (IN) | payer OTHER ==
[2017-07-31 17:13] VITALS: BMI 27.4
--- NOTE | 2017-07-31 18:27 | ED PDOC ---
Lower Extremity Pain/Injury Time Seen by Provider: 07/31/17 18:25 Chief Complaint (Nursing): Lower Extremity Problem/Injury Chief Complaint (Provider): lower extremity pain/swelling History Per: Patient (72 y/o male h/o ESRD dialysis MWF here with lower leg extremity swelling noted with erythema left leg. Denies any fevers/chills/sob/ chest pain. Concerned for the swelling in his legs.) Past Medical History Reviewed: Historical Data, Nursing Documentation, Vital Signs Vital Signs: Last Vital Signs Temp 97.9 F 07/31/17 17:39 Pulse 118 H 07/31/17 17:39 Resp 20 07/31/17 17:39 BP 135/78 07/31/17 17:39 Pulse Ox 94 L 07/31/17 17:39 - Medical History PMH: Anemia, CHF, Diabetes, HTN, Hypercholesterolemia, Hypothyroidism, Chronic Kidney Disease (on dialysis) Denies: Arthritis, CVA, HIV, Kidney Stones - Surgical History Surgical History: Appendectomy - Family History Family History: States: Unknown Family Hx - Immunization History Hx Tetanus Toxoid Vaccination: No Hx Influenza Vaccination: Yes Hx Pneumococcal Vaccination: Yes - Home Medications Home Medications: Ambulatory Orders Medication Instructions Recorded Allopurinol [Zyloprim] 100 mg PO DAILY #30 tab 05/09/17 Levothyroxine [Synthroid] 75 mcg PO DAILY #30 tab 05/09/17 Metoprolol Succinate [Toprol XL] 50 mg PO BID #60 tab 05/09/17 SITagliptin [Januvia] 50 mg PO DAILY #30 tab 05/09/17 Aspirin [Ecotrin] 81 mg PO DAILY 06/30/17 Cilostazol [Pletal] 50 mg PO DAILY 06/30/17 Sevelamer Carbonate [Renvela] 1,600 mg PO TID 06/30/17 Levofloxacin [Levaquin] 500 mg PO DAILY #3 tablet 07/06/17 Clotrimazole/Betamethasone 30 ml TOP BID #2 bottle 07/18/17 [Lotrisone] Hydrocortisone 2.5% (Rectal) 30 applic [place] BID #1 tube 07/18/17 [Anusol-HC] - Allergies Allergies/Adverse Reactions: Allergies Allergy/AdvReac Type Severity Reaction Status Date / Time No Known Allergies Allergy Verified 07/31/17 17:39 Review of Systems ROS Statement: Except As Marked, All Systems Reviewed And Found Negative Musculoskeletal: Positive for: Leg Pain Physical Exam - Reviewed Nursing Documentation Reviewed: Yes Vital Signs Reviewed: Yes - Physical Exam Appears: Positive for: Well, Non-toxic, No Acute Distress Head Exam: Positive for: ATRAUMATIC, NORMAL INSPECTION, NORMOCEPHALIC Skin: Positive for: Normal Color, Warm, DRY Eye Exam: Positive for: EOMI, Normal appearance, PERRL ENT: Positive for: Normal ENT Inspection Neck: Positive for: Normal, Painless ROM Cardiovascular/Chest: Positive for: Regular Rate, Rhythm Respiratory: Positive for: CNT, Normal Breath Sounds Gastrointestinal/Abdominal: Positive for: Normal Exam, Soft Back: Positive for: Normal Inspection Extremity: Positive for: Normal ROM, Swelling (bilateral lower extremity swelling. (+) mild erythema pre-tibial region left leg.) Neurologic/Psych: Positive for: Alert, Oriented - Laboratory Results Result Diagrams: 07/31/17 18:14 - ECG O2 Sat by Pulse Oximetry: 94 - Progress ED Course And Treament: CXR: LEFT LOBAR INFILTRATE NOTED DUPLEX LEG: NEG FOR DVT SENT FOR CT CHEST ZITHROMAX 500MG IV X 1 DOSE ZOSYN 3.375 GM IV X 1 DOSE VANCOMYCIN 1 GM IV X1 DOSE Disposition - Clinical Impression Clinical Impression: Cellulitis, Pulmonary infiltrate - Patient ED Disposition Is Patient to be Admitted: Transfer of Care - Disposition Disposition: Transfer of Care Disposition Time: 20:12 Condition: FAIR Forms: [facility] (Welsh) Patient Signed Over To: Krys Landrum Handoff Comments: CMP/CT CHEST/RE-EVAL/ADMISSION
[2017-07-31 18:52] LABS: VENOUS BLOOD GAS BASE EXCESS 15.6 mmol/L (0.0-2.0); VENOUS BLOOD GAS PCO2 53 mmHg (40-60); VENOUS BLOOD GAS PO2 39 mm/Hg (30-55)
[2017-07-31 18:53] LABS: EOS # 0.3 K/uL (0.0-0.7); EOS % 6.7 % (0.0-4.0); HEMOGLOBIN 11.5 g/dL (12.0-18.0); LYMPH % 21.1 % (20.0-40.0); MEAN CELL VOLUME 90.1 fl (80.0-94.0); MEAN CORPUSCULAR HEMOGLOBIN 27.7 pg (27.0-31.0); MEAN CORPUSCULAR HGB CONC 30.7 g/dL (33.0-37.0); MEAN PLATELET VOLUME 8.2 fl (7.2-11.7); MONO # 0.6 K/uL (0.0-0.8); MONO % 12.8 % (0.0-10.0); NEUT # 2.7 K/uL (1.8-7.0); NEUT % 58.4 % (50.0-75.0); NRBC % 0.1 % (0.0-0.0); RBC 4.15 Mil/uL (4.40-5.90); RED CELL DISTRIBUTION WIDTH 21.6 % (11.5-14.5); WHITE BLOOD COUNT 4.6 K/uL (4.8-10.8)
[2017-07-31] MEDS ORDERED: Azithromycin 500 MG in Sodium Chloride 0.9% 250 ML IVPB STA (20:00)
[2017-07-31] MEDS ORDERED: Piperacillin/Tazobact 3.375 GM in Sodium Chloride 0.9% 100 ML IVPB STA (20:01)
--- NOTE | 2017-07-31 20:20 | ED PDOC ---
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 LUNGS: Focal consolidation in the left upper lobe. There is a large (at least 8 cm) area of groundglass consolidation mixed with patchy, multifocal dense consolidation, in the left upper lobe, which has geographic margins. Findings suspicious for mild pulmonary vascular congestion. There is mild, diffuse, bilateral smooth interlobular septal thickening. PLEURAL SPACE: No pneumothorax or significant pleural effusions seen. HEART: Heart again appears moderately to markedly enlarged. Multiple foci of air seen in the right heart chambers and main pulmonary artery segment anteriorly, most likely related to a recent IV injection or peripheral IV placement. Coronary artery calcification. BONES/ JOINTS: No acute fractures or other acute bony abnormality noted. SOFT TISSUES: No acute abnormality of the visualized soft tissues is seen. VASCULATURE: Exam is nondiagnostic for aortic dissection and pulmonary emboli, secondary to unenhanced technique. LYMPH NODES: No evidence of diffuse lymphadenopathy. GALLBLADDER AND BILE DUCTS: Suspect pericholecystic fluid versus gallbladder wall thickening. Suspect tiny stones in the gallbladder neck. Dilatation and of the common bile duct, which measures 1.3 cm maximally. Possible tiny stone in the common bile duct, image 123 of series 2. KIDNEYS AND URETERS: Incidental tiny 6 x 3 mm hyperdense lesion in the left kidney. Recommend follow-up or renal protocol CT or MRI for further evaluation, on a nonemergent basis, unless otherwise clinically indicated. Bilateral perinephric stranding, a nonspecific finding. 4.5 cm fluid density lesion in the right kidney, most likely a cyst. INTRAPERITONEAL SPACE: Small amount of abdominal free fluid, abutting the liver. IMPRESSION: Focal consolidation in the left upper lobe. This is suspicious for pneumonia, less likely asymmetric alveolar pulmonary edema. Findings suspicious for mild, diffuse pulmonary vascular congestion. - Abnormal findings in the gallbladder and bile ducts, including pericholecystic fluid versus gallbladder wall thickening, biliary ductal dilatation, and a possible tiny stone in the common bile duct. Right upper quadrant ultrasound would be helpful for further evaluation. Small amount of humaira-hepatic free fluid. Incidental indeterminate hyperdense left renal lesion. See above recommendations. Patient has received IV zithromax, vanco and zosyn Case was d/w medicine immigration specialist, Dr. Hatrley. Patient will be admitted to telemetry. Dr. Hartley made aware of above findings related to gallbladder and states to hold off on further abdominal studies for now. Patient is aware of and agrees with admission. Disposition - Clinical Impression Clinical Impression: Cellulitis, Pulmonary infiltrate, ESRD (end stage renal disease) on dialysis - POA Present On Arrival: None - Disposition Disposition: Admitted as In-Patient Disposition Time: 23:21 Condition: FAIR Forms: [employer] (Rwandan) Results - Lab Results Lab Results: 07/31/17 07/31/17 07/31/17 20:25 18:43 18:14 WBC 4.6 L RBC 4.15 L Hgb 11.5 L Hct 37.4 MCV 90.1 MCH 27.7 MCHC 30.7 L RDW 21.6 H Plt Count 120 L MPV 8.2 Neut % (Auto) 58.4 Lymph % (Auto) 21.1 [place] % (Auto) 12.8 H Eos % (Auto) 6.7 H Baso % (Auto) 1.0 Neut # (Auto) 2.7 Lymph # (Auto) 1.0 [place] # (Auto) 0.6 Eos # (Auto) 0.3 Baso # (Auto) 0.0 pO2 39 VBG pH 7.50 H VBG pCO2 53 VBG HCO3 36.6 VBG Total CO2 42.9 H VBG O2 Sat (Calc) 65.2 H VBG Base Excess 15.6 H VBG Potassium 4.5 Sodium 140 137.0 Chloride 94 L 97.0 L Glucose 131 H Lactate 1.1 FiO2 21.0 Potassium 4.7 Carbon Dioxide 34 H Anion Gap 17 BUN 37 H Creatinine 4.2 H Est GFR ( Amer) 17 Est GFR (Non-Af Amer) 14 Random Glucose 109 Calcium 8.7 Total Bilirubin 0.9 AST 41 ALT 50 Alkaline Phosphatase 98 Total Protein 6.5 Albumin 3.3 L Globulin 3.2 Albumin/Globulin Ratio 1.0 Venous Blood Potassium 4.5
[2017-07-31 20:46] LABS: ALBUMIN 3.3 g/dL (3.5-5.0); CALCIUM 8.7 mg/dL (8.4-10.2)
--- NOTE | 2017-07-31 20:47 | RAD ---
EXAM: XR Chest, 1 View EXAM DATE/TIME: 07/31/2017 6:21 PM CLINICAL HISTORY: 72 years old, male; Pain; Other: Lower leg extremity swelling; Additional info: Routine TECHNIQUE: Frontal view of the chest. COMPARISON: Prior chest radiographs of 2017-07-02 FINDINGS: LUNGS: Abnormal focal density in the left lung, in the perihilar region, measuring 5.5 x 5.5 cm. This is a new finding, and is highly suspicious for a focal infiltrate/pneumoni a a. Lungs otherwise appear clear radiographically. No evidence of diffuse pulmonary vascular congestion. PLEURAL SPACE: No pneumothorax or pleural effusions seen. HEART: Heart again appears moderately to markedly enlarged. MEDIASTINUM: Mediastinal contour is stable in limits. BONES/JOINTS: No acute bony abnormality visualized. IMPRESSION: - Findings highly suspicious for a focal pneumonia in the left perihilar region. Short term chest radiographic followup is recommended to document clearing. - Cardiomegaly, also seen on a prior exam. - See above for remaining findings.
[2017-07-31] MEDS ORDERED: Piperacillin/Tazobact 3.375 gm Inj IVPB ONE (20:52)
--- NOTE | 2017-07-31 22:27 | CT ---
EXAM: CT Chest Without Intravenous Contrast EXAM DATE/TIME: 07/31/2017 8:02 PM CLINICAL HISTORY: 72 years old, male; Signs and symptoms; Other: Pneumonia TECHNIQUE: Axial computed tomography images of the chest without intravenous contrast. All CT scans at this facility use one or more dose reduction techniques, viz.: automated exposure control; ma/kV adjustment per patient size (including targeted exams where dose is matched to indication; i.e. head); or iterative reconstruction technique. Coronal and sagittal reformatted images were created and reviewed. COMPARISON: Prior CT chest of 2017-01-26 FINDINGS: LIMITATIONS: Mild to moderate streak/motion artifact. LUNGS: Focal consolidation in the left upper lobe. There is a large (at least 8 cm) area of groundglass consolidation mixed with patchy, multifocal dense consolidation, in the left upper lobe, which has geographic margins. Findings suspicious for mild pulmonary vascular congestion. There is mild, diffuse, bilateral smooth interlobular septal thickening. PLEURAL SPACE: No pneumothorax or significant pleural effusions seen. HEART: Heart again appears moderately to markedly enlarged. Multiple foci of air seen in the right heart chambers and main pulmonary artery segment anteriorly, most likely related to a recent IV injection or peripheral IV placement. Coronary artery calcification. BONES/JOINTS: No acute fractures or other acute bony abnormality noted. SOFT TISSUES: No acute abnormality of the visualized soft tissues is seen. VASCULATURE: Exam is nondiagnostic for aortic dissection and pulmonary emboli, secondary to unenhanced technique. LYMPH NODES: No evidence of diffuse lymphadenopathy. GALLBLADDER AND BILE DUCTS: Suspect pericholecystic fluid versus gallbladder wall thickening. Suspect tiny stones in the gallbladder neck. Dilatation and of the common bile duct, which measures 1.3 cm maximally. Possible tiny stone in the common bile duct, image 123 of series 2. KIDNEYS AND URETERS: Incidental tiny 6 x 3 mm hyperdense lesion in the left kidney. Recommend follow-up or renal protocol CT or MRI for further evaluation, on a nonemergent basis, unless otherwise clinically indicated. Bilateral perinephric stranding, a nonspecific finding. 4.5 cm fluid density lesion in the right kidney, most likely a cyst. INTRAPERITONEAL SPACE: Small amount of abdominal free fluid, abutting the liver. IMPRESSION: - Focal consolidation in the left upper lobe. This is suspicious for pneumonia, less likely asymmetric alveolar pulmonary edema. - Findings suspicious for mild, diffuse pulmonary vascular congestion. - Abnormal findings in the gallbladder and bile ducts, including pericholecystic fluid versus gallbladder wall thickening, biliary ductal dilatation, and a possible tiny stone in the common bile duct. Right upper quadrant ultrasound would be helpful for further evaluation. - Small amount of humaira-hepatic free fluid. - Incidental indeterminate hyperdense left renal lesion. See above recommendations. - See above for remaining findings.
--- NOTE | 2017-08-01 08:28 | US ---
PROCEDURE: Bilateral lower extremity venous duplex Doppler. HISTORY: r/o dvt COMPARISON: Left lower extremity ultrasound dated 08/19/2016 ; no prior imaging of the right lower extremity venous system. TECHNIQUE: Bilateral common femoral, superficial femoral, popliteal and posterior tibial veins were evaluated. Flow was assessed with color Doppler, compressibility, assessment of phasic flow and augmentation response. FINDINGS: COMMON FEMORAL VEIN: Right CFV: Unremarkable. Left CFV: Unremarkable. SUPERFICIAL FEMORAL VEIN: Right SFV: Unremarkable. Left SFV: Unremarkable. POPLITEAL VEIN: Right Popliteal: Unremarkable. Left Popliteal: Unremarkable. POSTERIOR TIBIAL VEIN: Right PTV: Unremarkable. Left PTV: Unremarkable. OTHER FINDINGS: None. IMPRESSION: No evidence of deep venous thrombosis.
[2017-08-01] MEDS ORDERED: Vancomycin 1 g Inj IVPB SCH (09:00)
[2017-08-01] MEDS ORDERED: Cilostazol 50 mg Tab UD PO SCH (09:00)
[2017-08-01 09:07] LABS: HEMOGLOBIN 11.3 g/dL (12.0-18.0); MEAN CELL VOLUME 89.7 fl (80.0-94.0); MEAN CORPUSCULAR HEMOGLOBIN 27.7 pg (27.0-31.0); MEAN CORPUSCULAR HGB CONC 30.8 g/dL (33.0-37.0); RBC 4.08 Mil/uL (4.40-5.90); RED CELL DISTRIBUTION WIDTH 21.8 % (11.5-14.5)
--- NOTE | 2017-08-01 09:31 | CP.PCM.HP ---
History of Present Illness - History of Present Illness History of Present Illness: Cc: Lower extremity swelling A 72 year old male with multiple past medical history, anemia, CHF, diabetes, HTN, hypercholesterolemia, hypothyroidism, chronic kidney disease on dialysis presents with leg swelling and redness on the leg. Reports positive chills, no fever, no shortness of breath. Also he was coughing non productive cough. Present on Admission - Present on Admission Any Indicators Present on Admission: No Review of Systems - Review of Systems All systems: reviewed and no additional remarkable complaints except (as stated) - Constitutional Constitutional: Chills. absent: Fever, Headache - Musculoskeletal Musculoskeletal: Other (swelling, redness, LEs) Past Patient History - Infectious Disease Hx of Infectious Diseases: None - Past Medical History & Family History Past Medical History?: Yes Pertinent Family History: States: Unknown - Past Social History Smoking Status: Never Smoked - CARDIAC Hx Cardiac Disorders: Yes Hx Congestive Heart Failure: Yes Hx Hypercholesterolemia: Yes Hx Hypertension: Yes - PULMONARY Hx Respiratory Disorders: No - NEUROLOGICAL Hx Neurological Disorder: No - HEENT Hx HEENT Problems: No - RENAL Hx Chronic Kidney Disease: Yes (on dialysis) Date of Last Dialysis Treatment: 07/31/17 Hx Kidney Stones: No - ENDOCRINE/METABOLIC Hx Endocrine Disorders: No Hx Diabetes Mellitus Type 2: Yes Hx Hypothyroidism: Yes - HEMATOLOGICAL/ONCOLOGICAL Hx Blood Disorders: Yes Hx Anemia: Yes Hx Human Immunodeficiency Virus (HIV): No - INTEGUMENTARY Hx Dermatological Problems: No - MUSCULOSKELETAL/RHEUMATOLOGICAL Hx Musculoskeletal Disorders: No Hx Arthritis: No Hx Falls: No - GASTROINTESTINAL Hx Gastrointestinal Disorders: No - GENITOURINARY/GYNECOLOGICAL Hx Genitourinary Disorders: No - PSYCHIATRIC Hx Psychophysiologic Disorder: No Hx Substance Use: No - SURGICAL HISTORY Hx Surgeries: Yes Hx Appendectomy: Yes - ANESTHESIA Hx Anesthesia: Yes Hx Anesthesia Reactions: No Hx Malignant Hyperthermia: No Meds Allergies/Adverse Reactions: Allergies Allergy/AdvReac Type Severity Reaction Status Date / Time No Known Allergies Allergy Verified 07/31/17 17:39 Physical Exam - Constitutional Appears: Well, No Acute Distress - Head Exam Head Exam: ATRAUMATIC, NORMOCEPHALIC - Eye Exam Eye Exam: EOMI, Normal appearance, PERRL Pupil Exam: NORMAL ACCOMODATION - ENT Exam ENT Exam: Mucous Membranes Moist - Neck Exam Neck exam: Positive for: Normal Inspection - Respiratory Exam Respiratory Exam: Decreased Breath Sounds (decreased air entry), Rales ( bilateral) - Cardiovascular Exam Cardiovascular Exam: REGULAR RHYTHM, +S1, +S2 - GI/Abdominal Exam GI & Abdominal Exam: Normal Bowel Sounds, Soft - Rectal Exam Rectal Exam: Deferred - Extremities Exam Additional comments: swelling and redness left LE Results - Vital Signs Recent Vital Signs: Last Vital Signs Temp 98.4 F 08/01/17 08:34 Pulse 108 H 08/01/17 08:34 Resp 18 08/01/17 08:34 BP 111/72 08/01/17 08:34 Pulse Ox 95 08/01/17 08:34 - Labs Result Diagrams: 08/03/17 10:00 08/03/17 10:00 Labs: Laboratory Results - last 24 hr 07/31/17 07/31/17 07/31/17 18:14 18:43 20:25 WBC 4.6 L RBC 4.15 L Hgb 11.5 L Hct 37.4 MCV 90.1 MCH 27.7 MCHC 30.7 L RDW 21.6 H Plt Count 120 L MPV 8.2 Neut % (Auto) 58.4 Lymph % (Auto) 21.1 [place] % (Auto) 12.8 H Eos % (Auto) 6.7 H Baso % (Auto) 1.0 Neut # (Auto) 2.7 Lymph # (Auto) 1.0 [place] # (Auto) 0.6 Eos # (Auto) 0.3 Baso # (Auto) 0.0 pO2 39 VBG pH 7.50 H VBG pCO2 53 VBG HCO3 36.6 VBG Total CO2 42.9 H VBG O2 Sat (Calc) 65.2 H VBG Base Excess 15.6 H VBG Potassium 4.5 Sodium 137.0 140 Chloride 97.0 L 94 L Glucose 131 H Lactate 1.1 FiO2 21.0 Potassium 4.7 Carbon Dioxide 34 H Anion Gap 17 BUN 37 H Creatinine 4.2 H Est GFR ( Amer) 17 Est GFR (Non-Af Amer) 14 POC Glucose (mg/dL) Random Glucose 109 Calcium 8.7 Total Bilirubin 0.9 AST 41 ALT 50 Alkaline Phosphatase 98 Total Protein 6.5 Albumin 3.3 L Globulin 3.2 Albumin/Globulin Ratio 1.0 Venous Blood Potassium 4.5 08/01/17 08/01/17 05:49 07:30 WBC 4.0 L RBC 4.08 L Hgb 11.3 L Hct 36.5 MCV 89.7 MCH 27.7 MCHC 30.8 L RDW 21.8 H Plt Count 105 L MPV Neut % (Auto) Lymph % (Auto) [place] % (Auto) Eos % (Auto) Baso % (Auto) Neut # (Auto) Lymph # (Auto) [place] # (Auto) Eos # (Auto) Baso # (Auto) pO2 VBG pH VBG pCO2 VBG HCO3 VBG Total CO2 VBG O2 Sat (Calc) VBG Base Excess VBG Potassium Sodium Chloride Glucose Lactate FiO2 Potassium Carbon Dioxide Anion Gap BUN Creatinine Est GFR ( Amer) Est GFR (Non-Af Amer) POC Glucose (mg/dL) 76 Random Glucose Calcium Total Bilirubin AST ALT Alkaline Phosphatase Total Protein Albumin Globulin Albumin/Globulin Ratio Venous Blood Potassium - Imaging and Cardiology Chest x-ray Additional comment: CHEST ONE VIEW Exam Date: 07/31/17 This imaging exam was performed at [facility] EXAM: XR Chest, 1 View EXAM DATE/TIME: 07/31/2017 6:21 PM CLINICAL HISTORY: 72 years old, male; Pain; Other: Lower leg extremity swelling; Additional info: Routine TECHNIQUE: Frontal view of the chest. COMPARISON: Prior chest radiographs of 2017-07-02 FINDINGS: LUNGS: Abnormal focal density in the left lung, in the perihilar region, measuring 5.5 x 5.5 cm. This is a new finding, and is highly suspicious for a focal infiltrate/pneumoni a a. Lungs otherwise appear clear radiographically. No evidence of diffuse pulmonary vascular congestion. PLEURAL SPACE: No pneumothorax or pleural effusions seen. HEART: Heart again appears moderately to markedly enlarged. MEDIASTINUM: Mediastinal contour is stable in limits. BONES/JOINTS: No acute bony abnormality visualized. IMPRESSION: - Findings highly suspicious for a focal pneumonia in the left perihilar region. Short term chest radiographic followup is recommended to document clearing. - Cardiomegaly, also seen on a prior exam. - See above for remaining findings. CT scan - chest Additional comment: CHEST W/O CONTRAST Exam Date: 07/31/17 IMPRESSION: - Focal consolidation in the left upper lobe. This is suspicious for pneumonia , less likely asymmetric alveolar pulmonary edema. - Findings suspicious for mild, diffuse pulmonary vascular congestion. - Abnormal findings in the gallbladder and bile ducts, including pericholecystic fluid versus gallbladder wall thickening, biliary ductal dilatation, and a possible tiny stone in the common bile duct. Right upper quadrant ultrasound would be helpful for further evaluation. - Small amount of humaira-hepatic free fluid. - Incidental indeterminate hyperdense left renal lesion. See above recommendations. - See above for remaining findings. Assessment & Plan (1) Cellulitis Assessment and Plan: LLE cellulitis Start IV antibiotics Status: Acute (2) Pneumonia Assessment and Plan: IV antibiotics started Oxygen via NC keep O2 sat > 92% ID consult Blood culture Sputum culture Monitor in telemetry Status: Acute (3) ESRD (end stage renal disease) on dialysis Assessment and Plan: Hyperkalemia On hemodialysis Nephrology consult Received Kayexalate Phosphate Binder Status: Chronic Priority: Low (4) Diabetes mellitus Assessment and Plan: Resume home medications Status: Chronic (5) Hypertension Assessment and Plan: Resume home medications Status: Chronic Priority: Low
[2017-08-01] MEDS: Hydrocortisone 2.5% (Rectal) CREAM PR SCH ×2 (10:00→17:27)
[2017-08-01] MEDS ORDERED: Piperacillin/Tazobact 3.375 GM in Sodium Chloride 0.9% 100 ML IVPB SCH (10:00)
[2017-08-01] MEDS: Metoprolol Succinate 50 mg XL Tab PO SCH (10:02)
[2017-08-01] MEDS: Levothyroxine 75 MCG TAB PO SCH (10:02)
--- NOTE | 2017-08-01 11:45 | CARD ---
APPROVED REPORT EKG Measurement Heart [id number] <Conclusion> Sinus tachycardia Nonspecific T wave abnormality Abnormal ECG
--- NOTE | 2017-08-01 18:08 | CP.PCM.CON ---
History of Present Illness - History of Present Illness History of Present Illness: REASONS FOR CONSULT : ESRD ON HD M W D ANEMIA OF CKD .. H/H STABLE TYSON LOWER EXT EDEMA ALL PREVIOUS EMR WELL CURRENT EMR ALL REVIEWED .. PT WAS SEEN AND EXAMINED RIGHT NOW PT IS WELL KNOWN TO ME .. MY HD PT .. CAME IN WITH TYSON L E EDEMA AND SWELLING Lower Extremity Pain/Injury Time Seen by Provider: 07/31/17 18:25 Chief Complaint (Nursing): Lower Extremity Problem/Injury Chief Complaint (Provider): lower extremity pain/swelling History Per: Patient (72 y/o male h/o ESRD dialysis MWF here with lower leg extremity swelling noted with erythema left leg. Denies any fevers/chills/sob/ chest pain. Concerned for the swelling in his legs.) Past Medical History Reviewed: Historical Data, Nursing Documentation, Vital Signs Vital Signs: Last Vital Signs Temp 97.9 F 07/31/17 17:39 Pulse 118 H 07/31/17 17:39 Resp 20 07/31/17 17:39 BP 135/78 07/31/17 17:39 Pulse Ox 94 L 07/31/17 17:39 - Medical History PMH: Anemia, CHF, Diabetes, HTN, Hypercholesterolemia, Hypothyroidism, Chronic Kidney Disease (on dialysis) Denies: Arthritis, CVA, HIV, Kidney Stones - Surgical History Surgical History: Appendectomy - Family History Family History: States: Unknown Family Hx - Immunization History Hx Tetanus Toxoid Vaccination: No Hx Influenza Vaccination: Yes Hx Pneumococcal Vaccination: Yes - Home Medications Home Medications: Ambulatory Orders Medication Instructions Recorded Allopurinol [Zyloprim] 100 mg PO DAILY #30 tab 05/09/17 Levothyroxine [Synthroid] 75 mcg PO DAILY #30 tab 05/09/17 Metoprolol Succinate [Toprol XL] 50 mg PO BID #60 tab 05/09/17 SITagliptin [Januvia] 50 mg PO DAILY #30 tab 05/09/17 Aspirin [Ecotrin] 81 mg PO DAILY 06/30/17 Cilostazol [Pletal] 50 mg PO DAILY 06/30/17 Sevelamer Carbonate [Renvela] 1,600 mg PO TID 06/30/17 Levofloxacin [Levaquin] 500 mg PO DAILY #3 tablet 07/06/17 Clotrimazole/Betamethasone 30 ml TOP BID #2 bottle 07/18/17 [Lotrisone] Hydrocortisone 2.5% (Rectal) 30 applic [place] BID #1 tube 07/18/17 [Anusol-HC] - Allergies Allergies/Adverse Reactions: Past Patient History - Infectious Disease Hx of Infectious Diseases: None - Past Medical History & Family History Past Medical History?: Yes - Past Social History Smoking Status: Never Smoked - CARDIAC Hx Cardiac Disorders: Yes Hx Congestive Heart Failure: Yes Hx Hypercholesterolemia: Yes Hx Hypertension: Yes - PULMONARY Hx Respiratory Disorders: No - NEUROLOGICAL Hx Neurological Disorder: No - HEENT Hx HEENT Problems: No - RENAL Hx Chronic Kidney Disease: Yes (on dialysis) Date of Last Dialysis Treatment: 07/31/17 Hx Kidney Stones: No - ENDOCRINE/METABOLIC Hx Endocrine Disorders: No Hx Diabetes Mellitus Type 2: Yes Hx Hypothyroidism: Yes - HEMATOLOGICAL/ONCOLOGICAL Hx Blood Disorders: Yes Hx Anemia: Yes Hx Human Immunodeficiency Virus (HIV): No - INTEGUMENTARY Hx Dermatological Problems: No - MUSCULOSKELETAL/RHEUMATOLOGICAL Hx Musculoskeletal Disorders: No Hx Arthritis: No Hx Falls: No - GASTROINTESTINAL Hx Gastrointestinal Disorders: No - GENITOURINARY/GYNECOLOGICAL Hx Genitourinary Disorders: No - PSYCHIATRIC Hx Psychophysiologic Disorder: No Hx Substance Use: No - SURGICAL HISTORY Hx Surgeries: Yes Hx Appendectomy: Yes - ANESTHESIA Hx Anesthesia: Yes Hx Anesthesia Reactions: No Hx Malignant Hyperthermia: No Meds Allergies/Adverse Reactions: Allergies Allergy/AdvReac Type Severity Reaction Status Date / Time No Known Allergies Allergy Verified 07/31/17 17:39 - Medications Medications: Current Medications Allopurinol (Zyloprim) 100 mg PO DAILY [facility] Last Admin: 08/01/17 10:01 Dose: 100 mg Aspirin (Ecotrin) 81 mg PO DAILY [facility] Last Admin: 08/01/17 10:02 Dose: 81 mg Cilostazol (Pletal) 50 mg PO DAILY [facility] Last Admin: 08/01/17 10:01 Dose: 50 mg Clotrimazole (Lotrimin 1% Cream) 1 applic TOP BID [facility] Last Admin: 08/01/17 17:33 Dose: 1 appl Hydrocortisone (Anusol-Hc) 1 applic [place] BID [facility] Last Admin: 08/01/17 17:27 Dose: Not Given Azithromycin 500 mg/ Sodium (Chloride) 250 mls @ 250 mls/hr IVPB DAILY@2000 [facility] PRN Reason: Protocol Piperacillin Sod/Tazobactam (Sod 2.25 gm/ Sodium Chloride) 100 mls @ 100 mls/ hr IVPB Q8 [facility] PRN Reason: Protocol Last Admin: 08/01/17 17:26 Dose: 100 mls/hr Levothyroxine Sodium (Synthroid) 75 mcg PO DAILY@0630 [facility] Last Admin: 08/01/17 10:02 Dose: 75 mcg Metoprolol Succinate (Toprol Xl) 50 mg PO BID [facility] Last Admin: 08/01/17 10:02 Dose: 50 mg Sevelamer HCl (Renagel) 1,600 mg PO TID [facility] Last Admin: 08/01/17 17:27 Dose: 1,600 mg Sitagliptin Phosphate (Januvia) 50 mg PO DAILY [facility] Last Admin: 08/01/17 10:01 Dose: 50 mg Results - Vital Signs Recent Vital Signs: Last Vital Signs Temp 98.8 F 08/01/17 16:04 Pulse 107 H 08/01/17 16:04 Resp 16 08/01/17 16:04 BP 111/76 08/01/17 16:04 Pulse Ox 96 08/01/17 16:04 - Labs Result Diagrams: 08/01/17 07:30 07/31/17 20:25 Labs: Laboratory Results - last 24 hr 07/31/17 07/31/17 07/31/17 18:14 18:43 20:25 WBC 4.6 L RBC 4.15 L Hgb 11.5 L Hct 37.4 MCV 90.1 MCH 27.7 MCHC 30.7 L RDW 21.6 H Plt Count 120 L MPV 8.2 Neut % (Auto) 58.4 Lymph % (Auto) 21.1 [place] % (Auto) 12.8 H Eos % (Auto) 6.7 H Baso % (Auto) 1.0 Neut # (Auto) 2.7 Lymph # (Auto) 1.0 [place] # (Auto) 0.6 Eos # (Auto) 0.3 Baso # (Auto) 0.0 pO2 39 VBG pH 7.50 H VBG pCO2 53 VBG HCO3 36.6 VBG Total CO2 42.9 H VBG O2 Sat (Calc) 65.2 H VBG Base Excess 15.6 H VBG Potassium 4.5 Sodium 137.0 140 Chloride 97.0 L 94 L Glucose 131 H Lactate 1.1 FiO2 21.0 Potassium 4.7 Carbon Dioxide 34 H Anion Gap 17 BUN 37 H Creatinine 4.2 H Est GFR ( Amer) 17 Est GFR (Non-Af Amer) 14 POC Glucose (mg/dL) Random Glucose 109 Calcium 8.7 Total Bilirubin 0.9 AST 41 ALT 50 Alkaline Phosphatase 98 Total Protein 6.5 Albumin 3.3 L Globulin 3.2 Albumin/Globulin Ratio 1.0 Venous Blood Potassium 4.5 08/01/17 08/01/17 08/01/17 05:49 07:30 10:36 WBC 4.0 L RBC 4.08 L Hgb 11.3 L Hct 36.5 MCV 89.7 MCH 27.7 MCHC 30.8 L RDW 21.8 H Plt Count 105 L MPV Neut % (Auto) Lymph % (Auto) [place] % (Auto) Eos % (Auto) Baso % (Auto) Neut # (Auto) Lymph # (Auto) [place] # (Auto) Eos # (Auto) Baso # (Auto) pO2 VBG pH VBG pCO2 VBG HCO3 VBG Total CO2 VBG O2 Sat (Calc) VBG Base Excess VBG Potassium Sodium Chloride Glucose Lactate FiO2 Potassium Carbon Dioxide Anion Gap BUN Creatinine Est GFR ( Amer) Est GFR (Non-Af Amer) POC Glucose (mg/dL) 76 149 H Random Glucose Calcium Total Bilirubin AST ALT Alkaline Phosphatase Total Protein Albumin Globulin Albumin/Globulin Ratio Venous Blood Potassium 08/01/17 16:06 WBC RBC Hgb Hct MCV MCH MCHC RDW Plt Count MPV Neut % (Auto) Lymph % (Auto) [place] % (Auto) Eos % (Auto) Baso % (Auto) Neut # (Auto) Lymph # (Auto) [place] # (Auto) Eos # (Auto) Baso # (Auto) pO2 VBG pH VBG pCO2 VBG HCO3 VBG Total CO2 VBG O2 Sat (Calc) VBG Base Excess VBG Potassium Sodium Chloride Glucose Lactate FiO2 Potassium Carbon Dioxide Anion Gap BUN Creatinine Est GFR ( Amer) Est GFR (Non-Af Amer) POC Glucose (mg/dL) 134 H Random Glucose Calcium Total Bilirubin AST ALT Alkaline Phosphatase Total Protein Albumin Globulin Albumin/Globulin Ratio Venous Blood Potassium Assessment & Plan - Assessment and Plan (Free Text) Assessment: ESRD ON HD M W F .. WILL C/O SAME SCHEDULE ANEMIA OF CKD .. H/H STABLE TYSON L E EDEMA .. WAS INSTRUCTED ABOUT SALT AND FLIUD RESTRICTION MMP P : WILL C/O HD ON M W RENAL DIET .. 2 GM NA . 2 GM K . 100 GM PROTIEN . 1800 WENDY ADA .. FR 1000ML / D C/O CURRENT MEDS C/O PRESENT MANAGEMENT - Date & Time Date: 08/01/17 Time: 17:00
[2017-08-01] MEDS: Azithromycin 500 MG in Sodium Chloride 0.9% 250 ML IVPB SCH (20:34)
[2017-08-02] MEDS: Levothyroxine 75 MCG TAB PO SCH (05:36)
[2017-08-02] MEDS: Multivitamin Vitamin B Complex (Nephro-Vite) Tab PO SCH (08:26)
[2017-08-02] MEDS: Metoprolol Succinate 50 mg XL Tab PO SCH ×2 (08:27→18:29)
[2017-08-02] MEDS: Cholecalciferol 1,000 INTLU TAB PO SCH (08:28)
[2017-08-02] MEDS: Hydrocortisone 2.5% (Rectal) CREAM PR SCH ×2 (08:31→17:28)
[2017-08-02] MEDS: Pantoprazole 40 mg EC Tab PO SCH (18:30)
--- NOTE | 2017-08-02 19:05 | CP.PCM.PN ---
Subjective - Date & Time of Evaluation Date of Evaluation: 08/02/17 Time of Evaluation: 18:00 - Subjective Subjective: SEEN ON RENAL F/U FEELS BETTER FOR HD IN AM ON IVAB FOR INFECTION LABS ALL REVIEWED Objective - Vital Signs/Intake and Output Vital Signs (last 24 hours): Temp Pulse Resp BP Pulse Ox 97 F L 87 18 100/68 100 08/02/17 16:29 08/02/17 18:29 08/02/17 16:29 08/02/17 18:29 08/02/17 16:29 - Medications Medications: Current Medications Allopurinol (Zyloprim) 100 mg PO DAILY [facility] Last Admin: 08/02/17 08:28 Dose: 100 mg Aspirin (Ecotrin) 81 mg PO DAILY [facility] Last Admin: 08/02/17 08:26 Dose: 81 mg Cholecalciferol (Vitamin D) 2,000 intlu PO DAILY [facility] Last Admin: 08/02/17 08:28 Dose: 2,000 intlu Clotrimazole (Lotrimin 1% Cream) 1 applic TOP BID [facility] Last Admin: 08/02/17 17:28 Dose: 1 appl Hydrocortisone (Anusol-Hc) 1 applic [place] BID [facility] Last Admin: 08/02/17 17:28 Dose: 1 applic Azithromycin 500 mg/ Sodium (Chloride) 250 mls @ 250 mls/hr IVPB DAILY@2000 [facility] PRN Reason: Protocol Last Admin: 08/01/17 20:34 Dose: 250 mls/hr Piperacillin Sod/Tazobactam (Sod 2.25 gm/ Sodium Chloride) 100 mls @ 100 mls/ hr IVPB Q8 [facility] PRN Reason: Protocol Last Admin: 08/02/17 17:27 Dose: 100 mls/hr Levothyroxine Sodium (Synthroid) 75 mcg PO DAILY@0630 [facility] Last Admin: 08/02/17 05:36 Dose: 75 mcg Metoclopramide HCl (Reglan) 5 mg IVP Q6 PRN PRN Reason: Nausea/Vomiting Last Admin: 08/02/17 18:26 Dose: 5 mg Metoprolol Succinate (Toprol Xl) 50 mg PO BID [facility] Last Admin: 08/02/17 18:29 Dose: 50 mg Pantoprazole Sodium (Protonix Ec Tab) 40 mg PO DAILY [facility] Last Admin: 08/02/17 18:30 Dose: 40 mg Sevelamer HCl (Renagel) 1,600 mg PO TID [facility] Last Admin: 08/02/17 17:28 Dose: Not Given Sitagliptin Phosphate (Januvia) 50 mg PO DAILY [facility] Last Admin: 08/02/17 08:26 Dose: 50 mg Torsemide (Demadex) 100 mg PO DAILY [facility] Last Admin: 08/02/17 08:27 Dose: 100 mg Vitamin B Complex/Vit C/Folic Acid (Nephro-Naima) 1 tab PO DAILY [facility] Last Admin: 08/02/17 08:26 Dose: 1 tab - Labs Labs: 08/01/17 07:30 07/31/17 20:25 Assessment and Plan - Assessment and Plan (Free Text) Assessment: ESRD ON HD M W F .. FOR HD IN AM ANEMIA OF CKD .. H/H STABLE NO NEED FOR EPO EDEMA ON TYSON LE .. WILL REMOVE MORE FLIUD IN AM ON HD SEPSIS ON IVAB P : HD IN AM C/O CURRENT CARE C/O PRESENT MANAGEMENT
[2017-08-02] MEDS: Azithromycin 500 MG in Sodium Chloride 0.9% 250 ML IVPB SCH (22:28)
--- NOTE | 2017-08-02 22:29 | CP.PCM.PN ---
Subjective - Date & Time of Evaluation Date of Evaluation: 08/02/17 Time of Evaluation: 11:55 - Subjective Subjective: Feels slightly better. Has swelling on LE and redness LLE Denies fever or chills Objective - Vital Signs/Intake and Output Vital Signs (last 24 hours): Temp Pulse Resp BP Pulse Ox 97.4 F L 83 20 104/69 97 08/02/17 19:17 08/02/17 19:17 08/02/17 19:17 08/02/17 19:17 08/02/17 19:17 - Medications Medications: Current Medications Allopurinol (Zyloprim) 100 mg PO DAILY [facility] Last Admin: 08/02/17 08:28 Dose: 100 mg Aspirin (Ecotrin) 81 mg PO DAILY [facility] Last Admin: 08/02/17 08:26 Dose: 81 mg Cholecalciferol (Vitamin D) 2,000 intlu PO DAILY [facility] Last Admin: 08/02/17 08:28 Dose: 2,000 intlu Clotrimazole (Lotrimin 1% Cream) 1 applic TOP BID [facility] Last Admin: 08/02/17 17:28 Dose: 1 appl Hydrocortisone (Anusol-Hc) 1 applic [place] BID [facility] Last Admin: 08/02/17 17:28 Dose: 1 applic Azithromycin 500 mg/ Sodium (Chloride) 250 mls @ 250 mls/hr IVPB DAILY@2000 [facility] PRN Reason: Protocol Last Admin: 08/01/17 20:34 Dose: 250 mls/hr Piperacillin Sod/Tazobactam (Sod 2.25 gm/ Sodium Chloride) 100 mls @ 100 mls/ hr IVPB Q8 [facility] PRN Reason: Protocol Last Admin: 08/02/17 17:27 Dose: 100 mls/hr Levothyroxine Sodium (Synthroid) 75 mcg PO DAILY@0630 [facility] Last Admin: 08/02/17 05:36 Dose: 75 mcg Metoclopramide HCl (Reglan) 5 mg IVP Q6 PRN PRN Reason: Nausea/Vomiting Last Admin: 08/02/17 18:26 Dose: 5 mg Metoprolol Succinate (Toprol Xl) 50 mg PO BID [facility] Last Admin: 08/02/17 18:29 Dose: 50 mg Pantoprazole Sodium (Protonix Ec Tab) 40 mg PO DAILY [facility] Last Admin: 08/02/17 18:30 Dose: 40 mg Sevelamer HCl (Renagel) 1,600 mg PO TID [facility] Last Admin: 08/02/17 17:28 Dose: Not Given Sitagliptin Phosphate (Januvia) 50 mg PO DAILY [facility] Last Admin: 08/02/17 08:26 Dose: 50 mg Torsemide (Demadex) 100 mg PO DAILY [facility] Last Admin: 08/02/17 08:27 Dose: 100 mg Vitamin B Complex/Vit C/Folic Acid (Nephro-Naima) 1 tab PO DAILY [facility] Last Admin: 08/02/17 08:26 Dose: 1 tab - Labs Labs: 08/01/17 07:30 07/31/17 20:25 - Constitutional Appears: Well, No Acute Distress - Head Exam Head Exam: ATRAUMATIC - Respiratory Exam Respiratory Exam: Decreased Breath Sounds, Rales (bilateral) - Cardiovascular Exam Cardiovascular Exam: REGULAR RHYTHM, +S1, +S2 - GI/Abdominal Exam GI & Abdominal Exam: Soft, Normal Bowel Sounds - Neurological Exam Neurological Exam: Alert, Oriented x3 - Psychiatric Exam Psychiatric exam: Normal Affect - Skin Skin Exam: Normal Color, Warm Assessment and Plan (1) Cellulitis Assessment & Plan: On IV antibiotics Status: Acute (2) Pneumonia Assessment & Plan: On IV antibiotics Oxygen via NC keep O2 sat > 92% ID consult Blood culture Sputum culture Monitor in telemetry Status: Acute (3) ESRD (end stage renal disease) on dialysis Assessment & Plan: On hemodialysis Nephro consult appreciated Status: Chronic (4) Diabetes mellitus Assessment & Plan: On medications continue current treatment Status: Chronic (5) Hypertension Assessment & Plan: continue current medications Status: Chronic
[2017-08-03] MEDS ORDERED: guaiFENesin DM 200 mg-20 mg/10 ml UD PO ONE (05:29)
[2017-08-03] MEDS: Levothyroxine 75 MCG TAB PO SCH (05:51)
[2017-08-03] MEDS: Metoprolol Succinate 50 mg XL Tab PO SCH (09:02)
[2017-08-03] MEDS: Hydrocortisone 2.5% (Rectal) CREAM PR SCH ×2 (09:04→17:50)
[2017-08-03] MEDS: Multivitamin Vitamin B Complex (Nephro-Vite) Tab PO SCH (09:05)
[2017-08-03] MEDS: Cholecalciferol 1,000 INTLU TAB PO SCH (09:05)
[2017-08-03] MEDS: Pantoprazole 40 mg EC Tab PO SCH (09:06)
[2017-08-03 10:12] LABS: HEMOGLOBIN 10.9 g/dL (12.0-18.0); MEAN CELL VOLUME 89.4 fl (80.0-94.0); MEAN CORPUSCULAR HEMOGLOBIN 27.9 pg (27.0-31.0); MEAN CORPUSCULAR HGB CONC 31.2 g/dL (33.0-37.0); RBC 3.92 Mil/uL (4.40-5.90); RED CELL DISTRIBUTION WIDTH 21.2 % (11.5-14.5); WHITE BLOOD COUNT 5.5 K/uL (4.8-10.8)
[2017-08-03 10:34] LABS: CALCIUM 7.8 mg/dL (8.4-10.2)
--- NOTE | 2017-08-03 18:15 | CP.PCM.PN ---
Subjective - Date & Time of Evaluation Date of Evaluation: 08/03/17 Time of Evaluation: 18:00 - Subjective Subjective: SEEN ON RENAL F/U SEEN ON HD .. UF OD 4 L SONJA FEELS IMPROVED K CAME BACK 6.7 VERY HIGH Objective - Vital Signs/Intake and Output Vital Signs (last 24 hours): Temp Pulse Resp BP Pulse Ox 97.4 F L 81 18 111/75 97 08/03/17 15:37 08/03/17 15:37 08/03/17 15:37 08/03/17 15:37 08/03/17 15:37 - Medications Medications: Current Medications Allopurinol (Zyloprim) 100 mg PO DAILY [facility] Last Admin: 08/03/17 09:06 Dose: 100 mg Aspirin (Ecotrin) 81 mg PO DAILY [facility] Last Admin: 08/03/17 09:05 Dose: 81 mg Cholecalciferol (Vitamin D) 2,000 intlu PO DAILY [facility] Last Admin: 08/03/17 09:05 Dose: 2,000 intlu Clotrimazole (Lotrimin 1% Cream) 1 applic TOP BID [facility] Last Admin: 08/03/17 09:04 Dose: 1 appl Hydrocortisone (Anusol-Hc) 1 applic [place] BID [facility] Last Admin: 08/03/17 09:04 Dose: 1 applic Azithromycin 500 mg/ Sodium (Chloride) 250 mls @ 250 mls/hr IVPB DAILY@2000 [facility] PRN Reason: Protocol Last Admin: 08/02/17 22:28 Dose: 250 mls/hr Piperacillin Sod/Tazobactam (Sod 2.25 gm/ Sodium Chloride) 100 mls @ 100 mls/ hr IVPB Q8 [facility] PRN Reason: Protocol Last Admin: 08/03/17 09:04 Dose: 100 mls/hr Levothyroxine Sodium (Synthroid) 75 mcg PO DAILY@0630 [facility] Last Admin: 08/03/17 05:51 Dose: 75 mcg Metoclopramide HCl (Reglan) 5 mg IVP Q6 PRN PRN Reason: Nausea/Vomiting Last Admin: 08/02/17 18:26 Dose: 5 mg Metoprolol Succinate (Toprol Xl) 50 mg PO BID [facility] Last Admin: 08/03/17 09:02 Dose: Not Given Pantoprazole Sodium (Protonix Ec Tab) 40 mg PO DAILY [facility] Last Admin: 08/03/17 09:06 Dose: 40 mg Sevelamer HCl (Renagel) 1,600 mg PO TID [facility] Last Admin: 08/03/17 13:11 Dose: 1,600 mg Sitagliptin Phosphate (Januvia) 50 mg PO DAILY [facility] Last Admin: 08/03/17 09:05 Dose: 50 mg Torsemide (Demadex) 100 mg PO DAILY [facility] Last Admin: 08/03/17 09:02 Dose: Not Given Vitamin B Complex/Vit C/Folic Acid (Nephro-Naima) 1 tab PO DAILY [facility] Last Admin: 08/03/17 09:05 Dose: 1 tab - Labs Labs: 08/03/17 10:00 08/03/17 10:00 Assessment and Plan - Assessment and Plan (Free Text) Assessment: ESRD ON HD M W F .. HD NOW WITH UF OF 4 L HYPERKALEMIA .. K 6.7 ANEMIA OF CKD .. H/H STABLE SEPSIS MMP P : HD RIGHT NOW .. UF 4 L .. 1 K BATH C/O CURRENT MEDS C/O PRESENT MANAGEMENT RENAL AND DIABETIC DIET .. 2 GM NA .. 2 GM K .. 1800 WENDY ADA .. FR 1.5 L / D D/W PT ABOUT RENAL DIET AND JORDAN FR AND K RESTRICTION
--- NOTE | 2017-08-03 19:25 | CP.PCM.PN ---
Subjective - Date & Time of Evaluation Date of Evaluation: 08/03/17 Time of Evaluation: 19:23 - Subjective Subjective: Sen and examined at the bed side. HD in Progress. Feels a little better today. The swelling and erythema on the leg has improved.. Cough is better. Denies fever or chills Objective - Vital Signs/Intake and Output Vital Signs (last 24 hours): Temp Pulse Resp BP Pulse Ox 97.4 F L 81 18 111/75 97 08/03/17 15:37 08/03/17 15:37 08/03/17 15:37 08/03/17 15:37 08/03/17 15:37 - Medications Medications: Current Medications Allopurinol (Zyloprim) 100 mg PO DAILY [facility] Last Admin: 08/03/17 09:06 Dose: 100 mg Aspirin (Ecotrin) 81 mg PO DAILY [facility] Last Admin: 08/03/17 09:05 Dose: 81 mg Cholecalciferol (Vitamin D) 2,000 intlu PO DAILY [facility] Last Admin: 08/03/17 09:05 Dose: 2,000 intlu Clotrimazole (Lotrimin 1% Cream) 1 applic TOP BID [facility] Last Admin: 08/03/17 18:40 Dose: Not Given Hydrocortisone (Anusol-Hc) 1 applic SD BID [facility] Last Admin: 08/03/17 17:50 Dose: Not Given Azithromycin 500 mg/ Sodium (Chloride) 250 mls @ 250 mls/hr IVPB DAILY@2000 [facility] PRN Reason: Protocol Last Admin: 08/02/17 22:28 Dose: 250 mls/hr Piperacillin Sod/Tazobactam (Sod 2.25 gm/ Sodium Chloride) 100 mls @ 100 mls/ hr IVPB Q8 [facility] PRN Reason: Protocol Last Admin: 08/03/17 18:40 Dose: Not Given Levothyroxine Sodium (Synthroid) 75 mcg PO DAILY@0630 [facility] Last Admin: 08/03/17 05:51 Dose: 75 mcg Metoclopramide HCl (Reglan) 5 mg IVP Q6 PRN PRN Reason: Nausea/Vomiting Last Admin: 08/02/17 18:26 Dose: 5 mg Metoprolol Succinate (Toprol Xl) 50 mg PO BID [facility] Last Admin: 08/03/17 09:02 Dose: Not Given Pantoprazole Sodium (Protonix Ec Tab) 40 mg PO DAILY [facility] Last Admin: 08/03/17 09:06 Dose: 40 mg Sevelamer HCl (Renagel) 1,600 mg PO TID [facility] Last Admin: 08/03/17 18:40 Dose: Not Given Sitagliptin Phosphate (Januvia) 50 mg PO DAILY [facility] Last Admin: 08/03/17 09:05 Dose: 50 mg Torsemide (Demadex) 100 mg PO DAILY [facility] Last Admin: 08/03/17 09:02 Dose: Not Given Vitamin B Complex/Vit C/Folic Acid (Nephro-Niama) 1 tab PO DAILY [facility] Last Admin: 08/03/17 09:05 Dose: 1 tab - Labs Labs: 08/03/17 10:00 08/03/17 10:00 - Constitutional Appears: Well, No Acute Distress - Head Exam Head Exam: ATRAUMATIC - Respiratory Exam Respiratory Exam: Decreased Breath Sounds, Rales (bilateral), NORMAL BREATHING PATTERN - Cardiovascular Exam Cardiovascular Exam: REGULAR RHYTHM, +S1, +S2 - GI/Abdominal Exam GI & Abdominal Exam: Soft, Normal Bowel Sounds - Neurological Exam Neurological Exam: Alert, Oriented x3 - Psychiatric Exam Psychiatric exam: Normal Affect - Skin Skin Exam: Normal Color, Warm Assessment and Plan (1) Cellulitis Assessment & Plan: On antibiotics Status: Acute (2) Pneumonia Assessment & Plan: On IV antibiotics O2 via NC, maintain O2>92% F/u cultures Monitor labs Status: Acute (3) ESRD (end stage renal disease) on dialysis Assessment & Plan: On HD treatments Nephrology on board Status: Chronic (4) Diabetes mellitus Assessment & Plan: Continue medications Status: Chronic (5) Hypertension Assessment & Plan: On medications Status: Chronic
[2017-08-03] MEDS: Azithromycin 500 MG in Sodium Chloride 0.9% 250 ML IVPB SCH (22:16)
[2017-08-04 00:21] VITALS: RESP 18
[2017-08-04] MEDS: Multivitamin Vitamin B Complex (Nephro-Vite) Tab PO SCH (08:57)
[2017-08-04] MEDS: Hydrocortisone 2.5% (Rectal) CREAM PR SCH (08:57)
[2017-08-04] MEDS: Cholecalciferol 1,000 INTLU TAB PO SCH (08:58)
[2017-08-04] MEDS: Pantoprazole 40 mg EC Tab PO SCH (08:58)
[2017-08-04] MEDS: Metoprolol Succinate 50 mg XL Tab PO SCH (08:58)
--- NOTE | 2017-08-04 11:08 | RAD ---
HISTORY: COMPARISON: 07/31/2017. TECHNIQUE: Chest PA and lateral FINDINGS: LINES AND TUBES: None. LUNG AND PLEURA: There is interval near complete resolution of left upper lobe pneumonia. There is mild pulmonary venous congestion. HEART AND MEDIASTINUM: There is persistent mild cardiomegaly. The hilar and mediastinal contours are within normal limits. SKELETAL STRUCTURES: The bony structures are within normal limits for the patient's age. VISUALIZED UPPER ABDOMEN: Normal. OTHER FINDINGS: None. IMPRESSION: Interval near complete resolution of left upper lobe pneumonia.
[2017-08-04 11:13] LABS: CALCIUM 8.6 mg/dL (8.4-10.2)
[2017-08-04 12:19] VITALS: BP 113/76; PULSE 99; TEMP 97.4; O2SAT 100
--- NOTE | 2017-08-04 18:22 | CP.PCM.PN ---
Subjective - Date & Time of Evaluation Date of Evaluation: 08/04/17 Time of Evaluation: 10:00 - Subjective Subjective: SEEN ON RENAL F/U HAD HD YESTERDAY .. FEELS MUCH BETER D/W PMD .. CLEAR FOR D/C FROM RENAL STANDPOINT Objective - Vital Signs/Intake and Output Vital Signs (last 24 hours): Temp Pulse Resp BP Pulse Ox 97.4 F L 99 H 18 113/76 100 08/04/17 12:18 08/04/17 12:18 08/04/17 12:18 08/04/17 12:18 08/04/17 12:18 - Labs Labs: 08/03/17 10:00 08/04/17 10:00 Assessment and Plan - Assessment and Plan (Free Text) Assessment: ESRD ON HD M W F .. HAD HD YESTERDAY HYPERKALEMIA .. HAD HD YESTERDAY ANEMIA OF CKD .. H/H STABLE CELLULITIS ,, PNA .. BETTER MMP P : CLEAR FOR D/C TO C/O CURRENT CARE Plan: ESRD ON HD M W F ANEMIA OF CKD ..H/H STABLE HYPERKALEMIA ..HAD HD YESTERDAY MMP P : PT IS CLEAR FOR D/C FROM RENAL STAND POINT WILL F/U AN OUT PT TO C/O CURRENT MEDS
--- NOTE | 2017-08-04 22:58 | CP.PCM.DIS ---
Provider - Provider Date of Admission: 07/31/17 23:24 Attending physician: Duc Hartley MD Time Spent in preparation of Discharge (in minutes): 25 Diagnosis - Discharge Diagnosis (1) Cellulitis Status: Acute (2) Pneumonia Status: Acute (3) ESRD (end stage renal disease) on dialysis Status: Chronic Priority: Low (4) Diabetes mellitus Status: Chronic (5) Hypertension Status: Chronic Priority: Low Hospital Course - Lab Results Lab Results: Micro Results 07/31/17 18:14 Blood Blood Culture - Preliminary NO GROWTH AFTER 4 DAYS Most Recent Lab Values WBC 5.5 K/uL (4.8-10.8) 08/03/17 10:00 RBC 3.92 Mil/uL (4.40-5.90) L 08/03/17 10:00 Hgb 10.9 g/dL (12.0-18.0) L 08/03/17 10:00 Hct 35.0 % (35.0-51.0) 08/03/17 10:00 MCV 89.4 fl (80.0-94.0) 08/03/17 10:00 MCH 27.9 pg (27.0-31.0) 08/03/17 10:00 MCHC 31.2 g/dL (33.0-37.0) L 08/03/17 10:00 RDW 21.2 % (11.5-14.5) H 08/03/17 10:00 Plt Count 90 K/uL (130-400) L 08/03/17 10:00 MPV 8.2 fl (7.2-11.7) 07/31/17 18:14 Neut % (Auto) 58.4 % (50.0-75.0) 07/31/17 18:14 Lymph % (Auto) 21.1 % (20.0-40.0) 07/31/17 18:14 [place] % (Auto) 12.8 % (0.0-10.0) H 07/31/17 18:14 Eos % (Auto) 6.7 % (0.0-4.0) H 07/31/17 18:14 Baso % (Auto) 1.0 % (0.0-2.0) 07/31/17 18:14 Neut # (Auto) 2.7 K/uL (1.8-7.0) 07/31/17 18:14 Lymph # (Auto) 1.0 K/uL (1.0-4.3) 07/31/17 18:14 [place] # (Auto) 0.6 K/uL (0.0-0.8) 07/31/17 18:14 Eos # (Auto) 0.3 K/uL (0.0-0.7) 07/31/17 18:14 Baso # (Auto) 0.0 K/uL (0.0-0.2) 07/31/17 18:14 pO2 39 mm/Hg (30-55) 07/31/17 18:43 VBG pH 7.50 (7.32-7.43) H 07/31/17 18:43 VBG pCO2 53 mmHg (40-60) 07/31/17 18:43 VBG HCO3 36.6 mmol/L 07/31/17 18:43 VBG Total CO2 42.9 mmol/L (22-28) H 07/31/17 18:43 VBG O2 Sat (Calc) 65.2 % (40-65) H 07/31/17 18:43 VBG Base Excess 15.6 mmol/L (0.0-2.0) H 07/31/17 18:43 VBG Potassium 4.5 mmol/L (3.6-5.2) 07/31/17 18:43 Sodium 137.0 mmol/L (132-148) 07/31/17 18:43 Chloride 97.0 mmol/L (98-107) L 07/31/17 18:43 Glucose 131 mg/dL (75-110) H 07/31/17 18:43 Lactate 1.1 mmol/L (0.7-2.1) 07/31/17 18:43 FiO2 21.0 % 07/31/17 18:43 Sodium 137 mmol/l (132-148) 08/04/17 10:00 Potassium 4.9 MMOL/L (3.6-5.0) 08/04/17 10:00 Chloride 94 mmol/L (98-107) L 08/04/17 10:00 Carbon Dioxide 28 mmol/L (22-30) 08/04/17 10:00 Anion Gap 20 (10-20) 08/04/17 10:00 BUN 51 mg/dl (9-20) H 08/04/17 10:00 Creatinine 7.1 mg/dl (0.8-1.5) H 08/04/17 10:00 Est GFR ( Amer) 9 08/04/17 10:00 Est GFR (Non-Af Amer) 8 08/04/17 10:00 POC Glucose (mg/dL) 86 mg/dL (65-110) 08/04/17 10:58 Random Glucose 91 mg/dL (75-110) 08/04/17 10:00 Calcium 8.6 mg/dL (8.4-10.2) 08/04/17 10:00 Phosphorus 4.8 mg/dl (2.5-4.5) H 08/01/17 15:00 Total Bilirubin 0.9 mg/dl (0.2-1.3) 07/31/17 20:25 AST 41 U/L (17-59) 07/31/17 20:25 ALT 50 U/L (21-72) 07/31/17 20:25 Alkaline Phosphatase 98 U/L (38-126) 07/31/17 20:25 Total Protein 6.5 G/DL (6.3-8.2) 07/31/17 20:25 Albumin 3.3 g/dL (3.5-5.0) L 07/31/17 20:25 Globulin 3.2 gm/dL (2.2-3.9) 07/31/17 20:25 Albumin/Globulin Ratio 1.0 (1.0-2.1) 07/31/17 20:25 25-OH Vitamin D Total 61.7 NG/ML (30.0-100.0) 08/01/17 19:48 PTH Intact Whole Molec 152 pg/mL (14-64) H 08/01/17 19:48 Venous Blood Potassium 4.5 mmol/L (3.6-5.2) 07/31/17 18:43 - Hospital Course Hospital Course: A 72 year old male with multiple medical problems including ESRD on HD, Anemia, CHF, DM, HTN, HL who came in for lower extremities swelling and was found to have cellulitis and pneumonia. The patient was treated with antibiotics and did well. The patient also received his scheduled dialysis treatments. The patient was discharged home today on oral antibiotics and outpatient follow up. Discharge Exam - Head Exam Head Exam: ATRAUMATIC - Respiratory Exam Respiratory Exam: Clear to PA & Lateral, NORMAL BREATHING PATTERN - Cardiovascular Exam Cardiovascular Exam: REGULAR RHYTHM, +S1, +S2 - GI/Abdominal Exam GI & Abdominal Exam: Normal Bowel Sounds, Soft - Neurological Exam Neurological exam: Alert, Oriented x3 - Psychiatric Exam Psychiatric exam: Normal Affect, Normal Mood - Skin Skin Exam: Normal Color, Warm Discharge Plan - Discharge Medications Prescriptions: Levofloxacin [Levaquin] 500 mg PO QOTHERDAY #3 tablet - Follow Up Plan Condition: STABLE Disposition: HOME/ ROUTINE Instructions: Pneumonia, Adult (DC), Cellulitis (Skin Infection), Adult (DC), Cellulitis (DC), Cellulitis (GEN), Renal Failure Diet (DC) Referrals: Le Santana MD [Staff Provider] - Duc Hartley MD [Staff Provider] -
--- NOTE | 2017-08-06 09:24 | PQF SEPSIS ---
Dr. Naeem hope notes dated 08/02 and 08/[address] Santana document sepsis. After study was pt treated for a diagnosis of sepsis? This form is a permanent part of the medical record Clarification of your documentation is requested to better reflect the severity of illness and intensity of treatment of your patient. Indicators present [] Temp < 96.8 or > 100.4 [] WBC count > 12,000/mm3 or <000/mm3 or 10% immature neutrophils [] Heart Rate > 90 [] Respiratory Rate > 20 [] Fever or hypothermia [] Chills [] Positive blood cultures [] Hypotension [] Metabolic acidosis (Elevated lactate level, anion gap or reduced blood pH) [] Acute confusion /Altered Mental Status [] Shock [] Other: [] Location in the medical record that reflects the above clinical findings: [] Treatment Provided: [] PHYSICIAN'S RESPONSE Based on your medical judgment of the clinical indicators outlined above, are you treating this patient for a known or suspected: [] Sepsis / Septicemia Please specify organism if known [] [] SIRS (Systemic Inflammatory Response Syndrome) [] Severe Sepsis (Sepsis with Associated Organ Dysfunction) [] Fever of Unknown Origin [] Other, please indicate: [] [] If Unable to Determine, please check the box, sign and date. Present On Admission (POA) Indicator: [] Present at the time of admission [] Not present at the time of admission [] Clinically Undetermined In responding to this query, please exercise your independent professional judgment. The fact that a question is asked does not imply that any particular answer is desired or expected. Thank you for your clarification on this documentation. If you have any questions please call:[ ] * Thank you, [ ]Wen Dumont mandolin repairer [employer]
== END 2017-08-04 13:44 | disposition home or self-care (01) | DRG 602 ==
LOC: H.ER 17:12 → H.ERHOLD 23:24 → H.TEL 08-01 01:32
PROVIDERS: ADMIT Internal Medicine; ATTEND Internal Medicine
PROC: 5A1D70Z Performance of Urinary Filtration, Intermittent, Less than 6 Hours Per Day (ICD-10-PCS; principal; 2017-08-03)
DX: L03.116 Cellulitis of left lower limb (principal); N18.6 End stage renal disease; J18.9 Pneumonia, unspecified organism; I13.2 Hypertensive heart and chronic kidney disease with heart failure and with stage 5 chronic kidney disease, or end stage renal disease; D63.1 Anemia in chronic kidney disease; E03.9 Hypothyroidism, unspecified; E11.22 Type 2 diabetes mellitus with diabetic chronic kidney disease; E78.00 Pure hypercholesterolemia, unspecified; E87.5 Hyperkalemia; I50.9 Heart failure, unspecified; Z99.2 Dependence on renal dialysis

== ENCOUNTER 2017-08-08 13:29 | Emergency (ER) | payer OTHER ==
[2017-08-08 13:30] VITALS: BMI 27.4
[2017-08-08 13:43] VITALS: TEMP 98
[2017-08-08 14:50] VITALS: BP 128/73; PULSE 91; RESP 15; O2SAT 98
--- NOTE | 2017-08-08 15:39 | ED PDOC ---
Lower Extremity Pain/Injury Time Seen by Provider: 08/08/17 14:07 Chief Complaint (Nursing): Lower Extremity Problem/Injury Chief Complaint (Provider): lower extremity edema History Per: Patient History/Exam Limitations: no limitations Onset/Duration Of Symptoms: Days (2x) Additional Complaint(s): 72 year old male presents to the ED complaining of lower extremity edema which he has had prior and is not new. Patient was recently admitted for swelling and redness on his legs, but was discharged with antibiotic - levaquin, which he is currently taking. Patient is currently present in the ED because he does not know where to follow-up. Denies chest pain, shortness of breath, dyspnea, orthopnea, headache, dizziness, fever, numbness or weakness, N/V, trauma or injury. PMD: [facility] Past Medical History Reviewed: Historical Data, Nursing Documentation, Vital Signs Vital Signs: Last Vital Signs Temp 98 F 08/08/17 14:49 Pulse 91 H 08/08/17 14:49 Resp 15 08/08/17 14:49 BP 128/73 08/08/17 14:49 Pulse Ox 98 08/08/17 14:49 - Medical History PMH: Anemia, CHF, Diabetes, HTN, Hypercholesterolemia, Hypothyroidism, Chronic Kidney Disease (on dialysis) Denies: Arthritis, CVA, HIV, Kidney Stones - Surgical History Surgical History: Appendectomy - Family History Family History: States: Unknown Family Hx - Social History Current smoker - smoking cessation education provided: No Alcohol: None Drugs: Denies - Immunization History Hx Tetanus Toxoid Vaccination: No Hx Influenza Vaccination: Yes Hx Pneumococcal Vaccination: Yes - Home Medications Home Medications: Ambulatory Orders Medication Instructions Recorded Allopurinol [Zyloprim] 100 mg PO DAILY #30 tab 05/09/17 Levothyroxine [Synthroid] 75 mcg PO DAILY #30 tab 05/09/17 Metoprolol Succinate [Toprol XL] 50 mg PO BID #60 tab 05/09/17 SITagliptin [Januvia] 50 mg PO DAILY #30 tab 05/09/17 Aspirin [Ecotrin] 81 mg PO DAILY 06/30/17 Cilostazol [Pletal] 50 mg PO DAILY 06/30/17 Sevelamer Carbonate [Renvela] 1,600 mg PO TID 06/30/17 Clotrimazole/Betamethasone 30 ml TOP BID #2 bottle 07/18/17 [Lotrisone] Hydrocortisone 2.5% (Rectal) 30 applic ME BID #1 tube 07/18/17 [Anusol-HC] Levofloxacin [Levaquin] 500 mg PO QOTHERDAY #3 tablet 08/04/17 - Allergies Allergies/Adverse Reactions: Allergies Allergy/AdvReac Type Severity Reaction Status Date / Time No Known Allergies Allergy Verified 07/31/17 17:39 Review of Systems ROS Statement: Except As Marked, All Systems Reviewed And Found Negative Constitutional: Negative for: Fever Cardiovascular: Negative for: Chest Pain Respiratory: Negative for: Shortness of Breath Musculoskeletal: Positive for: Other (lower extremity edema ) Neurological: Negative for: Weakness, Numbness Physical Exam - Physical Exam Comments: GENERAL APPEARANCE: Patient is awake, alert, oriented x 3, in no acute distress. Arrived to the ER ambulatory. SKIN: Warm, dry; (-) cyanosis. EYES: (-) conjunctival pallor. ENMT: Mucous membranes moist. NECK: (-) tenderness, (-) stiffness, (-) lymphadenopathy, (-) JVD. CHEST AND RESPIRATORY: Lungs: (-) rales, (-) rhonchi, (-) wheezes, (-) rub; breath sounds equal bilaterally. HEART AND CARDIOVASCULAR: (-) irregularity; (-) murmur, (-) gallop, (-) rub. ABDOMEN AND GI: Soft; (-) distention, (-) tenderness, (-) palpable pulsatile mass. EXTREMITIES: (-) deformity; (+) venous stasis dermatitis to the anterior bilateral shins, (-) hot to touch, (+) distal pulses 2+, (+) normal capillary refill, (+) non pitting edema from shins to foot bilaterally. NEURO AND PSYCH: Mental status as above. Cranial nerves grossly intact; strength symmetric. - ECG O2 Sat by Pulse Oximetry: 98 (RA) Pulse Ox Interpretation: Normal Medical Decision Making Medical Decision Making: Time: 1407 Initial Plan: --Evaluation Previous medical records reviewed, on 07/31/17 patient was admitted for cellulitis, pneumonia, end-stage renal disease on dialysis. During his admission he received dialysis Thursday and Thursday, an ultrasound was performed which showed no DVT, he was also treated with IV antibiotics for his cellulitis and pneumonia, on discharge 08/04/17 he was given a prescription for Levaquin. Patient's recent admission and diagnostics performed during his admission were discussed with the patient. He admits to having HD yesterday otherwise no additional complaints. Advised to continue Levaquin which was the prescription upon discharge and advised that he needs to follow-up with clinic. Information regarding clinic was provided to the patient. Advised to follow up with the clinic in 1-2 days without fail. Advised to take levaquin as prescribed. Return to the emergency room at any time for any new or worsening symptoms. Patient states he fully agrees with and understands discharge instructions. States that he agrees with the plan and disposition. Verbalized and repeated discharge instructions and plan. I have given the patient opportunity to ask any additional questions. Scribe Attestation: Documented by Vanessa Valencia, acting as a scribe for Bee Read PA-C Provider Scribe Attestation: All medical record entries made by the Scribe were at my direction and personally dictated by me. I have reviewed the chart and agree that the record accurately reflects my personal performance of the history, physical exam, medical decision making, and the department course for this patient. I have also personally directed, reviewed, and agree with the discharge instructions and disposition. Disposition - Clinical Impression Clinical Impression: Leg edema - Patient ED Disposition Is Patient to be Admitted: No Counseled Patient/Family Regarding: Need For Followup - Disposition Referrals: [facility] [Outside] Disposition: Routine/Home Disposition Time: 14:30 Condition: STABLE Additional Instructions: Thank you for letting us take care of you today. You were treated for bilateral leg edema. The emergency medical care you received today was directed at your acute symptoms. Continue taking your antibiotics, keep her legs elevated, and wear compression socks. It may take several days for your symptoms to resolve. Return to the Emergency Department if your symptoms worsen, do not improve, or if you have any other problems. Please contact the clinic in 1-2 days for further evaluation and follow up. Bring any paperwork you were given at discharge with you along with any medications you are taking to your follow up visit. Our treatment cannot replace ongoing medical care by a primary care provider (PCP) outside of the emergency department. Thank you for allowing the [email or web address] team to be part of your care today. Instructions: Dependent Edema (DC) Forms: [employer] (Angolan) Print Language: CZECH - PA / FLOOR MANAGER / Resident Statement MD/DO has reviewed & agrees with the documentation as recorded.
== END 2017-08-08 14:50 | disposition home or self-care (01) ==
LOC: H.ER 13:29
DX: R60.0 Localized edema (principal); E03.9 Hypothyroidism, unspecified; E78.00 Pure hypercholesterolemia, unspecified; I50.9 Heart failure, unspecified; N18.6 End stage renal disease; Z79.82 Long term (current) use of aspirin; Z99.2 Dependence on renal dialysis

== ENCOUNTER 2017-08-14 18:55 | Emergency (ER) | payer OTHER ==
[2017-08-14 18:56] VITALS: BMI 27.4
[2017-08-14 20:04] VITALS: RESP 18
--- NOTE | 2017-08-14 21:35 | ED PDOC ---
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 states he's had non-painful swelling to both his legs x 2 months. Reports swelling has been constant. States he was admitted into the hospital last month for same problem but no relief in symptoms. Further states he went to dialysis today and he was advised to come to ED for his leg swelling. Also states he felt febrile last night but did not take his temperature nor did he take any antipyretics. Denies SOB, chest pain, trauma, change in leg swelling. Past Medical History Vital Signs: Last Vital Signs Temp 98.0 F 08/14/17 21:35 Pulse 89 08/14/17 21:35 Resp 18 08/14/17 21:35 BP 132/78 08/14/17 21:35 Pulse Ox 100 08/14/17 21:35 - Medical History PMH: Anemia, CHF, Diabetes, HTN, Hypercholesterolemia, Hypothyroidism, Chronic Kidney Disease (on dialysis) Denies: Arthritis, CVA, HIV, Kidney Stones - Surgical History Surgical History: Appendectomy - Family History Family History: States: Unknown Family Hx - Immunization History Hx Tetanus Toxoid Vaccination: No Hx Influenza Vaccination: Yes Hx Pneumococcal Vaccination: Yes - Home Medications Home Medications: Ambulatory Orders Medication Instructions Recorded Allopurinol [Zyloprim] 100 mg PO DAILY #30 tab 05/09/17 Levothyroxine [Synthroid] 75 mcg PO DAILY #30 tab 05/09/17 Metoprolol Succinate [Toprol XL] 50 mg PO BID #60 tab 05/09/17 SITagliptin [Januvia] 50 mg PO DAILY #30 tab 05/09/17 Aspirin [Ecotrin] 81 mg PO DAILY 06/30/17 Cilostazol [Pletal] 50 mg PO DAILY 06/30/17 Sevelamer Carbonate [Renvela] 1,600 mg PO TID 06/30/17 Clotrimazole/Betamethasone 30 ml TOP BID #2 bottle 07/18/17 [Lotrisone] Hydrocortisone 2.5% (Rectal) 30 applic ME BID #1 tube 07/18/17 [Anusol-HC] Levofloxacin [Levaquin] 500 mg PO QOTHERDAY #3 tablet 08/04/17 - Allergies Allergies/Adverse Reactions: Allergies Allergy/AdvReac Type Severity Reaction Status Date / Time No Known Allergies Allergy Verified 08/14/17 20:00 Physical Exam - Physical Exam Appears: Positive for: Well, Non-toxic, No Acute Distress Skin: Positive for: Normal Color, Warm. Negative for: Rash Eye Exam: Positive for: Normal appearance Cardiovascular/Chest: Positive for: Regular Rate, Rhythm. Negative for: Tachycardia Respiratory: Positive for: Normal Breath Sounds Pulses-Dorsalis Pedis (L): 2+ Pulses-Dorsalis Pedis (R): 2+ Extremity: Positive for: Pedal Edema (b/l; 2+), Swelling (b/l leg swelling 2+), Other (venous stasis findings on anterior shins; b/l legs without warmth or erythema or break in skin integrity; L arm fistula (+bruit)). Negative for: Calf Tenderness (b/l) Neurologic/Psych: Positive for: Alert, Oriented - ECG O2 Sat by Pulse Oximetry: 100 - Progress ED Course And Treament: States he has an appointment with a new primary care doctor next Thursday. Advised to f/u. Disposition - Clinical Impression Clinical Impression: Leg edema - Patient ED Disposition Is Patient to be Admitted: No - Disposition Referrals: [facility] [Outside] Disposition: Routine/Home Disposition Time: 14:30 Condition: STABLE Additional Instructions: Follow up with [facility] for further evaluation. Return to ED immediately if symptoms worsen. Instructions: Swelling Forms: [employer] (Tongan) Print Language: [email or web address]
[2017-08-14 23:57] VITALS: BP 130/77; PULSE 81; TEMP 98; O2SAT 98
== END 2017-08-14 23:56 | disposition home or self-care (01) ==
LOC: H.ER 18:55
DX: R60.0 Localized edema (principal); E03.9 Hypothyroidism, unspecified; E78.00 Pure hypercholesterolemia, unspecified; I50.9 Heart failure, unspecified; N18.6 End stage renal disease; Z79.82 Long term (current) use of aspirin; Z99.2 Dependence on renal dialysis

== ENCOUNTER 2017-10-18 16:53 | Emergency (ER) | payer OTHER ==
[2017-10-18 16:53] VITALS: BMI 27.4
[2017-10-18 16:57] VITALS: RESP 16; TEMP 98
--- NOTE | 2017-10-18 17:54 | ED PDOC ---
Lower Extremity Pain/Injury Time Seen by Provider: 10/18/17 16:59 Chief Complaint (Nursing): Lower Extremity Problem/Injury Chief Complaint (Provider): Lower Extremity Problem/Injury History Per: Patient History/Exam Limitations: no limitations Onset/Duration Of Symptoms: Hrs Current Symptoms Are (Timing): Still Present Additional Complaint(s): 72 y/o male with a significant PMHx of CHF and chronic kidney disease presents to the ED complaining of dizziness associated with lightheadedness, malaise, fatigue, mild shortness of breath, and leg swelling, onset today. Patient reports leg swelling as chronic secondary to renal failure and heart failure. Patient states he is on renal dialysis on Thursday, Thursday and Thursday and is compliant with appointments. PMD: Patient cannot recall Past Medical History Reviewed: Historical Data, Nursing Documentation, Vital Signs Vital Signs: Last Vital Signs Temp 98.0 F 10/18/17 16:55 Pulse 87 10/18/17 16:55 Resp 16 10/18/17 16:55 BP 101/72 10/18/17 16:55 Pulse Ox 100 10/18/17 16:55 - Medical History PMH: Anemia, CHF, Diabetes, HTN, Hypercholesterolemia, Hypothyroidism, Chronic Kidney Disease (on dialysis) Denies: Arthritis, CVA, HIV, Kidney Stones - Surgical History Surgical History: Appendectomy - Family History Family History: States: Unknown Family Hx - Immunization History Hx Tetanus Toxoid Vaccination: No Hx Influenza Vaccination: Yes Hx Pneumococcal Vaccination: Yes - Home Medications Home Medications: Ambulatory Orders Medication Instructions Recorded Allopurinol [Zyloprim] 100 mg PO DAILY #30 tab 05/09/17 Levothyroxine [Synthroid] 75 mcg PO DAILY #30 tab 05/09/17 Metoprolol Succinate XL [Toprol XL] 50 mg PO BID #60 tab 05/09/17 SITagliptin [Januvia] 50 mg PO DAILY #30 tab 05/09/17 Aspirin [Ecotrin] 81 mg PO DAILY 06/30/17 Cilostazol [Pletal] 50 mg PO DAILY 06/30/17 Sevelamer Carbonate [Renvela] 1,600 mg PO TID 06/30/17 Clotrimazole/Betamethasone 30 ml TOP BID #2 bottle 07/18/17 [Lotrisone] Hydrocortisone 2.5% (Rectal) 30 applic [place] BID #1 tube 07/18/17 [Anusol-HC] Levofloxacin [Levaquin] 500 mg PO QOTHERDAY #3 tablet 08/04/17 - Allergies Allergies/Adverse Reactions: Allergies Allergy/AdvReac Type Severity Reaction Status Date / Time No Known Allergies Allergy Verified 08/14/17 20:00 Review of Systems ROS Statement: Except As Marked, All Systems Reviewed And Found Negative (as per HPI) Constitutional: Positive for: Malaise, Other (fatigue) Respiratory: Positive for: Shortness of Breath (mild) Musculoskeletal: Positive for: Leg Pain (leg swelling) Neurological: Positive for: Dizziness (and lightheadedness) Physical Exam - Reviewed Nursing Documentation Reviewed: Yes Vital Signs Reviewed: Yes - Physical Exam Appears: Positive for: No Acute Distress (somewhat unkempt and disheveled) Head Exam: Positive for: ATRAUMATIC, NORMOCEPHALIC Skin: Positive for: Warm, Dry Eye Exam: Positive for: EOMI, PERRL ENT: Positive for: Pharynx Is (clear) Neck: Positive for: Painless ROM, Supple Cardiovascular/Chest: Positive for: Regular Rate, Rhythm. Negative for: Murmur Respiratory: Positive for: Decreased Breath Sounds (at bases of lungs otherwise clear to auscultation bilaterally). Negative for: Accessory Muscle Use, Wheezing, Respiratory Distress Gastrointestinal/Abdominal: Positive for: Soft. Negative for: Tenderness Back: Positive for: Normal Inspection. Negative for: Decreased ROM Extremity: Positive for: Normal ROM, Pedal Edema (pitting 1+ bilaterally) Lymphatic: Negative for: Adenopathy Neurologic/Psych: Positive for: Alert. Negative for: Motor/Sensory Deficits - Laboratory Results Result Diagrams: 10/18/17 18:04 10/18/17 18:04 - ECG ECG Rhythm: Positive for: Normal QRS, Sinus Rhythm Interpretation Of ECG: -- Prolonged QT -- Diffusely flattened T-waves Rate: 84 O2 Sat by Pulse Oximetry: 100 (RA) Pulse Ox Interpretation: Normal Medical Decision Making Medical Decision Making: Time: 1726 Impression: dizziness Differentials include but not limited to electrolyte abnormality, renal failure , anemia, and chronic heart failure Plan: -- EKG -- Alcohol Serum -- CMP -- Magnesium -- Phosphorus -- Troponin I -- CBC with differentials -- Glucose, POC -- IV Insertion -- Glucose, Blood, POC Labs c/w renal failure, stable c/w previous. Stable for dc. Scribe Attestation: Documented by Herbert Clay acting as a scribe for Dr. Krys Kilpatrick MD. Provider Scribe Attestation: All medical record entries made by the Scribe were at my direction and personally dictated by me. I have reviewed the chart and agree that the record accurately reflects my personal performance of the history, physical exam, medical decision making, and the department course for this patient. I have also personally directed, reviewed, and agree with the discharge instructions and disposition. Disposition - Clinical Impression Clinical Impression: Leg edema, Renal failure - Disposition Referrals: [facility] [Outside] Disposition: Routine/Home Disposition Time: 19:58 Condition: STABLE Additional Instructions: CONTINUA DU DIALISIS Y TODOS VINOD MEDICAMENTOS A RECETO Instructions: Dependent Edema (DC), Kidney Failure (DC) Print Language: POLISH
[2017-10-18 18:17] LABS: BASO # 0.1 K/uL (0.0-0.2); BASO % 1.5 % (0.0-2.0); EOS # 0.1 K/uL (0.0-0.7); EOS % 1.5 % (0.0-4.0); HEMOGLOBIN 11.2 g/dL (12.0-18.0); LYMPH % 15.2 % (20.0-40.0); MEAN CELL VOLUME 81.9 fl (80.0-94.0); MEAN CORPUSCULAR HEMOGLOBIN 24.6 pg (27.0-31.0); MEAN PLATELET VOLUME 9.2 fl (7.2-11.7); MONO # 0.8 K/uL (0.0-0.8); MONO % 11.4 % (0.0-10.0); NEUT # 4.8 K/uL (1.8-7.0); NEUT % 70.4 % (50.0-75.0); NRBC % 0.2 % (0.0-0.0); RBC 4.55 Mil/uL (4.40-5.90); WHITE BLOOD COUNT 6.8 K/uL (4.8-10.8)
[2017-10-18 18:28] LABS: ALB/GLOB RATIO 1.1 (1.0-2.1); ALBUMIN 3.6 g/dL (3.5-5.0); ALT/SGPT 30 U/L (21-72); AST/SGOT 33 U/L (17-59); BLOOD UREA NITROGEN 62 mg/dl (9-20); CALCIUM 8.8 mg/dL (8.4-10.2); GFR AFRICAN-AMERICAN 12; GFR NON-AFRICAN AMERICAN 10
[2017-10-18 21:15] VITALS: BP 101/62; PULSE 78; O2SAT 98
--- NOTE | 2017-10-19 09:31 | CARD ---
APPROVED REPORT EKG Measurement Heart [id number] <Conclusion> Normal sinus rhythm Rightward axis Nonspecific T wave abnormality Prolonged QT Abnormal ECG
--- NOTE | 2017-10-19 11:09 | RAD ---
HISTORY: weakness COMPARISON: 08/04/2017 FINDINGS: LUNGS: Hazy opacity in the lung bases. Increased vascular congestion. PLEURA: No significant pleural effusion identified, no pneumothorax apparent. CARDIOVASCULAR: Cardiomediastinal silhouette is enlarged. OSSEOUS STRUCTURES: Degenerative changes. VISUALIZED UPPER ABDOMEN: Upper abdomen is suboptimally evaluated. OTHER FINDINGS: None. IMPRESSION: Hazy opacity in the lung bases with increased pulmonary vascular congestion.
== END 2017-10-18 21:15 | disposition home or self-care (01) ==
LOC: H.ER 16:53
DX: R60.0 Localized edema (principal); N18.6 End stage renal disease; Z99.2 Dependence on renal dialysis
CPT/HCPCS: 71045; 80053; 82948; 83735; 84100; 84484; 85025; 93005; 99284; G0480; J7030